=== PATIENT | female | born 1930 | race Caucasian/White ===

== ENCOUNTER → 2016-12-17 | Outpatient (CLI) | payer MEDICARE ==
[2016-12-17 09:22] VITALS: BMI 28.0
== END | disposition home or self-care (01) ==
LOC: MNTWWP 08:39
PROVIDERS: ATTEND Family Medicine
DX: I50.42 Chronic combined systolic (congestive) and diastolic (congestive) heart failure (principal)
CPT/HCPCS: 97802

== ENCOUNTER → 2016-12-18 | Outpatient (CLI) | payer MEDICARE ==
--- NOTE | 2016-12-18 10:25 | CT ---
EXAMINATION TYPE: CT abdomen wo con DATE OF EXAM: 12/18/2016 9:21 AM COMPARISON: None. HISTORY: bloating and upper abd discomfort CT DLP: 243.2 mGycm Automated exposure control for dose reduction was used. TECHNIQUE: Helical acquisition of images was performed from the lung bases through the top of iliac crest to include entire abdomen. CONTRAST: Performed without Oral Contrast and without IV contrast. FINDINGS: Visualized portions of the lungs are clear. There is no pleural or pericardial fluid. There is a pacemaker within the heart. The heart is enlarged. There is elevation of the right hemidiaphragm. Within the abdomen, the gallbladder is nondistended. There is pericholecystic fluid. The liver is enl arged measuring 20 cm. The spleen is unremarkable. Both adrenal glands appear normal. There is a 1.7 cm exophytic mass arising the upper pole of the left kidney. There is a second 2 cm ex ophytic mass arising from posterior aspect of the mid polar region of the left kidney. The right kidn ey appears unremarkable. Limited views of the pancreas are unremarkable. There is moderate atheromatous calcification of the visualized arterial tree. There is no significant retroperitoneal adenopathy. Large and small bowel loops appear normal. There is degenerative disc disease, facet arthropathy and hypertrophic spondylosis involving the spin e. IMPRESSION: 1. ABNORMAL APPEARING GALLBLADDER WITH PERICHOLECYSTIC FLUID IS SUGGESTIVE OF CHOLECYSTITIS. 2. CARDIOMEGALY. 3. ELEVATION OF THE RIGHT HEMIDIAPHRAGM MAY REFLECT PARALYSIS. 4. HEPATOMEGALY. 5. MULTIPLE LEFT RENAL MASSES. RENAL ULTRASOUND WOULD BE SUGGESTED. 6. DEGENERATIVE CHANGES WITHIN THE SPINE. A Document Only message has been documented for César Reich DO in the [employer] [facility] Result system on 12/18/2016 10:22 AM, Message ID [id number].
== END | disposition home or self-care (01) ==
LOC: RADCTMAIN 08:36
PROVIDERS: ATTEND Family Medicine
DX: N28.89 Other specified disorders of kidney and ureter (principal); J98.6 Disorders of diaphragm; R16.0 Hepatomegaly, not elsewhere classified; R93.2 Abnormal findings on diagnostic imaging of liver and biliary tract
CPT/HCPCS: 74150

== ENCOUNTER 2016-12-19 11:50 | Inpatient (IN) | payer MEDICARE ==
--- NOTE | 2016-12-19 13:53 | ED ---
General Adult HPI - General Chief complaint: Abdominal Pain Stated complaint: abd pain Time Seen by Provider: 12/19/16 13:00 Source: patient, family, RN notes reviewed Mode of arrival: wheelchair Limitations: no limitations - History of Present Illness Initial comments: This is a 86-year-old female who presents emergency department stating that every time she eats her abdomen gets distended and it is painful. Patient states she is a little more tender in the right upper quadrant when this occurs. Patient states his been ongoing since the middle of winter. Patient states today it was much worse than normal. Patient states currently she has no abdominal pain whatsoever. Patient states she went to see her primary medical care doctor today after having had a CAT scan yesterday. Patient states that the CAT scan showed that there was something wrong with her gallbladder. Patient's primary symptoms emergency room to be evaluated. Again patient states currently she has no abdominal pain. She has no nausea currently but she did have nausea earlier. Patient denies any vomiting or diarrhea. Patient states it is directly related to eating typically. Patient denies any chest pain difficulty breathing or shortness of breath. - Related Data Home Medications Medication Instructions Recorded Confirmed Aspirin EC [Ecotrin Low Dose] 81 mg PO DAILY 12/19/16 12/19/16 Atenolol 25 mg PO TID 12/19/16 12/19/16 Digoxin [Lanoxin] 250 mcg PO DAILY 12/19/16 12/19/16 Furosemide [Lasix] 20 mg PO DAILY 12/19/16 12/19/16 Losartan [Cozaar] 25 mg PO BID 12/19/16 12/19/16 Omeprazole 20 mg PO DAILY 12/19/16 12/19/16 Pravastatin Sodium [Pravachol] 10 mg PO DAILY 12/19/16 12/19/16 Spironolactone 25 mg PO DAILY 12/19/16 12/19/16 Warfarin [Coumadin] 4 mg PO DAILY 12/19/16 12/19/16 Allergies Allergy/AdvReac Type Severity Reaction Status Date / Time cefaclor [From Ceclor] Allergy Unknown Verified 12/19/16 14:06 celecoxib [From Celebrex] Allergy Unknown Verified 12/19/16 14:06 cephalexin [From Keflex] Allergy Unknown Verified 12/19/16 14:06 clindamycin [From Cleocin] Allergy Unknown Verified 12/19/16 14:06 cortisone Allergy Unknown Verified 12/19/16 14:06 diphenhydramine Allergy Unknown Verified 12/19/16 14:06 [From Benadryl] dolasetron [From Anzemet] Allergy Unknown Verified 12/19/16 14:06 enalaprilat [From Vasotec] Allergy Unknown Verified 12/19/16 14:06 hydrocortisone [From Cortef] Allergy Unknown Verified 12/19/16 14:06 hydromorphone [From Dilaudid] Allergy Unknown Verified 12/19/16 14:06 hydroxyzine [From Vistaril] Allergy Unknown Verified 12/19/16 14:06 ibuprofen [From Motrin] Allergy Unknown Verified 12/19/16 14:06 Iodinated Contrast Media - Allergy Unknown Verified 12/19/16 14:06 Oral and levofloxacin [From Levaquin] Allergy Unknown Verified 12/19/16 14:06 methylprednisolone Allergy Unknown Verified 12/19/16 14:06 [From Medrol] morphine Allergy Unknown Verified 12/19/16 14:06 oxycodone Allergy Unknown Verified 12/19/16 14:06 Penicillins Allergy Unknown Verified 12/19/16 14:06 prednisone Allergy Unknown Verified 12/19/16 14:06 promethazine [From Phenergan] Allergy Unknown Verified 12/19/16 14:06 shellfish derived [Shellfish] Allergy Unknown Verified 12/19/16 14:06 STEROIDS Allergy Unknown Uncoded 12/19/16 14:06 Review of Systems ROS Statement: Those systems with pertinent positive or pertinent negative responses have been documented in the HPI. ROS Other: All systems not noted in ROS Statement are negative. Past Medical History Past Medical History: Atrial Fibrillation, Coronary Artery Disease (CAD), Chest Pain / Angina, Heart Failure, Hypertension, Myocardial Infarction (ND), Osteoarthritis (OA) Additional Past Medical History / Comment(s): eye infections History of Any Multi-Drug Resistant Organisms: None Reported Past Surgical History: AICD, Hysterectomy, Joint Replacement, Orthopedic Surgery Past Psychological History: No Psychological Hx Reported Smoking Status: Former smoker Past Alcohol Use History: None Reported Past Drug Use History: None Reported General Exam - General Exam Comments Initial Comments: GENERAL: Patient is well-developed and well-nourished. Patient is nontoxic and well- hydrated and is in no acute distress. ENT: Neck is soft and supple. No significant lymphadenopathy is noted. Oropharynx is clear. Moist mucous membranes. Neck has full range of motion without eliciting any pain. EYES: The sclera were anicteric and conjunctiva were pink and moist. Extraocular movements were intact and pupils were equal round and reactive to light. Eyelids were unremarkable. PULMONARY: Unlabored respirations. Good breath sounds bilaterally. No audible rales rhonchi or wheezing was noted. CARDIOVASCULAR: There is a regular rate and rhythm without any murmurs gallops or rubs. ABDOMEN: Minimal right upper quadrant tenderness. No palpable organomegaly was noted. There is no palpable pulsatile mass. SKIN: Skin is clear with no lesions or rashes and otherwise unremarkable. NEUROLOGIC: Patient is alert and oriented x3. Cranial nerves II through XII are grossly intact. Motor and sensory are also intact. Normal speech, volume and content. Symmetrical smile. MUSCULOSKELETAL: Normal extremities with adequate strength and full range of motion. No lower extremity swelling or edema. No calf tenderness. LYMPHATICS: No significant lymphadenopathy is noted PSYCHIATRIC: Normal psychiatric evaluation. Normal interpersonal interactions appears functionally intact in deals appropriately with others. No signs of depression. No signs of anxiety. Limitations: no limitations Course Vital Signs 12/19/16 12/19/16 11:52 15:00 Temperature 97.8 F Pulse Rate 77 70 Respiratory 20 16 Rate Blood Pressure 120/77 139/73 O2 Sat by Pulse 97 99 Oximetry Medical Decision Making - Medical Decision Making EKG shows an electronically paced rhythm at 70 bpm QRS is 186 QT interval 472 QTC is 509. Ultrasound and CAT scan both saw evidence of possible acute cholecystitis. - Lab Data Result diagrams: 12/19/16 13:47 12/19/16 13:47 Lab Results 12/19/16 12/19/16 12/19/16 Range/Units 13:47 13:47 13:47 WBC 9.4 (3.8-10.6) k/uL RBC 5.09 (3.80-5.40) m/uL Hgb 15.8 (11.4-16.0) gm/dL Hct 46.4 H (34.0-46.0) % MCV 91.2 (80.0-100.0) fL MCH 31.1 (25.0-35.0) pg MCHC 34.1 (31.0-37.0) g/dL RDW 14.0 (11.5-15.5) % Plt Count 162 (150-450) k/uL Neutrophils % 75 % Lymphocytes % 16 % Monocytes % 7 % Eosinophils % 1 % Basophils % 0 % Neutrophils # 7.0 (1.3-7.7) k/uL Lymphocytes # 1.5 (1.0-4.8) k/uL Monocytes # 0.7 (0-1.0) k/uL Eosinophils # 0.1 (0-0.7) k/uL Basophils # 0.0 (0-0.2) k/uL Sodium 134 L (137-145) mmol/L Potassium 4.3 (3.5-5.1) mmol/L Chloride 92 L (98-107) mmol/L Carbon Dioxide 29 (22-30) mmol/L Anion Gap 13 mmol/L BUN 29 H (7-17) mg/dL Creatinine 1.01 (0.52-1.04) mg/dL Est GFR (MDRD) Af Amer >60 (>60 ml/min/1.73 sqM) Est GFR (MDRD) Non-Af 52 (>60 ml/min/1.73 sqM) Glucose 92 (74-99) mg/dL Plasma Lactic Acid Stuart (0.7-2.0) mmol/L Calcium 9.9 (8.4-10.2) mg/dL Total Bilirubin 1.5 H (0.2-1.3) mg/dL AST 41 H (14-36) U/L ALT 27 (9-52) U/L Alkaline Phosphatase 61 (38-126) U/L Total Creatine Kinase 153 H (30-135) U/L CK-MB (CK-2) 3.3 H* (0.0-2.4) ng/mL CK-MB (CK-2) Rel Index 2.2 Troponin I 0.078 H* (0.000-0.034) ng/mL Total Protein 7.8 (6.3-8.2) g/dL Albumin 4.8 (3.5-5.0) g/dL Amylase 83 (30-110) U/L Lipase 150 (23-300) U/L Urine Color Urine Appearance (Clear) Urine pH (5.0-8.0) Ur Specific [place] (1.001-1.035) Urine Protein (Negative) Urine Glucose (UA) (Negative) Urine Ketones (Negative) Urine Blood (Negative) Urine Nitrite (Negative) Urine Bilirubin (Negative) Urine Urobilinogen (<2.0) mg/dL Ur Leukocyte Esterase (Negative) Urine WBC (0-5) /hpf Ur Squamous Epith Cells (0-4) /hpf Urine Bacteria (None) /hpf 12/19/16 12/19/16 Range/Units 13:47 14:03 WBC (3.8-10.6) k/uL RBC (3.80-5.40) m/uL Hgb (11.4-16.0) gm/dL Hct (34.0-46.0) % MCV (80.0-100.0) fL MCH (25.0-35.0) pg MCHC (31.0-37.0) g/dL RDW (11.5-15.5) % Plt Count (150-450) k/uL Neutrophils % % Lymphocytes % % Monocytes % % Eosinophils % % Basophils % % Neutrophils # (1.3-7.7) k/uL Lymphocytes # (1.0-4.8) k/uL Monocytes # (0-1.0) k/uL Eosinophils # (0-0.7) k/uL Basophils # (0-0.2) k/uL Sodium (137-145) mmol/L Potassium (3.5-5.1) mmol/L Chloride (98-107) mmol/L Carbon Dioxide (22-30) mmol/L Anion Gap mmol/L BUN (7-17) mg/dL Creatinine (0.52-1.04) mg/dL Est GFR (MDRD) Af Amer (>60 ml/min/1.73 sqM) Est GFR (MDRD) Non-Af (>60 ml/min/1.73 sqM) Glucose (74-99) mg/dL Plasma Lactic Acid Stuart 1.1 (0.7-2.0) mmol/L Calcium (8.4-10.2) mg/dL Total Bilirubin (0.2-1.3) mg/dL AST (14-36) U/L ALT (9-52) U/L Alkaline Phosphatase (38-126) U/L Total Creatine Kinase (30-135) U/L CK-MB (CK-2) (0.0-2.4) ng/mL CK-MB (CK-2) Rel Index Troponin I (0.000-0.034) ng/mL Total Protein (6.3-8.2) g/dL Albumin (3.5-5.0) g/dL Amylase (30-110) U/L Lipase (23-300) U/L Urine Color Light Yellow Urine Appearance Clear (Clear) Urine pH 6.5 (5.0-8.0) Ur Specific [place] 1.004 (1.001-1.035) Urine Protein Trace H (Negative) Urine Glucose (UA) Negative (Negative) Urine Ketones Negative (Negative) Urine Blood Negative (Negative) Urine Nitrite Negative (Negative) Urine Bilirubin Negative (Negative) Urine Urobilinogen <2.0 (<2.0) mg/dL Ur Leukocyte Esterase Moderate H (Negative) Urine WBC 2 (0-5) /hpf Ur Squamous Epith Cells 4 (0-4) /hpf Urine Bacteria Rare H (None) /hpf Disposition Clinical Impression: Elevated troponin, Cholecystitis Disposition: ADMITTED IP TO THIS HOSP Referrals: César Reich DO [Primary Care Provider] - 1-2 days Time of Disposition: 15:45
[2016-12-19 14:03] LABS: Basophils % (A) 0 %; CH 30.6; CHCM 33.7; Eosinophils # (A) 0.1 k/uL (0-0.7); Eosinophils % (A) 1 %; HCT 46.4 % (34.0-46.0); HDW 2.37; HGB 15.8 gm/dL (11.4-16.0); Luc # (Auto) 0.12; Luc % (Auto) 1; Lymphocytes # (A) 1.5 k/uL (1.0-4.8); Lymphocytes % (A) 16 %; MCH 31.1 pg (25.0-35.0); MCHC 34.1 g/dL (31.0-37.0); MCV 91.2 fL (80.0-100.0); Mean Platelet Volume 7.6; Monocytes # (A) 0.7 k/uL (0-1.0); Monocytes % (A) 7 %; Neutrophils % (A) 75 %; RBC 5.09 m/uL (3.80-5.40); WBC 9.4 k/uL (3.8-10.6); WBC (Perox) 9.25
[2016-12-19 14:15] LABS: ALT 27 U/L (9-52); AST 41 U/L (14-36); Alkaline Phosphatase 61 U/L (38-126); Amylase 83 U/L (30-110); Anion Gap 13 mmol/L; Blood Urea Nitrogen 29 mg/dL (7-17); Calcium 9.9 mg/dL (8.4-10.2); Carbon Dioxide 29 mmol/L (22-30); Chloride 92 mmol/L (98-107); Glucose 92 mg/dL (74-99); Non-African American GFR(MDRD) 52 (>60 ml/min/1.73 sqM); Potassium 4.3 mmol/L (3.5-5.1); Sodium 134 mmol/L (137-145); Total Bilirubin 1.5 mg/dL (0.2-1.3); Total Protein 7.8 g/dL (6.3-8.2)
[2016-12-19 14:19] LABS: Appearance,Urine Clear (Clear); Bacteria,Urine Rare /hpf; Bilirubin,Urine Negative (Negative); Glucose,Urine (UA) Negative (Negative); Ketones,Urine Negative (Negative); Leukocyte Esterase,Urine Moderate (Negative); Nitrite,Urine Negative (Negative); PH, Urine 6.5 (5.0-8.0); Particle Count 5472; Protein,Urine Trace (Negative); Specific Gravity,Urine 1.004 (1.001-1.035); Squamous Epithelial Cell,Urine 4 /hpf (0-4); UA Billing (MACRO vs. MICRO) MICRO; Urobilinogen,Urine <2.0 mg/dL (<2.0); WBC,Urine 2 /hpf (0-5)
[2016-12-19 14:45] LABS: Creatine Kinase MB 3.3 ng/mL (0.0-2.4); Troponin I 0.078 ng/mL (0.000-0.034)
--- NOTE | 2016-12-19 15:21 | US ---
EXAMINATION TYPE: US gallbladder DATE OF EXAM: 12/19/2016 2:39 PM COMPARISON: CT CLINICAL HISTORY: Pain. ABD pain, abnormal CT EXAM MEASUREMENTS: Liver Length: 13.5 cm Gallbladder Wall: 1.0 cm CBD: 0.4 cm Right Kidney: 11.1 x 4.1 x 5.4 cm Pancreas: Pancreatic duct visible= 3mm, otherwise appeared wnl Liver: wnl Gallbladder: Lumen clear, Somewhat contracted, wall thickened with pericholecystic fluid Evidence for sonographic Canseco's sign: No CBD: wnl Right Kidney: wnl IMPRESSION: 1. Clinical correlation recommended for acute cholecystitis.
[2016-12-19] MEDS ORDERED: NITROGLYCERIN OINT 1 INCH/GM PACKET TOPICAL STA (15:35)
[2016-12-19] MEDS ORDERED: ASPIRIN 81 MG CHEW PO STA (15:35)
[2016-12-19] MEDS ORDERED: NITROGLYCERIN SL TABS 0.4 MG TAB SUBLINGUAL PRN (15:49)
[2016-12-19] MEDS ORDERED: ALPRAZolam 0.25 MG TAB PO PRN (17:22)
--- NOTE | 2016-12-19 18:21 | XR ---
EXAMINATION TYPE: XR chest 1V portable DATE OF EXAM: 12/19/2016 6:03 PM COMPARISON: 12/01/2013 HISTORY: Heart failure TECHNIQUE: Single frontal view of the chest is obtained. FINDINGS: Heart is enlarged. There is no heart failure. Lungs are clear of consolidation. There is a left axillary pacemaker with the lead tips in the right ventricle. There is no pleural effusion. IMPRESSION: Cardiomegaly. No active cardiopulmonary disease. No change.
[2016-12-19] MEDS: ATENOLOL 25 MG TAB PO SCH ×2 (18:34→22:24)
[2016-12-19] MEDS: PANTOPRAZOLE 40 MG/10 ML VIAL IVP SCH ×2 (18:34→22:20)
[2016-12-19] MEDS: NITROGLYCERIN OINT 1 INCH/GM PACKET TOPICAL SCH (18:35)
[2016-12-19] MEDS: TOBRAMYCIN 0.3% OPHTH DROPS 5 ML BTL BOTH EYES SCH ×2 (18:35→22:24)
[2016-12-19] MEDS: SODIUM CHLORIDE 0.9% 1,000 ML IV SCH (18:35)
[2016-12-19 20:08] LABS: INR 3.4 (<1.1); Prothrombin Time 32.9 sec (9.0-12.0)
[2016-12-19 20:56] LABS: Creatine Kinase MB 2.5 ng/mL (0.0-2.4); Troponin I 0.075 ng/mL (0.000-0.034)
[2016-12-19] MEDS: LOSARTAN 25 MG TAB PO SCH (22:24)
[2016-12-19] MEDS: LORazepam 0.5 MG TAB PO PRN (22:24)
--- NOTE | 2016-12-19 22:52 | HP ---
DATE OF SERVICE: 12/19/2016 CHIEF COMPLAINT: Abdominal pain. HISTORY OF PRESENT ILLNESS: This 86-year-old woman with a past history of atrial fibrillation, history of CAD, history of CHF, hypertension, history of myocardial infarction, history of DJD, history of AICD being followed by Dr. Reich as an outpatient recently came back from [place], [place], where the patient had multiple evaluations. Patient for the last 1 year almost, the patient has had recurrent abdominal pain, especially after eating, band-like sensation in the upper part of the abdomen. The patient was apparently seen by Cardiology. Diuretic dose has been adjusted at this time. After coming back to [place], Dr. Riech recommended a CT scan of the abdomen which showed abdominal pain and gallbladder with pericholecystic fluid suggestive of cholecystitis, cardiomegaly, elevated right hemidiaphragm, hepatomegaly, multiple left renal masses known to the patient. the patient came to [facility] today and admitted for further evaluation and treatment. The patient had features of acute cholecystitis on the ultrasound; however, the troponin was found to be indeterminate at to 0.07, yet the patient admitted for further evaluation and treatment. There is no history of any fever, rigors, chills. No history of headache, loss of consciousness, seizures. No history of chest pain per se at this time. PAST MEDICAL HISTORY: History of atrial fibrillation, history of CAD, history of CHF, history of hypertension, history of myocardial infarction, DJD, history of AICD, hysterectomy. Medications prior to admission include home medications are: 1. Tobramycin 3% eye drops both eyes q.4h. 2. Patanol 1 drop b.i.d. 4. Ecotrin 81 mg daily. 5. Coumadin 4 mg daily. 6. Aldactone 25 mg p.o. daily. 7. Pravachol 40 mg daily. 8. Cozaar 25 mg b.i.d. 9. Metoprolol 25 mg t.i.d. 10. Lasix 20 mg p.o. daily. 11. Lanoxin 250 mcg p.o. daily. ALLERGIES: MULTIPLE ALLERGIES. CEFACLOR, CEPHALEXIN, CLINDAMYCIN, CORTISONE, DIPHENHYDRAMINE, DOLASETRON, ENALAPRIL, HYDROCORTISONE, , IBUPROFEN, LEVAQUIN, METHYLPREDNISOLONE, MORPHINE, OXYCODONE, PENICILLIN AND PREDNISONE, , SHELLFISH, STEROIDS. FAMILY HISTORY: No history of heart disease, strokes in the family. SOCIAL HISTORY: Previous history of smoking. No history of current smoking or alcohol. REVIEW OF SYSTEMS: ENT: Diminished hearing. Diminished vision. CARDIOVASCULAR: As mentioned earlier. RESPIRATORY: As mentioned earlier. GI: As mentioned earlier. : No dysuria. NERVOUS: No numbness or weakness. ALLERGY/IMMUNOLOGY: No asthma. MUSCULOSKELETAL: As mentioned earlier. HEMATOLOGY/ONCOLOGY: As mentioned earlier. ENDOCRINE: No history of diabetes, hypothyroidism. CONSTITUTIONAL: As mentioned earlier. DERMATOLOGY: Negative. RHEUMATOLOGY: Negative. PSYCHIATRY: As mentioned earlier. PHYSICAL EXAM: Patient alert and oriented x3. Pulse is 70, 134/75, respirations 18, temperature 98.6, pulse ox of 90% on 3L. HEENT: Conjunctivae normal. Oral mucosa moist. NECK: No jugular venous distention. No carotid bruits. No lymph node enlargement. No thyroid enlargement. CARDIOVASCULAR SYSTEM: Irregular. RESPIRATORY: Breath sounds diminished in the bases. A few scattered rhonchi. No crackles. ABDOMEN: Soft. Mild diffuse discomfort and minimal tenderness in the right upper quadrant present and also the epigastrium. No guarding. No rigidity. No mass palpable. Bowel sounds present. No ascites. LEGS: No edema. No swelling. NERVOUS SYSTEM: Higher functions as mentioned earlier. Moves all 4 limbs. No focal motor or sensory deficits. LYMPHATIC: No lymphadenopathy in neck, axillae or groin. SKIN: No ulcer, rash or bleeding. LABS: CBC within normal limits. Sodium 134. Total bilirubin is 1.5, AST is 41. Troponin 0.78. UA noted. ASSESSMENT: 1. Abdominal pain, possible acute cholecystitis. 2. Troponin 0.078, indeterminate. 3. Possible urinary tract infection, mild. 4. Increased bilirubin. 5. Increased AST. 6. Hyponatremia. 7. History of atrial fibrillation. 8. History of coronary artery disease. 9. History of congestive heart failure, ejection fraction unknown. 10. History of hypertension, essential. 11. History of myocardial infarction. 12. History of degenerative joint disease. 13. History of automatic implantable cardioverter defibrillator. 14. Remote history of nicotine dependence. RECOMMENDATIONS AND DISCUSSION: In this 86-year-old woman who presented with multiple complex medical issues, we will monitor the patient closely. Continue the current medications. Continue with symptomatic treatment. Will obtain cardiology consultation. Will monitor. PT, INR closely. Hold the Coumadin for now. Surgical consultation for surgical evaluation of the possible cholecystitis. Prognosis extremely guarded because of multiple complex medical issues. The patient also has multiple allergies. Also will continue to monitor. Further recommendations to follow. Will obtain cultures and continue to monitor. As mentioned earlier, the white count is normal at this time. A copy of this dictation will be forwarded to Dr. Reich, who is the primary physician. AWILDA
[2016-12-20] MEDS: NITROGLYCERIN OINT 1 INCH/GM PACKET TOPICAL SCH ×5 (00:15→23:47)
[2016-12-20 02:12] LABS: Creatine Kinase MB 2.6 ng/mL (0.0-2.4); Troponin I 0.072 ng/mL (0.000-0.034)
[2016-12-20] MEDS: TOBRAMYCIN 0.3% OPHTH DROPS 5 ML BTL BOTH EYES SCH ×6 (04:19→20:59)
[2016-12-20 06:31] LABS: Basophils % (A) 0 %; CH 30.6; CHCM 34.3; Eosinophils # (A) 0.1 k/uL (0-0.7); Eosinophils % (A) 1 %; HCT 40.7 % (34.0-46.0); HDW 2.48; HGB 13.9 gm/dL (11.4-16.0); Luc # (Auto) 0.13; Luc % (Auto) 2; Lymphocytes # (A) 1.3 k/uL (1.0-4.8); Lymphocytes % (A) 16 %; MCH 30.6 pg (25.0-35.0); MCHC 34.1 g/dL (31.0-37.0); MCV 89.7 fL (80.0-100.0); Mean Platelet Volume 7.7; Monocytes # (A) 0.6 k/uL (0-1.0); Monocytes % (A) 7 %; Neutrophils # (A) 5.9 k/uL (1.3-7.7); Neutrophils % (A) 74 %; RBC 4.54 m/uL (3.80-5.40); RDW 13.9 % (11.5-15.5); WBC 7.9 k/uL (3.8-10.6); WBC (Perox) 7.72
[2016-12-20 06:37] LABS: INR 2.6 (<1.1); Prothrombin Time 25.3 sec (9.0-12.0)
[2016-12-20 06:41] LABS: Calcium 9.4 mg/dL (8.4-10.2); Potassium 4.4 mmol/L (3.5-5.1); Total Bilirubin 2.1 mg/dL (0.2-1.3); Total Protein 6.5 g/dL (6.3-8.2)
[2016-12-20 10:21] VITALS: BMI 28.8
--- NOTE | 2016-12-20 10:47 | US ---
EXAMINATION TYPE: US renals and bladder DATE OF EXAM: 12/20/2016 8:29 AM COMPARISON: CT dated 18 Dec 2016 CLINICAL HISTORY: renal mass. Left renal mass seen on recent CT EXAM MEASUREMENTS: Right Kidney: 10.3 x 4.7 x 6.1 cm Left Kidney: 10.1 x 4.9 x 4.2 cm Right Kidney: no hydronephrosis or masses seen at this time, inferior pole partially obscured by over lying bowel gas Left Kidney: multiple cystic areas throughout with largest 2 measured: 1.9 x 1.9 x 1.7cm superior patrizia e and 2.0 x 1.6 x 1.8cm mid pole Bladder: not fully distended, appears wnl as seen Bilateral Jets seen: yes There is no evidence for hydronephrosis at this point in time. No nephrolithiasis is seen. No adarsh s are identified. The urinary bladder is anechoic. Bilateral ureteral jets are seen. Cystic foci correspond to lesions seen on CT show increased through transmission and imperceptible wa ll compatible with simple cysts. IMPRESSION: Multiple cortical cysts appears simple within the left kidney.
--- NOTE | 2016-12-20 11:36 | P.CRDCN ---
<Deanna Goldsmith E - Last Filed: 12/20/16 11:10> History of Present Illness Consult date: 12/20/16 Requesting physician: Parvez Spencer Consult reason: chest pain Chief complaint: Abdominal pain, bloating, chest pains History of present illness: This is an 86-year-old female with history of paroxysmal atrial fibrillation, prior myocardial infarctions, prior AICD implantation, hypertension, who presents to the hospital primarily with symptoms of abdominal bloating. Patient states that when she ever she eats she gets significantly bloated in her abdomen. This ulcer, then belches several times, and seems to get relief of symptoms. She has also been experiencing midsternal chest pressure and heaviness with associated shortness of breath as well. In spite of the chest pressure, patient also states that she has been noticing more shortness of breath than usual. Bladder ultrasound performed on admission here suggested acute cholecystitis. EKG shows ventricular paced rhythm. Subsequent EKGs performed here show ventricular paced rhythm with significant ST depression in the anterior lateral leads. On review of patient's prior EKGs it is noted that she has had this ST depression in the anterior leads noted in the past. The EKGs performed here show the ST depression at times of chest pain. Renal ultrasound shows multiple cortical cyst at the left kidney. CBC normal, INR 2.6, potassium 4.4, BUN 27, creatinine 1.1. Troponin 0.078, 0.075, 0.072. Blood pressure on arrival 120/70 with a heart rate in the 70s, 97% on room air. Of note, the patient has been following with a coupling machine operator at [facility], she has an upcoming appointment to see Dr. Thomas in the office as a new patient. Past Medical History Past Medical History: Atrial Fibrillation, Coronary Artery Disease (CAD), Chest Pain / Angina, Heart Failure, GERD/Reflux, Hypertension, Myocardial Infarction ( [place]), Osteoarthritis (OA), Pneumonia Additional Past Medical History / Comment(s): recently treated for ruben eye bacterial infection, home o2 3 liters n/c, cardiomyopathy,"arrythmia", mi x4, v- tach 2008, osteoporosis, diverticultiis,hiatal hernia, anxiety , bone spurs lt shoulder Last Myocardial Infarction Date:: unk History of Any Multi-Drug Resistant Organisms: None Reported Past Surgical History: AICD, Heart Catheterization, Hysterectomy, Joint Replacement, Orthopedic Surgery, Pacemaker Additional Past Surgical History / Comment(s): sx to repair broken nose, d&c, ruben foot sx ruben bunionectomy, lt knee replacment, rt knee arthrosocpy. Past Anesthesia/Blood Transfusion Reactions: Motion Sickness, Postoperative Nausea & Vomiting (PONV) Type of Cardiac Device: Permanent Pacemaker, AICD Device Placement Date:: unk Past Psychological History: No Psychological Hx Reported Additional Psychological History / Comment(s): pt lives with spouse in a 2 story home that has 4 steps to get into home,10 steps up and 10 steps to basement where laundry facilities are. no pets.pt has home 02, shower chair, walker cane. Smoking Status: Former smoker Past Alcohol Use History: None Reported Additional Past Alcohol Use History / Comment(s): started smoking at age 19(1949 ) smoked 1ppd, quit 1964 Past Drug Use History: None Reported - Past Family History Mother Family Medical History: Cancer, Diabetes Mellitus Additional Family Medical History / Comment(s): uterine cancer Daughter(s) Family Medical History: Cancer Additional Family Medical History / Comment(s): ovarian cancer Father Additional Family Medical History / Comment(s): cardiac problems Medications and Allergies Home Medications Medication Instructions Recorded Confirmed Type Aspirin EC [Ecotrin Low Dose] 81 mg PO DAILY 12/19/16 12/19/16 History Atenolol 25 mg PO TID 12/19/16 12/19/16 History Digoxin [Lanoxin] 250 mcg PO DAILY 12/19/16 12/19/16 History Furosemide [Lasix] 20 mg PO DAILY 12/19/16 12/19/16 History LORazepam [Ativan] 1 mg PO HS 12/19/16 12/19/16 History Losartan [Cozaar] 25 mg PO BID 12/19/16 12/19/16 History Olopatadine HCl [Patanol] 1 drop OPHTHALMIC BID 12/19/16 12/19/16 History Omeprazole 20 mg PO DAILY 12/19/16 12/19/16 History Pravastatin Sodium [Pravachol] 10 mg PO DAILY 12/19/16 12/19/16 History Spironolactone 25 mg PO DAILY 12/19/16 12/19/16 History Tobramycin 0.3% Ophth Soln [Tobrex 1 drop BOTH EYES Q4H 12/19/16 12/19/16 History 0.3% Ophth Soln] Warfarin [Coumadin] 4 mg PO DAILY 12/19/16 12/19/16 History Allergies Allergy/AdvReac Type Severity Reaction Status Date / Time cefaclor [From Ceclor] Allergy Unknown Verified 12/19/16 14:06 celecoxib [From Celebrex] Allergy Unknown Verified 12/19/16 14:06 cephalexin [From Keflex] Allergy Unknown Verified 12/19/16 14:06 clindamycin [From Cleocin] Allergy Unknown Verified 12/19/16 14:06 cortisone Allergy Unknown Verified 12/19/16 14:06 diphenhydramine Allergy Unknown Verified 12/19/16 14:06 [From Benadryl] dolasetron [From Anzemet] Allergy Unknown Verified 12/19/16 14:06 enalaprilat [From Vasotec] Allergy Unknown Verified 12/19/16 14:06 hydrocortisone [From Cortef] Allergy Unknown Verified 12/19/16 14:06 hydromorphone [From Dilaudid] Allergy Unknown Verified 12/19/16 14:06 hydroxyzine [From Vistaril] Allergy Unknown Verified 12/19/16 14:06 ibuprofen [From Motrin] Allergy Unknown Verified 12/19/16 14:06 Iodinated Contrast Media - Allergy Unknown Verified 12/19/16 14:06 Oral and levofloxacin [From Levaquin] Allergy Unknown Verified 12/19/16 14:06 methylprednisolone Allergy Unknown Verified 12/19/16 14:06 [From Medrol] morphine Allergy Unknown Verified 12/19/16 14:06 oxycodone Allergy Unknown Verified 12/19/16 14:06 Penicillins Allergy Unknown Verified 12/19/16 14:06 prednisone Allergy Unknown Verified 12/19/16 14:06 promethazine [From Phenergan] Allergy Unknown Verified 12/19/16 14:06 shellfish derived [Shellfish] Allergy Unknown Verified 12/19/16 14:06 STEROIDS Allergy Unknown Uncoded 12/19/16 14:06 Physical Exam Vitals: Vital Signs Temp Pulse Pulse Resp BP BP BP 12/20/16 09:00 97.0 F L 74 18 124/92 12/20/16 04:00 97.8 F 71 18 120/76 12/20/16 00:00 97.6 F 80 18 118/73 12/19/16 20:00 97.4 F L 71 18 124/83 12/19/16 17:00 71 16 137/81 12/19/16 15:58 98.6 F 70 18 134/75 12/19/16 15:00 70 16 139/73 12/19/16 11:52 97.8 F 77 20 120/77 Pulse Ox 12/20/16 09:00 99 12/20/16 04:00 97 12/20/16 00:00 96 12/19/16 20:00 98 12/19/16 17:00 100 12/19/16 15:58 100 12/19/16 15:00 99 12/19/16 11:52 97 Intake and Output 12/19/16 12/20/16 12/20/16 22:59 06:59 14:59 Intake Total 100 440 0 Output Total 500 200 Balance 100 -60 -200 Intake: IV 40 Sodium Chloride 0.9% 1, 40 000 ml @ 40 mls/hr IV . Q24H [facility] Rx#:[id number] Intake, IV Titration 440 Amount Sodium Chloride 0.9% 1, 440 000 ml @ 40 mls/hr IV . Q24H [facility] Rx#:[id number] Oral 60 0 Output: Urine 500 200 Other: Voiding Method Toilet Toilet Toilet Weight 73.8 kg 73.8 kg Patient Weight 12/21/16 06:59 Weight 73.8 kg PHYSICAL EXAMINATION: HEENT: Head is atraumatic, normocephalic. Pupils equal, round. Neck is supple. There is no elevated jugular venous pressure. HEART EXAMINATION: Heart S1 and S2 irregularly irregular Systolic murmur is heard. CHEST EXAMINATION: Lungs are clear to auscultation and precussion. No chest wall tenderness is noted on palpation or with deep breathing. ABDOMEN: Soft, positive right upper quadrant tenderness on palpation . Bowel sounds are heard. No organomegaly noted. EXTREMITIES: 2+ peripheral pulses with no evidence of peripheral edema and no calf tenderness noted. NEUROLOGIC patient is awake, alert and oriented -3. . Results 12/20/16 05:34 12/20/16 05:34 Cardiac Enzymes 12/19/16 12/19/16 12/19/16 Range/Units 13:47 13:47 19:28 AST 41 H (14-36) U/L CK-MB (CK-2) 3.3 H* 2.5 H* (0.0-2.4) ng/mL Troponin I 0.078 H* 0.075 H* (0.000-0.034) ng/mL 12/20/16 12/20/16 Range/Units 01:26 05:34 AST 32 (14-36) U/L CK-MB (CK-2) 2.6 H* (0.0-2.4) ng/mL Troponin I 0.072 H* (0.000-0.034) ng/mL Coagulation 12/19/16 12/20/16 Range/Units 19:28 05:34 PT 32.9 H 25.3 H (9.0-12.0) sec Lipids 12/20/16 Range/Units 05:34 Triglycerides 73 (<150) mg/dL Cholesterol 108 (<200) mg/dL HDL Cholesterol 30 L (40-60) mg/dL CBC 12/19/16 12/20/16 Range/Units 13:47 05:34 WBC 9.4 7.9 (3.8-10.6) k/uL RBC 5.09 4.54 (3.80-5.40) m/uL Hgb 15.8 13.9 (11.4-16.0) gm/dL Hct 46.4 H 40.7 (34.0-46.0) % Plt Count 162 131 L (150-450) k/uL Comprehensive Metabolic Panel 12/19/16 12/20/16 Range/Units 13:47 05:34 Sodium 134 L 135 L (137-145) mmol/L Potassium 4.3 4.4 (3.5-5.1) mmol/L Chloride 92 L 91 L (98-107) mmol/L Carbon Dioxide 29 31 H (22-30) mmol/L BUN 29 H 27 H (7-17) mg/dL Creatinine 1.01 1.13 H (0.52-1.04) mg/dL Glucose 92 92 (74-99) mg/dL Calcium 9.9 9.4 (8.4-10.2) mg/dL AST 41 H 32 (14-36) U/L ALT 27 29 (9-52) U/L Alkaline Phosphatase 61 58 (38-126) U/L Total Protein 7.8 6.5 (6.3-8.2) g/dL Albumin 4.8 3.9 (3.5-5.0) g/dL Current Medications Generic Name Dose Route Start Last Admin Trade Name Freq PRN Reason Stop Dose Admin Alprazolam 0.25 mg 12/19/16 17:22 Xanax PO TID PRN Anxiety Aspirin 325 mg 12/20/16 09:00 Aspirin PO DAILY [facility] Atenolol 25 mg 12/19/16 17:30 12/19/16 22:24 Tenormin PO 25 mg TID [facility] Administration Digoxin 250 mcg 12/20/16 09:00 Lanoxin PO DAILY [facility] Furosemide 20 mg 12/20/16 09:00 Lasix PO DAILY [facility] Sodium Chloride 1,000 mls @ 40 mls/hr 12/19/16 17:30 12/19/16 18:35 Saline 0.9% IV 40 mls/hr .Q24H [facility] Administration Lorazepam 0.5 mg 12/19/16 17:45 12/19/16 22:24 Ativan PO 0.5 mg HS PRN Administration SLEEP Losartan Potassium 25 mg 12/19/16 21:00 12/19/16 22:24 Cozaar PO 25 mg BID [facility] Administration Nitroglycerin 1 inch 12/19/16 18:00 12/20/16 06:27 Nitro-Bid Oint TOPICAL Not Given Q6HR [facility] Nitroglycerin 0.4 mg 12/19/16 15:49 Nitrostat SUBLINGUAL Q5M PRN Chest Pain Pantoprazole Sodium 40 mg 12/19/16 17:23 12/19/16 22:20 Protonix IVP Not Given BID [facility] Spironolactone 25 mg 12/20/16 09:00 Aldactone PO DAILY [facility] Tobramycin 1 drops 12/19/16 18:00 12/20/16 06:51 Tobrex BOTH EYES 1 drops Q4H [facility] Administration Intake and Output 12/19/16 12/20/16 12/20/16 22:59 06:59 14:59 Intake Total 100 440 0 Output Total 500 200 Balance 100 -60 -200 Intake: IV 40 Sodium Chloride 0.9% 1, 40 000 ml @ 40 mls/hr IV . Q24H [facility] Rx#:[id number] Intake, IV Titration 440 Amount Sodium Chloride 0.9% 1, 440 000 ml @ 40 mls/hr IV . Q24H [facility] Rx#:[id number] Oral 60 0 Output: Urine 500 200 Other: Voiding Method Toilet Toilet Toilet Weight 73.8 kg 73.8 kg Patient Weight 12/21/16 06:59 Weight 73.8 kg 12/20/16 05:34 12/20/16 05:34 EKG Interpretations (text) EKG shows a ventricular paced rhythm with underlying atrial fibrillation. Repeat EKG at time of chest pain shows ventricular paced rhythm with significant anterior lateral ST depression Assessment and Plan Plan: Assessment and plan #1 Symptoms of midsternal chest pressure with associated shortness of breath. Abnormal troponins. EKG shows ventricular paced rhythm with anterior lateral ST depression. Patient does state that she has had for myocardial infarction's in the past, this reminds her of her MIs in the past. She also states that she has not required intervention in the form of angioplasty. Most recent cardiac catheterization was performed last fall at [facility]. #2 AICD #3 hypertension #4 hyperlipidemia #5 abdominal pain with bloating, computed tomography scan suggests possible acute cholecystitis total bilirubin 2.1, AST 32, ALT 29. #6 paroxysmal atrial fibrillation, on Coumadin for anticoagulation, INR 2.6. Plan We will obtain reports of patients prior procedures from Dr. Reich in the office. Obtain echocardiogram with Doppler study. Decrease aspirin 81 mg daily , continue Nitropaste. Further recommendations to follow. DNP note has been reviewed, I agree with a documented findings and plan of care. Patient was seen and examined. <Simone Borden - Last Filed: 12/20/16 12:14> Physical Exam Vitals: Vital Signs Temp Pulse Pulse Resp BP BP BP 12/20/16 09:00 97.0 F L 74 18 124/92 12/20/16 04:00 97.8 F 71 18 120/76 12/20/16 00:00 97.6 F 80 18 118/73 12/19/16 20:00 97.4 F L 71 18 124/83 12/19/16 17:00 71 16 137/81 12/19/16 15:58 98.6 F 70 18 134/75 12/19/16 15:00 70 16 139/73 Pulse Ox 12/20/16 09:00 99 12/20/16 04:00 97 12/20/16 00:00 96 12/19/16 20:00 98 12/19/16 17:00 100 12/19/16 15:58 100 12/19/16 15:00 99 Intake and Output 12/19/16 12/20/16 12/20/16 22:59 06:59 14:59 Intake Total 100 440 0 Output Total 500 200 Balance 100 -60 -200 Intake: IV 40 Sodium Chloride 0.9% 1, 40 000 ml @ 40 mls/hr IV . Q24H [facility] Rx#:[id number] Intake, IV Titration 440 Amount Sodium Chloride 0.9% 1, 440 000 ml @ 40 mls/hr IV . Q24H [facility] Rx#:[id number] Oral 60 0 Output: Urine 500 200 Other: Voiding Method Toilet Toilet Toilet Weight 73.8 kg 73.8 kg Patient Weight 12/21/16 06:59 Weight 73.8 kg Results 12/20/16 05:34 12/20/16 05:34 Cardiac Enzymes 12/19/16 12/19/16 12/19/16 Range/Units 13:47 13:47 19:28 AST 41 H (14-36) U/L CK-MB (CK-2) 3.3 H* 2.5 H* (0.0-2.4) ng/mL Troponin I 0.078 H* 0.075 H* (0.000-0.034) ng/mL 12/20/16 12/20/16 Range/Units 01:26 05:34 AST 32 (14-36) U/L CK-MB (CK-2) 2.6 H* (0.0-2.4) ng/mL Troponin I 0.072 H* (0.000-0.034) ng/mL Coagulation 12/19/16 12/20/16 Range/Units 19:28 05:34 PT 32.9 H 25.3 H (9.0-12.0) sec Lipids 12/20/16 Range/Units 05:34 Triglycerides 73 (<150) mg/dL Cholesterol 108 (<200) mg/dL HDL Cholesterol 30 L (40-60) mg/dL CBC 12/19/16 12/20/16 Range/Units 13:47 05:34 WBC 9.4 7.9 (3.8-10.6) k/uL RBC 5.09 4.54 (3.80-5.40) m/uL Hgb 15.8 13.9 (11.4-16.0) gm/dL Hct 46.4 H 40.7 (34.0-46.0) % Plt Count 162 131 L (150-450) k/uL Comprehensive Metabolic Panel 12/19/16 12/20/16 Range/Units 13:47 05:34 Sodium 134 L 135 L (137-145) mmol/L Potassium 4.3 4.4 (3.5-5.1) mmol/L Chloride 92 L 91 L (98-107) mmol/L Carbon Dioxide 29 31 H (22-30) mmol/L BUN 29 H 27 H (7-17) mg/dL Creatinine 1.01 1.13 H (0.52-1.04) mg/dL Glucose 92 92 (74-99) mg/dL Calcium 9.9 9.4 (8.4-10.2) mg/dL AST 41 H 32 (14-36) U/L ALT 27 29 (9-52) U/L Alkaline Phosphatase 61 58 (38-126) U/L Total Protein 7.8 6.5 (6.3-8.2) g/dL Albumin 4.8 3.9 (3.5-5.0) g/dL Current Medications Generic Name Dose Route Start Last Admin Trade Name Freq PRN Reason Stop Dose Admin Alprazolam 0.25 mg 12/19/16 17:22 Xanax PO TID PRN Anxiety Aspirin 325 mg 12/20/16 09:00 Aspirin PO DAILY [facility] Atenolol 25 mg 12/19/16 17:30 12/19/16 22:24 Tenormin PO 25 mg TID [facility] Administration Digoxin 250 mcg 12/20/16 09:00 Lanoxin PO DAILY [facility] Furosemide 20 mg 12/20/16 09:00 Lasix PO DAILY [facility] Sodium Chloride 1,000 mls @ 40 mls/hr 12/19/16 17:30 12/19/16 18:35 Saline 0.9% IV 40 mls/hr .Q24H [facility] Administration Lorazepam 0.5 mg 12/19/16 17:45 12/19/16 22:24 Ativan PO 0.5 mg HS PRN Administration SLEEP Losartan Potassium 25 mg 12/19/16 21:00 12/19/16 22:24 Cozaar PO 25 mg BID [facility] Administration Nitroglycerin 1 inch 12/19/16 18:00 12/20/16 06:27 Nitro-Bid Oint TOPICAL Not Given Q6HR [facility] Nitroglycerin 0.4 mg 12/19/16 15:49 Nitrostat SUBLINGUAL Q5M PRN Chest Pain Pantoprazole Sodium 40 mg 12/19/16 17:23 12/19/16 22:20 Protonix IVP Not Given BID [facility] Spironolactone 25 mg 12/20/16 09:00 Aldactone PO DAILY [facility] Tobramycin 1 drops 12/19/16 18:00 12/20/16 06:51 Tobrex BOTH EYES 1 drops Q4H [facility] Administration Intake and Output 12/19/16 12/20/16 12/20/16 22:59 06:59 14:59 Intake Total 100 440 0 Output Total 500 200 Balance 100 -60 -200 Intake: IV 40 Sodium Chloride 0.9% 1, 40 000 ml @ 40 mls/hr IV . Q24H [facility] Rx#:[id number] Intake, IV Titration 440 Amount Sodium Chloride 0.9% 1, 440 000 ml @ 40 mls/hr IV . Q24H [facility] Rx#:[id number] Oral 60 0 Output: Urine 500 200 Other: Voiding Method Toilet Toilet Toilet Weight 73.8 kg 73.8 kg Patient Weight 12/21/16 06:59 Weight 73.8 kg 12/20/16 05:34 12/20/16 05:34
--- NOTE | 2016-12-20 12:14 | P.PN ---
Progress Note - Text Patient interviewed and examined. Please see Dr. adan consultation Elderly female presenting with abdominal symptoms and I'll 16 some chest discomfort troponins are borderline abnormal known rising trend. ECG shows significant ST depression in the inferolateral leads which is quite impressive. However when comparing these ECGs to those from 2009 the EKG changes are exactly the same . Summary I had seen this lady in 2007. I had documented wide complex tachycardia at 184 beats a minute on telemetry and admit some recommendations. Subsequently a LifeVest was placed. She had an angiogram performed by Dr. CARLTON [place], normal coronary arteries. Subsequently an EP study was performed by me which showed easily inducible ventricular tachycardia either from the right ventricle or exiting into the right ventricle from the septum and I had recommended a cardiac MRI She now has an ICD. She follows with a [facility] group History of noncompliance Currently EF severely reduced She had a coronary angiogram at [facility] several months back and was told that was normal. I'm waiting for the final report She may have gallstone disease Clinically she does not have heart failure If her coronary arteries are within normal limits and she needs surgery she may proceed with surgery, a magnetic placed over the defibrillator cardiac medications will be continued rate maximize heart failure medications. She plans to follow-up with Dr. Thomas. She already has an appointment
--- NOTE | 2016-12-20 15:11 | PN ---
DATE OF SERVICE: 12/20/2016 This 86-year-old woman admitted with abdominal pain and possible acute cholecystitis also has a complicated cardiac history; however, the patient had a cardiac catheterization last year at [facility], apparently not showing any occlusive disease, according to the patient. Official reports are not available at this time. Patient is followed by Cardiology and Surgery, also. The patient still complains of abdominal pain and some nausea, also. Creatinine is 1.13. Troponin 0.072. Past medical history reviewed. REVIEW OF SYSTEMS: CARDIOVASCULAR SYSTEM: As mentioned earlier. RESPIRATORY SYSTEM: As mentioned earlier. GI: As mentioned earlier. : No dysuria, retention. NERVOUS SYSTEM: No numbness or weakness. Current medications are reviewed and include: 1. Xanax 0.25 t.i.d. 2. Aspirin 325 mg daily. 3. Tenormin 25 mg p.o. t.i.d. 4. Lanoxin 0.25 mg p.o. daily. 5. Lasix 20 mg. 6. Ativan 0.5 mg at bedtime p.r.n. 7. Cozaar 25 mg p.o. b.i.d. 8. Nitrostat 0.4 sublingually p.r.n. 9. Nitro-Bid ointment 1 inch q.6. 10. Protonix 40 mg b.i.d. 11. Aldactone 25 mg daily. 12. Tobrex 1 drop both eyes q.4 p.r.n. PHYSICAL EXAMINATION: Patient is alert and oriented x3. Pulse 74, blood pressure 124/92, respiration 18, temperature 97 degrees, pulse ox 99% on 3 L. HEENT: Conjunctivae normal. NECK: No jugular venous distention. CARDIOVASCULAR SYSTEM: S1, S2 muffled. RESPIRATORY SYSTEM: Breath sounds diminished at the bases. A few scattered rhonchi and crackles. ABDOMEN: Soft, non-tender. No mass palpable. LEGS: No edema. No swelling. NERVOUS SYSTEM: Higher functions as mentioned earlier. Moves all 4 limbs. No focal motor or sensory deficit. LYMPHATICS: No lymph node palpable in neck, axillae or groin. SKIN: No ulcer, rash, bleeding. LABS: WBC 7.9, hemoglobin 13.9, platelets 131. INR is 2.6. Sodium 135, potassium 4.4. Creatinine is 1.13. HDL is 30. ASSESSMENT: 1. Abdominal pain, possibly acute cholecystitis. 2. Troponin 0.07, indeterminate. 3. Possible mild urinary tract infection. 4. Increased bilirubin. 5. Increased AST. 6. Hyponatremia. 7. History of atrial fibrillation, chronic, intermittent. 8. History of coronary artery disease. 9. History of congestive heart failure; ejection fraction unknown. 10. History of hypertension, essential. 11. History of myocardial infarction. 12. History of degenerative joint disease. 13. History of automatic implantable cardioverter defibrillator. 14. Remote history of nicotine dependence. 15. FULL CODE. RECOMMENDATIONS AND DISCUSSION: In this 86-year-old woman who presented with multiple complex medical issues, we will monitor the patient closely, continue the current medications, continue with symptomatic treatment. Otherwise, at this time I would recommend close followup. Will await surgical evaluation. Prognosis guarded, but the patient is currently medically stable for any surgical procedure. The patient may carry some extra risk because of the complex medical issues associated.
--- NOTE | 2016-12-20 15:26 | P.GSCN ---
History of Present Illness Consult date: 12/20/16 Reason for Consult: Abdominal pain Requesting physician: Sherman Villagran History of present illness: Patient is an 86-year-old female sent into the emergency department by her primary care physician with chief complaint of abdominal pain. Patient states that over the last couple months she's had increased abdominal pain and distention after she eats associated with belching. Patient describes pain is mostly epigastric. No history of fevers, chills, nausea, or vomiting. CT of abdomen and pelvis obtained on 12/18/2016 with evidence of abnormal appearing gallbladder with pericholecystic fluid. Ultrasound of gallbladder on admission with evidence of a somewhat contracted gallbladder with wall thickening with pericholecystic fluid. Lumen clear. Upon exam, patient has no abdominal pain. Denies chills, fevers, nausea, vomiting, shortness of breath, diarrhea constipation. Patient reports that her last colonoscopy many years ago was normal that she can recall. Patient has a history of GERD in the past but states she no longer has any problems with that. Past Medical History Past Medical History: Atrial Fibrillation, Coronary Artery Disease (CAD), Chest Pain / Angina, Heart Failure, GERD/Reflux, Hypertension, Myocardial Infarction ( [place]), Osteoarthritis (OA), Pneumonia Additional Past Medical History / Comment(s): recently treated for ruben eye bacterial infection, home o2 3 liters n/c, cardiomyopathy,"arrythmia", mi x4, v- tach 2007, osteoporosis, diverticultiis,hiatal hernia, anxiety , bone spurs lt shoulder Last Myocardial Infarction Date:: unk History of Any Multi-Drug Resistant Organisms: None Reported Past Surgical History: AICD, Heart Catheterization, Hysterectomy, Joint Replacement, Orthopedic Surgery, Pacemaker Additional Past Surgical History / Comment(s): sx to repair broken nose, d&c, ruben foot sx ruben bunionectomy, lt knee replacment, rt knee arthrosocpy. Past Anesthesia/Blood Transfusion Reactions: Motion Sickness, Postoperative Nausea & Vomiting (PONV) Type of Cardiac Device: Permanent Pacemaker, AICD Device Placement Date:: unk Past Psychological History: No Psychological Hx Reported Additional Psychological History / Comment(s): pt lives with spouse in a 2 story home that has 4 steps to get into home,10 steps up and 10 steps to basement where laundry facilities are. no pets.pt has home 02, shower chair, walker cane. Smoking Status: Former smoker Past Alcohol Use History: None Reported Additional Past Alcohol Use History / Comment(s): started smoking at age 19(1949 ) smoked 1ppd, quit 1964 Past Drug Use History: None Reported - Past Family History Mother Family Medical History: Cancer, Diabetes Mellitus Additional Family Medical History / Comment(s): uterine cancer Daughter(s) Family Medical History: Cancer Additional Family Medical History / Comment(s): ovarian cancer Father Additional Family Medical History / Comment(s): cardiac problems Medications and Allergies Home Medications Medication Instructions Recorded Confirmed Type Aspirin EC [Ecotrin Low Dose] 81 mg PO DAILY 12/19/16 12/19/16 History Atenolol 25 mg PO TID 12/19/16 12/19/16 History Digoxin [Lanoxin] 250 mcg PO DAILY 12/19/16 12/19/16 History Furosemide [Lasix] 20 mg PO DAILY 12/19/16 12/19/16 History LORazepam [Ativan] 1 mg PO HS 12/19/16 12/19/16 History Losartan [Cozaar] 25 mg PO BID 12/19/16 12/19/16 History Olopatadine HCl [Patanol] 1 drop OPHTHALMIC BID 12/19/16 12/19/16 History Omeprazole 20 mg PO DAILY 12/19/16 12/19/16 History Pravastatin Sodium [Pravachol] 10 mg PO DAILY 12/19/16 12/19/16 History Spironolactone 25 mg PO DAILY 12/19/16 12/19/16 History Tobramycin 0.3% Ophth Soln [Tobrex 1 drop BOTH EYES Q4H 12/19/16 12/19/16 History 0.3% Ophth Soln] Warfarin [Coumadin] 4 mg PO DAILY 12/19/16 12/19/16 History Allergies Allergy/AdvReac Type Severity Reaction Status Date / Time cefaclor [From Ceclor] Allergy Unknown Verified 12/19/16 14:06 celecoxib [From Celebrex] Allergy Unknown Verified 12/19/16 14:06 cephalexin [From Keflex] Allergy Unknown Verified 12/19/16 14:06 clindamycin [From Cleocin] Allergy Unknown Verified 12/19/16 14:06 cortisone Allergy Unknown Verified 12/19/16 14:06 diphenhydramine Allergy Unknown Verified 12/19/16 14:06 [From Benadryl] dolasetron [From Anzemet] Allergy Unknown Verified 12/19/16 14:06 enalaprilat [From Vasotec] Allergy Unknown Verified 12/19/16 14:06 hydrocortisone [From Cortef] Allergy Unknown Verified 12/19/16 14:06 hydromorphone [From Dilaudid] Allergy Unknown Verified 12/19/16 14:06 hydroxyzine [From Vistaril] Allergy Unknown Verified 12/19/16 14:06 ibuprofen [From Motrin] Allergy Unknown Verified 12/19/16 14:06 Iodinated Contrast Media - Allergy Unknown Verified 12/19/16 14:06 Oral and levofloxacin [From Levaquin] Allergy Unknown Verified 12/19/16 14:06 methylprednisolone Allergy Unknown Verified 12/19/16 14:06 [From Medrol] morphine Allergy Unknown Verified 12/19/16 14:06 oxycodone Allergy Unknown Verified 12/19/16 14:06 Penicillins Allergy Unknown Verified 12/19/16 14:06 prednisone Allergy Unknown Verified 12/19/16 14:06 promethazine [From Phenergan] Allergy Unknown Verified 12/19/16 14:06 shellfish derived [Shellfish] Allergy Unknown Verified 12/19/16 14:06 STEROIDS Allergy Unknown Uncoded 12/19/16 14:06 Surgical - Exam Vital Signs Temp Pulse Resp BP Pulse Ox 97.8 F 77 20 120/77 97 12/19/16 11:52 12/19/16 11:52 12/19/16 11:52 12/19/16 11:52 12/19/16 11:52 GENERAL: Pt awake and alert, well-appearing, well-nourished, and in no acute distress. LUNGS: Breath sounds clear to auscultation bilaterally. No wheezes, rales, or rhonchi. HEART: Heart S1, S2, no S3 or S4. Regular rate and rhythm. No murmurs, rubs or gallops. ABDOMEN: Soft, nontender, nondistended, normoactive bowel sounds. No guarding, no rebound. No masses or organomegaly appreciated. NEUROLOGICAL: Pt oriented x 3. Results - Labs 12/20/16 05:34 12/20/16 05:34 Abnormal Lab Results - Last 24 Hours (Table) 12/19/16 12/19/16 12/20/16 Range/Units 19:28 19:28 01:26 Plt Count (150-450) k/uL PT 32.9 H (9.0-12.0) sec Sodium (137-145) mmol/L Chloride (98-107) mmol/L Carbon Dioxide (22-30) mmol/L BUN (7-17) mg/dL Creatinine (0.52-1.04) mg/dL Total Bilirubin (0.2-1.3) mg/dL Total Creatine Kinase 140 H (30-135) U/L CK-MB (CK-2) 2.5 H* 2.6 H* (0.0-2.4) ng/mL Troponin I 0.075 H* 0.072 H* (0.000-0.034) ng/mL HDL Cholesterol (40-60) mg/dL 12/20/16 12/20/16 12/20/16 Range/Units 05:34 05:34 05:34 Plt Count 131 L (150-450) k/uL PT 25.3 H (9.0-12.0) sec Sodium 135 L (137-145) mmol/L Chloride 91 L (98-107) mmol/L Carbon Dioxide 31 H (22-30) mmol/L BUN 27 H (7-17) mg/dL Creatinine 1.13 H (0.52-1.04) mg/dL Total Bilirubin 2.1 H (0.2-1.3) mg/dL Total Creatine Kinase (30-135) U/L CK-MB (CK-2) (0.0-2.4) ng/mL Troponin I (0.000-0.034) ng/mL HDL Cholesterol 30 L (40-60) mg/dL Microbiology - Last 24 Hours (Table) 12/19/16 22:15 Urine Culture - Preliminary Urine,Clean Catch Diabetes panel 12/20/16 Range/Units 05:34 Sodium 135 L (137-145) mmol/L Potassium 4.4 (3.5-5.1) mmol/L Chloride 91 L (98-107) mmol/L Carbon Dioxide 31 H (22-30) mmol/L BUN 27 H (7-17) mg/dL Creatinine 1.13 H (0.52-1.04) mg/dL Glucose 92 (74-99) mg/dL Calcium 9.4 (8.4-10.2) mg/dL AST 32 (14-36) U/L ALT 29 (9-52) U/L Alkaline Phosphatase 58 (38-126) U/L Total Protein 6.5 (6.3-8.2) g/dL Albumin 3.9 (3.5-5.0) g/dL Triglycerides 73 (<150) mg/dL HDL Cholesterol 30 L (40-60) mg/dL Calcium panel 12/20/16 Range/Units 05:34 Calcium 9.4 (8.4-10.2) mg/dL Albumin 3.9 (3.5-5.0) g/dL Pituitary panel 12/20/16 Range/Units 05:34 Sodium 135 L (137-145) mmol/L Potassium 4.4 (3.5-5.1) mmol/L Chloride 91 L (98-107) mmol/L Carbon Dioxide 31 H (22-30) mmol/L BUN 27 H (7-17) mg/dL Creatinine 1.13 H (0.52-1.04) mg/dL Glucose 92 (74-99) mg/dL Calcium 9.4 (8.4-10.2) mg/dL Adrenal panel 12/20/16 Range/Units 05:34 Sodium 135 L (137-145) mmol/L Potassium 4.4 (3.5-5.1) mmol/L Chloride 91 L (98-107) mmol/L Carbon Dioxide 31 H (22-30) mmol/L BUN 27 H (7-17) mg/dL Creatinine 1.13 H (0.52-1.04) mg/dL Glucose 92 (74-99) mg/dL Calcium 9.4 (8.4-10.2) mg/dL Total Bilirubin 2.1 H (0.2-1.3) mg/dL AST 32 (14-36) U/L ALT 29 (9-52) U/L Alkaline Phosphatase 58 (38-126) U/L Total Protein 6.5 (6.3-8.2) g/dL Albumin 3.9 (3.5-5.0) g/dL - Imaging CT scan - abdomen: report reviewed CT scan - pelvis: report reviewed US - abdomen: report reviewed Assessment and Plan Plan: Impression: 1. Chronic cholecystitis. Plan: Patient will follow-up with Dr. Mars in the outpatient and will be evaluated for possible laparoscopic cholecystectomy. The above impression and plan have been discussed and directed by Dr. Mars. Rah GORMAN acting as scribe for Dr. Mars.
--- NOTE | 2016-12-20 15:43 | ECHOF ---
Referral Reason:chest pain MEASUREMENTS -------- HEIGHT: 160.0 cm WEIGHT: 73.5 kg BP: 124/92 RVIDd: 3.5 cm (< 3.3) IVSd: 0.7 cm (0.6 - 1.1) LVIDd: 6.1 cm (3.9 - 5.3) LVPWd: 0.9 cm (0.6 - 1.1) IVSs: 0.7 cm LVIDs: 6.1 cm LVPWs: 1.1 cm LAESV Index (A-L): 73.79 ml/m IVSd: 0.7 cm (0.6 - 1.1) LVIDd: 5.9 cm (3.9 - 5.3) LVPWd: 1.1 cm (0.6 - 1.1) IVSs: 0.7 cm LVIDs: 5.6 cm LVPWs: 1.8 cm EDV(Teich): 176 ml ESV(Teich): 153 ml EF(Teich): 13 % %FS: 6 % SV(Teich): 23 ml Ao Diam: 3.2 cm (2.0 - 3.7) AV Cusp: 1.7 cm (1.5 - 2.6) LA Diam: 5.5 cm (2.7 - 3.8) MV EXCURSION: 13.189 mm (> 18.000) MV EF SLOPE: 80 mm/s (70 - 150) EPSS: 1.9 cm MV E Lenard: 0.81 m/s MV DecT: 236 ms MV A Lenard: 0.36 m/s MV E/A Ratio: 2.25 RAP: 5.00 mmHg RVSP: 35.68 mmHg FINDINGS -------- Sinus rhythm with extra systolic beats. This was a technically adequate study. The left ventricle is severely dilated. Left ventricular wall thickness is decreased. Overall left ventricular systolic function is severely impaired with, an EF < 20%. Mitral Doppler inflow pattern suggests diastolic filling abnormality 18.51. The right ventricular systolic function is mildly impaired. Moderator band is visualized in the right ventricular apex. LA is severely dilated >40 ml/m2 Severe bi-atrial enlargement. Aortic valve is trileaflet and is mildly thickened. There is no evidence of aortic regurgitation. There is no evidence of aortic stenosis. The mitral valve leaflets are mildly thickened. Severe mitral annular calcification present. There is trace mitral regurgitation. Trace tricuspid regurgitation present. There is mild pulmonary hypertension. The right ventricular systolic pressure, as measured by Doppler, is 35.68mmHg. The pulmonic valve was not well visualized. The aortic root size is normal. The inferior vena cava is dilated with poor inspiratory collapse which is consistent with estimated right atrial pressure of 20 mmHg. The pericardium is normal. There is no pericardial effusion. CONCLUSIONS -------- 1. Sinus rhythm with extra systolic beats. 2. The mitral valve leaflets are mildly thickened. 3. Severe mitral annular calcification present. 4. There is trace mitral regurgitation. 5. Trace tricuspid regurgitation present. 6. There is mild pulmonary hypertension. 7. The right ventricular systolic pressure, as measured by Doppler, is 35.68mmHg. 8. The pulmonic valve was not well visualized. 9. The aortic root size is normal. 10. The inferior vena cava is dilated with poor inspiratory collapse which is consistent with estimated right atrial pressure of 20 mmHg. 11. There is no pericardial effusion. 12. The left ventricle is severely dilated. 13. Left ventricular wall thickness is decreased. 14. Overall left ventricular systolic function is severely impaired with, an EF < 20%. 15. The right ventricular systolic function is mildly impaired. 16. Moderator band is visualized in the right ventricular apex. 17. LA is severely dilated >40 ml/m2 18. Severe bi-atrial enlargement. 19. Aortic valve is trileaflet and is mildly thickened. [employer] MANAGER: Jhonny Valerio RDCS
[2016-12-20] MEDS: ATENOLOL 25 MG TAB PO SCH ×3 (17:29→20:10)
[2016-12-20] MEDS: LOSARTAN 25 MG TAB PO SCH ×2 (17:31→20:10)
[2016-12-20] MEDS: FUROSEMIDE 20 MG TAB PO SCH (17:32)
[2016-12-20] MEDS: PANTOPRAZOLE 40 MG/10 ML VIAL IVP SCH ×2 (17:32→20:09)
[2016-12-20] MEDS: SPIRONOLACTONE 25 MG TAB PO SCH (17:32)
[2016-12-20] MEDS: DIGOXIN 250 MCG TAB PO SCH (17:32)
[2016-12-20] MEDS: SODIUM CHLORIDE 0.9% 1,000 ML IV SCH (17:41)
[2016-12-20] MEDS: ASPIRIN 325 MG TAB PO SCH (18:54)
[2016-12-20] MEDS ORDERED: ACETAMINOPHEN TAB 325 MG TAB PO PRN (20:08)
[2016-12-21] MEDS: LORazepam 0.5 MG TAB PO PRN ×2 (00:15→23:27)
[2016-12-21] MEDS: TOBRAMYCIN 0.3% OPHTH DROPS 5 ML BTL BOTH EYES SCH ×6 (03:03→23:27)
[2016-12-21 05:57] LABS: Basophils % (A) 1 %; CH 30.2; CHCM 33.1; Eosinophils # (A) 0.1 k/uL (0-0.7); Eosinophils % (A) 1 %; HCT 44.1 % (34.0-46.0); HDW 2.35; HGB 14.8 gm/dL (11.4-16.0); Luc # (Auto) 0.13; Luc % (Auto) 2; Lymphocytes # (A) 1.3 k/uL (1.0-4.8); Lymphocytes % (A) 19 %; MCH 30.7 pg (25.0-35.0); MCHC 33.5 g/dL (31.0-37.0); MCV 91.6 fL (80.0-100.0); Mean Platelet Volume 7.5; Monocytes # (A) 0.5 k/uL (0-1.0); Monocytes % (A) 7 %; Neutrophils # (A) 4.9 k/uL (1.3-7.7); Neutrophils % (A) 70 %; RBC 4.81 m/uL (3.80-5.40); RDW 14.1 % (11.5-15.5); WBC (Perox) 7.13
[2016-12-21 06:01] LABS: INR 2.6 (<1.1); Prothrombin Time 24.8 sec (9.0-12.0)
[2016-12-21 06:07] LABS: Calcium 9.5 mg/dL (8.4-10.2); Total Bilirubin 1.6 mg/dL (0.2-1.3); Total Protein 6.4 g/dL (6.3-8.2)
[2016-12-21 06:10] LABS: Potassium 4.5 mmol/L (3.5-5.1)
[2016-12-21] MEDS: NITROGLYCERIN OINT 1 INCH/GM PACKET TOPICAL SCH ×4 (06:21→23:28)
[2016-12-21] MEDS: DIGOXIN 250 MCG TAB PO SCH (09:01)
[2016-12-21] MEDS: ASPIRIN 325 MG TAB PO SCH (09:01)
[2016-12-21] MEDS: LOSARTAN 25 MG TAB PO SCH ×2 (09:01→19:45)
[2016-12-21] MEDS: ATENOLOL 25 MG TAB PO SCH ×3 (09:01→19:46)
[2016-12-21] MEDS: PANTOPRAZOLE 40 MG/10 ML VIAL IVP SCH ×2 (09:01→19:45)
[2016-12-21] MEDS: SPIRONOLACTONE 25 MG TAB PO SCH (09:01)
[2016-12-21] MEDS: FUROSEMIDE 20 MG TAB PO SCH (09:01)
--- NOTE | 2016-12-21 10:17 | P.PN ---
Progress Note - Text The patient states she feels slightly better than yesterday. She mainly complains of some abdominal bloating and some gas cramps. On exam her vital signs are stable. Her abdomen soft. There is no significant tenderness. There is no rebound or guarding. There is very minimal right upper quadrant pain. Chronic cholestasis. Patient will be seen as an outpatient. We will plan on performing outpatient laparoscopic cholecystectomy when she is medically cleared.
[2016-12-21] MEDS: SODIUM CHLORIDE 0.9% 1,000 ML IV SCH (17:51)
[2016-12-22] MEDS: TOBRAMYCIN 0.3% OPHTH DROPS 5 ML BTL BOTH EYES SCH ×4 (03:06→14:06)
[2016-12-22 06:11] LABS: Basophils % (A) 0 %; CH 30.1; CHCM 32.7; Eosinophils # (A) 0.1 k/uL (0-0.7); Eosinophils % (A) 1 %; HDW 2.34; HGB 16.2 gm/dL (11.4-16.0); Luc # (Auto) 0.17; Luc % (Auto) 2; Lymphocytes # (A) 1.9 k/uL (1.0-4.8); Lymphocytes % (A) 22 %; MCH 30.6 pg (25.0-35.0); MCHC 33.1 g/dL (31.0-37.0); MCV 92.5 fL (80.0-100.0); Monocytes # (A) 0.5 k/uL (0-1.0); Monocytes % (A) 7 %; Neutrophils # (A) 5.8 k/uL (1.3-7.7); Neutrophils % (A) 68 %; RDW 14.3 % (11.5-15.5); WBC 8.4 k/uL (3.8-10.6)
[2016-12-22 06:25] LABS: Calcium 9.9 mg/dL (8.4-10.2); Potassium 4.6 mmol/L (3.5-5.1); Total Bilirubin 1.5 mg/dL (0.2-1.3); Total Protein 7.1 g/dL (6.3-8.2)
[2016-12-22] MEDS: NITROGLYCERIN OINT 1 INCH/GM PACKET TOPICAL SCH ×2 (06:33→11:33)
[2016-12-22] MEDS: PANTOPRAZOLE 40 MG/10 ML VIAL IVP SCH (09:31)
[2016-12-22] MEDS: ASPIRIN 325 MG TAB PO SCH (09:34)
[2016-12-22] MEDS: ATENOLOL 25 MG TAB PO SCH (09:35)
[2016-12-22] MEDS: LOSARTAN 25 MG TAB PO SCH (09:35)
[2016-12-22] MEDS: DIGOXIN 250 MCG TAB PO SCH (09:35)
[2016-12-22] MEDS: SPIRONOLACTONE 25 MG TAB PO SCH (09:36)
--- NOTE | 2016-12-22 10:02 | PN ---
DATE OF SERVICE: 12/21/2016 This 86-year-old woman who was admitted to the hospital with abdominal pain, possible acute cholecystitis is being closely monitored. The patient also on broad spectrum IV antibiotics. Surgery is following the patient closely and recommending possible cholecystectomy as outpatient. Otherwise, closely monitor. Past medical history reviewed. PHYSICAL EXAMINATION: The patient is alert and oriented times three. Pulse is 70, blood pressure 141/82. Respiratory rate 18. Temperature 97.9, pulse ox 97% on 3 L. HEENT: Conjunctivae normal. Oral mucosa moist. NECK: No jugular venous distention. No carotid bruit. No thyroid enlargement. CARDIOVASCULAR: S1, S2 muffled. RESPIRATORY: Breath sounds dimisnished at the bases. No rhonchi. No crackles. ABDOMEN: Soft, mild diffuse discomfort. No guarding. No rigidity. No mass palpable. LEGS: No edema. No swelling. CENTRAL NERVOUS SYSTEM: No focal deficits. LABS: Platelets 127, INR 2.6, sodium 130, potassium 4.5. Creatinine 1.20. ASSESSMENT: 1. Abdominal pain, possible acute on chronic cholecystitis. 2. Troponin 0.069 indeterminate. 3. Mild urinary tract infection. 4. Increased bilirubin. 5. Increased AST. 6. Hyponatremia. 7. History of atrial fibrillation, chronic recurrent. 8. History of coronary artery disease. 9. History of congestive heart failure with ejection fraction less than 20% with possible chronic systolic dysfunction with severe cardiomyopathy. 10. LA severely dilated. 11. History of hypertension, essential. 12. History of myocardial infarction. 13. History of degenerative joint disease. 14. History of automatic implantable cardioverter defibrillator. 15. Remote history of nicotine dependence. 16. FULL CODE. RECOMMENDATIONS AND DISCUSSION: Continue with current medications. Continue symptomatic treatment. Continue with symptomatic ( ) line of treatment. Otherwise, closely follow with surgery. Prognosis guarded. Further recommendations to follow. Discussed with family who understands and agrees.
--- NOTE | 2016-12-22 11:49 | P.PN ---
Progress Note - Text May go for surgery from cardiac standpoint
[2016-12-22] MEDS: FUROSEMIDE 20 MG TAB PO SCH (12:04)
[2016-12-22 12:23] VITALS: BP 141/97; PULSE 85; RESP 20; TEMP 97
--- NOTE | 2016-12-22 12:51 | P.PN ---
Progress Note - Text Proving. Her abdominal pain and nausea and distention improved. She is currently tolerating a diet. On exam her lesser stable. Her abdomen soft. Patiently discharged home per medicine. We'll plan for outpatient cholecystectomy.
--- NOTE | 2016-12-23 14:29 | DS ---
DATE OF ADMISSION: 12/19/2016 DATE OF DISCHARGE: 12/22/2016 FINAL DIAGNOSES: 1. Abdominal pain, possible acute on chronic cholecystitis. 2. Troponin 0.06 indeterminate. 3. Mild urinary tract infection. 4. Increased bilirubin. 5. Increased AST. 6. Hyponatremia. 7. History of atrial fibrillation, chronic, recurrent. 8. History of coronary artery disease. 9. History of congestive heart failure with ejection fraction less than 20% with possible chronic systolic dysfunction with severe cardiomyopathy. 10. la severely dilated. 11. History of hypertension, essential. 12. History of myocardial infarction. 13. History of degenerative joint disease . 14. History of AICD 15. Remote history of nicotine. 16. FULL CODE. DISCHARGE DISPOSITION: The patient will be discharged in stable condition with guarded prognosis. Total time taken 35 minutes. HISTORY OF PRESENT ILLNESS: This 86-year-old woman with a past medical history of multiple medical problems admitted to the hospital with abdominal pain, acute on chronic cholecystitis was suspected. Cardiology saw the patient. Medications were continued and surgery Dr. Mars saw the patient and recommended outpatient evaluation. Possible surgery. Prognosis guarded. On exam, vitals are stable. Cardiovascular: S1, S2. ABDOMEN: Soft. Central nervous system: No focal deficits. The patient will be discharged in stable condition with the following advice and medications: 1. Diet is cardiac. 2. Activity limited until follow-up. 3. Follow-up with Dr. Reich in 1 to 2 days. 4. Follow-up with Dr. Mars as advised. 5. Medications are Ecotrin 81 mg p.o. daily. 6. Atenolol 25 mg t.i.d.. 7. Lanoxin 250 mcg p.o. daily. 8. Lasix 20 mg daily. 9. [place] 5 mg q.6 p.r.n. 10. Ativan 1 mg at bedtime. 11. Cozaar 25 mg p.o. b.i.d. 12.one drop daily p.r.n. 13. Omeprazole 20 mg b.i.d. 14. Pravachol 40 mg p.o. daily. 15. Aldactone 25 mg daily. 16. ophthalmological eye ointments. 17. Coumadin 4 mg p.o. daily. Once again, the patient will be discharged in stable condition with guarded prognosis. MTDD
== END 2016-12-22 15:31 | disposition home or self-care (01) | DRG 445 ==
LOC: EC 11:50 → 6SEL 15:49
PROVIDERS: ADMIT Hospitalist; ATTEND Hospitalist
DX: K81.2 Acute cholecystitis with chronic cholecystitis (principal); E87.1 Hypo-osmolality and hyponatremia; I42.9 Cardiomyopathy, unspecified; I11.0 Hypertensive heart disease with heart failure; I50.22 Chronic systolic (congestive) heart failure; N39.0 Urinary tract infection, site not specified; I48.2 Chronic atrial fibrillation; I48.0 Paroxysmal atrial fibrillation; I25.10 Atherosclerotic heart disease of native coronary artery without angina pectoris; I25.2 Old myocardial infarction; E78.5 Hyperlipidemia, unspecified; K21.9 Gastro-esophageal reflux disease without esophagitis; M81.0 Age-related osteoporosis without current pathological fracture; K44.9 Diaphragmatic hernia without obstruction or gangrene; R74.8 Abnormal levels of other serum enzymes; R11.0 Nausea; R94.31 Abnormal electrocardiogram [ECG] [EKG]; N28.89 Other specified disorders of kidney and ureter; M19.90 Unspecified osteoarthritis, unspecified site; F41.9 Anxiety disorder, unspecified; H54.7 Unspecified visual loss; R06.02 Shortness of breath; J98.6 Disorders of diaphragm; R74.0 Nonspecific elevation of levels of transaminase and lactic acid dehydrogenase [LDH]; H91.90 Unspecified hearing loss, unspecified ear; R14.0 Abdominal distension (gaseous); Z79.82 Long term (current) use of aspirin; Z86.79 Personal history of other diseases of the circulatory system; Z87.891 Personal history of nicotine dependence; Z95.810 Presence of automatic (implantable) cardiac defibrillator; Z79.899 Other long term (current) drug therapy; Z79.01 Long term (current) use of anticoagulants; Z80.41 Family history of malignant neoplasm of ovary; Z80.49 Family history of malignant neoplasm of other genital organs; Z83.3 Family history of diabetes mellitus; Z88.8 Allergy status to other drugs, medicaments and biological substances; Z91.19 Patient's noncompliance with other medical treatment and regimen; Z87.81 Personal history of (healed) traumatic fracture; Z87.01 Personal history of pneumonia (recurrent); Z86.19 Personal history of other infectious and parasitic diseases; Z87.19 Personal history of other diseases of the digestive system; Z87.39 Personal history of other diseases of the musculoskeletal system and connective tissue; Z88.6 Allergy status to analgesic agent; Z88.1 Allergy status to other antibiotic agents; Z91.041 Radiographic dye allergy status; Z88.5 Allergy status to narcotic agent; Z88.0 Allergy status to penicillin; Z91.013 Allergy to seafood; Z96.652 Presence of left artificial knee joint; Z99.81 Dependence on supplemental oxygen; Z82.49 Family history of ischemic heart disease and other diseases of the circulatory system; Z90.710 Acquired absence of both cervix and uterus; Z71.3 Dietary counseling and surveillance
CPT/HCPCS: 36415; 71010; 74150; 76705; 76770; 80053; 80061; 81001; 82150; 82550; 82553; 83605; 83690; 84484; 85025; 85610; 87040; 87086; 93005; 93306; 97802; 99285

== ENCOUNTER → 2016-12-25 | Outpatient (CLI) | payer MEDICARE ==
[2016-12-25 12:58] LABS: Basophils % (A) 0 %; CH 30.5; CHCM 33.6; Eosinophils # (A) 0.1 k/uL (0-0.7); Eosinophils % (A) 1 %; HCT 44.2 % (34.0-46.0); HDW 2.52; HGB 14.9 gm/dL (11.4-16.0); Luc # (Auto) 0.13; Luc % (Auto) 2; Lymphocytes # (A) 1.1 k/uL (1.0-4.8); Lymphocytes % (A) 15 %; MCH 30.7 pg (25.0-35.0); MCHC 33.6 g/dL (31.0-37.0); MCV 91.3 fL (80.0-100.0); Mean Platelet Volume 7.7; Monocytes # (A) 0.4 k/uL (0-1.0); Monocytes % (A) 5 %; Neutrophils # (A) 5.8 k/uL (1.3-7.7); Neutrophils % (A) 77 %; RBC 4.84 m/uL (3.80-5.40); RDW 14.3 % (11.5-15.5); WBC 7.5 k/uL (3.8-10.6); WBC (Perox) 7.44
[2016-12-25 13:06] LABS: Calcium 9.8 mg/dL (8.4-10.2); Potassium 4.3 mmol/L (3.5-5.1); Total Bilirubin 1.5 mg/dL (0.2-1.3)
== END | disposition home or self-care (01) ==
LOC: LABWHC1 11:27
PROVIDERS: ATTEND Hospitalist
DX: R10.9 Unspecified abdominal pain (principal)
CPT/HCPCS: 36415; 80053; 85025

== ENCOUNTER 2017-01-06 09:10 | Day surgery (SDC) | payer MEDICARE ==
[2017-01-02 09:04] VITALS: BMI 28.0
[~2017-01-06 09:10] MED LIST: LACTATED RINGERS 1,000 ML IV SCH; MIDAZOLAM 2 MG/2 ML VIAL IV PRN; fentaNYL (PF) 50 MCG/ML 2 ML AMP IV PRN
[2017-01-06 09:56] VITALS: TEMP 97
[2017-01-06] MEDS ORDERED: LIDOCAINE 1% 20 ML VIAL (10MG/ML) FOR IV START INTRADERMA ONE (10:08)
[2017-01-06] MEDS ORDERED: HEPARIN SODIUM,PORCINE 5,000 UNIT/ML 1 ML VIAL SQ ONE (10:16)
[2017-01-06] MEDS ORDERED: ONDANSETRON 4 MG/2 ML VIAL IVP ONE ×2 (10:16→15:10)
--- NOTE | 2017-01-06 11:15 | P.GSHP ---
History of Present Illness H&P Date: 01/06/17 Chief Complaint: Chronic cholecystitis This a 86-year-old female who's had issues with abdominal pain nausea. Patient' s workup found have evidence of chronically sinus on ultrasound. She presents today for laparoscopic cholecystectomy. She has significant cardiac history. She's been cleared by cardiology. Past Medical History Past Medical History: Atrial Fibrillation, Coronary Artery Disease (CAD), Chest Pain / Angina, Heart Failure, GERD/Reflux, Hyperlipidemia, Hypertension, Myocardial Infarction ([place]), Osteoarthritis (OA), Pneumonia Additional Past Medical History / Comment(s): occas abdominal pain with eating and bloating with eating,recently treated for ruben eye bacterial infection, home o2 3 liters n/c, cardiomyopathy,"arrythmia", mi x4, v-tach 2007, osteoporosis, diverticultiis,hiatal hernia, bone spurs lt shoulder,anemia Last Myocardial Infarction Date:: unk History of Any Multi-Drug Resistant Organisms: None Reported Past Surgical History: AICD, Heart Catheterization, Hysterectomy, Joint Replacement, Orthopedic Surgery, Pacemaker Additional Past Surgical History / Comment(s): sx to repair broken nose, d&c, ruben foot sx ruben bunionectomy, lt knee replacment, rt knee arthrosocpy.pacemaker/ defibrillator medtronic left chest serial #[id number],mult heart cath Past Anesthesia/Blood Transfusion Reactions: Motion Sickness, Postoperative Nausea & Vomiting (PONV) Additional Past Anesthesia/Blood Transfusion Reaction / Comment(s): no problems with prior blood transfusion Type of Cardiac Device: Permanent Pacemaker, AICD Device Placement Date:: Mar Past Psychological History: Anxiety Additional Psychological History / Comment(s): pt lives with spouse in a 2 story home that has 4 steps to get into home,10 steps up and 10 steps to basement where laundry facilities are. no pets.pt has home 02, shower chair, walker cane. Smoking Status: Former smoker Past Alcohol Use History: None Reported Additional Past Alcohol Use History / Comment(s): started smoking at age 19(1948 ) smoked 1ppd, quit 1964 Past Drug Use History: None Reported - Past Family History Mother Family Medical History: Cancer, Diabetes Mellitus Additional Family Medical History / Comment(s): uterine cancer Daughter(s) Family Medical History: Cancer Additional Family Medical History / Comment(s): ovarian cancer Father Additional Family Medical History / Comment(s): cardiac problems Medications and Allergies Home Medications Medication Instructions Recorded Confirmed Type Aspirin EC [Ecotrin Low Dose] 81 mg PO DAILY 12/19/16 01/02/17 History Atenolol 25 mg PO TID 12/19/16 01/06/17 History Digoxin [Lanoxin] 250 mcg PO DAILY 12/19/16 01/06/17 History Furosemide [Lasix] 20 mg PO DAILY 12/19/16 01/06/17 History LORazepam [Ativan] 1 mg PO HS 12/19/16 01/06/17 History Losartan [Cozaar] 25 mg PO BID 12/19/16 01/06/17 History Pravastatin Sodium [Pravachol] 10 mg PO DAILY 12/19/16 01/06/17 History Spironolactone 25 mg PO DAILY 12/19/16 01/06/17 History Warfarin [Coumadin] 4 mg PO DAILY 12/19/16 01/02/17 History Acetaminophen Tab [Tylenol Tab] 325 mg PO Q4H PRN 01/02/17 01/06/17 History Allergies Allergy/AdvReac Type Severity Reaction Status Date / Time cefaclor [From Ceclor] Allergy Unknown Verified 01/02/17 08:50 celecoxib [From Celebrex] Allergy Unknown Verified 01/02/17 08:50 cephalexin [From Keflex] Allergy Unknown Verified 01/02/17 08:50 clindamycin [From Cleocin] Allergy Unknown Verified 01/02/17 08:50 diphenhydramine Allergy Nausea & Verified 01/02/17 08:50 [From Benadryl] Vomiting & Diarrhea dolasetron [From Anzemet] Allergy Unknown Verified 01/02/17 08:50 enalaprilat [From Vasotec] Allergy Unknown Verified 01/02/17 08:50 hydrocortisone [From Cortef] Allergy anxiety Verified 01/02/17 08:50 attack hydromorphone [From Dilaudid] Allergy Unknown Verified 01/02/17 08:50 hydroxyzine [From Vistaril] Allergy Unknown Verified 01/02/17 08:50 ibuprofen [From Motrin] Allergy Unknown Verified 01/02/17 08:50 Iodinated Contrast Media - Allergy Unknown Verified 01/02/17 08:50 Oral and levofloxacin [From Levaquin] Allergy Unknown Verified 01/02/17 08:50 morphine Allergy Unknown Verified 01/02/17 08:50 oxycodone Allergy Unknown Verified 01/02/17 08:50 Penicillins Allergy Swelling Verified 01/02/17 08:50 prednisone Allergy anxiety Verified 01/02/17 08:50 attack promethazine [From Phenergan] Allergy Unknown Verified 01/02/17 08:50 shellfish derived [Shellfish] Allergy Rash/Hives Verified 01/02/17 08:50 cortisone AdvReac anxiety Verified 01/02/17 08:50 attack methylprednisolone AdvReac anxiety Verified 01/02/17 08:50 [From Medrol] attack STEROIDS AdvReac anxiety Uncoded 01/02/17 08:50 attack Surgical - Exam Vital Signs Temp Pulse Resp BP Pulse Ox 97.0 F L 73 18 128/82 99 01/06/17 09:49 01/06/17 09:49 01/06/17 09:49 01/06/17 09:49 01/06/17 09:49 - General well developed, no distress - Eyes PERRL - ENT normal pinna, normal nares - Neck no masses - Respiratory normal expansion - Cardiovascular Rhythm: regular - Abdomen Mild right upper quadrant tenderness Abdomen: soft Assessment and Plan Plan: Chronic cholecystitis. We'll perform laparoscopic cholecystectomy.
[2017-01-06] MEDS ORDERED: ROCURONIUM BROMIDE 10 MG/ML 10 ML VIAL IV ONE (11:46)
[2017-01-06] MEDS ORDERED: SUCCINYLCHOLINE CHLORIDE 100 MG/5 ML SYR IV ONE (11:46)
[2017-01-06] MEDS ORDERED: PROPOFOL 10 MG/ML 20 ML VIAL IV ONE (11:46)
[2017-01-06] MEDS ORDERED: GLYCOPYRROLATE 0.2 MG/ML 2 ML VIAL ONE (11:46)
[2017-01-06] MEDS ORDERED: fentaNYL (PF) 50 MCG/ML 2 ML AMP ONE (11:46)
[2017-01-06] MEDS ORDERED: PHENYLEPHRINE-0.9% NACL SYG 1 MG/10 ML SYRINGE ONE (11:46)
[2017-01-06] MEDS ORDERED: NEOSTIGMINE 1 MG/ML 10 ML VIAL ONE (11:46)
[2017-01-06] MEDS ORDERED: MIDAZOLAM 2 MG/2 ML VIAL ONE (11:46)
[2017-01-06] MEDS ORDERED: LIDOCAINE 1% INJ 10MG/ML (20 ML MDV) ONE (11:46)
[2017-01-06] MEDS ORDERED: BUPIVACAIN-EPI 0.25%-1:200,000 30 ML VIAL IJ ONE (11:49)
--- NOTE | 2017-01-06 12:36 | P.OP ---
Date of Procedure: 01/06/17 Preoperative Diagnosis: Cholecystitis Postoperative Diagnosis: Cholecystitis Procedure(s) Performed: Laparoscopic cholecystectomy Implants: Anesthesia: BYRON Surgeon: Fabián Mars Pathology: other (Gallbladder) Condition: stable Disposition: PACU Indications for Procedure: Operative Findings: Description of Procedure: The patient was placed on the operating table. The patient received a general endotracheal tube anesthesia. The patients abdomen was prepped and draped in the usual sterile fashion. Through an infraumbilical stab incision, the fascia of the anterior abdominal wall was grasped with a pair of Kochers and then the Veress needle was placed in the peritoneal cavity. Position of the Veress needle was confirmed with positive drop test. The abdomen was then insufflated. After adequate insufflation, the 10 mm trocar was placed in the peritoneal cavity. Following this the laparoscope was placed in the peritoneal cavity. The patient was placed in the head-up, right side up position and then a 5 mm trocar was placed in the right lateral and right subcostal position under direct visualization. A 8 mm trocar was placed in the epigastric position. The gallbladder was grasped in the fundus and infundibulum. Traction on the gallbladder was placed in the lateral and the cephalad positions. The triangle of Calot was visualized.. The cystic duct was bluntly dissected until the union of the cystic duct and common bile duct was seen. The cystic duct was then divided and sealed with the Harmonic scissors. A PDS Endoloop was then placed throughout the cystic duct stump. The cystic artery divided and sealed with the Harmonic scissors. The gallbladder was then removed from the liver bed using Harmonic scissors. The gallbladder was then extracted through the epigastric port site. Operative field was checked for any bleeding spots and Harmonic scissors was used to coagulate the liver bed. The abdomen was irrigated. The trocars were removed. The skin was closed using interrupted 3-0 Vicryl suture. Dermabond dressing were applied. The patient tolerated the procedure well.
[2017-01-06 14:18] VITALS: PULSE 70; RESP 18
[2017-01-06 15:12] VITALS: BP 129/78
[2017-01-06] MEDS ORDERED: ACETAMINOPHEN TAB 500 MG TAB PO ONE (15:58)
== END 2017-01-06 16:38 | disposition home or self-care (01) ==
LOC: OR 09:10
PROVIDERS: ATTEND Surgery
DX: K81.1 Chronic cholecystitis (principal); Z87.891 Personal history of nicotine dependence; K21.9 Gastro-esophageal reflux disease without esophagitis; I10 Essential (primary) hypertension; I48.91 Unspecified atrial fibrillation; E78.5 Hyperlipidemia, unspecified; I50.9 Heart failure, unspecified; J44.9 Chronic obstructive pulmonary disease, unspecified; J45.909 Unspecified asthma, uncomplicated; I42.8 Other cardiomyopathies; Z99.81 Dependence on supplemental oxygen; Z79.01 Long term (current) use of anticoagulants; Z79.82 Long term (current) use of aspirin; Z79.899 Other long term (current) drug therapy; Z88.6 Allergy status to analgesic agent; Z88.1 Allergy status to other antibiotic agents; Z88.3 Allergy status to other anti-infective agents; Z88.5 Allergy status to narcotic agent; Z88.0 Allergy status to penicillin; Z88.8 Allergy status to other drugs, medicaments and biological substances; Z91.041 Radiographic dye allergy status; Z95.810 Presence of automatic (implantable) cardiac defibrillator; I25.2 Old myocardial infarction
CPT/HCPCS: 88304; 47562; J2250; J1644; J2710; J2405; J2001; J3010; J2370; J0330; J2704

== ENCOUNTER 2017-01-13 19:06 | Inpatient (IN) | payer MEDICARE ==
[2017-01-13] MEDS ORDERED: ONDANSETRON 4 MG/2 ML VIAL IVP STA (19:45)
[2017-01-13] MEDS ORDERED: SODIUM CHLORIDE 0.9% 1,000 ML IV STA ×2 (19:45)
[2017-01-13] MEDS ORDERED: METOCLOPRAMIDE 5 MG/ML 2 ML VIAL IVP STA (19:48)
[2017-01-13 20:10] LABS: Basophils % (A) 0 %; CHCM 33.9; Eosinophils # (A) 0.1 k/uL (0-0.7); Eosinophils % (A) 1 %; HCT 49.1 % (34.0-46.0); Luc # (Auto) 0.13; Luc % (Auto) 1; Lymphocytes # (A) 1.2 k/uL (1.0-4.8); Lymphocytes % (A) 12 %; MCH 30.1 pg (25.0-35.0); MCHC 32.7 g/dL (31.0-37.0); MCV 91.9 fL (80.0-100.0); Mean Platelet Volume 7.6; Monocytes # (A) 0.5 k/uL (0-1.0); Monocytes % (A) 5 %; Neutrophils # (A) 8.6 k/uL (1.3-7.7); Neutrophils % (A) 81 %; RBC 5.34 m/uL (3.80-5.40); RDW 14.7 % (11.5-15.5); WBC 10.7 k/uL (3.8-10.6); WBC (Perox) 10.41
[2017-01-13 20:18] LABS: INR 2.7 (<1.1); Partial Thromboplastin Time 29.5 sec (22.0-30.0)
[2017-01-13 20:26] LABS: ALT 25 U/L (9-52); AST 39 U/L (14-36); Alkaline Phosphatase 83 U/L (38-126); Amylase 69 U/L (30-110); Anion Gap 13 mmol/L; Blood Urea Nitrogen 21 mg/dL (7-17); Calcium 9.2 mg/dL (8.4-10.2); Carbon Dioxide 23 mmol/L (22-30); Chloride 87 mmol/L (98-107); Glucose 134 mg/dL (74-99); Non-African American GFR(MDRD) >60 (>60 ml/min/1.73 sqM); Potassium 4.9 mmol/L (3.5-5.1); Sodium 123 mmol/L (137-145); Total Bilirubin 1.5 mg/dL (0.2-1.3)
[2017-01-13 20:41] LABS: Creatine Kinase MB 3.1 ng/mL (0.0-2.4); Troponin I 0.059 ng/mL (0.000-0.034)
--- NOTE | 2017-01-13 21:21 | XR ---
EXAMINATION TYPE: XR KUB DATE OF EXAM: 01/13/2017 COMPARISON: 12/02/2010 HISTORY: Right-sided pain TECHNIQUE: 2 views FINDINGS: There is some blunting of costophrenic angles. There is no sign of intestinal obstruction o r pneumoperitoneum. Fecal pattern is normal. There are no pathologic calcifications over the kidneys. IMPRESSION: Nonacute abdomen. There are probably bilateral pleural effusions that are new compared to old exam.
--- NOTE | 2017-01-13 21:36 | ED ---
Nausea/Vomiting/Diarrhea HPI - General Chief complaint: Nausea/Vomiting/Diarrhea Stated complaint: abd pain,nausea Time Seen by Provider: 01/13/17 19:30 Source: patient, family, EMS, RN notes reviewed, old records reviewed Mode of arrival: EMS Limitations: no limitations - History of Present Illness Initial comments: This is an 86-year-old female with a laparoscopic cholecystectomy done 1 week ago who presents with complaints of nausea and vomiting and dry heaves some diarrhea generally not feeling well. She also complains of some pedal edema. She denies any fevers chills or sweats. She also later complained of some intermittent episodes of midsternal chest pain she states was nonspecific and could not be quantified any more than this pain. She does have no pain no shortness of breath now. She states that she was constipated after the surgery 5 days ago she did have an enema which did help somewhat but now she's been having diarrheal episodes. MD complaint: nausea, vomiting, other - Related Data Home Medications Medication Instructions Recorded Confirmed Aspirin EC [Ecotrin Low Dose] 81 mg PO DAILY 12/19/16 01/13/17 Atenolol 25 mg PO TID 12/19/16 01/13/17 Digoxin [Lanoxin] 250 mcg PO DAILY 12/19/16 01/13/17 Furosemide [Lasix] 20 mg PO DAILY 12/19/16 01/13/17 LORazepam [Ativan] 1 mg PO HS 12/19/16 01/13/17 Losartan [Cozaar] 25 mg PO BID 12/19/16 01/13/17 Pravastatin Sodium [Pravachol] 10 mg PO DAILY 12/19/16 01/13/17 Spironolactone 25 mg PO DAILY 12/19/16 01/13/17 Warfarin [Coumadin] 4 mg PO DAILY 12/19/16 01/13/17 Omeprazole 20 mg PO DAILY 01/13/17 01/13/17 Allergies Allergy/AdvReac Type Severity Reaction Status Date / Time cefaclor [From Ceclor] Allergy Unknown Verified 01/13/17 19:50 celecoxib [From Celebrex] Allergy Unknown Verified 01/13/17 19:50 cephalexin [From Keflex] Allergy Unknown Verified 01/13/17 19:50 clindamycin [From Cleocin] Allergy Unknown Verified 01/13/17 19:50 diphenhydramine Allergy Nausea & Verified 01/13/17 19:50 [From Benadryl] Vomiting & Diarrhea dolasetron [From Anzemet] Allergy Unknown Verified 01/13/17 19:50 enalaprilat [From Vasotec] Allergy Unknown Verified 01/13/17 19:50 hydrocortisone [From Cortef] Allergy anxiety Verified 01/13/17 19:50 attack hydromorphone [From Dilaudid] Allergy Unknown Verified 01/13/17 19:50 hydroxyzine [From Vistaril] Allergy Unknown Verified 01/13/17 19:50 ibuprofen [From Motrin] Allergy Unknown Verified 01/13/17 19:50 Iodinated Contrast Media - Allergy Unknown Verified 01/13/17 19:50 Oral and levofloxacin [From Levaquin] Allergy Unknown Verified 01/13/17 19:50 morphine Allergy Unknown Verified 01/13/17 19:50 oxycodone Allergy Unknown Verified 01/13/17 19:50 Penicillins Allergy Swelling Verified 01/13/17 19:50 prednisone Allergy anxiety Verified 01/13/17 19:50 attack promethazine [From Phenergan] Allergy Unknown Verified 01/13/17 19:50 shellfish derived [Shellfish] Allergy Rash/Hives Verified 01/13/17 19:50 cortisone AdvReac anxiety Verified 01/13/17 19:50 attack methylprednisolone AdvReac anxiety Verified 01/13/17 19:50 [From Medrol] attack STEROIDS AdvReac anxiety Uncoded 01/13/17 19:22 attack Review of Systems ROS Statement: Those systems with pertinent positive or pertinent negative responses have been documented in the HPI. ROS Other: All systems not noted in ROS Statement are negative. Past Medical History Past Medical History: Atrial Fibrillation, Coronary Artery Disease (CAD), Chest Pain / Angina, Heart Failure, GERD/Reflux, Hyperlipidemia, Hypertension, Myocardial Infarction (ND), Osteoarthritis (OA), Pneumonia Additional Past Medical History / Comment(s): occas abdominal pain with eating and bloating with eating,recently treated for ruben eye bacterial infection, home o2 3 liters n/c, cardiomyopathy,"arrythmia", mi x4, v-tach 2008, osteoporosis, diverticultiis,hiatal hernia, bone spurs lt shoulder,anemia Last Myocardial Infarction Date:: unk History of Any Multi-Drug Resistant Organisms: None Reported Past Surgical History: AICD, Cholecystectomy, Heart Catheterization, Hysterectomy, Joint Replacement, Orthopedic Surgery, Pacemaker Additional Past Surgical History / Comment(s): sx to repair broken nose, d&c, ruben foot sx ruben bunionectomy, lt knee replacment, rt knee arthrosocpy.pacemaker/ defibrillator medtronic left chest serial #[id number],mult heart cath Past Anesthesia/Blood Transfusion Reactions: Motion Sickness, Postoperative Nausea & Vomiting (PONV) Additional Past Anesthesia/Blood Transfusion Reaction / Comment(s): no problems with prior blood transfusion Type of Cardiac Device: Permanent Pacemaker, AICD Device Placement Date:: Mar Past Psychological History: Anxiety Smoking Status: Former smoker Past Alcohol Use History: None Reported Past Drug Use History: None Reported - Past Family History Mother Family Medical History: Cancer, Diabetes Mellitus Additional Family Medical History / Comment(s): uterine cancer Daughter(s) Family Medical History: Cancer Additional Family Medical History / Comment(s): ovarian cancer Father Additional Family Medical History / Comment(s): cardiac problems General Exam - General Exam Comments Initial Comments: This is a well up well-nourished awake alert oriented 3 female she does feel nauseated during the exam. Limitations: no limitations General appearance: alert, anxious Head exam: Present: atraumatic, normocephalic, normal inspection Eye exam: Present: normal appearance, PERRL, EOMI. Absent: scleral icterus, conjunctival injection, periorbital swelling ENT exam: Present: normal exam, mucous membranes moist Respiratory exam: Present: rales, decreased breath sounds GI/Abdominal exam: Present: distended, other (Well-healing surgical port sites. No evidence of any wound dehiscence or infection some ecchymosis noted around the edges. There is some fall was in the suprapubic region.) Rectal exam: Present: deferred Extremities exam: Present: full ROM, normal capillary refill, pedal edema. Absent: tenderness, calf tenderness Back exam: Present: normal inspection Neurological exam: Present: alert, oriented X3, CN II-XII intact Psychiatric exam: Present: normal affect, normal mood Skin exam: Present: warm, dry, intact. Absent: normal color Course Vital Signs 01/13/17 19:19 Temperature 97.2 F L Pulse Rate 70 Respiratory 18 Rate Blood Pressure 180/93 O2 Sat by Pulse 99 Oximetry - Reevaluation(s) Reevaluation #1: 01/13/17 21:42 The patient did relate that she has been taking extra Lasix due to Pila edema postoperatively. Medical Decision Making - Medical Decision Making I did discuss the findings with the patient. Patient will be admitted for evaluation by cardiology. I did discuss the case with Dr. Bryant who is covering Dr. Mars. Heparin is okay to use at this point postoperatively. - Lab Data Result diagrams: 01/13/17 19:56 01/13/17 19:56 Lab Results 01/13/17 01/13/17 01/13/17 Range/Units 19:56 19:56 19:56 WBC 10.7 H (3.8-10.6) k/uL RBC 5.34 (3.80-5.40) m/uL Hgb 16.0 (11.4-16.0) gm/dL Hct 49.1 H (34.0-46.0) % MCV 91.9 (80.0-100.0) fL MCH 30.1 (25.0-35.0) pg MCHC 32.7 (31.0-37.0) g/dL RDW 14.7 (11.5-15.5) % Plt Count 174 (150-450) k/uL Neutrophils % 81 % Lymphocytes % 12 % Monocytes % 5 % Eosinophils % 1 % Basophils % 0 % Neutrophils # 8.6 H (1.3-7.7) k/uL Lymphocytes # 1.2 (1.0-4.8) k/uL Monocytes # 0.5 (0-1.0) k/uL Eosinophils # 0.1 (0-0.7) k/uL Basophils # 0.0 (0-0.2) k/uL PT (9.0-12.0) sec INR (<1.1) APTT (22.0-30.0) sec Sodium 123 L (137-145) mmol/L Potassium 4.9 (3.5-5.1) mmol/L Chloride 87 L (98-107) mmol/L Carbon Dioxide 23 (22-30) mmol/L Anion Gap 13 mmol/L BUN 21 H (7-17) mg/dL Creatinine 0.86 (0.52-1.04) mg/dL Est GFR (MDRD) Af Amer >60 (>60 ml/min/1.73 sqM) Est GFR (MDRD) Non-Af >60 (>60 ml/min/1.73 sqM) Glucose 134 H (74-99) mg/dL Plasma Lactic Acid Stuart (0.7-2.0) mmol/L Calcium 9.2 (8.4-10.2) mg/dL Total Bilirubin 1.5 H (0.2-1.3) mg/dL AST 39 H (14-36) U/L ALT 25 (9-52) U/L Alkaline Phosphatase 83 (38-126) U/L Total Creatine Kinase 116 (30-135) U/L CK-MB (CK-2) 3.1 H* (0.0-2.4) ng/mL CK-MB (CK-2) Rel Index 2.7 Troponin I 0.059 H* (0.000-0.034) ng/mL Total Protein 7.0 (6.3-8.2) g/dL Albumin 4.3 (3.5-5.0) g/dL Amylase 69 (30-110) U/L Lipase 148 (23-300) U/L 01/13/17 01/13/17 Range/Units 19:56 19:56 WBC (3.8-10.6) k/uL RBC (3.80-5.40) m/uL Hgb (11.4-16.0) gm/dL Hct (34.0-46.0) % MCV (80.0-100.0) fL MCH (25.0-35.0) pg MCHC (31.0-37.0) g/dL RDW (11.5-15.5) % Plt Count (150-450) k/uL Neutrophils % % Lymphocytes % % Monocytes % % Eosinophils % % Basophils % % Neutrophils # (1.3-7.7) k/uL Lymphocytes # (1.0-4.8) k/uL Monocytes # (0-1.0) k/uL Eosinophils # (0-0.7) k/uL Basophils # (0-0.2) k/uL PT 26.0 H (9.0-12.0) sec INR 2.7 (<1.1) APTT 29.5 (22.0-30.0) sec Sodium (137-145) mmol/L Potassium (3.5-5.1) mmol/L Chloride (98-107) mmol/L Carbon Dioxide (22-30) mmol/L Anion Gap mmol/L BUN (7-17) mg/dL Creatinine (0.52-1.04) mg/dL Est GFR (MDRD) Af Amer (>60 ml/min/1.73 sqM) Est GFR (MDRD) Non-Af (>60 ml/min/1.73 sqM) Glucose (74-99) mg/dL Plasma Lactic Acid Stuart 1.6 (0.7-2.0) mmol/L Calcium (8.4-10.2) mg/dL Total Bilirubin (0.2-1.3) mg/dL AST (14-36) U/L ALT (9-52) U/L Alkaline Phosphatase (38-126) U/L Total Creatine Kinase (30-135) U/L CK-MB (CK-2) (0.0-2.4) ng/mL CK-MB (CK-2) Rel Index Troponin I (0.000-0.034) ng/mL Total Protein (6.3-8.2) g/dL Albumin (3.5-5.0) g/dL Amylase (30-110) U/L Lipase (23-300) U/L - EKG Data -: EKG Interpreted by Me (Pacemaker rhythm the rate was 71. 134 QRS of 100 daily since QTC of 376/4 ) - Radiology Data Radiology results: report reviewed (I did review the imaging there is evidence of pleural effusions.), image reviewed Critical Care Time Critical Care Time: Yes Critical Care Time: 31 minutes of critical care time which includes initial presentation with history physical labs x-rays reevaluation the patient response to therapy. Review of old charting. Discussion with the admitting service as well as the surgical service. Admission orders documentation of the above. Disposition Clinical Impression: Non-ST elevation myocardial infarction (NSTEMI), Congestive heart failure, Hyponatremia, Pleural effusion, Elevated troponin, History of cholecystectomy Disposition: ADMITTED IP TO THIS [facility] Condition: Stable Referrals: César Reich DO [Primary Care Provider] - 1-2 days
[2017-01-13] MEDS ORDERED: NITROGLYCERIN SL TABS 0.4 MG TAB SUBLINGUAL PRN (21:43)
[2017-01-13] MEDS ORDERED: HEPARIN SODIUM,PORCINE 5,000 UNIT/ML 1 ML VIAL IV ONE (21:43)
[2017-01-13] MEDS ORDERED: HEPARIN SODIUM,PORCINE/D5W PMX 25,000 UNIT in DEXTROSE/WATER 1 500ML.BAG IV SCH (21:45)
[2017-01-13] MEDS ORDERED: FUROSEMIDE 10 MG/ML 4 ML VIAL IV STA (21:47)
[2017-01-13 22:05] LABS: Appearance,Urine Cloudy (Clear); Bacteria,Urine Rare /hpf; Bilirubin,Urine Negative (Negative); Glucose,Urine (UA) Negative (Negative); Ketones,Urine Negative (Negative); Leukocyte Esterase,Urine Moderate (Negative); Mucus,Urine Rare /hpf; Nitrite,Urine Negative (Negative); Particle Count 8243; Protein,Urine 2+ (Negative); RBC,Urine 7 /hpf (0-5); Specific Gravity,Urine 1.017 (1.001-1.035); Squamous Epithelial Cell,Urine 19 /hpf (0-4); UA Billing (MACRO vs. MICRO) MICRO; Urobilinogen,Urine <2.0 mg/dL (<2.0); WBC,Urine 5 /hpf (0-5)
--- NOTE | 2017-01-13 22:10 | XR ---
EXAMINATION TYPE: XR chest 1V portable DATE OF EXAM: 01/13/2017 COMPARISON: 12/19/2016 HISTORY: Chest pain TECHNIQUE: Single frontal view of the chest is obtained. FINDINGS: Heart is enlarged. There is a left axillary pacemaker with the lead tips in the right vent ricle. There is no gross heart failure. There is probably mild infiltrate in the left lower lobe. IMPRESSION: Cardiomegaly. There is probably some infiltrate in the left lower lobe similar to old ex am. There is probably a new small left pleural effusion.
[2017-01-13] MEDS: SODIUM CHLORIDE 0.9% 1,000 ML IV SCH (22:15)
[2017-01-13] MEDS: ATENOLOL 25 MG TAB PO SCH (23:26)
[2017-01-14] MEDS: NITROGLYCERIN OINT 1 INCH/GM PACKET TOPICAL SCH ×2 (02:30→06:29)
[2017-01-14 03:27] LABS: Creatine Kinase MB 3.3 ng/mL (0.0-2.4); Troponin I 0.069 ng/mL (0.000-0.034)
[2017-01-14] MEDS: PANTOPRAZOLE 40 MG TABLET PO SCH (06:38)
[2017-01-14 08:13] LABS: Cholesterol 116 mg/dL (<200); HDL Cholesterol 42 mg/dL (40-60); Triglycerides 100 mg/dL (<150)
[2017-01-14 08:28] LABS: Creatine Kinase MB 3.2 ng/mL (0.0-2.4)
[2017-01-14 08:29] LABS: Troponin I 0.08 ng/mL (0.000-0.034)
[2017-01-14] MEDS: SPIRONOLACTONE 25 MG TAB PO SCH (08:51)
[2017-01-14] MEDS: LOSARTAN 25 MG TAB PO SCH ×2 (08:51→20:59)
[2017-01-14] MEDS: ATENOLOL 25 MG TAB PO SCH ×3 (08:51→20:59)
[2017-01-14] MEDS ORDERED: DIGOXIN 250 MCG TAB PO SCH (09:00)
[2017-01-14] MEDS ORDERED: ASPIRIN 325 MG TAB PO SCH (09:00)
--- NOTE | 2017-01-14 09:15 | P.CRDCN ---
History of Present Illness Consult date: 01/14/17 Requesting physician: Myron Shaw Reason for Consult (text): Abnormal troponin Chief complaint: Nausea and vomiting History of present illness: This is an 86-year-old female who follows with Dr. Thomas in the office. She has a known history of paroxysmal atrial fibrillation, hyperlipidemia, prior myocardial infarctions, prior AICD implantation, hypertension, who recently had a lap dayna performed last week. She presents to the hospital with symptoms of nausea and vomiting, diarrhea, and dizziness. She states that since her surgery she has been feeling this way at. She also states that when she gets up to walk around 3, she's been extremely short of breath, she states that she has been noticing this since approximately September of this year. Patient was having some issues with constipation, she did a fleets enema at home and has moved her bowels since then. She does state that she feels less bloated, still having episodes of nausea. A cardiology consultation was requested because of abnormal troponins. Patient states she did have an episode of chest pain which she describes as sharp pains. KUB x-ray performed on admission revealed a nonacute abdomen. Bilateral pleural effusions as compared with prior. Chest x-ray reveals cardiomegaly with a possible infiltrate in the left lower lobe and a new small left pleural effusion. EKG shows ventricular paced rhythm with nonspecific ST-T wave changes, similar to prior EKGs. White blood cell count 10.7, hemoglobin 16, platelet count 174. Sodium 123, potassium 4.9, BUN 21, creatinine 0.8. Total bilirubin 1.5, AST 39 , ALT 25. Troponins 0.059, 0.069, 0.080. BNP 5430. INR 2.7. Digoxin 1.8. Blood pressure on arrival 180/90 with a heart rate in the 70s, 99% on room air. Blood pressure this morning 140/90, temperature 97.6, heart rate in the 70s. Past Medical History Past Medical History: Atrial Fibrillation, Coronary Artery Disease (CAD), Chest Pain / Angina, Heart Failure, GERD/Reflux, Hyperlipidemia, Hypertension, Myocardial Infarction (CA), Osteoarthritis (OA), Pneumonia Additional Past Medical History / Comment(s): occas abdominal pain with eating and bloating with eating,recently treated for ruben eye bacterial infection, home o2 3 liters n/c, cardiomyopathy,"arrythmia", mi x4, v-tach 2007, osteoporosis, diverticultiis,hiatal hernia, bone spurs lt shoulder,anemia Last Myocardial Infarction Date:: unk History of Any Multi-Drug Resistant Organisms: None Reported Past Surgical History: AICD, Cholecystectomy, Heart Catheterization, Hysterectomy, Joint Replacement, Orthopedic Surgery, Pacemaker Additional Past Surgical History / Comment(s): sx to repair broken nose, d&c, ruben foot sx ruben bunionectomy, lt knee replacment, rt knee arthrosocpy.pacemaker/ defibrillator medtronic left chest serial #[id number],mult heart cath Past Anesthesia/Blood Transfusion Reactions: Motion Sickness, Postoperative Nausea & Vomiting (PONV) Additional Past Anesthesia/Blood Transfusion Reaction / Comment(s): no problems with prior blood transfusion Type of Cardiac Device: Permanent Pacemaker, AICD Device Placement Date:: Mar Past Psychological History: Anxiety Additional Psychological History / Comment(s): pt lives with spouse in a 2 story home that has 4 steps to get into home,10 steps up and 10 steps to basement where laundry facilities are. no pets.pt has home 02, shower chair, walker cane. Smoking Status: Former smoker Past Alcohol Use History: None Reported Past Drug Use History: None Reported - Past Family History Mother Family Medical History: Cancer, Diabetes Mellitus Additional Family Medical History / Comment(s): uterine cancer Daughter(s) Family Medical History: Cancer Additional Family Medical History / Comment(s): ovarian cancer Father Additional Family Medical History / Comment(s): cardiac problems Medications and Allergies Home Medications Medication Instructions Recorded Confirmed Type Aspirin EC [Ecotrin Low Dose] 81 mg PO DAILY 12/19/16 01/13/17 History Atenolol 25 mg PO TID 12/19/16 01/13/17 History Digoxin [Lanoxin] 250 mcg PO DAILY 12/19/16 01/13/17 History Furosemide [Lasix] 20 mg PO DAILY 12/19/16 01/13/17 History LORazepam [Ativan] 1 mg PO HS 12/19/16 01/13/17 History Losartan [Cozaar] 25 mg PO BID 12/19/16 01/13/17 History Pravastatin Sodium [Pravachol] 10 mg PO DAILY 12/19/16 01/13/17 History Spironolactone 25 mg PO DAILY 12/19/16 01/13/17 History Warfarin [Coumadin] 4 mg PO DAILY 12/19/16 01/13/17 History Omeprazole 20 mg PO DAILY 01/13/17 01/13/17 History Allergies Allergy/AdvReac Type Severity Reaction Status Date / Time cefaclor [From Ceclor] Allergy Unknown Verified 01/13/17 19:50 celecoxib [From Celebrex] Allergy Unknown Verified 01/13/17 19:50 cephalexin [From Keflex] Allergy Unknown Verified 01/13/17 19:50 clindamycin [From Cleocin] Allergy Unknown Verified 01/13/17 19:50 diphenhydramine Allergy Nausea & Verified 01/13/17 19:50 [From Benadryl] Vomiting & Diarrhea dolasetron [From Anzemet] Allergy Unknown Verified 01/13/17 19:50 enalaprilat [From Vasotec] Allergy Unknown Verified 01/13/17 19:50 hydrocortisone [From Cortef] Allergy anxiety Verified 01/13/17 19:50 attack hydromorphone [From Dilaudid] Allergy Unknown Verified 01/13/17 19:50 hydroxyzine [From Vistaril] Allergy Unknown Verified 01/13/17 19:50 ibuprofen [From Motrin] Allergy Unknown Verified 01/13/17 19:50 Iodinated Contrast Media - Allergy Unknown Verified 01/13/17 19:50 Oral and levofloxacin [From Levaquin] Allergy Unknown Verified 01/13/17 19:50 morphine Allergy Unknown Verified 01/13/17 19:50 oxycodone Allergy Unknown Verified 01/13/17 19:50 Penicillins Allergy Swelling Verified 01/13/17 19:50 prednisone Allergy anxiety Verified 01/13/17 19:50 attack promethazine [From Phenergan] Allergy Unknown Verified 01/13/17 19:50 shellfish derived [Shellfish] Allergy Rash/Hives Verified 01/13/17 19:50 cortisone AdvReac anxiety Verified 01/13/17 19:50 attack methylprednisolone AdvReac anxiety Verified 01/13/17 19:50 [From Medrol] attack STEROIDS AdvReac anxiety Uncoded 01/13/17 19:22 attack Physical Exam Vitals: Vital Signs Temp Pulse Pulse Resp BP BP Pulse Ox 01/14/17 04:00 96.9 F L 70 16 157/91 99 01/14/17 00:00 96.6 F L 74 16 157/91 99 01/13/17 22:17 97.8 F 82 18 153/93 100 01/13/17 22:06 96.6 F L 73 18 169/100 99 01/13/17 19:19 97.2 F L 70 18 180/93 99 Intake and Output 01/13/17 01/14/17 01/14/17 22:59 06:59 14:59 Intake Total 100 0 Output Total 200 Balance 100 -200 Intake: IV 100 Sodium Chloride 0.9% 1, 100 000 ml @ 100 mls/hr IV . Q10H STA Rx#:[id number] Oral 0 Output: Urine 200 Other: # Voids 1 1 Weight 72.757 kg 78.2 kg PHYSICAL EXAMINATION: HEENT: Head is atraumatic, normocephalic. Pupils equal, round. Neck is supple. There is elevated jugular venous pressure. HEART EXAMINATION: Heart S1 and S2 irregularly irregular a systolic murmur is heard. CHEST EXAMINATION: Lungs are clear with diminished air entry to bilateral bases ABDOMEN: Soft, nontender. Bowel sounds are heard. No organomegaly noted. Mild abdominal bloating EXTREMITIES: 2+ peripheral pulses with trace to 1+ evidence of peripheral edema and no calf tenderness noted]. NEUROLOGIC [patient is awake, alert and oriented -3.] . Results 01/13/17 19:56 01/13/17 19:56 Cardiac Enzymes 01/13/17 01/13/17 01/14/17 Range/Units 19:56 19:56 02:06 AST 39 H (14-36) U/L CK-MB (CK-2) 3.1 H* 3.3 H* (0.0-2.4) ng/mL Troponin I 0.059 H* 0.069 H* (0.000-0.034) ng/mL 01/14/17 Range/Units 07:26 AST (14-36) U/L CK-MB (CK-2) 3.2 H* (0.0-2.4) ng/mL Troponin I 0.080 H* (0.000-0.034) ng/mL Coagulation 01/13/17 Range/Units 19:56 PT 26.0 H (9.0-12.0) sec APTT 29.5 (22.0-30.0) sec Lipids 01/14/17 Range/Units 07:26 Triglycerides 100 (<150) mg/dL Cholesterol 116 (<200) mg/dL HDL Cholesterol 42 (40-60) mg/dL CBC 01/13/17 Range/Units 19:56 WBC 10.7 H (3.8-10.6) k/uL RBC 5.34 (3.80-5.40) m/uL Hgb 16.0 (11.4-16.0) gm/dL Hct 49.1 H (34.0-46.0) % Plt Count 174 (150-450) k/uL Comprehensive Metabolic Panel 01/13/17 Range/Units 19:56 Sodium 123 L (137-145) mmol/L Potassium 4.9 (3.5-5.1) mmol/L Chloride 87 L (98-107) mmol/L Carbon Dioxide 23 (22-30) mmol/L BUN 21 H (7-17) mg/dL Creatinine 0.86 (0.52-1.04) mg/dL Glucose 134 H (74-99) mg/dL Calcium 9.2 (8.4-10.2) mg/dL AST 39 H (14-36) U/L ALT 25 (9-52) U/L Alkaline Phosphatase 83 (38-126) U/L Total Protein 7.0 (6.3-8.2) g/dL Albumin 4.3 (3.5-5.0) g/dL Current Medications Generic Name Dose Route Start Last Admin Trade Name Enricoq PRN Reason Stop Dose Admin Aspirin 325 mg 01/14/17 09:00 Aspirin PO DAILY [facility] Atenolol 25 mg 01/13/17 22:00 01/13/17 23:26 Tenormin PO 25 mg TID ENMANUEL Administration Digoxin 250 mcg 01/14/17 09:00 Lanoxin PO DAILY ENMANUEL Sodium Chloride 1,000 mls @ 20 mls/hr 01/13/17 21:45 01/13/17 22:15 Saline 0.9% IV 20 mls/hr .Q24H ENMANUEL Administration Lorazepam 1 mg 01/14/17 21:00 Ativan PO HS ENMANUEL Losartan Potassium 25 mg 01/14/17 09:00 Cozaar PO BID ENMANUEL Nitroglycerin 1 inch 01/14/17 00:00 01/14/17 06:29 Nitro-Bid Oint TOPICAL Not Given Q6HR [facility] Nitroglycerin 0.4 mg 01/13/17 21:43 Nitrostat SUBLINGUAL Q5M PRN Chest Pain Pantoprazole Sodium 40 mg 01/14/17 07:30 01/14/17 06:38 Protonix PO 40 mg [id number] ENMANUEL Administration Pravastatin Sodium 10 mg 01/14/17 09:00 Pravachol PO DAILY ENMANUEL Spironolactone 25 mg 01/14/17 09:00 Aldactone PO DAILY ENMANUEL Intake and Output 01/13/17 01/14/17 01/14/17 22:59 06:59 14:59 Intake Total 100 0 Output Total 200 Balance 100 -200 Intake: IV 100 Sodium Chloride 0.9% 1, 100 000 ml @ 100 mls/hr IV . Q10H STA Rx#:[id number] Oral 0 Output: Urine 200 Other: # Voids 1 1 Weight 72.757 kg 78.2 kg 01/13/17 19:56 01/13/17 19:56 EKG Interpretations (text) EKG shows a ventricular paced rhythm with underlying atrial fibrillation and nonspecific ST-T wave changes Assessment and Plan Plan: Assessment and plan #1 symptoms of nausea, vomiting, and diarrhea. Status post recent laparoscopic cholecystectomy one week ago. #2 symptoms of exertional shortness of breath with associated PND and orthopnea. Evidence of congestive cardiac failure, systolic, acute on chronic. One dose of IV Lasix given. #3 abnormal troponins, rule out acute coronary syndrome. Abnormal troponin could be secondary to oxygen supply and demand mismatch . #4 paroxysmal atrial fibrillation, on Coumadin for anticoagulation. #5 hypertension #6 hyperlipidemia #7 prior myocardial infarction, patient has had several cardiac catheterizations in the past never requiring intervention. #8 nonischemic cardiomyopathy with prior AICD implantation #9 hyponatremia Plan We will obtain an echocardiogram with Doppler study. Initiate IV Lasix monitor intake and output along with daily weights closely.decrease aspirin to 81 mg daily. Further recommendations to follow. DNP note has been reviewed, I agree with a documented findings and plan of care. Patient was seen and examined.
[2017-01-14] MEDS: FUROSEMIDE 10 MG/ML 4 ML VIAL IV SCH ×2 (09:35→22:42)
[2017-01-14] MEDS ORDERED: ASPIRIN 81 MG CHEW PO SCH (09:40)
--- NOTE | 2017-01-14 10:59 | ECHOF ---
Referral Reason:abn trop MEASUREMENTS -------- HEIGHT: 160.0 cm WEIGHT: 78.0 kg BP: 141/91 RVIDd: 3.3 cm (< 3.3) IVSd: 0.8 cm (0.6 - 1.1) LVIDd: 5.9 cm (3.9 - 5.3) LVPWd: 1.2 cm (0.6 - 1.1) IVSs: 1.2 cm LVIDs: 5.6 cm LVPWs: 1.4 cm LA Diam: 4.8 cm (2.7 - 3.8) LAESV Index (A-L): 61.01 ml/m Ao Diam: 2.8 cm (2.0 - 3.7) AV Cusp: 1.6 cm (1.5 - 2.6) MV EXCURSION: 14.577 mm (> 18.000) MV EF SLOPE: 55 mm/s (70 - 150) EPSS: 1.6 cm MV E Lenard: 0.77 m/s MV DecT: 164 ms MV A Lenard: 0.39 m/s MV E/A Ratio: 1.96 RAP: 5.00 mmHg RVSP: 21.01 mmHg FINDINGS -------- A-V paced rhythm. This was a technically good study. The left ventricle is moderately dilated. There is borderline concentric left ventricular hypertrophy. Overall left ventricular systolic function is severely impaired with, an EF between 20 - 25 %. The right ventricle is mildly enlarged. LA is severely dilated >40 ml/m2 The right atrium is normal in size. Aortic valve is trileaflet and is mildly thickened. The mitral valve leaflets are mildly thickened. Moderate mitral annular calcification present. [id number] mitral regurgitation is present. Mild tricuspid regurgitation present. Right ventricular systolic pressure is normal at < 35 mmHg. Trace/mild (physiologic) pulmonic regurgitation. The aortic root size is normal. The inferior vena cava is mildly dilated. The inferior vena cava is dilated with poor inspiratory collapse which is consistent with estimated right atrial pressure of 20 mmHg. The pericardium is normal. CONCLUSIONS -------- 1. A-V paced rhythm. 2. The mitral valve leaflets are mildly thickened. 3. Moderate mitral annular calcification present. 4. [id number] mitral regurgitation is present. 5. Mild tricuspid regurgitation present. 6. Right ventricular systolic pressure is normal at < 35 mmHg. 7. Trace/mild (physiologic) pulmonic regurgitation. 8. The aortic root size is normal. 9. The inferior vena cava is mildly dilated. 10. The inferior vena cava is dilated with poor inspiratory collapse which is consistent with estimated right atrial pressure of 20 mmHg. 11. The pericardium is normal. 12. This was a technically good study. 13. The left ventricle is moderately dilated. 14. There is borderline concentric left ventricular hypertrophy. 15. Overall left ventricular systolic function is severely impaired with, an EF between 20 - 25 %. 16. The right ventricle is mildly enlarged. 17. LA is severely dilated >40 ml/m2 18. The right atrium is normal in size. 19. Aortic valve is trileaflet and is mildly thickened. TREASURY REPRESENTATIVE: Flora Mustafa RDCS
[2017-01-14] MEDS: ONDANSETRON 4 MG/2 ML VIAL IVP PRN ×2 (11:24→22:43)
[2017-01-14] MEDS: PRAVASTATIN SODIUM 20 MG TAB PO SCH (11:25)
--- NOTE | 2017-01-14 11:43 | P.PN ---
Progress Note - Text This is an addendum to the dictated cardiology consultation. The patient has a known history of nonischemic cardiomyopathy, status post ICD, had cardiac catheterization done in March of last year that showed no evidence of obstructive disease who presents with nausea and vomiting that started a few days ago following cholecystectomy. She has chronic dyspnea on exertion and recent peripheral edema. She has no clear PND or orthopnea. Her lab data show minimal troponin elevation which has been chronic and documented on her previous admission. There is no acute changes on her EKG. I do not see any evidence to suggest acute coronary syndrome. She may have some fluid overload related to her severe systolic dysfunction and she will be given intravenous diuretics. I will continue her home medication, follow her INR and her blood pressure as well as her renal function and depending on her progress further recommendations will be made. Thank you for this consult we will follow with you.
--- NOTE | 2017-01-14 16:55 | P.GSCN ---
History of Present Illness Consult date: 01/14/17 Reason for Consult: abdominal pain History of present illness: Thank you very much for asking us to see this patient. She did had a laparoscopic cholecystectomy by Dr. Tan about a week ago. She states the has minimal feeling well even prior to the surgery with the nausea some abdominal pain with or vomiting. She continued to have symptoms after the surgery at home. He came to the emergency room. The feels quite weak. Had some midsternal chest pain as well. Dominant distention and bloating. She was constipated the for a few days after the surgery. Token enema then developed some loose bowel movements. Still feels somewhat distended and sterile somewhat constipated. No fever or chills. Has a history of cardiomyopathy. Several heart catheterization showing no blockage. Has a pacemaker in place. Past history the [facility] social history well-documented on recent the admission. On multiple medication. Has multiple ALLERGIES. On examination the patient is well-built well-nourished for 86-year-old white female in no acute distress but somewhat uncomfortable. She doesn't feel like eating. The anicteric. Hydration is satisfactory. Head and neck otherwise normal. Abdomen is soft with mild distention but no guarding or rebound or rigidity. Mild diffuse tenderness. Trocar sites look fine. No mass or organomegaly noted. No hernias. Labs were noted. The LFTs are unremarkable. WBCs 10,100. Hemoglobin is unremarkable. Abdominal x-ray showed nonspecific nonobstructive bowel gas pattern. Chest x- ray shows possible bilateral pleural effusions. Does have some mild lower extremity edema. Did take some extra Lasix at home and as well as some IV Lasix here. Impression no definite evidence of any surgical complications from a laparoscopic cholecystectomy. She is somewhat prior slow to recover. Cardiac- wheat she was seen by-colored cardiology and it was felt there was no evidence of acute VA and continued supportive care was recommended with Lasix for edema. Recommendation. Consider computed tomography scan of the abdomen and pelvis with oral contrast. Further management will depend on the clinical course will be glad to follow her along with you. Past Medical History Past Medical History: Atrial Fibrillation, Coronary Artery Disease (CAD), Chest Pain / Angina, Heart Failure, GERD/Reflux, Hyperlipidemia, Hypertension, Myocardial Infarction (VA), Osteoarthritis (OA), Pneumonia Additional Past Medical History / Comment(s): occas abdominal pain with eating and bloating with eating,recently treated for ruben eye bacterial infection, home o2 3 liters n/c, cardiomyopathy,"arrythmia", mi x4, v-tach 2007, osteoporosis, diverticultiis,hiatal hernia, bone spurs lt shoulder,anemia Last Myocardial Infarction Date:: unk History of Any Multi-Drug Resistant Organisms: None Reported Past Surgical History: AICD, Cholecystectomy, Heart Catheterization, Hysterectomy, Joint Replacement, Orthopedic Surgery, Pacemaker Additional Past Surgical History / Comment(s): sx to repair broken nose, d&c, ruben foot sx ruben bunionectomy, lt knee replacment, rt knee arthrosocpy.pacemaker/ defibrillator medtronic left chest serial #[id number],mult heart cath Past Anesthesia/Blood Transfusion Reactions: Motion Sickness, Postoperative Nausea & Vomiting (PONV) Additional Past Anesthesia/Blood Transfusion Reaction / Comm: no problems with prior blood transfusion Type of Cardiac Device: Permanent Pacemaker, AICD Device Placement Date:: Mar Past Psychological History: Anxiety Additional Psychological History / Comment(s): pt lives with spouse in a 2 story home that has 4 steps to get into home,10 steps up and 10 steps to basement where laundry facilities are. no pets.pt has home 02, shower chair, walker cane. Smoking Status: Former smoker Past Alcohol Use History: None Reported Past Drug Use History: None Reported - Past Family History Mother Family Medical History: Cancer, Diabetes Mellitus Additional Family Medical History / Comment(s): uterine cancer Daughter(s) Family Medical History: Cancer Additional Family Medical History / Comment(s): ovarian cancer Father Additional Family Medical History / Comment(s): cardiac problems Medications and Allergies Home Medications Medication Instructions Recorded Confirmed Type Aspirin EC [Ecotrin Low Dose] 81 mg PO DAILY 12/19/16 01/13/17 History Atenolol 25 mg PO TID 12/19/16 01/13/17 History Digoxin [Lanoxin] 250 mcg PO DAILY 12/19/16 01/13/17 History Furosemide [Lasix] 20 mg PO DAILY 12/19/16 01/13/17 History LORazepam [Ativan] 1 mg PO HS 12/19/16 01/13/17 History Losartan [Cozaar] 25 mg PO BID 12/19/16 01/13/17 History Pravastatin Sodium [Pravachol] 10 mg PO DAILY 12/19/16 01/13/17 History Spironolactone 25 mg PO DAILY 12/19/16 01/13/17 History Warfarin [Coumadin] 4 mg PO DAILY 12/19/16 01/13/17 History Omeprazole 20 mg PO DAILY 01/13/17 01/13/17 History Allergies Allergy/AdvReac Type Severity Reaction Status Date / Time cefaclor [From Ceclor] Allergy Unknown Verified 01/13/17 19:50 celecoxib [From Celebrex] Allergy Unknown Verified 01/13/17 19:50 cephalexin [From Keflex] Allergy Unknown Verified 01/13/17 19:50 clindamycin [From Cleocin] Allergy Unknown Verified 01/13/17 19:50 diphenhydramine Allergy Nausea & Verified 01/13/17 19:50 [From Benadryl] Vomiting & Diarrhea dolasetron [From Anzemet] Allergy Unknown Verified 01/13/17 19:50 enalaprilat [From Vasotec] Allergy Unknown Verified 01/13/17 19:50 hydrocortisone [From Cortef] Allergy anxiety Verified 01/13/17 19:50 attack hydromorphone [From Dilaudid] Allergy Unknown Verified 01/13/17 19:50 hydroxyzine [From Vistaril] Allergy Unknown Verified 01/13/17 19:50 ibuprofen [From Motrin] Allergy Unknown Verified 01/13/17 19:50 Iodinated Contrast Media - Allergy Unknown Verified 01/13/17 19:50 Oral and levofloxacin [From Levaquin] Allergy Unknown Verified 01/13/17 19:50 morphine Allergy Unknown Verified 01/13/17 19:50 oxycodone Allergy Unknown Verified 01/13/17 19:50 Penicillins Allergy Swelling Verified 01/13/17 19:50 prednisone Allergy anxiety Verified 01/13/17 19:50 attack promethazine [From Phenergan] Allergy Unknown Verified 01/13/17 19:50 shellfish derived [Shellfish] Allergy Rash/Hives Verified 01/13/17 19:50 cortisone AdvReac anxiety Verified 01/13/17 19:50 attack methylprednisolone AdvReac anxiety Verified 01/13/17 19:50 [From Medrol] attack STEROIDS AdvReac anxiety Uncoded 01/13/17 19:22 attack Surgical - Exam Vital Signs Temp Pulse Resp BP Pulse Ox 97.2 F L 70 18 180/93 99 01/13/17 19:19 01/13/17 19:19 01/13/17 19:19 01/13/17 19:19 01/13/17 19:19 Results - Labs 01/13/17 19:56 01/13/17 19:56 Abnormal Lab Results - Last 24 Hours (Table) 01/13/17 01/13/17 01/13/17 Range/Units 19:56 19:56 19:56 WBC 10.7 H (3.8-10.6) k/uL Hct 49.1 H (34.0-46.0) % Neutrophils # 8.6 H (1.3-7.7) k/uL PT (9.0-12.0) sec Sodium 123 L (137-145) mmol/L Chloride 87 L (98-107) mmol/L BUN 21 H (7-17) mg/dL Glucose 134 H (74-99) mg/dL Total Bilirubin 1.5 H (0.2-1.3) mg/dL AST 39 H (14-36) U/L CK-MB (CK-2) 3.1 H* (0.0-2.4) ng/mL Troponin I 0.059 H* (0.000-0.034) ng/mL Urine Appearance (Clear) Urine Protein (Negative) Ur Leukocyte Esterase (Negative) Urine RBC (0-5) /hpf Ur Squamous Epith Cells (0-4) /hpf Urine Bacteria (None) /hpf Hyaline Casts (0-2) /lpf Urine Mucus (None) /hpf 01/13/17 01/13/17 01/14/17 Range/Units 19:56 21:33 02:06 WBC (3.8-10.6) k/uL Hct (34.0-46.0) % Neutrophils # (1.3-7.7) k/uL PT 26.0 H (9.0-12.0) sec Sodium (137-145) mmol/L Chloride (98-107) mmol/L BUN (7-17) mg/dL Glucose (74-99) mg/dL Total Bilirubin (0.2-1.3) mg/dL AST (14-36) U/L CK-MB (CK-2) 3.3 H* (0.0-2.4) ng/mL Troponin I 0.069 H* (0.000-0.034) ng/mL Urine Appearance Cloudy H (Clear) Urine Protein 2+ H (Negative) Ur Leukocyte Esterase Moderate H (Negative) Urine RBC 7 H (0-5) /hpf Ur Squamous Epith Cells 19 H (0-4) /hpf Urine Bacteria Rare H (None) /hpf Hyaline Casts 10 H (0-2) /lpf Urine Mucus Rare H (None) /hpf 01/14/17 Range/Units 07:26 WBC (3.8-10.6) k/uL Hct (34.0-46.0) % Neutrophils # (1.3-7.7) k/uL PT (9.0-12.0) sec Sodium (137-145) mmol/L Chloride (98-107) mmol/L BUN (7-17) mg/dL Glucose (74-99) mg/dL Total Bilirubin (0.2-1.3) mg/dL AST (14-36) U/L CK-MB (CK-2) 3.2 H* (0.0-2.4) ng/mL Troponin I 0.080 H* (0.000-0.034) ng/mL Urine Appearance (Clear) Urine Protein (Negative) Ur Leukocyte Esterase (Negative) Urine RBC (0-5) /hpf Ur Squamous Epith Cells (0-4) /hpf Urine Bacteria (None) /hpf Hyaline Casts (0-2) /lpf Urine Mucus (None) /hpf Diabetes panel 01/13/17 01/14/17 Range/Units 19:56 07:26 Sodium 123 L (137-145) mmol/L Potassium 4.9 (3.5-5.1) mmol/L Chloride 87 L (98-107) mmol/L Carbon Dioxide 23 (22-30) mmol/L BUN 21 H (7-17) mg/dL Creatinine 0.86 (0.52-1.04) mg/dL Glucose 134 H (74-99) mg/dL Calcium 9.2 (8.4-10.2) mg/dL AST 39 H (14-36) U/L ALT 25 (9-52) U/L Alkaline Phosphatase 83 (38-126) U/L Total Protein 7.0 (6.3-8.2) g/dL Albumin 4.3 (3.5-5.0) g/dL Triglycerides 100 (<150) mg/dL HDL Cholesterol 42 (40-60) mg/dL Calcium panel 01/13/17 Range/Units 19:56 Calcium 9.2 (8.4-10.2) mg/dL Albumin 4.3 (3.5-5.0) g/dL Pituitary panel 01/13/17 Range/Units 19:56 Sodium 123 L (137-145) mmol/L Potassium 4.9 (3.5-5.1) mmol/L Chloride 87 L (98-107) mmol/L Carbon Dioxide 23 (22-30) mmol/L BUN 21 H (7-17) mg/dL Creatinine 0.86 (0.52-1.04) mg/dL Glucose 134 H (74-99) mg/dL Calcium 9.2 (8.4-10.2) mg/dL Adrenal panel 01/13/17 Range/Units 19:56 Sodium 123 L (137-145) mmol/L Potassium 4.9 (3.5-5.1) mmol/L Chloride 87 L (98-107) mmol/L Carbon Dioxide 23 (22-30) mmol/L BUN 21 H (7-17) mg/dL Creatinine 0.86 (0.52-1.04) mg/dL Glucose 134 H (74-99) mg/dL Calcium 9.2 (8.4-10.2) mg/dL Total Bilirubin 1.5 H (0.2-1.3) mg/dL AST 39 H (14-36) U/L ALT 25 (9-52) U/L Alkaline Phosphatase 83 (38-126) U/L Total Protein 7.0 (6.3-8.2) g/dL Albumin 4.3 (3.5-5.0) g/dL
[2017-01-14] MEDS: BARIUM SULFATE 450 ML ORAL.SUSP BOTTLE PO PRN ×2 (17:30→17:54)
--- NOTE | 2017-01-14 19:29 | HP ---
DATE OF ADMISSION: Patient is an 86-year-old female with multiple medical problems, including congestive heart failure, ejection fraction of 20%. She had recent cholecystectomy surgery. Patient was subsequently discharged, and since her discharge patient was constipated. Because of the constipation, patient did use enema, after which patient started having multiple bowel movements and patient was also nauseated and was complaining about halos in her visual talbot. Patient denied any double vision. Patient denied any fever or chills. Patient is complaining of progressive shortness of breath along with orthopnea as well as PND episodes every single night. Patient in the ER was found to have highly elevated BNP along with chest x-ray revealing cardiomegaly and bilateral infiltrates and bilateral small pleural effusions. Patient does have elevated JVD. She was started on IV Lasix, which is appropriate. Patient has an elevated digoxin level of 1.8, which is being held at this point of time; maybe contributed to nausea, vomiting as well. Patient is being treated for gastritis with Protonix, which may be contributing to her nausea and vomiting. REVIEW OF SYSTEMS: CONSTITUTIONAL: No fever, no malaise, no fatigue. HEENT: No recent visual problems or hearing problems. Denied any sore throat. CARDIOVASCULAR: As described in HPI. PULMONARY: No shortness of breath, no cough, no hemoptysis. GASTROINTESTINAL: As described in HPI. NEUROLOGICAL: No headaches, no weakness, no numbness. HEMATOLOGICAL: Denies any bleeding or petechiae. GENITOURINARY: Denies any burning micturition, frequency, or urgency. MUSCULOSKELETAL/RHEUMATOLOGICAL: Denies any joint pain, swelling, or any muscle pain. ENDOCRINE: Denies any polyuria or polydipsia. The rest of the 14 point review of systems is negative. PAST MEDICAL HISTORY: 1. Atrial fibrillation. 2. Congestive heart failure. 3. Chronic dyspnea dysfunction; ejection fraction of 20% ( ) 4. Gastroesophageal reflux disease. 5. Hyperlipidemia. 6. Hypertension. 7. Myocardial infarction. 8. Osteoarthritis. 9. Patient's recent echocardiogram that was done today shows ejection fraction of 20% with non-collapsible IVC. 10. Diverticulitis. 11. Hiatal hernia. 12. Severe cardiomyopathy. 13. Hysterectomy. 14. Joint replacement surgery. 15. Pacemaker placement. 16. AICD placement. SOCIAL HISTORY: Former smoker. Denied any alcohol abuse or any drug abuse. FAMILY HISTORY: Mother had uterine cancer, diabetes mellitus. Daughter had ovarian cancer. Father had cardiac problems. Home medications include: 1. Aspirin. 2. Atenolol. 3. Digoxin 250 mcg p.o. daily. 4. Lasix 20 mg p.o. daily. 5. Lorazepam. 6. Losartan. 7. Pravastatin. 8. Spironolactone. 9. Coumadin. 10. Omeprazole. ALLERGIES: MULTIPLE ALLERGIES. Please refer to the chart. PHYSICAL EXAMINATION: VITAL SIGNS: Temperature 96.9, pulse of 70, respiratory rate of 16. Blood pressure is 157/91. Saturating at 99% on 2 L of oxygen by nasal cannula. GENERAL: The patient is alert and oriented x3, not in any acute distress. Well developed, well nourished. HEENT: Pupils are round and equally reacting to light. EOMI. No scleral icterus. No conjunctival pallor. Normocephalic, atraumatic. No pharyngeal erythema. No thyromegaly. CARDIOVASCULAR: S1, S2 present. Patient has a systolic murmur in the aortic area. Patient has irregularly irregular rhythm, although rate-controlled. Does have elevated JVD. PULMONARY: Diffuse bilateral crackles were appreciated. No wheezing was appreciated. Fairly good air entry into bilateral lung talbot. ABDOMEN: Soft, nontender, nondistended, normoactive bowel sounds. No palpable organomegaly. MUSCULOSKELETAL: No joint swelling or deformity. EXTREMITIES: One plus pitting pedal edema. NEUROLOGICAL: Gross neurological examination did not reveal any focal deficits. SKIN: No rashes. LABORATORY DATA, SIGNIFICANT ONES: Sodium is 123, chloride of 87. ASSESSMENT AND PLAN: 1. Congestive heart failure, chronic systolic dysfunction with acute exacerbation. Patient was started on IV Lasix, which is appropriate. Patient was also started on spironolactone. 2. Nausea, vomiting, diarrhea. Clostridium difficile testing will be obtained. Patient's nausea, vomiting can be related to either gastritis or secondary to digoxin toxicity. 3. Elevated digoxin levels, because of which digoxin will be held. Will not use any Digibind yet unless her symptoms of nausea do not resolve. Then we will use Digibind. 4. Mildly elevated troponin, possibly supply/demand mismatch. 5. Paroxysmal atrial fibrillation, on Coumadin. INR is therapeutic at this point of time. Coumadin will be continued at the same dose. Repeat INR tomorrow. 6. Hypertension. 7. Hyperlipidemia. 8. Prior cardiac catheterization without any stent placement. 9. Non-ischemic cardiomyopathy; ejection fraction of 25%, status post automatic implantable cardioverter defibrillator. 10. Hypervolemic hyponatremia, expected to improve with IV Lasix.
[2017-01-14] MEDS ORDERED: LORazepam 1 MG TAB PO SCH (21:00)
[2017-01-14] MEDS: SODIUM CHLORIDE 0.9% 1,000 ML IV SCH (22:05)
--- NOTE | 2017-01-14 22:51 | CT ---
EXAM: CT Abdomen and Pelvis Without Intravenous Contrast CLINICAL HISTORY: Reason: abdominal pain, nausea TECHNIQUE: Axial computed tomography images of the abdomen and pelvis without intravenous contrast. CTDI is 12.3 mGy and DLP is 623.5 mGy-cm. This CT exam was performed using one or more of the following dose reduction techniques: automated exposure control, adjustment of the mA and/or kV according to patient size, and/or use of iterative reconstruction technique. COMPARISON: CT abdomen-pelvis 12/18/2016 FINDINGS: Lower thorax: Partially imaged 6 mm right upper lobe pulmonary nodule. 4 mm right middle lobe pulmonary nodule. These are not identified and probably were not imaged on prior study of 12/18/2016. 4 mm right lower lobe probably nodule, unchanged since 12/18/16. Development of small bilateral pleural effusions with mild bibasilar lower lobe atelectasis/infiltrates. Moderate cardiomegaly. Development of diffuse soft tissue edematous changes/anasarca which may reflect congestive changes. Persistent elevation of right hemidiaphragm. Small hiatal hernia. ABDOMEN: Liver: Mild hepatomegaly. Gallbladder and bile ducts: Interval post surgical changes of cholecystectomy. Pancreas: Pancreas is unremarkable. Spleen: No significant abnormalities Adrenals: No adrenal masses Kidneys and ureters: No evidence of renal calculi or hydronephrosis. Multiple left renal low density masses suggesting probable cysts. Stomach and bowel: No evidence of bowel obstruction or pneumoperitoneum. Colonic diverticulosis. Appendix: Appendix not clearly visualized. PELVIS: Bladder: Unremarkable. No stones. Reproductive: Unremarkable as visualized. ABDOMEN and PELVIS: Intraperitoneal space: Development of moderate free intraperitoneal fluid/ascites in the abdomen and pelvis. Perihepatic fluid extends into region of gallbladder fossa. No discrete mass or loculation to suggest abscess. Bones/joints: Diffuse lower thoracic and lumbar degenerative changes and spondylosis. Minimal T12 anterior compression deformity. Soft tissues: Small fat-containing umbilical hernia with development of surrounding soft tissue edematous changes inferior to hernia. Vasculature: Aortic atherosclerotic disease. No evidence of abdominal aortic aneurysm. Lymph nodes: No definite abnormal masses or lymphadenopathy. IMPRESSION: Multiple right lung pulmonary nodules which are nonspecific. CT chest follow-up recommended. Cardiomegaly. Development of small bilateral pleural effusions and moderate abdominal-pelvic ascites as well as diffuse soft tissue edematous changes raising possibility of congestive failure or fluid overload. Clinical correlation recommended. Status post cholecystectomy. Perihepatic ascites extends into the gallbladder fossa. No definite evidence of abscess collection. Multiple left renal masses suggesting probable cysts. Ultrasound correlation recommended. Colonic diverticulosis. Small hiatal hernia and small umbilical hernia.
[2017-01-15] MEDS: PANTOPRAZOLE 40 MG TABLET PO SCH (06:32)
[2017-01-15 07:08] LABS: CHCM 33.5; HCT 48.1 % (34.0-46.0); HDW 2.37; HGB 15.3 gm/dL (11.4-16.0); MCH 29.6 pg (25.0-35.0); MCHC 31.9 g/dL (31.0-37.0); MCV 92.8 fL (80.0-100.0); Mean Platelet Volume 7.5; RBC 5.18 m/uL (3.80-5.40); RDW 14.9 % (11.5-15.5); WBC 9.5 k/uL (3.8-10.6)
[2017-01-15 07:28] LABS: Anion Gap 14 mmol/L; Blood Urea Nitrogen 22 mg/dL (7-17); Calcium 9.3 mg/dL (8.4-10.2); Carbon Dioxide 24 mmol/L (22-30); Chloride 87 mmol/L (98-107); Glucose 101 mg/dL (74-99); Non-African American GFR(MDRD) 50 (>60 ml/min/1.73 sqM); Potassium 4.4 mmol/L (3.5-5.1); Sodium 125 mmol/L (137-145)
[2017-01-15 07:31] LABS: INR 2.5 (<1.1); Prothrombin Time 23.7 sec (9.0-12.0)
--- NOTE | 2017-01-15 08:42 | P.PN ---
Progress Note - Text The patient still feels fairly uncomfortable. No appetite. SHe is nauseous. On examination the patient is awake alert. He looks uncomfortable. Temperature is normal. Vitals are stable. Anicteric. Abdomen shows some mild distention. Diffuse mild tenderness but otherwise soft. No guarding or rebound. Trocar sites look fine. Computed tomography scan shows a fair amount of ascites. WBC is normal. LFTs are pending. Bilirubin on admission was 1.5. Impression. Abdominal pain nausea status post lap dayna. Ascites. Concerned about the cystic duct stump leak. Recommendation. We will consult the GI for evaluation for ERCP or MRCP.
[2017-01-15 09:21] LABS: Total Bilirubin 2.3 mg/dL (0.2-1.3); Total Protein 6.7 g/dL (6.3-8.2)
--- NOTE | 2017-01-15 10:26 | P.CONS ---
History of Present Illness - Reason for Consult Consult date: 01/15/17 Possible cystic duct leak Requesting physician: Alex Bryant - History of Present Illness 86-year-old female status post laparoscopic cholecystectomy with Dr. Mars for cholecystitis without stones. PMH CHF EF 20%, atrial fibrillation Coumadin monitoring, hypertension, hyperlipidemia, severe cardiomyopathy, pacemaker AICD. Consultation requested for possible cystic duct leak. Reports nausea with decreased appetite with bloatedness and midsternal chest discomfort prior to and after surgery but exacerbated over last few days. CT abdomen and pelvis multiple nonspecific right lung pulmonary nodules. Small bilateral pleural effusions with moderate abdominal pelvic ascites diffuse soft tissue edematous changes possibility of CHF or fluid overload. Perihepatic ascites extending into the gallbladder fossa no evidence of definite abscess collection. Small hiatal hernia and umbilical hernia. Colonic diverticulosis. White count 9.5-10.7. Hemoglobin 15.3. INR 2.5. Total bilirubin prior to surgery 1.5. Presently total bilirubin is 2.3. Unconjugated bilirubin 1.3. Conjugated bilirubin 0.0. AST 38-39. ALT 25-31. Alkaline phosphatase 63-83. Lipase 148. Review of Systems Constitutional: Denies fever, chills, sweats, weight gain, or loss. HEENT: Negative for migraines, blurred vision or loss, earaches, drainage, tinnitus, oral mucosal lesions, dysphagia, or odynophagia. CARDIAC: AICD pacemaker. CHF. Cardiomyopathy. Atrial fibrillation. CAD. Hyperlipidemia. Hypertension. [place]. Negative for chest pain, arrhythmias, or palpitation. RESPIRATORY: Negative for shortness of breath, hemoptysis, cough, or sputum production. GI: See HPI for pertinent findings. : Negative for hematuria, urgency, frequency, polyuria, or dysuria. GYNc: Denies possibility of . Negative vaginal discharge. MUSCULOSKELETAL: Negative for muscle aches, swelling, arthritis, and arthralgias. NEUROLOGIC: Negative for stroke or TIA. ENDOCRINE: Negative for thyroid problems. SKIN: Negative for rash or itching. PSYCHIATRIC: Negative history for depression and anxiety All systems: negative (See HPI) Past Medical History Past Medical History: Atrial Fibrillation, Coronary Artery Disease (CAD), Chest Pain / Angina, Heart Failure, GERD/Reflux, Hyperlipidemia, Hypertension, Myocardial Infarction (WA), Osteoarthritis (OA), Pneumonia Additional Past Medical History / Comment(s): occas abdominal pain with eating and bloating with eating,recently treated for ruben eye bacterial infection, home o2 3 liters n/c, cardiomyopathy,"arrythmia", mi x4, v-tach 2007, osteoporosis, diverticultiis,hiatal hernia, bone spurs lt shoulder,anemia Last Myocardial Infarction Date:: unk History of Any Multi-Drug Resistant Organisms: None Reported Past Surgical History: AICD, Cholecystectomy, Heart Catheterization, Hysterectomy, Joint Replacement, Orthopedic Surgery, Pacemaker Additional Past Surgical History / Comment(s): sx to repair broken nose, d&c, ruben foot sx ruben bunionectomy, lt knee replacment, rt knee arthrosocpy.pacemaker/ defibrillator medtronic left chest serial #[id number],mult heart cath Past Anesthesia/Blood Transfusion Reactions: Motion Sickness, Postoperative Nausea & Vomiting (PONV) Additional Past Anesthesia/Blood Transfusion Reaction / Comm: no problems with prior blood transfusion Type of Cardiac Device: Permanent Pacemaker, AICD Device Placement Date:: Mar Past Psychological History: Anxiety Additional Psychological History / Comment(s): pt lives with spouse in a 2 story home that has 4 steps to get into home,10 steps up and 10 steps to basement where laundry facilities are. no pets.pt has home 02, shower chair, walker cane. Smoking Status: Former smoker Past Alcohol Use History: None Reported Past Drug Use History: None Reported - Past Family History Mother Family Medical History: Cancer, Diabetes Mellitus Additional Family Medical History / Comment(s): uterine cancer Daughter(s) Family Medical History: Cancer Additional Family Medical History / Comment(s): ovarian cancer Father Additional Family Medical History / Comment(s): cardiac problems Medications and Allergies Home Medications Medication Instructions Recorded Confirmed Type Aspirin EC [Ecotrin Low Dose] 81 mg PO DAILY 12/19/16 01/13/17 History Atenolol 25 mg PO TID 12/19/16 01/13/17 History Digoxin [Lanoxin] 250 mcg PO DAILY 12/19/16 01/13/17 History Furosemide [Lasix] 20 mg PO DAILY 12/19/16 01/13/17 History LORazepam [Ativan] 1 mg PO HS 12/19/16 01/13/17 History Losartan [Cozaar] 25 mg PO BID 12/19/16 01/13/17 History Pravastatin Sodium [Pravachol] 10 mg PO DAILY 12/19/16 01/13/17 History Spironolactone 25 mg PO DAILY 12/19/16 01/13/17 History Warfarin [Coumadin] 4 mg PO DAILY 12/19/16 01/13/17 History Omeprazole 20 mg PO DAILY 01/13/17 01/13/17 History Allergies Allergy/AdvReac Type Severity Reaction Status Date / Time cefaclor [From Ceclor] Allergy Unknown Verified 01/13/17 19:50 celecoxib [From Celebrex] Allergy Unknown Verified 01/13/17 19:50 cephalexin [From Keflex] Allergy Unknown Verified 01/13/17 19:50 clindamycin [From Cleocin] Allergy Unknown Verified 01/13/17 19:50 diphenhydramine Allergy Nausea & Verified 01/13/17 19:50 [From Benadryl] Vomiting & Diarrhea dolasetron [From Anzemet] Allergy Unknown Verified 01/13/17 19:50 enalaprilat [From Vasotec] Allergy Unknown Verified 01/13/17 19:50 hydrocortisone [From Cortef] Allergy anxiety Verified 01/13/17 19:50 attack hydromorphone [From Dilaudid] Allergy Unknown Verified 01/13/17 19:50 hydroxyzine [From Vistaril] Allergy Unknown Verified 01/13/17 19:50 ibuprofen [From Motrin] Allergy Unknown Verified 01/13/17 19:50 Iodinated Contrast Media - Allergy Unknown Verified 01/13/17 19:50 Oral and levofloxacin [From Levaquin] Allergy Unknown Verified 01/13/17 19:50 morphine Allergy Unknown Verified 01/13/17 19:50 oxycodone Allergy Unknown Verified 01/13/17 19:50 Penicillins Allergy Swelling Verified 01/13/17 19:50 prednisone Allergy anxiety Verified 01/13/17 19:50 attack promethazine [From Phenergan] Allergy Unknown Verified 01/13/17 19:50 shellfish derived [Shellfish] Allergy Rash/Hives Verified 01/13/17 19:50 cortisone AdvReac anxiety Verified 01/13/17 19:50 attack methylprednisolone AdvReac anxiety Verified 01/13/17 19:50 [From Medrol] attack STEROIDS AdvReac anxiety Uncoded 01/13/17 19:22 attack Physical Exam Vitals: Vital Signs Temp Pulse Resp BP Pulse Ox 01/15/17 07:51 97 01/15/17 04:00 96.7 F L 70 16 141/87 97 01/14/17 23:59 96.7 F L 70 16 148/90 99 01/14/17 20:44 98 01/14/17 20:00 97.2 F L 70 18 151/98 97 01/14/17 15:25 97.0 F L 70 16 136/92 99 01/14/17 14:56 70 18 01/14/17 11:54 97.5 F L 70 18 142/90 97 01/14/17 11:41 98 Intake and Output 01/14/17 01/15/17 01/15/17 22:59 06:59 14:59 Intake Total 720 120 Output Total 420 500 Balance 300 -380 Intake: Oral 720 120 Output: Urine 420 500 Other: Voiding Method Toilet Toilet # Voids 1 Weight 78.2 kg 78.4 kg General appearance: The patient is alert, oriented, in no acute distress. HET: Head is normocephalic and atraumatic. Pupils are equal and reactive. Oropharynx is clear without lesions. Neck: Supple without lymphadenopathy. Trachea midline. Heart: S1 S2. Lungs: No crackles or wheezes are heard. Abdomen: Soft, lap incisions clean mild incisional tenderness, mildly distended with bowel sounds. No peritoneal signs. No palpable organomegaly or masses. Extremities: Normal skin color and turgor. No cyanosis, rash, ulceration, clubbing, or edema. Radial and pedal pulses are 2/4 bilaterally. Neurological: No focal deficits. Strength and sensation are grossly intact. Results CBC & Chem 7: 01/15/17 06:16 01/15/17 06:16 Labs: Abnormal Lab Results - Last 24 Hours (Table) 01/15/17 01/15/17 01/15/17 Range/Units 06:16 06:16 06:16 Hct 48.1 H (34.0-46.0) % PT 23.7 H (9.0-12.0) sec Sodium 125 L (137-145) mmol/L Chloride 87 L (98-107) mmol/L BUN 22 H (7-17) mg/dL Creatinine 1.05 H (0.52-1.04) mg/dL Glucose 101 H (74-99) mg/dL Assessment and Plan (1) S/P cholecystectomy Narrative/Plan: Persistent nausea vomiting abdominal bloatedness status post laparoscopic cholecystectomy 01/06/2017 with hyperbilirubinemia suspected secondary to CHF fluid overload passive congestion. If there is concern for possible cystic duct leak recommend HIDA scan for further examination. Based on HIDA scan results will proceed with ERCP as indicated and once INR is therapeutic at 1.5 or less. Status: Acute (2) Congestive heart failure Status: Acute Plan: 1. HIDA. 2. Supportive measures. 3. ERCP contingent on HIDA results. Thank you for this kind referral and the opportunity to participate in the care of your patient. This consultation was discussed with Dr. Brownlee. The impression and plan of care have been directed as dictated.
--- NOTE | 2017-01-15 12:22 | NM ---
EXAMINATION TYPE: NM hepatobiliary wo EF DATE OF EXAM: 01/15/2017 COMPARISON: CT abdomen 01/14/2017 HISTORY: Status post cholecystectomy, ascites TECHNIQUE: After the intravenous administration of 5 mCi Tc 99m Mebrofenin hepatobiliary scintigraphy is performed. Immediate images post injection. FINDINGS: Homogenous liver uptake is noted. Biliary uptake identified by 14 minutes. Small bowel uptake is iden tified at 22 minutes. Gallbladder is not seen. IMPRESSION: Status post cholecystectomy. Biliary leak is not evident.
[2017-01-15] MEDS: ATENOLOL 25 MG TAB PO SCH ×3 (12:41→20:17)
[2017-01-15] MEDS: LOSARTAN 25 MG TAB PO SCH ×2 (12:41→20:17)
[2017-01-15] MEDS: FUROSEMIDE 10 MG/ML 4 ML VIAL IV SCH ×2 (12:41→20:15)
[2017-01-15] MEDS: PRAVASTATIN SODIUM 20 MG TAB PO SCH (12:45)
[2017-01-15] MEDS: SPIRONOLACTONE 25 MG TAB PO SCH (12:45)
--- NOTE | 2017-01-15 15:02 | P.PN ---
Subjective Principal diagnosis: Nausea and vomiting This is a pleasant 86-year-old female with known history of paroxysmal atrial fibrillation, hyperlipidemia, prior myocardial infarction, prior AICD implantation, hypertension, who underwent a lap dayna one week ago. She presented to the hospital with symptoms of persistent nausea vomiting diarrhea and dizziness. Possible infiltrate as well as new small left pleural effusion. Patient was initiated on IV Lasix, diuresed well through the night last night. Edema much improved today. Patient denies any shortness of breath today. She does complain of persistent nausea, abdominal discomfort. Objective - Vital Signs Vital signs: Vital Signs Temp 96.7 F L 01/15/17 12:00 Pulse 69 01/15/17 12:00 Resp 16 01/15/17 12:00 BP 153/100 01/15/17 12:00 Pulse Ox 96 01/15/17 12:00 Intake & Output 01/14/17 01/15/17 01/15/17 18:59 06:59 18:59 Intake Total 840 120 Output Total 800 620 Balance 40 -500 Weight 78.2 kg 78.4 kg Intake: Oral 840 120 Output: Urine 800 620 Other: Voiding Method Toilet Toilet # Voids 1 1 - Exam PHYSICAL EXAMINATION: HEENT: Head is atraumatic, normocephalic. Pupils equal, round. Neck is supple. There is no elevated jugular venous pressure. HEART EXAMINATION: S1 and S2 irregularly irregular CHEST EXAMINATION: Lungs are clear to auscultation and precussion. No chest wall tenderness is noted on palpation or with deep breathing. ABDOMEN: Soft, diffuse mild tenderness throughout . Bowel sounds are heard. No organomegaly noted. Mild distention noted. EXTREMITIES: 2+ peripheral pulses with trace evidence of peripheral edema and no calf tenderness noted. NEUROLOGIC patient is awake, alert and oriented -3. . - Labs CBC & Chem 7: 01/15/17 06:16 01/15/17 06:16 Labs: Abnormal Lab Results - Last 24 Hours (Table) 01/15/17 01/15/17 01/15/17 Range/Units 06:16 06:16 06:16 Hct 48.1 H (34.0-46.0) % PT 23.7 H (9.0-12.0) sec Sodium 125 L (137-145) mmol/L Chloride 87 L (98-107) mmol/L BUN 22 H (7-17) mg/dL Creatinine 1.05 H (0.52-1.04) mg/dL Glucose 101 H (74-99) mg/dL Total Bilirubin (0.2-1.3) mg/dL Unconjugated Bilirubin (0.0-1.1) mg/dL Delta Bilirubin (0.0-0.2) mg/dL AST (14-36) U/L 01/15/17 Range/Units 06:16 Hct (34.0-46.0) % PT (9.0-12.0) sec Sodium (137-145) mmol/L Chloride (98-107) mmol/L BUN (7-17) mg/dL Creatinine (0.52-1.04) mg/dL Glucose (74-99) mg/dL Total Bilirubin 2.3 H (0.2-1.3) mg/dL Unconjugated Bilirubin 1.3 H (0.0-1.1) mg/dL Delta Bilirubin 1.0 H (0.0-0.2) mg/dL AST 38 H (14-36) U/L Assessment and Plan Plan: Assessment and plan #1 symptoms of nausea, vomiting, and diarrhea. Status post recent laparoscopic cholecystectomy one week ago. #2 symptoms of exertional shortness of breath with associated PND and orthopnea. Evidence of congestive cardiac failure, systolic, acute on chronic. #3 abnormal troponins, rule out acute coronary syndrome. Abnormal troponin could be secondary to oxygen supply and demand mismatch . #4 paroxysmal atrial fibrillation, on Coumadin for anticoagulation. #5 hypertension #6 hyperlipidemia #7 prior myocardial infarction, patient has had several cardiac catheterizations in the past never requiring intervention. 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 DNP note has been reviewed, I agree with a documented findings and plan of care. Patient was seen and examined.
[2017-01-15] MEDS: SODIUM CHLORIDE 0.9% 1,000 ML IV SCH (22:33)
[2017-01-16] MEDS: PANTOPRAZOLE 40 MG TABLET PO SCH (06:07)
[2017-01-16 07:03] LABS: Calcium 9.6 mg/dL (8.4-10.2); Potassium 4.4 mmol/L (3.5-5.1); Total Bilirubin 3.1 mg/dL (0.2-1.3); Total Protein 6.5 g/dL (6.3-8.2)
--- NOTE | 2017-01-16 07:25 | PN ---
86-year-old admitted for shortness of breath. Patient remains nauseous. ( ) the patient and patient ( ) did not show any leak. Patient is on Protonix as well. Unsure of the etiology of nausea at this point of time. Patient remains in quite a bit of distress although heart failure did improve. Continue with IV Lasix. REVIEW OF SYSTEMS: CARDIOVASCULAR: No chest pain, no orthopnea, no PND, no palpitations. PULMONARY: Denied any shortness of breath. No cough or hemoptysis. GASTROINTESTINAL: As described in HPI. NEUROLOGIC: No headaches, no weakness, no numbness. Medications were reviewed. PHYSICAL EXAMINATION: VITAL SIGNS: Temperature 96.7, pulse of 69, respiratory rate of 16. Blood pressure 146/98, saturating at 96% on 3 liters O2 nasal cannula. GENERAL: The patient is alert and oriented x3, not in any acute distress. Well developed, well nourished. HEENT: Pupils are round and equally reacting to light. EOMI. No scleral icterus. No conjunctival pallor. Normocephalic, atraumatic. No pharyngeal erythema. No thyromegaly. CARDIOVASCULAR: S1 and S2 present. JVD did improve. No murmurs, rubs or gallops are appreciated. PULMONARY: Chest is clear to auscultation, no wheezing or crackles. ABDOMEN: Soft, nontender, nondistended, normoactive bowel sounds. No palpable organomegaly. MUSCULOSKELETAL: No joint swelling or deformity. EXTREMITIES: No cyanosis, clubbing, or pedal edema. NEUROLOGICAL: Gross neurological examination did not reveal any focal deficits. SKIN: No rashes. Laboratory data showed improvement in sodium of 125. Creatinine has worsened a little bit. Total bilirubin has gone up. Troponin remains stable. ASSESSMENT AND PLAN: 1. Congestive heart failure, chronic systolic dysfunction, ejection fraction of 20% with acute exacerbation. Continue with IV Lasix as mentioned above. Kidney function monitoring. 2. Hypovolemic hyponatremia, which improved. 3. Nausea may be related to gastritis, which did not improve. 4. Elevated digoxin levels for which digoxin is being held. Not high enough to cause digitoxicity, probably not contributing to her nausea or vomiting. 5. Paroxysmal atrial fibrillation. Therapeutic on Coumadin, although Coumadin is being held for endoscopic retrograde cholangiopancreatography procedure. 6. Hypertension. 7. Hyperlipidemia. 8. Prior cardiac catheterization with stent placement. 9. Nonischemic cardiomyopathy without any stent placement in the past. PLAN: Continue with Lasix.
[2017-01-16] MEDS: LOSARTAN 25 MG TAB PO SCH ×2 (09:16→21:42)
[2017-01-16] MEDS: SPIRONOLACTONE 25 MG TAB PO SCH (09:16)
[2017-01-16] MEDS: FUROSEMIDE 40 MG TAB PO SCH (09:16)
[2017-01-16] MEDS: ATENOLOL 25 MG TAB PO SCH ×3 (09:16→21:42)
[2017-01-16] MEDS: PRAVASTATIN SODIUM 20 MG TAB PO SCH (09:17)
[2017-01-16 09:43] LABS: INR 2.7 (<1.1); Prothrombin Time 25.8 sec (9.0-12.0)
--- NOTE | 2017-01-16 09:59 | P.PN ---
Subjective Principal diagnosis: nausea abdominal discomfort s/p recent lap dayna. CHF exacerbation. Evaluated yesterday for possible cystic duct leak. HIDA reported no evidence of biliary leak. Feel much better today minimal nausea tolerating clear liquids. Requesting diet advancement. Minimal abdominal discomfort. LFTs stable except Tbili 3.1 mostly unconjugated. Objective - Vital Signs Vital signs: Vital Signs Temp 96.7 F L 01/16/17 08:00 Pulse 70 01/16/17 08:00 Resp 18 01/16/17 08:00 BP 139/87 01/16/17 08:00 Pulse Ox 100 01/16/17 08:00 Intake & Output 01/15/17 01/16/17 01/16/17 18:59 06:59 18:59 Intake Total 118 40 Output Total 300 Balance 118 40 -300 Weight 77.8 kg Intake: Intake, IV Titration 40 Amount Sodium Chloride 0.9% 1, 40 000 ml @ 20 mls/hr IV . Q24H ENMAN[facility] Rx#:[id number] Oral 118 Output: Urine 300 Other: Voiding Method Toilet Toilet Toilet # Voids 1 1 - Constitutional General appearance: Present: average body habitus - EENT Eyes: Present: normal appearance - Neck Neck: Present: normal ROM - Respiratory Respiratory: bilateral: CTA - Cardiovascular Heart sounds: normal: S1, S2 - Gastrointestinal Gastrointestinal Comment(s): lap sites clean without drainage minimal abdominal soreness around surgical sites General gastrointestinal: Present: normal bowel sounds, soft - Neurologic Neurologic: Present: CNII-XII intact - Psychiatric Psychiatric: Present: A&O x's 3 - Labs CBC & Chem 7: 01/15/17 06:16 01/16/17 06:14 Labs: Abnormal Lab Results - Last 24 Hours (Table) 01/16/17 Range/Units 06:14 Sodium 126 L (137-145) mmol/L Chloride 86 L (98-107) mmol/L BUN 25 H (7-17) mg/dL Creatinine 1.10 H (0.52-1.04) mg/dL Total Bilirubin 3.1 H (0.2-1.3) mg/dL Assessment and Plan (1) S/P cholecystectomy Narrative/Plan: Persistent nausea vomiting abdominal bloatedness status post laparoscopic cholecystectomy 01/06/2017 with hyperbilirubinemia suspected secondary to CHF fluid overload passive congestion. HIDA scan results no evidence of biliary leak. GI symptoms improved. Status: Acute (2) Congestive heart failure Status: Acute Plan: 1. Advance diet. 2. ERCP not indicated. Will follow as needed. Assessment and plan of care discussed with Dr. Brownlee.
--- NOTE | 2017-01-16 10:12 | P.PN ---
Subjective The patient's feeling much better today. The abdominal distention has improved. She is hungry. She also has had good results with the erratic and her swelling in her ankles is improved. Objective - Vital Signs Vital signs: Vital Signs Temp 96.7 F L 01/16/17 08:00 Pulse 70 01/16/17 08:00 Resp 18 01/16/17 08:00 BP 139/87 01/16/17 08:00 Pulse Ox 100 01/16/17 08:00 Intake & Output 01/15/17 01/16/17 01/16/17 18:59 06:59 18:59 Intake Total 118 40 Output Total 300 Balance 118 40 -300 Weight 77.8 kg Intake: Intake, IV Titration 40 Amount Sodium Chloride 0.9% 1, 40 000 ml @ 20 mls/hr IV . Q24H [facility]MAN[facility] Rx#:[id number] Oral 118 Output: Urine 300 Other: Voiding Method Toilet Toilet Toilet # Voids 1 1 - Constitutional General appearance: Present: cooperative, no acute distress - Gastrointestinal General gastrointestinal: Present: normal bowel sounds, soft. Absent: tenderness - Labs CBC & Chem 7: 01/15/17 06:16 01/16/17 06:14 Labs: Abnormal Lab Results - Last 24 Hours (Table) 01/16/17 01/16/17 Range/Units 06:14 06:14 PT 25.8 H (9.0-12.0) sec Sodium 126 L (137-145) mmol/L Chloride 86 L (98-107) mmol/L BUN 25 H (7-17) mg/dL Creatinine 1.10 H (0.52-1.04) mg/dL Total Bilirubin 3.1 H (0.2-1.3) mg/dL Assessment and Plan (1) Ascites Status: Acute (2) Congestive heart failure Status: Acute (3) S/P cholecystectomy Status: Acute Plan: The abdominal pain, distention, fluid in the abdomen is likely related to the congestive heart failure. The HIDA scan showed no evidence of a bile leak. She is feeling better. Continue medical therapy.
--- NOTE | 2017-01-16 22:08 | PN ---
The patient is an 86 -year-old female, the patient is being treated for nausea, nausea improved at this point in time. The patient is status post cholecystectomy, the patient nausea can be related to digoxin toxicity. The patient nausea improved. Patient is eating well. Patient's gait has improved. At baseline, 3 L oxygen, the patient is presently on 3 L. The patient is being switched to oral Lasix. The patient most probably can be discharged tomorrow. Kidney function has worsened a little bit because of excessive diuretic therapy. REVIEW OF SYSTEMS: CARDIOVASCULAR: No chest pain, no orthopnea, no PND, no palpitations. PULMONARY: Denied any shortness of breath. No cough or hemoptysis. GASTROINTESTINAL: No diarrhea, nausea or vomiting. No abdominal pain. Normoactive bowel sounds. NEUROLOGIC: No headaches, no weakness, no numbness. Medications are reviewed. PHYSICAL EXAMINATION: VITAL SIGNS: Temperature 96.8, pulse of 69, respiratory rate 16, blood pressure 134/86. Saturating at ( ) on 3 L. We can cut down the oxygen to a lower level. GENERAL: The patient is alert and oriented x3, not in any acute distress. Well developed, well nourished. HEENT: Pupils are round and equally reacting to light. EOMI. No scleral icterus. No conjunctival pallor. Normocephalic, atraumatic. No pharyngeal erythema. No thyromegaly. CARDIOVASCULAR: S1 and S2 present. No murmurs, rubs, or gallops. PULMONARY: Chest is clear to auscultation, no wheezing or crackles. ABDOMEN: Soft, nontender, nondistended, normoactive bowel sounds. No palpable organomegaly. MUSCULOSKELETAL: No joint swelling or deformity. EXTREMITIES: No cyanosis, clubbing, or pedal edema. NEUROLOGICAL: Gross neurological examination did not reveal any focal deficits. SKIN: No rashes. LABORATORY DATA: Mildly worsening creatinine to 1.10 as mentioned above, BUN of 25, sodium of 126, which improved with IV Lasix therapy, but not normalize. ASSESSMENT AND PLAN: 1. Congestive heart failure, chronic systolic dysfunction, ejection fraction of around 20%. Improved now. ( ). 2. Hypervolemic hyponatremia, improved with IV Lasix. 3. Nausea related to gastritis. Also improved. May be related to dig toxicity. Aspirin was discontinued. ( ) 4. Atrial fibrillation, rate controlled. Patient is therapeutic on Coumadin. The patient can be restarted back on Coumadin. 5. Hypertension. 6. Hyperlipidemia. 7. Prior cardiac catheterization with stent placement. 8. Nonischemic cardiomyopathy. Patient will be resumed on Coumadin today and 3 mg and repeat INR tomorrow.
[2017-01-17 00:21] VITALS: RESP 16
[2017-01-17] MEDS: SODIUM CHLORIDE 0.9% 1,000 ML IV SCH ×2 (05:25→21:05)
--- NOTE | 2017-01-17 08:34 | P.PN ---
Progress Note - Text The patient states she feels nauseated today. She has no real complaints of abdominal pain. On exam her vital signs are stable. Her abdomen soft. She has some minimal incisional tenderness. There is no rebound or guarding. Status post laparoscopic cholecystectomy. HIDA scan shows no evidence of leak or obstruction. The patient will be managed medically.
[2017-01-17] MEDS: FUROSEMIDE 40 MG TAB PO SCH (08:52)
[2017-01-17] MEDS: PRAVASTATIN SODIUM 20 MG TAB PO SCH (08:52)
[2017-01-17] MEDS: ATENOLOL 25 MG TAB PO SCH ×3 (08:52→21:05)
[2017-01-17] MEDS: PANTOPRAZOLE 40 MG TABLET PO SCH (08:52)
[2017-01-17] MEDS: LOSARTAN 25 MG TAB PO SCH ×2 (08:55→21:05)
[2017-01-17] MEDS: SPIRONOLACTONE 25 MG TAB PO SCH (08:56)
[2017-01-17 09:41] LABS: CH 30.3; CHCM 33.1; HCT 48.4 % (34.0-46.0); HDW 2.39; HGB 15.6 gm/dL (11.4-16.0); MCH 29.7 pg (25.0-35.0); MCHC 32.3 g/dL (31.0-37.0); MCV 92.1 fL (80.0-100.0); Mean Platelet Volume 7.6; RBC 5.26 m/uL (3.80-5.40); RDW 14.9 % (11.5-15.5); WBC 8.1 k/uL (3.8-10.6)
[2017-01-17 10:09] LABS: Calcium 9.5 mg/dL (8.4-10.2); Potassium 3.6 mmol/L (3.5-5.1)
[2017-01-17 11:21] VITALS: BMI 30.4
[2017-01-17] MEDS ORDERED: ACETAMINOPHEN TAB 325 MG TAB PO PRN (12:28)
[2017-01-17] MEDS ORDERED: NA PHOS,M-B/NA PHOS,DI-BA 133 ML ENEMA RECTAL ONE (12:30)
[2017-01-17] MEDS: DOCUSATE 100 MG CAP PO SCH ×2 (14:02→21:05)
--- NOTE | 2017-01-17 15:25 | P.PN ---
Subjective Principal diagnosis: Nausea and vomiting This is a pleasant 86-year-old female with known history of paroxysmal atrial fibrillation, hyperlipidemia, prior myocardial infarction, prior AICD implantation, hypertension, who underwent a lap dayna one week ago. She presented to the hospital with symptoms of persistent nausea vomiting diarrhea and dizziness. Possible infiltrate as well as new small left pleural effusion. Patient was initiated on IV Lasix, diuresed well. Currently on by mouth Lasix. Still having mild nausea today. She did have 2 bowel movements today. Objective - Vital Signs Vital signs: Vital Signs Temp 96.1 F L 01/17/17 07:00 Pulse 70 01/17/17 07:00 Resp 16 01/17/17 07:00 BP 139/89 01/17/17 07:00 Pulse Ox 100 01/17/17 07:00 Intake & Output 01/16/17 01/17/17 01/17/17 18:59 06:59 18:59 Intake Total 540 850 Output Total 600 Balance -60 850 Weight 77.8 kg Intake: Intake, IV Titration 240 Amount Sodium Chloride 0.9% 1, 240 000 ml @ 20 mls/hr IV . Q24H [facility] Rx#:[id number] Oral 300 850 Output: Urine 600 Other: Voiding Method Toilet Toilet # Voids 1 2 2 # Bowel Movements 1 - Exam PHYSICAL EXAMINATION: HEENT: Head is atraumatic, normocephalic. Pupils equal, round. Neck is supple. There is no elevated jugular venous pressure. HEART EXAMINATION: S1 and S2 irregularly irregular CHEST EXAMINATION: Lungs are clear to auscultation and precussion. No chest wall tenderness is noted on palpation or with deep breathing. ABDOMEN: Soft, diffuse mild tenderness throughout . Bowel sounds are heard. No organomegaly noted. Mild distention noted. EXTREMITIES: 2+ peripheral pulses with trace evidence of peripheral edema and no calf tenderness noted. NEUROLOGIC patient is awake, alert and oriented -3. . - Labs CBC & Chem 7: 01/17/17 09:16 01/17/17 09:16 Labs: Abnormal Lab Results - Last 24 Hours (Table) 01/17/17 01/17/17 Range/Units 09:16 09:16 Hct 48.4 H (34.0-46.0) % Sodium 129 L (137-145) mmol/L Chloride 89 L (98-107) mmol/L BUN 26 H (7-17) mg/dL Creatinine 1.10 H (0.52-1.04) mg/dL Glucose 107 H (74-99) mg/dL Assessment and Plan Plan: Assessment and plan #1 symptoms of nausea, vomiting, and diarrhea. Status post recent laparoscopic cholecystectomy one week ago. #2 symptoms of exertional shortness of breath with associated PND and orthopnea. Evidence of congestive cardiac failure, systolic, acute on chronic. #3 abnormal troponins, rule out acute coronary syndrome. Abnormal troponin could be secondary to oxygen supply and demand mismatch . #4 paroxysmal atrial fibrillation, on Coumadin for anticoagulation. #5 hypertension #6 hyperlipidemia #7 prior myocardial infarction, patient has had several cardiac catheterizations in the past never requiring intervention. #8 nonischemic cardiomyopathy with prior AICD implantation #9 hyponatremia Plan Cardiology's perspective, we will recommend to continue the patient on her current medications. We will make a follow-up appointment with Dr. Isbell in the office post discharge. DNP note has been reviewed, I agree with a documented findings and plan of care. Patient was seen and examined.
[2017-01-17 17:44] LABS: INR 1.9 (<1.1); Prothrombin Time 17.9 sec (9.0-12.0)
[2017-01-17] MEDS ORDERED: WARFARIN 3 MG TAB PO SCH (18:00)
--- NOTE | 2017-01-18 06:33 | PN ---
DATE OF SERVICE: 01/17/2017 INTERVAL HISTORY: Ms. Sandoval is an 86-year-old female with known history of CHF with systolic dysfunction and cardiomyopathy, nonischemic with ejection fraction of 20% and AICD implantation who underwent recent laparoscopic cholecystectomy admitted to the hospital with symptoms of nausea, vomiting and diarrhea as well as exertional shortness of breath. Patient was treated with IV Lasix and breathing status improved and started on p.o. Lasix now. Currently denied any complaints of chest pain or short of breath. The patient does have nausea. No vomiting. Patient did have 2 bowel movements today, otherwise. No fever. No chills. No acute overnight issues. REVIEW OF SYSTEMS: CONSTITUTIONAL: No fever. No chills. RESPIRATORY: No cough or sputum production. CARDIOVASCULAR: No chest pain or shortness of breath. ABDOMEN: No nausea, vomiting or abdominal pain. GENITOURINARY: Negative. ENDOCRINE: Negative. PSYCHIATRY: Negative. SKIN: Negative. All other fourteen point review of systems negative except as above. Patient does use 3-L of oxygen via nasal cannula at home. Renal function is fairly stable today. Sodium level improved to 129. Current medications are reviewed. PHYSICAL EXAMINATION: An 86-year-old female lying in the bed comfortably, awake, alert, oriented x3. Appears to be in no apparent distress. VITALS: Blood pressure is 138/86, pulse is 70, respirations 16, temperature afebrile, pulse ox 97% on 3-L nasal cannula. HEENT: Atraumatic, normocephalic. NECK: Suppl. No JVD. CVS: S1, S2 heard. No murmurs, no gallop. Pulse is irregular. LUNGS: Clear to auscultation bilaterally. No wheezing. No crackles. Nonlabored breathing. ABDOMEN: Soft, nontender. Bowel sounds are present. SWEATBAND DRUMMER: Awake, alert, oriented x3. No focal deficit. EXTREMITIES: Bilateral 2+ pedal edema. Pulses palpable and no clubbing or cyanosis. PSYCHIATRIC: Cooperative. LABORATORY DATA: WBC 8.5, hemoglobin 15.6, platelets 164, sodium 129, potassium 3.6, chloride 89, bicarb is 24. BUN 26, creatinine 1.1, blood sugar is 107. IMPRESSION: 1. Nausea, vomiting, and diarrhea possible gastritis/gastroenteritis, currently on symptomatic management, improving now. 2. Acute on chronic congestive heart failure with systolic dysfunction, ejection fraction 20%. 3. Nonischemic cardiomyopathy, status post AICD placement. 4. Hypervolemic hyponatremia, improved with the Lasix. 5. Paroxysmal atrial fibrillation, on anticoagulation with Coumadin. 6. Hypertension. 7. Hyperlipidemia. 8. No history of stent placement, had several cardiac catheterizations in the past. 9. Elevated troponin level could be secondary to demand mismatch. DISCUSSION AND PLAN: Patient will be continued on p.o. Lasix. Continue to follow renal function and follow up closely. Anticipate discharge in the next 24-hours with more clinical improvement.
[2017-01-18 08:03] VITALS: BP 135/78; PULSE 73; TEMP 96.6
[2017-01-18] MEDS: PANTOPRAZOLE 40 MG TABLET PO SCH (08:12)
[2017-01-18] MEDS: DOCUSATE 100 MG CAP PO SCH (08:12)
[2017-01-18] MEDS: ATENOLOL 25 MG TAB PO SCH (08:12)
[2017-01-18] MEDS: FUROSEMIDE 40 MG TAB PO SCH (08:13)
[2017-01-18] MEDS: LOSARTAN 25 MG TAB PO SCH (08:13)
[2017-01-18] MEDS: PRAVASTATIN SODIUM 20 MG TAB PO SCH (08:14)
[2017-01-18] MEDS: SPIRONOLACTONE 25 MG TAB PO SCH (08:16)
--- NOTE | 2017-01-18 09:21 | P.PN ---
Progress Note - Text The patient still has some complaints of nausea. She has no significant abdominal pain. On exam her vital signs are stable. Her abdomen soft. Chronic nausea. Patient will continue receive supportive care.
[2017-01-18 10:13] LABS: Basophils % (A) 1 %; CH 30.8; CHCM 33.4; Eosinophils # (A) 0.1 k/uL (0-0.7); Eosinophils % (A) 1 %; HCT 45.9 % (34.0-46.0); HDW 2.36; HGB 14.8 gm/dL (11.4-16.0); Luc # (Auto) 0.12; Luc % (Auto) 2; Lymphocytes # (A) 1.4 k/uL (1.0-4.8); Lymphocytes % (A) 19 %; MCH 29.9 pg (25.0-35.0); MCHC 32.3 g/dL (31.0-37.0); MCV 92.4 fL (80.0-100.0); Mean Platelet Volume 7.7; Monocytes # (A) 0.5 k/uL (0-1.0); Monocytes % (A) 6 %; Neutrophils # (A) 5.5 k/uL (1.3-7.7); Neutrophils % (A) 73 %; RBC 4.97 m/uL (3.80-5.40); RDW 15.2 % (11.5-15.5); WBC 7.5 k/uL (3.8-10.6); WBC (Perox) 7.82
[2017-01-18 10:17] LABS: Anion Gap 13 mmol/L; Blood Urea Nitrogen 23 mg/dL (7-17); Calcium 9.3 mg/dL (8.4-10.2); Carbon Dioxide 25 mmol/L (22-30); Chloride 91 mmol/L (98-107); Glucose 199 mg/dL (74-99); Non-African American GFR(MDRD) 55 (>60 ml/min/1.73 sqM); Potassium 3.7 mmol/L (3.5-5.1); Sodium 129 mmol/L (137-145)
== END 2017-01-18 15:18 | disposition home or self-care (01) | DRG 292 ==
LOC: EC 19:06 → 6SEL 21:43 → 4MS4W 01-16 14:38
PROVIDERS: ADMIT Internal Medicine; ATTEND Internal Medicine
DX: I11.0 Hypertensive heart disease with heart failure (principal); E87.1 Hypo-osmolality and hyponatremia; R18.8 Other ascites; I42.9 Cardiomyopathy, unspecified; I48.0 Paroxysmal atrial fibrillation; E78.5 Hyperlipidemia, unspecified; I25.10 Atherosclerotic heart disease of native coronary artery without angina pectoris; I25.2 Old myocardial infarction; I50.23 Acute on chronic systolic (congestive) heart failure; K21.9 Gastro-esophageal reflux disease without esophagitis; K29.70 Gastritis, unspecified, without bleeding; K42.9 Umbilical hernia without obstruction or gangrene; K44.9 Diaphragmatic hernia without obstruction or gangrene; K57.30 Diverticulosis of large intestine without perforation or abscess without bleeding; K59.00 Constipation, unspecified; M81.0 Age-related osteoporosis without current pathological fracture; T46.0X5A Adverse effect of cardiac-stimulant glycosides and drugs of similar action, initial encounter; Z79.01 Long term (current) use of anticoagulants; Z79.899 Other long term (current) drug therapy; Z87.891 Personal history of nicotine dependence; Z95.5 Presence of coronary angioplasty implant and graft; Z95.810 Presence of automatic (implantable) cardiac defibrillator; Z88.1 Allergy status to other antibiotic agents; Z88.5 Allergy status to narcotic agent
CPT/HCPCS: 36415; 71010; 74000; 74176; 78226; 80048; 80053; 80061; 80076; 80162; 81001; 82150; 82550; 82553; 83605; 83690; 83880; 84484; 85025; 85027; 85610; 85730; 93005; 93306; 94760; 96361; 96374; 96375; 99291

== ENCOUNTER 2017-01-21 10:39 | Inpatient (IN) | payer MEDICARE ==
[2017-01-21] MEDS ORDERED: SODIUM CHLORIDE 0.9% 500 ML IV STA (10:45)
[2017-01-21] MEDS ORDERED: NITROGLYCERIN OINT 1 INCH/GM PACKET TOPICAL STA ×2 (10:45→12:28)
[2017-01-21] MEDS ORDERED: SODIUM CHLORIDE 0.9% 1,000 ML IV STA (10:45)
[2017-01-21 10:59] LABS: Basophils % (A) 1 %; CH 30.4; CHCM 34.3; Eosinophils # (A) 0.1 k/uL (0-0.7); Eosinophils % (A) 1 %; HCT 42.1 % (34.0-46.0); HDW 2.49; Luc # (Auto) 0.23; Luc % (Auto) 3; Lymphocytes # (A) 1.6 k/uL (1.0-4.8); Lymphocytes % (A) 19 %; MCH 31.7 pg (25.0-35.0); MCHC 35.6 g/dL (31.0-37.0); MCV 89.1 fL (80.0-100.0); Mean Platelet Volume 7.4; Monocytes # (A) 0.5 k/uL (0-1.0); Monocytes % (A) 5 %; Neutrophils # (A) 6.1 k/uL (1.3-7.7); Neutrophils % (A) 71 %; RBC 4.73 m/uL (3.80-5.40); RDW 15.3 % (11.5-15.5); WBC 8.5 k/uL (3.8-10.6); WBC (Perox) 9.05
[2017-01-21 11:12] LABS: Amylase 83 U/L (30-110); Anion Gap 11 mmol/L; Calcium 9.1 mg/dL (8.4-10.2); Carbon Dioxide 26 mmol/L (22-30); Chloride 92 mmol/L (98-107); Glucose 122 mg/dL (74-99); Non-African American GFR(MDRD) 60 (>60 ml/min/1.73 sqM); Sodium 129 mmol/L (137-145)
[2017-01-21 11:17] LABS: Total Protein 6.7 g/dL (6.3-8.2)
[2017-01-21 11:18] LABS: Alkaline Phosphatase 64 U/L (38-126); Blood Urea Nitrogen 25 mg/dL (7-17); Potassium 4.6 mmol/L (3.5-5.1)
[2017-01-21 11:19] LABS: ALT 30 U/L (9-52); AST 41 U/L (14-36); Magnesium 1.6 mg/dL (1.6-2.3)
[2017-01-21] MEDS ORDERED: ONDANSETRON 4 MG/2 ML VIAL IVP STA (11:20)
[2017-01-21 11:21] LABS: Total Bilirubin 2.4 mg/dL (0.2-1.3)
[2017-01-21 11:36] LABS: INR 1.9 (<1.1); Prothrombin Time 18.6 sec (9.0-12.0)
--- NOTE | 2017-01-21 11:42 | XR ---
EXAMINATION TYPE: XR chest 2V DATE OF EXAM: 01/21/2017 COMPARISON: Prior chest x-ray 01/13/[address] abdomen pelvis 01/14/2015 HISTORY: Chest pain TECHNIQUE: Frontal and lateral views of the chest are obtained. FINDINGS: The right hemidiaphragm is elevated as on prior exam. Heart remains enlarged. Intracardiac defibrillator is again noted. Patient is rotated. No evident pneumothorax. There may be small pleura l effusion although I question the acuity. Mitral annular calcification is suspected. Central vascula rity shows a similar appearance. Interstitium is mildly prominent. IMPRESSION: Cardiomegaly. Correlate to exclude pulmonary venous hypertension and interstitial edema. Possible small pleural effusions and associated atelectasis. Lung nodule seen on CT scan not well se en possibly due to rotation size.
[2017-01-21 11:45] LABS: Creatine Kinase MB 4.3 ng/mL (0.0-2.4); Troponin I 0.062 ng/mL (0.000-0.034)
--- NOTE | 2017-01-21 11:59 | ED ---
Chest Pain HPI - General Chief Complaint: Chest Pain Stated Complaint: Chest Pain Time Seen by Provider: 01/21/17 10:39 Source: patient, EMS, RN notes reviewed Mode of arrival: EMS Limitations: no limitations - History of Present Illness Initial Comments: This is a 86-year-old female who just had her gallbladder removed the sixth of this month who presents by EMS with complaints of left-sided chest pain it radiates to her back. It was sharp in pressure-like in nature she had exertional dyspnea along with this. She was given aspirin and 2 nitroglycerin by paramedics she states is get rid of the pressure-like discomfort over she saw some sharp left-sided chest pain. She denies any fevers chills nausea vomiting sweats she does have a permanent pacemaker. She states she was just discharged from the hospital several days ago. MD Complaint: chest pain - Related Data Home Medications Medication Instructions Recorded Confirmed Aspirin EC [Ecotrin Low Dose] 81 mg PO DAILY 12/19/16 01/21/17 Atenolol 25 mg PO TID 12/19/16 01/21/17 LORazepam [Ativan] 1 mg PO HS 12/19/16 01/21/17 Losartan [Cozaar] 25 mg PO BID 12/19/16 01/21/17 Pravastatin Sodium [Pravachol] 10 mg PO DAILY 12/19/16 01/21/17 Spironolactone 25 mg PO DAILY 12/19/16 01/21/17 Warfarin [Coumadin] 4 mg PO DAILY 12/19/16 01/21/17 Omeprazole 20 mg PO DAILY 01/13/17 01/21/17 Previous Rx's Medication Instructions Recorded Furosemide [Lasix] 40 mg PO DAILY #30 tab 01/18/17 Allergies Allergy/AdvReac Type Severity Reaction Status Date / Time cefaclor [From Ceclor] Allergy Unknown Verified 01/21/17 11:08 celecoxib [From Celebrex] Allergy Unknown Verified 01/21/17 11:08 cephalexin [From Keflex] Allergy Unknown Verified 01/21/17 11:08 clindamycin [From Cleocin] Allergy Unknown Verified 01/21/17 11:08 diphenhydramine Allergy Nausea & Verified 01/21/17 11:08 [From Benadryl] Vomiting & Diarrhea dolasetron [From Anzemet] Allergy Unknown Verified 01/21/17 11:08 enalaprilat [From Vasotec] Allergy Unknown Verified 01/21/17 11:08 hydrocortisone [From Cortef] Allergy anxiety Verified 01/21/17 11:08 attack hydromorphone [From Dilaudid] Allergy Unknown Verified 01/21/17 11:08 hydroxyzine [From Vistaril] Allergy Unknown Verified 01/21/17 11:08 ibuprofen [From Motrin] Allergy Unknown Verified 01/21/17 11:08 Iodinated Contrast Media - Allergy Unknown Verified 01/21/17 11:08 Oral and levofloxacin [From Levaquin] Allergy Unknown Verified 01/21/17 11:08 morphine Allergy Unknown Verified 01/21/17 11:08 oxycodone Allergy Unknown Verified 01/21/17 11:08 Penicillins Allergy Swelling Verified 01/21/17 11:08 prednisone Allergy anxiety Verified 01/21/17 11:08 attack promethazine [From Phenergan] Allergy Unknown Verified 01/21/17 11:08 shellfish derived [Shellfish] Allergy Rash/Hives Verified 01/21/17 11:08 cortisone AdvReac anxiety Verified 01/21/17 11:08 attack methylprednisolone AdvReac anxiety Verified 01/21/17 11:08 [From Medrol] attack sea salt Allergy Unknown Uncoded 01/21/17 11:08 STEROIDS AdvReac anxiety Uncoded 01/21/17 10:41 attack Review of Systems ROS Statement: Those systems with pertinent positive or pertinent negative responses have been documented in the HPI. ROS Other: All systems not noted in ROS Statement are negative. EKG Findings - EKG Results: EKG: interpreted by ERMD (Pacemaker rhythm rate was 77 QRS 188 QT since QTC of 470/531 this is compared to an EKG dated 01/14/17 showing no acute changes also compared with the one submitted by EMS which shows no changes.) Past Medical History Past Medical History: Atrial Fibrillation, Coronary Artery Disease (CAD), Chest Pain / Angina, Heart Failure, GERD/Reflux, Hyperlipidemia, Hypertension, Myocardial Infarction (RI), Osteoarthritis (OA), Pneumonia Additional Past Medical History / Comment(s): occas abdominal pain with eating and bloating with eating,recently treated for ruben eye bacterial infection, home o2 3 liters n/c, cardiomyopathy,"arrythmia", mi x4, v-tach 2008, osteoporosis, diverticultiis,hiatal hernia, bone spurs lt shoulder,anemia Last Myocardial Infarction Date:: unk History of Any Multi-Drug Resistant Organisms: None Reported Past Surgical History: AICD, Cholecystectomy, Heart Catheterization, Hysterectomy, Joint Replacement, Orthopedic Surgery, Pacemaker Additional Past Surgical History / Comment(s): sx to repair broken nose, d&c, ruben foot sx ruben bunionectomy, lt knee replacment, rt knee arthrosocpy.pacemaker/ defibrillator medtronic left chest serial #[id number],mult heart cath Past Anesthesia/Blood Transfusion Reactions: Motion Sickness, Postoperative Nausea & Vomiting (PONV) Additional Past Anesthesia/Blood Transfusion Reaction / Comment(s): no problems with prior blood transfusion Type of Cardiac Device: Permanent Pacemaker, AICD Device Placement Date:: Mar Past Psychological History: Anxiety Smoking Status: Former smoker Past Alcohol Use History: None Reported Past Drug Use History: None Reported - Past Family History Mother Family Medical History: Cancer, Diabetes Mellitus Additional Family Medical History / Comment(s): uterine cancer Daughter(s) Family Medical History: Cancer Additional Family Medical History / Comment(s): ovarian cancer Father Additional Family Medical History / Comment(s): cardiac problems General Exam - General Exam Comments Initial Comments: This is a well-developed well-nourished awake alert oriented 3 female Limitations: no limitations General appearance: alert, anxious Head exam: Present: atraumatic, normocephalic, normal inspection Eye exam: Present: normal appearance, PERRL, EOMI. Absent: scleral icterus, conjunctival injection, periorbital swelling ENT exam: Present: normal exam, mucous membranes moist Neck exam: Present: normal inspection. Absent: tenderness, meningismus, lymphadenopathy Respiratory exam: Present: normal lung sounds bilaterally. Absent: respiratory distress, wheezes, rales, rhonchi, stridor, chest wall tenderness Cardiovascular Exam: Present: regular rate, normal rhythm, normal heart sounds. Absent: systolic murmur, diastolic murmur, rubs, gallop, clicks GI/Abdominal exam: Present: soft, normal bowel sounds, other (Well-healing surgical scars). Absent: distended, tenderness, guarding, rebound, rigid Extremities exam: Present: normal inspection, full ROM, normal capillary refill. Absent: tenderness, pedal edema, joint swelling, calf tenderness Back exam: Present: normal inspection Neurological exam: Present: alert, oriented X3, CN II-XII intact Psychiatric exam: Present: normal affect, normal mood Skin exam: Present: warm, dry, intact, normal color. Absent: rash Course Vital Signs 01/21/17 01/21/17 10:41 11:43 Temperature 98.2 F Pulse Rate 82 68 Respiratory 16 18 Rate Blood Pressure 127/91 123/85 O2 Sat by Pulse 98 99 Oximetry - Reevaluation(s) Reevaluation #1: 01/21/17 11:59 Patient did have some recurrent pain. Repeat EKG was done and was nonspecific ventricular rate of 73 paced rhythm QRS 108 daily since QTC of 304/434. Chest Pain MDM - MDM I did review the imaging and reports are is evidence of interstitial edema. Patient is so having intermittent chest discomfort and the nitroglycerin will be increased to 1 inch. I did discuss the findings with the patient family members patient will be admitted to the hospital for cardiac evaluation. Critical Care Time Critical Care Time: Yes Critical Care Time: 31 minutes of critical care time which includes monitoring EMS run as well as discussed with paramedics. History physical lab and x-rays. Evaluation of the same. Reevaluation the patient response to therapy. Review of old charting. Discussion with the admitting physician and initial orders and documentation of the above. Disposition Clinical Impression: Unstable angina pectoris, Elevated troponin, Atypical chest pain Disposition: ADMITTED IP TO THIS [facility] Condition: Stable Referrals: César Reich DO [Primary Care Provider] - 1-2 days
[2017-01-21] MEDS ORDERED: ACETAMINOPHEN TAB 325 MG TAB PO STA (12:27)
[2017-01-21] MEDS ORDERED: HEPARIN SODIUM,PORCINE 5,000 UNIT/ML 1 ML VIAL IV ONE (12:30)
[2017-01-21] MEDS ORDERED: SODIUM CHLORIDE 0.9% 1,000 ML IV SCH (12:30)
[2017-01-21] MEDS ORDERED: FUROSEMIDE 10 MG/ML 4 ML VIAL IV STA (12:33)
--- NOTE | 2017-01-21 12:35 | ED ---
Medical Decision Making - Lab Data Result diagrams: 01/21/17 10:47 01/21/17 10:47 Lab Results 01/21/17 01/21/17 01/21/17 Range/Units 10:47 10:47 10:47 WBC 8.5 (3.8-10.6) k/uL RBC 4.73 (3.80-5.40) m/uL Hgb 15.0 (11.4-16.0) gm/dL Hct 42.1 (34.0-46.0) % MCV 89.1 (80.0-100.0) fL MCH 31.7 (25.0-35.0) pg MCHC 35.6 (31.0-37.0) g/dL RDW 15.3 (11.5-15.5) % Plt Count 150 (150-450) k/uL Neutrophils % 71 % Lymphocytes % 19 % Monocytes % 5 % Eosinophils % 1 % Basophils % 1 % Neutrophils # 6.1 (1.3-7.7) k/uL Lymphocytes # 1.6 (1.0-4.8) k/uL Monocytes # 0.5 (0-1.0) k/uL Eosinophils # 0.1 (0-0.7) k/uL Basophils # 0.0 (0-0.2) k/uL PT (9.0-12.0) sec INR (<1.1) APTT (22.0-30.0) sec D-Dimer (<0.60) mg/L FEU Sodium 129 L (137-145) mmol/L Potassium 4.6 (3.5-5.1) mmol/L Chloride 92 L (98-107) mmol/L Carbon Dioxide 26 (22-30) mmol/L Anion Gap 11 mmol/L BUN 25 H (7-17) mg/dL Creatinine 0.90 (0.52-1.04) mg/dL Est GFR (MDRD) Af Amer >60 (>60 ml/min/1.73 sqM) Est GFR (MDRD) Non-Af 60 (>60 ml/min/1.73 sqM) Glucose 122 H (74-99) mg/dL Calcium 9.1 (8.4-10.2) mg/dL Magnesium 1.6 (1.6-2.3) mg/dL Total Bilirubin 2.4 H (0.2-1.3) mg/dL AST 41 H (14-36) U/L ALT 30 (9-52) U/L Alkaline Phosphatase 64 (38-126) U/L Total Creatine Kinase 144 H (30-135) U/L CK-MB (CK-2) 4.3 H* (0.0-2.4) ng/mL CK-MB (CK-2) Rel Index 3.0 Troponin I 0.062 H* (0.000-0.034) ng/mL NT-Pro-B Natriuret Pep pg/mL Total Protein 6.7 (6.3-8.2) g/dL Albumin 4.1 (3.5-5.0) g/dL Amylase 83 (30-110) U/L Lipase 234 (23-300) U/L 01/21/17 01/21/17 Range/Units 10:47 10:47 WBC (3.8-10.6) k/uL RBC (3.80-5.40) m/uL Hgb (11.4-16.0) gm/dL Hct (34.0-46.0) % MCV (80.0-100.0) fL MCH (25.0-35.0) pg MCHC (31.0-37.0) g/dL RDW (11.5-15.5) % Plt Count (150-450) k/uL Neutrophils % % Lymphocytes % % Monocytes % % Eosinophils % % Basophils % % Neutrophils # (1.3-7.7) k/uL Lymphocytes # (1.0-4.8) k/uL Monocytes # (0-1.0) k/uL Eosinophils # (0-0.7) k/uL Basophils # (0-0.2) k/uL PT 18.6 H (9.0-12.0) sec INR 1.9 (<1.1) APTT 28.0 (22.0-30.0) sec D-Dimer 0.91 H (<0.60) mg/L FEU Sodium (137-145) mmol/L Potassium (3.5-5.1) mmol/L Chloride (98-107) mmol/L Carbon Dioxide (22-30) mmol/L Anion Gap mmol/L BUN (7-17) mg/dL Creatinine (0.52-1.04) mg/dL Est GFR (MDRD) Af Amer (>60 ml/min/1.73 sqM) Est GFR (MDRD) Non-Af (>60 ml/min/1.73 sqM) Glucose (74-99) mg/dL Calcium (8.4-10.2) mg/dL Magnesium (1.6-2.3) mg/dL Total Bilirubin (0.2-1.3) mg/dL AST (14-36) U/L ALT (9-52) U/L Alkaline Phosphatase (38-126) U/L Total Creatine Kinase (30-135) U/L CK-MB (CK-2) (0.0-2.4) ng/mL CK-MB (CK-2) Rel Index Troponin I (0.000-0.034) ng/mL NT-Pro-B Natriuret Pep 4400 pg/mL Total Protein (6.3-8.2) g/dL Albumin (3.5-5.0) g/dL Amylase (30-110) U/L Lipase (23-300) U/L Disposition Clinical Impression: Unstable angina pectoris, Elevated troponin, Atypical chest pain, Congestive heart failure, Subtherapeutic anticoagulation Disposition: ADMITTED IP TO THIS [facility] Condition: Stable Referrals: César Reich DO [Primary Care Provider] - 1-2 days
[2017-01-21] MEDS: HEPARIN SODIUM,PORCINE/D5W PMX 25,000 UNIT in DEXTROSE/WATER 1 500ML.BAG IV SCH (12:49)
[2017-01-21] MEDS ORDERED: LORazepam 1 MG TAB PO PRN (14:09)
[2017-01-21] MEDS ORDERED: NON-FORMULARY DRUG (Aspirin Ec 81 MG) PO SCH (14:15)
[2017-01-21] MEDS ORDERED: FUROSEMIDE 40 MG TAB PO ONE (14:30)
[2017-01-21] MEDS: PANTOPRAZOLE 40 MG TABLET PO SCH (16:04)
--- NOTE | 2017-01-21 16:35 | XR ---
EXAMINATION TYPE: XR chest 1V portable DATE OF EXAM: 01/21/2017 HISTORY: CHF. REFERENCE: Previous study dated 01/21/2017. FINDINGS: There is a multilead pacing device in place on the left. The heart is enlarged. The left CP angle is obscured. The lungs are clear. IMPRESSION: 1. CARDIOMEGALY. 2. I COULD NOT EXCLUDE A LEFT PLEURAL EFFUSION.
[2017-01-21] MEDS ORDERED: TEMAZEPAM 15 MG CAP PO PRN (16:51)
[2017-01-21] MEDS: BARIUM SULFATE 450 ML ORAL.SUSP BOTTLE PO PRN ×2 (16:56→19:17)
[2017-01-21 17:20] LABS: Creatine Kinase MB 3.8 ng/mL (0.0-2.4); Troponin I 0.075 ng/mL (0.000-0.034)
[2017-01-21] MEDS: MEROPENEM 2 GM in SODIUM CHLORIDE 0.9% 100 ML IVPB SCH ×2 (19:16→22:59)
[2017-01-21] MEDS: NITROGLYCERIN OINT 1 INCH/GM PACKET TOPICAL SCH ×2 (20:04→23:00)
[2017-01-21] MEDS: WARFARIN 2 MG TAB PO SCH (20:05)
[2017-01-21] MEDS ORDERED: LORazepam 1 MG TAB PO SCH (21:00)
--- NOTE | 2017-01-21 21:09 | CT ---
EXAMINATION TYPE: CT abdomen pelvis wo con DATE OF EXAM: 01/21/2017 COMPARISON: 01/14/2017 HISTORY: RIGHT SIDE ABDOMINAL PAIN AFTER RECENT LAP KAREN CT DLP: 758.8 mGycm Examination of the solid and hollow viscera is limited given the lack of contrast. FINDINGS: LUNG BASES: Mild bilateral pleural effusions and compressive atelectasis. Pulmonary nodules are again seen at the lung bases. There is cardiomegaly with dense calcification of the mitral annulus. Small hiatal hernia. LIVER/GB: Status post cholecystectomy. No space-occupying hepatic lesion. PANCREAS: No pancreatic mass identified. No inflammatory process seen. SPLEEN: No evidence for splenomegaly. No intrasplenic lesions seen. ADRENALS: No adrenal nodules identified. No evidence for thickening. KIDNEYS: Stable hypoattenuating renal lesions may reflect cysts. No nephrolithiasis. No hydronephrosi s. BOWEL: Appendix has a normal appearance. No evidence of bowel obstruction. No inflammatory process. Lymph nodes: No evidence for adenopathy greater than 1 cm. Abdominal aorta: Atheromatous changes seen. No evidence for aneurysm. Genital organs: No significant abnormality. Other: Essentially stable abdominal pelvic ascites and changes of anasarca. Containing umbilical antonio ia. IMPRESSION: 1. ESSENTIALLY STABLE EVALUATION OF THE ABDOMEN AND PELVIS WITHOUT ACUTE PROCESS IDENTIFIED. 2. MODERATE ABDOMINOPELVIC ASCITES AND MILD ANASARCA. 3. SMALL BILATERAL PLEURAL EFFUSIONS WITH COMPRESSIVE ATELECTASIS AND PULMONARY NODULES. 4. SMALL HIATAL HERNIA.
[2017-01-21] MEDS: LOSARTAN 25 MG TAB PO SCH (21:53)
[2017-01-21] MEDS: FUROSEMIDE 10 MG/ML 4 ML VIAL IV SCH (21:53)
[2017-01-21] MEDS: ATENOLOL 25 MG TAB PO SCH (21:54)
[2017-01-21] MEDS: PRAVASTATIN SODIUM 20 MG TAB PO SCH (21:54)
[2017-01-21 23:28] LABS: Creatine Kinase MB 4.2 ng/mL (0.0-2.4); Troponin I 0.081 ng/mL (0.000-0.034)
[2017-01-22 06:04] LABS: Basophils % (A) 1 %; CH 30.5; Eosinophils # (A) 0.1 k/uL (0-0.7); Eosinophils % (A) 1 %; HCT 40.6 % (34.0-46.0); HDW 2.41; HGB 13.5 gm/dL (11.4-16.0); Luc # (Auto) 0.16; Luc % (Auto) 2; Lymphocytes # (A) 1.4 k/uL (1.0-4.8); Lymphocytes % (A) 21 %; MCHC 33.3 g/dL (31.0-37.0); MCV 90.3 fL (80.0-100.0); Mean Platelet Volume 7.4; Monocytes # (A) 0.5 k/uL (0-1.0); Monocytes % (A) 7 %; Neutrophils # (A) 4.5 k/uL (1.3-7.7); Neutrophils % (A) 68 %; RDW 15.3 % (11.5-15.5); WBC 6.6 k/uL (3.8-10.6); WBC (Perox) 6.66
[2017-01-22 06:16] LABS: INR 2.6 (<1.1); Partial Thromboplastin Time 58.6 sec (22.0-30.0)
[2017-01-22] MEDS: NITROGLYCERIN OINT 1 INCH/GM PACKET TOPICAL SCH ×2 (06:19→14:54)
[2017-01-22 06:21] LABS: Calcium 9.1 mg/dL (8.4-10.2); Total Bilirubin 2.1 mg/dL (0.2-1.3); Total Protein 6.3 g/dL (6.3-8.2)
[2017-01-22 06:23] LABS: Potassium 4.1 mmol/L (3.5-5.1)
[2017-01-22] MEDS: PANTOPRAZOLE 40 MG TABLET PO SCH (07:03)
[2017-01-22] MEDS: NITROGLYCERIN SL TABS 0.4 MG TAB SUBLINGUAL PRN ×3 (08:41→08:58)
[2017-01-22] MEDS: FUROSEMIDE 10 MG/ML 4 ML VIAL IV SCH ×2 (08:42→20:44)
[2017-01-22] MEDS: MEROPENEM 2 GM in SODIUM CHLORIDE 0.9% 100 ML IVPB SCH ×2 (08:42→21:01)
--- NOTE | 2017-01-22 08:57 | P.CRDCN ---
History of Present Illness Consult date: 01/22/17 Requesting physician: Myron Shaw Consult reason: chest pain Chief complaint: Chest pain History of present illness: This is an 86-year-old female who follows with Dr. Thomas in the office. She has a known history of paroxysmal atrial fibrillation, hyperlipidemia, prior myocardial infarction, prior AICD implant, hypertension, who had a lap dayna performed recently, she was also in the hospital last week subsequent to that treated for some mild congestive heart failure. Her main complaint was abdominal bloating with associated nausea and abdominal discomfort. She presents to the hospital on this occasion with symptoms of chest pressure and heaviness with persistent pain in the right upper quadrant area. EKG on admission showed a ventricular paced rhythm, EKG performed during chest pain reveals a paced rhythm with anterior lateral ST depression. Chest x- ray shows cardiomegaly, cannot exclude pulmonary venous hypertension and interstitial edema. Possible small pleural effusions. CAT scan of the abdomen and pelvis reveals stable evaluation of the abdomen and pelvis with no acute process. Moderate abdominal ascites and mild anasarca. Small bilateral pleural effusions. WBC 6.6, INR 2.6, sodium 131, potassium 4.1, BUN 22, creatinine 1.1. Troponins 0.062, 0.075, 0.081. BNP level 4400. On patient's prior admissions, it is noted that her troponins are always within this range. At pressure 124/80 with a heart rate in the 70s 97% on room air. At the time of my examination this morning patient again was complaining of chest pressure, she was also complaining of a headache. EKG was performed which showed V paced rhythm with anterior lateral ST depression Past Medical History Past Medical History: Atrial Fibrillation, Coronary Artery Disease (CAD), Chest Pain / Angina, Heart Failure, GERD/Reflux, Hyperlipidemia, Hypertension, Myocardial Infarction (TN), Osteoarthritis (OA), Pneumonia Additional Past Medical History / Comment(s): Bloating with eating in R upper abdominal quadrant and has nausea, home o2 3 liters n/c, nonischemic cardiomyopathy with EF of 20%, mi x4, v-tach 2007, osteoporosis, diverticultiis, hiatal hernia, bone spurs lt shoulder,anemia, duodenal ulcer. Last Myocardial Infarction Date:: 2007 History of Any Multi-Drug Resistant Organisms: None Reported Past Surgical History: AICD, Cholecystectomy, Heart Catheterization, Hysterectomy, Joint Replacement, Orthopedic Surgery, Pacemaker Additional Past Surgical History / Comment(s): sx to repair fractured nose, d&c , ruben foot sx ruben bunionectomy, lt knee replacment, rt knee arthroscopy, pacemaker/defibrillator medtronic left chest serial #[id number], mult heart caths, colonoscopies/EGD. Past Anesthesia/Blood Transfusion Reactions: Motion Sickness, Postoperative Nausea & Vomiting (PONV) Additional Past Anesthesia/Blood Transfusion Reaction / Comment(s): no problems with prior blood transfusion Type of Cardiac Device: Permanent Pacemaker, AICD Device Placement Date:: Mar Smoking Status: Former smoker - Past Family History Mother Family Medical History: Cancer, Diabetes Mellitus Additional Family Medical History / Comment(s): uterine cancer Daughter(s) Family Medical History: Cancer Additional Family Medical History / Comment(s): ovarian cancer Father Additional Family Medical History / Comment(s): cardiac problems Medications and Allergies Home Medications Medication Instructions Recorded Confirmed Type Aspirin EC [Ecotrin Low Dose] 81 mg PO DAILY 12/19/16 01/21/17 History Atenolol 25 mg PO TID 12/19/16 01/21/17 History LORazepam [Ativan] 1 mg PO HS 12/19/16 01/21/17 History Losartan [Cozaar] 25 mg PO BID 12/19/16 01/21/17 History Pravastatin Sodium [Pravachol] 10 mg PO DAILY 12/19/16 01/21/17 History Spironolactone 25 mg PO DAILY 12/19/16 01/21/17 History Warfarin [Coumadin] 4 mg PO DAILY 12/19/16 01/21/17 History Omeprazole 20 mg PO DAILY 01/13/17 01/21/17 History Allergies Allergy/AdvReac Type Severity Reaction Status Date / Time cefaclor [From Ceclor] Allergy Unknown Verified 01/21/17 11:08 celecoxib [From Celebrex] Allergy Unknown Verified 01/21/17 11:08 cephalexin [From Keflex] Allergy Unknown Verified 01/21/17 11:08 clindamycin [From Cleocin] Allergy Unknown Verified 01/21/17 11:08 diphenhydramine Allergy Nausea & Verified 01/21/17 11:08 [From Benadryl] Vomiting & Diarrhea dolasetron [From Anzemet] Allergy Unknown Verified 01/21/17 11:08 enalaprilat [From Vasotec] Allergy Unknown Verified 01/21/17 11:08 hydrocortisone [From Cortef] Allergy anxiety Verified 01/21/17 11:08 attack hydromorphone [From Dilaudid] Allergy Unknown Verified 01/21/17 11:08 hydroxyzine [From Vistaril] Allergy Unknown Verified 01/21/17 11:08 ibuprofen [From Motrin] Allergy Unknown Verified 01/21/17 11:08 Iodinated Contrast Media - Allergy Unknown Verified 01/21/17 11:08 Oral and levofloxacin [From Levaquin] Allergy Unknown Verified 01/21/17 11:08 morphine Allergy Unknown Verified 01/21/17 11:08 oxycodone Allergy Unknown Verified 01/21/17 11:08 Penicillins Allergy Swelling Verified 01/21/17 11:08 prednisone Allergy anxiety Verified 01/21/17 11:08 attack promethazine [From Phenergan] Allergy Unknown Verified 01/21/17 11:08 shellfish derived [Shellfish] Allergy Rash/Hives Verified 01/21/17 11:08 cortisone AdvReac anxiety Verified 01/21/17 11:08 attack methylprednisolone AdvReac anxiety Verified 01/21/17 11:08 [From Medrol] attack sea salt Allergy Unknown Uncoded 01/21/17 11:08 STEROIDS AdvReac anxiety Uncoded 01/21/17 10:41 attack Physical Exam Vitals: Vital Signs Temp Pulse Pulse Resp BP BP Pulse Ox 01/22/17 04:00 97.0 F L 70 18 124/86 97 01/22/17 00:00 96.6 F L 72 18 113/70 97 01/21/17 20:00 96.9 F L 69 18 136/92 99 01/21/17 16:00 96.7 F L 80 18 130/81 100 01/21/17 15:57 96 01/21/17 12:39 97.0 F L 64 18 136/78 100 01/21/17 11:43 68 18 123/85 99 01/21/17 10:41 98.2 F 82 16 127/91 98 Intake and Output 01/21/17 01/22/17 01/22/17 22:59 06:59 14:59 Intake Total 296.242 Output Total 101 550 Balance -101 -253.758 Intake: Intake, IV Titration 296.242 Amount Heparin Sodium,Porcine/ 296.242 D5w Pmx 25,000 unit In Dextrose/Water 1 500ml. bag @ 12 UNITS/KG/HR 18. 07 mls/hr IV .Q24H [facility] Rx #:[id number] Output: Urine 100 550 Stool 1 Other: Voiding Method Toilet Toilet # Voids 1 1 Weight 79.2 kg PHYSICAL EXAMINATION: HEENT: Head is atraumatic, normocephalic. Pupils equal, round. Neck is supple. There is no elevated jugular venous pressure. HEART EXAMINATION: S1 and S2 irregular irregular systolic murmur is heard. CHEST EXAMINATION: Circumflex clear with mild diminished air entry to bilateral bases. ABDOMEN: Soft, nontender. Bowel sounds are heard. No organomegaly noted. EXTREMITIES: 2+ peripheral pulses with trace evidence of peripheral edema and no calf tenderness noted. NEUROLOGIC patient is awake, alert and oriented -3. . Results 01/22/17 05:45 01/22/17 05:45 Cardiac Enzymes 01/21/17 01/21/17 01/21/17 Range/Units 10:47 10:47 16:26 AST 41 H (14-36) U/L CK-MB (CK-2) 4.3 H* 3.8 H* (0.0-2.4) ng/mL Troponin I 0.062 H* 0.075 H* (0.000-0.034) ng/mL 01/21/17 01/22/17 Range/Units 22:38 05:45 AST 35 (14-36) U/L CK-MB (CK-2) 4.2 H* (0.0-2.4) ng/mL Troponin I 0.081 H* (0.000-0.034) ng/mL Coagulation 01/21/17 01/21/17 01/22/17 Range/Units 10:47 19:10 05:45 PT 18.6 H 25.0 H (9.0-12.0) sec APTT 28.0 84.2 H 58.6 H (22.0-30.0) sec Lipids 01/22/17 Range/Units 05:45 Triglycerides 57 (<150) mg/dL Cholesterol 88 (<200) mg/dL HDL Cholesterol 35 L (40-60) mg/dL CBC 01/21/17 01/22/17 Range/Units 10:47 05:45 WBC 8.5 6.6 (3.8-10.6) k/uL RBC 4.73 4.50 (3.80-5.40) m/uL Hgb 15.0 13.5 (11.4-16.0) gm/dL Hct 42.1 40.6 (34.0-46.0) % Plt Count 150 132 L (150-450) k/uL Comprehensive Metabolic Panel 01/21/17 01/22/17 Range/Units 10:47 05:45 Sodium 129 L 131 L (137-145) mmol/L Potassium 4.6 4.1 (3.5-5.1) mmol/L Chloride 92 L 93 L (98-107) mmol/L Carbon Dioxide 26 27 (22-30) mmol/L BUN 25 H 22 H (7-17) mg/dL Creatinine 0.90 1.11 H (0.52-1.04) mg/dL Glucose 122 H 93 (74-99) mg/dL Calcium 9.1 9.1 (8.4-10.2) mg/dL AST 41 H 35 (14-36) U/L ALT 30 28 (9-52) U/L Alkaline Phosphatase 64 57 (38-126) U/L Total Protein 6.7 6.3 (6.3-8.2) g/dL Albumin 4.1 3.8 (3.5-5.0) g/dL Current Medications Generic Name Dose Route Start Last Admin Trade Name Enricoq PRN Reason Stop Dose Admin Atenolol 25 mg 01/21/17 22:00 01/21/17 21:54 Tenormin PO 25 mg TID [facility] Administration Barium Sulfate 450 ml 01/21/17 16:11 01/21/17 19:17 Readi-Cat 2 PO 01/22/17 16:13 300 ml Q3HR PRN Administration CT Scan Furosemide 40 mg 01/21/17 21:00 01/21/17 21:53 Lasix IV 40 mg Q12HR [facility] Administration Heparin Sodium/Dextrose 25,000 500 mls @ 18.07 mls/hr 01/21/17 12:30 06:20 unit/ IV Solution IV 10 units/kg/hr .Q24H [facility] 15.05 mls/hr Protocol Titration 12 UNITS/KG/HR Meropenem 2 gm/ Sodium 100 mls @ 200 mls/hr 01/21/17 17:00 01/21/17 22:59 Chloride IVPB 200 mls/hr Q8HR [facility] Administration Lorazepam 1 mg 01/21/17 14:09 Ativan PO HS PRN Anxiety Losartan Potassium 25 mg 01/21/17 21:00 01/21/17 21:53 Cozaar PO 25 mg BID ENMAN[facility]EL Administration Nitroglycerin 1 inch 01/21/17 18:00 01/22/17 06:19 Nitro-Bid Oint TOPICAL Not Given Q6HR [facility] Nitroglycerin 0.4 mg 01/21/17 12:30 Nitrostat SUBLINGUAL Q5M PRN Chest Pain Ondansetron HCl 4 mg 01/21/17 14:07 Zofran IVP Q6HR PRN Nausea And Vomiting Pantoprazole Sodium 40 mg 01/21/17 14:15 01/22/17 07:03 Protonix PO Not Given AC-BRKFST [facility] Pravastatin Sodium 10 mg 01/21/17 21:00 01/21/17 21:54 Pravachol PO 10 mg HS [facility] Administration Spironolactone 25 mg 01/22/17 09:00 Aldactone PO DAILY [facility] Temazepam 15 mg 01/21/17 16:51 Restoril PO HS PRN Insomnia Warfarin Sodium 4 mg 01/21/17 18:00 01/21/17 20:05 Coumadin PO 4 mg DAILY@1800 [facility] Administration Intake and Output 01/21/17 01/22/17 01/22/17 22:59 06:59 14:59 Intake Total 296.242 Output Total 101 550 Balance -101 -253.758 Intake: Intake, IV Titration 296.242 Amount Heparin Sodium,Porcine/ 296.242 D5w Pmx 25,000 unit In Dextrose/Water 1 500ml. bag @ 12 UNITS/KG/HR 18. 07 mls/hr IV .Q24H [facility] Rx #:[id number] Output: Urine 100 550 Stool 1 Other: Voiding Method Toilet Toilet # Voids 1 1 Weight 79.2 kg 01/22/17 05:45 01/22/17 05:45 EKG Interpretations (text) EKG shows a ventricular paced rhythm with nonspecific ST-T wave changes Assessment and Plan Plan: Assessment and plan #1 chest pressure and heaviness with radiation to the back. Mildly abnormal troponins. Patient is noted on prior admissions to always have troponins in the abnormal range. EKG shows ventricular paced rhythm with nonspecific ST-T wave changes. According to the patient, she has had several heart catheterizations in the past all of which have been reported to be normal. #2 recent lap dayna with some residual mild abdominal discomfort #3 paroxysmal atrial fibrillation, on Coumadin for anticoagulation #4 hypertension Number 5 hyperlipidemia #6 questionable prior myocardial infarction, patient has had several cardiac catheterizations, never requiring intervention. #7 nonischemic cardio myopathy with prior AICD Plan Recent echocardiogram with Doppler study was just performed last month which revealed an ejection fraction of 20-25%. We will not repeat an echo on this admission. Patient is currently on IV Lasix. Along with a heparin drip and Nitropaste. We will discontinue the heparin drip, her INR is 2.6 and she is on Coumadin. Discontinue Nitropaste and start the patient on some Imdur. We will also try to obtain copy of most recent cardiac catheterization. Further recommendations to follow. DNP note has been reviewed, I agree with a documented findings and plan of care. Patient was seen and examined.
[2017-01-22] MEDS ORDERED: FUROSEMIDE 40 MG TAB PO SCH (09:00)
[2017-01-22] MEDS ORDERED: ASPIRIN 325 MG TAB PO SCH (09:00)
[2017-01-22] MEDS: LOSARTAN 25 MG TAB PO SCH (11:02)
[2017-01-22] MEDS: ATENOLOL 25 MG TAB PO SCH (11:02)
[2017-01-22] MEDS: SPIRONOLACTONE 25 MG TAB PO SCH (11:02)
[2017-01-22] MEDS: HEPARIN SODIUM,PORCINE/D5W PMX 25,000 UNIT in DEXTROSE/WATER 1 500ML.BAG IV SCH (14:54)
[2017-01-22] MEDS: ISOSORBIDE MONONITRATE ER 30 MG TAB.ER.24H PO SCH (15:12)
--- NOTE | 2017-01-22 15:47 | US ---
EXAMINATION TYPE: US venous doppler duplex LE DATE OF EXAM: 01/22/2017 3:37 PM COMPARISON: NONE CLINICAL HISTORY: r/o dvt. Edema and pain bilateral legs. Patient on Coumadin, cardiac issues SIDE PERFORMED: Bilateral TECHNIQUE: The lower extremity deep venous system is examined utilizing real time linear array sonog nyasia with graded compression, doppler sonography and color-flow sonography. VESSELS IMAGED: External Iliac Vein (EIV) Common Femoral Vein Deep Femoral Vein Greater Saphenous Vein * Femoral Vein Popliteal Vein Small Saphenous Vein * Proximal Calf Veins (* superficial vessels) Right Leg: No evidence of DVT Left Leg: No evidence of DVT No popliteal fossa lesion is seen. IMPRESSION: THIS EXAMINATION IS NEGATIVE FOR DVT IN BOTH LEGS.
--- NOTE | 2017-01-22 17:16 | P.PN ---
Subjective Date of service 01/22/2017. Progress note being dictated for Dr. Spencer. Interval history: This is a 86-year-old female admitted with multiple medical issues including chest pain, abdominal discomfort, persistent nausea vomiting diarrhea in a patient with recent lap dayna, CHF and multiple other medical issues. Diuresing well on Lasix IV push with 24-hour I&O reflecting a negative fluid balance. Mild worsening in renal function. Maintained on Merrem, afebrile. Complains of bloating after eating, nausea and diarrhea, no emesis. CT of abdomen and pelvis non-acute, moderate abdominal pelvic ascites and mild anasarca, small bilateral pleural effusions with compressive atelectasis and pulmonary nodules, small hiatal hernia. Recent chest x-ray reporting cardiomegaly possible left pleural effusion. Earlier today patient had midsternal chest pain radiating up to head, described as a stabbing knife going through to the back. Subsided after 3 nitroglycerin sublinguals. Telemetry V- paced in the 70s with occasional PVC. Objective - Vital Signs Vital signs: Vital Signs Temp 97.3 F L 01/22/17 12:00 Pulse 73 01/22/17 12:00 Resp 18 01/22/17 12:00 BP 113/71 01/22/17 12:00 Pulse Ox 98 01/22/17 12:00 Intake & Output 01/21/17 01/22/17 01/22/17 18:59 06:59 18:59 Intake Total 296.242 Output Total 300 651 300 Balance -300 -354.758 -300 Weight 75.296 kg 79.2 kg 79.2 kg Intake: Intake, IV Titration 296.242 Amount Heparin Sodium,Porcine/ 296.242 D5w Pmx 25,000 unit In Dextrose/Water 1 500ml. bag @ 12 UNITS/KG/HR 18. 07 mls/hr IV .Q24H [facility] Rx #:[id number] Output: Urine 300 650 300 Stool 1 Other: Voiding Method Toilet Toilet Toilet # Voids 1 - Exam PHYSICAL EXAM: VITAL SIGNS: As above GENERAL: [Sitting up in bed, tired appearing, nauseated] HEENT: [Pupils equal conjunctiva normal. Oral mucosa moist] NECK: [Supple, no JVD] RESPIRATORY EFFORT:[ Normal] LUNGS: [Diminished bases, fine scattered basilar crackles] CARDIOVASCULAR[ irregular, positive systolic murmur, positive edema] GI: [Abdomen soft, distended, nontender, positive bowel sounds.] PSYCH: [Alert and oriented -3, mood and affect normal. No guarding, no rigidity] NEURO: [No focal deficits, moves all 4 extremities, strength and sensation grossly intact] - Labs CBC & Chem 7: 01/22/17 05:45 01/22/17 05:45 Labs: Abnormal Lab Results - Last 24 Hours (Table) 01/21/17 01/21/17 01/21/17 Range/Units 16:26 19:10 22:38 Plt Count (150-450) k/uL PT (9.0-12.0) sec APTT 84.2 H (22.0-30.0) sec Sodium (137-145) mmol/L Chloride (98-107) mmol/L BUN (7-17) mg/dL Creatinine (0.52-1.04) mg/dL Total Bilirubin (0.2-1.3) mg/dL Total Creatine Kinase 144 H (30-135) U/L CK-MB (CK-2) 3.8 H* 4.2 H* (0.0-2.4) ng/mL Troponin I 0.075 H* 0.081 H* (0.000-0.034) ng/mL HDL Cholesterol (40-60) mg/dL 01/22/17 01/22/17 01/22/17 Range/Units 05:45 05:45 05:45 Plt Count 132 L (150-450) k/uL PT 25.0 H (9.0-12.0) sec APTT 58.6 H (22.0-30.0) sec Sodium 131 L (137-145) mmol/L Chloride 93 L (98-107) mmol/L BUN 22 H (7-17) mg/dL Creatinine 1.11 H (0.52-1.04) mg/dL Total Bilirubin 2.1 H (0.2-1.3) mg/dL Total Creatine Kinase (30-135) U/L CK-MB (CK-2) (0.0-2.4) ng/mL Troponin I (0.000-0.034) ng/mL HDL Cholesterol 35 L (40-60) mg/dL Microbiology - Last 24 Hours (Table) 01/21/17 17:23 Urine Culture - Preliminary Urine,Voided Assessment and Plan Plan: 1. [ Acute chest pain, elevated troponins, rule out acute coronary syndrome]. 2. Acute CHF exacerbation, diastolic dysfunction, 3. Persistent nausea, vomiting, diarrhea, in a patient with recent lap dayna]. 4. Hyponatremia 5. Moderate abdominal ascites,mild anasarca in a patient with elevated T bili, AST,CK 3. [ CAD with history of multiple cardiac catheterizations, history of MA]. 4. [ Nonischemic cardiomyopathy with AICD]. 5. [ Proximal atrial fibrillation]. 6. [ Coumadin monitoring]. 7. [ Hyperlipidemia]. 8. Hypertension 9. Small bilateral pleural effusions, pulmonary nodules 10. Atelectasis 11. Remote history of nicotine abuse Plan: Continue on current medication regime ,monitoring and symptomatic treatment. Echo with fluid and diet restrictions placed. Continue diuresing with IV push Lasix. CHF pathway, strict I&O's. Close monitoring of renal function, electrolytes with repeat labs ordered for a.m. C. difficile testing. Bilateral leg Doppler ultrasounds ordered. Xopenex added to med regime. Aggressive pulmonary toileting with incentive spirometer ordered. Extensive discussion with family and patient at bedside regarding current updates, plan of care,voiced understanding and agreement with current focus/plan. Family expressed concerns regarding patient continues to have significant GI symptoms as mentioned above ,that initially presented prior to lap dayna and has persisted, states patient never had colonoscopy;GI consulted for endoscopy once cardiac workup is complete and cleared by cardiology. Prognosis guarded given multiple complex medical issues. Further recommendations to follow. The impression and plan of care has been dictated as directed. : I performed a H&P examination of this patient and discussed the same with the dictator. I agree with the dictator's note. Any additional findings/opinions/ etc. will be noted.
--- NOTE | 2017-01-22 18:40 | P.GSCN ---
History of Present Illness Consult date: 01/22/17 Reason for Consult: Chronic nausea History of present illness: The 86-year-old female who's had multiple hospitalizations related to chronic nausea. The patient underwent laparoscopic cholecystectomy proximal in 2 weeks ago. She's had a readmission for nausea postoperatively. She's been readmitted for heart failure and nausea. Patient's had a several month history of nausea. She is found have chronic cholecystitis. After a laparoscopically cholecystectomy she felt better for a few days. However her nausea has returned. She is currently being worked up possible [place]. Past Medical History Past Medical History: Atrial Fibrillation, Coronary Artery Disease (CAD), Chest Pain / Angina, Heart Failure, GERD/Reflux, Hyperlipidemia, Hypertension, Myocardial Infarction ([place]), Osteoarthritis (OA), Pneumonia Additional Past Medical History / Comment(s): Bloating with eating in R upper abdominal quadrant and has nausea, home o2 3 liters n/c, nonischemic cardiomyopathy with EF of 20%, mi x4, v-tach 2007, osteoporosis, diverticultiis, hiatal hernia, bone spurs lt shoulder,anemia, duodenal ulcer. Last Myocardial Infarction Date:: 2007 History of Any Multi-Drug Resistant Organisms: None Reported Past Surgical History: AICD, Cholecystectomy, Heart Catheterization, Hysterectomy, Joint Replacement, Orthopedic Surgery, Pacemaker Additional Past Surgical History / Comment(s): sx to repair fractured nose, d&c , ruben foot sx ruben bunionectomy, lt knee replacment, rt knee arthroscopy, pacemaker/defibrillator [employer]onic left chest serial #[id number], mult heart caths, colonoscopies/EGD. Past Anesthesia/Blood Transfusion Reactions: Motion Sickness, Postoperative Nausea & Vomiting (PONV) Additional Past Anesthesia/Blood Transfusion Reaction / Comm: no problems with prior blood transfusion Type of Cardiac Device: Permanent Pacemaker, AICD Device Placement Date:: Mar Smoking Status: Former smoker - Past Family History Mother Family Medical History: Cancer, Diabetes Mellitus Additional Family Medical History / Comment(s): uterine cancer Daughter(s) Family Medical History: Cancer Additional Family Medical History / Comment(s): ovarian cancer Father Additional Family Medical History / Comment(s): cardiac problems Medications and Allergies Home Medications Medication Instructions Recorded Confirmed Type Aspirin EC [Ecotrin Low Dose] 81 mg PO DAILY 12/19/16 01/21/17 History Atenolol 25 mg PO TID 12/19/16 01/21/17 History LORazepam [Ativan] 1 mg PO HS 12/19/16 01/21/17 History Losartan [Cozaar] 25 mg PO BID 12/19/16 01/21/17 History Pravastatin Sodium [Pravachol] 10 mg PO DAILY 12/19/16 01/21/17 History Spironolactone 25 mg PO DAILY 12/19/16 01/21/17 History Warfarin [Coumadin] 4 mg PO DAILY 12/19/16 01/21/17 History Omeprazole 20 mg PO DAILY 01/13/17 01/21/17 History Allergies Allergy/AdvReac Type Severity Reaction Status Date / Time cefaclor [From Ceclor] Allergy Unknown Verified 01/21/17 11:08 celecoxib [From Celebrex] Allergy Unknown Verified 01/21/17 11:08 cephalexin [From Keflex] Allergy Unknown Verified 01/21/17 11:08 clindamycin [From Cleocin] Allergy Unknown Verified 01/21/17 11:08 diphenhydramine Allergy Nausea & Verified 01/21/17 11:08 [From Benadryl] Vomiting & Diarrhea dolasetron [From Anzemet] Allergy Unknown Verified 01/21/17 11:08 enalaprilat [From Vasotec] Allergy Unknown Verified 01/21/17 11:08 hydrocortisone [From Cortef] Allergy anxiety Verified 01/21/17 11:08 attack hydromorphone [From Dilaudid] Allergy Unknown Verified 01/21/17 11:08 hydroxyzine [From Vistaril] Allergy Unknown Verified 01/21/17 11:08 ibuprofen [From Motrin] Allergy Unknown Verified 01/21/17 11:08 Iodinated Contrast Media - Allergy Unknown Verified 01/21/17 11:08 Oral and levofloxacin [From Levaquin] Allergy Unknown Verified 01/21/17 11:08 morphine Allergy Unknown Verified 01/21/17 11:08 oxycodone Allergy Unknown Verified 01/21/17 11:08 Penicillins Allergy Swelling Verified 01/21/17 11:08 prednisone Allergy anxiety Verified 01/21/17 11:08 attack promethazine [From Phenergan] Allergy Unknown Verified 01/21/17 11:08 shellfish derived [Shellfish] Allergy Rash/Hives Verified 01/21/17 11:08 cortisone AdvReac anxiety Verified 01/21/17 11:08 attack methylprednisolone AdvReac anxiety Verified 01/21/17 11:08 [From Medrol] attack sea salt Allergy Unknown Uncoded 01/21/17 11:08 STEROIDS AdvReac anxiety Uncoded 01/21/17 10:41 attack Surgical - Exam Vital Signs Temp Pulse Resp BP Pulse Ox 98.2 F 82 16 127/91 98 01/21/17 10:41 01/21/17 10:41 01/21/17 10:41 01/21/17 10:41 01/21/17 10:41 - General well developed, no distress - Eyes PERRL - ENT normal pinna - Neck no masses - Respiratory normal expansion - Cardiovascular Rhythm: regular - Abdomen Well healed laparoscopic incisions. There is minimal tenderness. There is no rebound or guarding. Abdomen: soft, non tender Results - Labs 01/22/17 05:45 01/22/17 05:45 Abnormal Lab Results - Last 24 Hours (Table) 01/21/17 01/21/17 01/22/17 Range/Units 19:10 22:38 05:45 Plt Count (150-450) k/uL PT (9.0-12.0) sec APTT 84.2 H (22.0-30.0) sec Sodium 131 L (137-145) mmol/L Chloride 93 L (98-107) mmol/L BUN 22 H (7-17) mg/dL Creatinine 1.11 H (0.52-1.04) mg/dL Total Bilirubin 2.1 H (0.2-1.3) mg/dL Total Creatine Kinase 144 H (30-135) U/L CK-MB (CK-2) 4.2 H* (0.0-2.4) ng/mL Troponin I 0.081 H* (0.000-0.034) ng/mL HDL Cholesterol 35 L (40-60) mg/dL 01/22/17 01/22/17 Range/Units 05:45 05:45 Plt Count 132 L (150-450) k/uL PT 25.0 H (9.0-12.0) sec APTT 58.6 H (22.0-30.0) sec Sodium (137-145) mmol/L Chloride (98-107) mmol/L BUN (7-17) mg/dL Creatinine (0.52-1.04) mg/dL Total Bilirubin (0.2-1.3) mg/dL Total Creatine Kinase (30-135) U/L CK-MB (CK-2) (0.0-2.4) ng/mL Troponin I (0.000-0.034) ng/mL HDL Cholesterol (40-60) mg/dL Microbiology - Last 24 Hours (Table) 01/21/17 17:23 Urine Culture - Preliminary Urine,Voided Diabetes panel 01/22/17 Range/Units 05:45 Sodium 131 L (137-145) mmol/L Potassium 4.1 (3.5-5.1) mmol/L Chloride 93 L (98-107) mmol/L Carbon Dioxide 27 (22-30) mmol/L BUN 22 H (7-17) mg/dL Creatinine 1.11 H (0.52-1.04) mg/dL Glucose 93 (74-99) mg/dL Calcium 9.1 (8.4-10.2) mg/dL AST 35 (14-36) U/L ALT 28 (9-52) U/L Alkaline Phosphatase 57 (38-126) U/L Total Protein 6.3 (6.3-8.2) g/dL Albumin 3.8 (3.5-5.0) g/dL Triglycerides 57 (<150) mg/dL HDL Cholesterol 35 L (40-60) mg/dL Calcium panel 01/22/17 Range/Units 05:45 Calcium 9.1 (8.4-10.2) mg/dL Albumin 3.8 (3.5-5.0) g/dL Pituitary panel 01/22/17 Range/Units 05:45 Sodium 131 L (137-145) mmol/L Potassium 4.1 (3.5-5.1) mmol/L Chloride 93 L (98-107) mmol/L Carbon Dioxide 27 (22-30) mmol/L BUN 22 H (7-17) mg/dL Creatinine 1.11 H (0.52-1.04) mg/dL Glucose 93 (74-99) mg/dL Calcium 9.1 (8.4-10.2) mg/dL Adrenal panel 01/22/17 Range/Units 05:45 Sodium 131 L (137-145) mmol/L Potassium 4.1 (3.5-5.1) mmol/L Chloride 93 L (98-107) mmol/L Carbon Dioxide 27 (22-30) mmol/L BUN 22 H (7-17) mg/dL Creatinine 1.11 H (0.52-1.04) mg/dL Glucose 93 (74-99) mg/dL Calcium 9.1 (8.4-10.2) mg/dL Total Bilirubin 2.1 H (0.2-1.3) mg/dL AST 35 (14-36) U/L ALT 28 (9-52) U/L Alkaline Phosphatase 57 (38-126) U/L Total Protein 6.3 (6.3-8.2) g/dL Albumin 3.8 (3.5-5.0) g/dL Assessment and Plan Plan: Chronic nausea. The patient is doing well from a surgical standpoint. Postoperatively her LapSac cholecystectomy is healing well. She's had a previous HIDA scan which shows known to bile leak. It is unclear what caused the patient's nausea at this point. I recommend a EGD and possible gastric emptying study when stable.
[2017-01-22] MEDS: WARFARIN 2 MG TAB PO SCH (18:41)
[2017-01-22] MEDS: CARVEDILOL 6.25 MG TAB PO SCH (18:41)
[2017-01-22] MEDS: guaiFENesin 600 MG TABLET.ER PO PRN (18:41)
[2017-01-22] MEDS: PRAVASTATIN SODIUM 20 MG TAB PO SCH (20:44)
[2017-01-22] MEDS: LEVALBUTEROL NEB 1.25 MG/3 ML AMP INHALATION SCH (21:24)
[2017-01-22 21:42] LABS: Appearance,Urine Clear (Clear); Bilirubin,Urine Negative (Negative); Glucose,Urine (UA) Negative (Negative); Ketones,Urine Negative (Negative); Leukocyte Esterase,Urine Negative (Negative); Nitrite,Urine Negative (Negative); PH, Urine 6.5 (5.0-8.0); Protein,Urine Negative (Negative); Specific Gravity,Urine 1.006 (1.001-1.035); UA Billing (MACRO vs. MICRO) CHEM
[2017-01-23] MEDS: PANTOPRAZOLE 40 MG TABLET PO SCH (06:09)
[2017-01-23] MEDS: CARVEDILOL 6.25 MG TAB PO SCH ×2 (06:10→16:49)
[2017-01-23 06:22] LABS: Basophils % (A) 1 %; CHCM 33.2; Eosinophils # (A) 0.1 k/uL (0-0.7); Eosinophils % (A) 2 %; HCT 40.7 % (34.0-46.0); HDW 2.41; HGB 13.6 gm/dL (11.4-16.0); Luc # (Auto) 0.14; Luc % (Auto) 2; Lymphocytes % (A) 15 %; MCH 30.6 pg (25.0-35.0); MCHC 33.6 g/dL (31.0-37.0); MCV 91.1 fL (80.0-100.0); Mean Platelet Volume 7.2; Monocytes # (A) 0.4 k/uL (0-1.0); Monocytes % (A) 6 %; Neutrophils # (A) 4.9 k/uL (1.3-7.7); Neutrophils % (A) 74 %; RBC 4.47 m/uL (3.80-5.40); RDW 15.4 % (11.5-15.5); WBC 6.6 k/uL (3.8-10.6); WBC (Perox) 6.67
[2017-01-23 06:31] LABS: INR 2.5 (<1.1); Prothrombin Time 23.7 sec (9.0-12.0)
[2017-01-23 06:44] LABS: ALT 29 U/L (9-52); AST 29 U/L (14-36); Alkaline Phosphatase 61 U/L (38-126); Anion Gap 13 mmol/L; Blood Urea Nitrogen 18 mg/dL (7-17); Calcium 9.5 mg/dL (8.4-10.2); Carbon Dioxide 28 mmol/L (22-30); Chloride 93 mmol/L (98-107); Glucose 132 mg/dL (74-99); Non-African American GFR(MDRD) 52 (>60 ml/min/1.73 sqM); Potassium 3.5 mmol/L (3.5-5.1); Sodium 134 mmol/L (137-145); Total Bilirubin 2.3 mg/dL (0.2-1.3); Total Protein 6.3 g/dL (6.3-8.2)
[2017-01-23] MEDS: SPIRONOLACTONE 25 MG TAB PO SCH (07:41)
[2017-01-23] MEDS: FUROSEMIDE 10 MG/ML 4 ML VIAL IV SCH ×2 (07:42→20:37)
[2017-01-23] MEDS: ISOSORBIDE MONONITRATE ER 30 MG TAB.ER.24H PO SCH (07:42)
[2017-01-23] MEDS: MEROPENEM 2 GM in SODIUM CHLORIDE 0.9% 100 ML IVPB SCH ×2 (07:42→20:37)
[2017-01-23] MEDS: NITROGLYCERIN SL TABS 0.4 MG TAB SUBLINGUAL PRN ×3 (07:42→07:59)
[2017-01-23] MEDS: LEVALBUTEROL NEB 1.25 MG/3 ML AMP INHALATION SCH ×3 (08:04→20:05)
[2017-01-23] MEDS ORDERED: PHYTONADIONE ORAL 5 MG/5 ML ORAL.SYRG PO STA (10:30)
--- NOTE | 2017-01-23 10:37 | ECHOF ---
Referral Reason:Heart failure Pericardial effusion MEASUREMENTS -------- HEIGHT: 160.0 cm WEIGHT: 78.9 kg BP: 113/71 FINDINGS -------- Sinus rhythm. This was a technically adequate study. Limited study for the evaluation of pericardial effusion. Overall left ventricular systolic function is severely impaired with, an EF between 20 - 25 %. There is a small pericardial effusion located near the left ventricle and left atrium. CONCLUSIONS -------- 1. Sinus rhythm. 2. This was a technically adequate study. 3. Limited study for the evaluation of pericardial effusion. 4. Overall left ventricular systolic function is severely impaired with, an EF between 20 - 25 %. 5. There is a small pericardial effusion located near the left ventricle and left atrium. TRANSITIONAL CARE LIAISON: Jhonny Schroeder RDCS
--- NOTE | 2017-01-23 10:43 | P.CONS ---
History of Present Illness - Reason for Consult Consult date: 01/23/17 Nause vomiting diarrhea Requesting physician: Parvez Spencer - History of Present Illness 86-year-old female status post laparoscopic cholecystectomy 01/06/2017 for cholecystitis without stones. Past medical history nonischemic cardiomyopathy EF 20%, atrial fibrillation Coumadin monitoring, hypertension, hyperlipidemia, pacemaker AICD. Admitted with persistent nausea vomiting abdominal bloatedness not feeling well with elevated troponins. She has a history of elevated troponins. Recent hospitalization for exacerbation of CHF. Consultation requested for nausea vomiting diarrhea. Patient has been experiencing increased nausea minimal emesis and abdominal bloating since September. Symptoms seem to be exacerbated after meals. She thought her symptoms would improve after cholecystectomy however they worsened. Intermittent nonbloody diarrhea fluctuating with constipation. Colonoscopy many years ago. No EGD. Currently INR 2.5. Bilirubin 2.3. AST ALT alkaline phosphatase normal. Troponin 0.08. White count 6.6. Hemoglobin on 13.6. BUN 25. Creatinine 1.1. Review of Systems Constitutional: Denies fever, chills, sweats, weight gain, or loss. HEENT: Negative for migraines, blurred vision or loss, earaches, drainage, tinnitus, oral mucosal lesions, dysphagia, or odynophagia. CARDIAC: AICD pacemaker. CHF. Cardiomyopathy. Atrial fibrillation. CAD. Hyperlipidemia. Hypertension. [place]. Negative for chest pain, arrhythmias, or palpitation. RESPIRATORY: Negative for shortness of breath, hemoptysis, cough, or sputum production. GI: See HPI for pertinent findings. : Negative for hematuria, urgency, frequency, polyuria, or dysuria. GYNc: Denies possibility of . Negative vaginal discharge. MUSCULOSKELETAL: Negative for muscle aches, swelling, arthritis, and arthralgias. NEUROLOGIC: Negative for stroke or TIA. ENDOCRINE: Negative for thyroid problems. SKIN: Negative for rash or itching. PSYCHIATRIC: Negative history for depression and anxiety All systems: negative (See HPI) Past Medical History Past Medical History: Atrial Fibrillation, Coronary Artery Disease (CAD), Chest Pain / Angina, Heart Failure, GERD/Reflux, Hyperlipidemia, Hypertension, Myocardial Infarction ([place]), Osteoarthritis (OA), Pneumonia Additional Past Medical History / Comment(s): Bloating with eating in R upper abdominal quadrant and has nausea, home o2 3 liters n/c, nonischemic cardiomyopathy with EF of 20%, mi x4, v-tach 2007, osteoporosis, diverticultiis, hiatal hernia, bone spurs lt shoulder,anemia, duodenal ulcer. Last Myocardial Infarction Date:: 2007 History of Any Multi-Drug Resistant Organisms: None Reported Past Surgical History: AICD, Cholecystectomy, Heart Catheterization, Hysterectomy, Joint Replacement, Orthopedic Surgery, Pacemaker Additional Past Surgical History / Comment(s): sx to repair fractured nose, d&c , ruben foot sx ruben bunionectomy, lt knee replacment, rt knee arthroscopy, pacemaker/defibrillator [employer] left chest serial #[id number], mult heart caths, colonoscopies/EGD. Past Anesthesia/Blood Transfusion Reactions: Motion Sickness, Postoperative Nausea & Vomiting (PONV) Additional Past Anesthesia/Blood Transfusion Reaction / Comm: no problems with prior blood transfusion Type of Cardiac Device: Permanent Pacemaker, AICD Device Placement Date:: Mar Smoking Status: Former smoker - Past Family History Mother Family Medical History: Cancer, Diabetes Mellitus Additional Family Medical History / Comment(s): uterine cancer Daughter(s) Family Medical History: Cancer Additional Family Medical History / Comment(s): ovarian cancer Father Additional Family Medical History / Comment(s): cardiac problems Medications and Allergies Home Medications Medication Instructions Recorded Confirmed Type Aspirin EC [Ecotrin Low Dose] 81 mg PO DAILY 12/19/16 01/21/17 History Atenolol 25 mg PO TID 12/19/16 01/21/17 History LORazepam [Ativan] 1 mg PO HS 12/19/16 01/21/17 History Losartan [Cozaar] 25 mg PO BID 12/19/16 01/21/17 History Pravastatin Sodium [Pravachol] 10 mg PO DAILY 12/19/16 01/21/17 History Spironolactone 25 mg PO DAILY 12/19/16 01/21/17 History Warfarin [Coumadin] 4 mg PO DAILY 12/19/16 01/21/17 History Omeprazole 20 mg PO DAILY 01/13/17 01/21/17 History Allergies Allergy/AdvReac Type Severity Reaction Status Date / Time cefaclor [From Ceclor] Allergy Unknown Verified 01/21/17 11:08 celecoxib [From Celebrex] Allergy Unknown Verified 01/21/17 11:08 cephalexin [From Keflex] Allergy Unknown Verified 01/21/17 11:08 clindamycin [From Cleocin] Allergy Unknown Verified 01/21/17 11:08 diphenhydramine Allergy Nausea & Verified 01/21/17 11:08 [From Benadryl] Vomiting & Diarrhea dolasetron [From Anzemet] Allergy Unknown Verified 01/21/17 11:08 enalaprilat [From Vasotec] Allergy Unknown Verified 01/21/17 11:08 hydrocortisone [From Cortef] Allergy anxiety Verified 01/21/17 11:08 attack hydromorphone [From Dilaudid] Allergy Unknown Verified 01/21/17 11:08 hydroxyzine [From Vistaril] Allergy Unknown Verified 01/21/17 11:08 ibuprofen [From Motrin] Allergy Unknown Verified 01/21/17 11:08 Iodinated Contrast Media - Allergy Unknown Verified 01/21/17 11:08 Oral and levofloxacin [From Levaquin] Allergy Unknown Verified 01/21/17 11:08 morphine Allergy Unknown Verified 01/21/17 11:08 oxycodone Allergy Unknown Verified 01/21/17 11:08 Penicillins Allergy Swelling Verified 01/21/17 11:08 prednisone Allergy anxiety Verified 01/21/17 11:08 attack promethazine [From Phenergan] Allergy Unknown Verified 01/21/17 11:08 shellfish derived [Shellfish] Allergy Rash/Hives Verified 01/21/17 11:08 cortisone AdvReac anxiety Verified 01/21/17 11:08 attack methylprednisolone AdvReac anxiety Verified 01/21/17 11:08 [From Medrol] attack sea salt Allergy Unknown Uncoded 01/21/17 11:08 STEROIDS AdvReac anxiety Uncoded 01/21/17 10:41 attack Physical Exam Vitals: Vital Signs Temp Pulse Pulse Resp BP Pulse Ox 01/23/17 03:14 97.4 F L 74 17 122/75 100 01/22/17 23:58 96.7 F L 74 18 122/85 98 01/22/17 21:29 80 01/22/17 21:17 80 01/22/17 20:00 97.0 F L 72 18 105/76 100 01/22/17 16:00 97.5 F L 75 18 116/72 99 01/22/17 12:00 97.3 F L 73 18 113/71 98 01/22/17 08:00 97.0 F L 73 18 130/78 100 Intake and Output 01/22/17 01/23/17 01/23/17 22:59 06:59 14:59 Intake Total 460 Output Total 800 1150 Balance -340 -1150 Intake: Intake, IV Titration 200 Amount Meropenem 2 gm In Sodium 200 Chloride 0.9% 100 ml @ 200 mls/hr IVPB Q12H [facility] Rx#:[id number] Oral 260 Output: Urine 800 1150 Other: Voiding Method Toilet Toilet # Voids 3 1 Weight 77.2 kg General appearance: The patient is alert, oriented, in no acute distress. HET: Head is normocephalic and atraumatic. Pupils are equal and reactive. Oropharynx is clear without lesions. Neck: Supple without lymphadenopathy. Trachea midline. Heart: S1 S2. Lungs: No crackles or wheezes are heard. Abdomen: Soft, diffuse tenderness across the midabdomen, nondistended with bowel sounds. Laparoscopic incisions without drainage healing. No peritoneal signs. No palpable organomegaly or masses. Extremities: Normal skin color and turgor. No cyanosis, rash, ulceration, clubbing, or edema. Radial and pedal pulses are 2/4 bilaterally. Neurological: No focal deficits. Strength and sensation are grossly intact. Results CBC & Chem 7: 01/23/17 05:48 01/23/17 05:48 Labs: Abnormal Lab Results - Last 24 Hours (Table) 01/23/17 01/23/17 01/23/17 Range/Units 05:48 05:48 05:48 Plt Count 117 L (150-450) k/uL PT 23.7 H (9.0-12.0) sec Sodium 134 L (137-145) mmol/L Chloride 93 L (98-107) mmol/L BUN 18 H (7-17) mg/dL Glucose 132 H (74-99) mg/dL Total Bilirubin 2.3 H (0.2-1.3) mg/dL Microbiology - Last 24 Hours (Table) 01/21/17 17:23 Urine Culture - Final Urine,Voided 01/21/17 19:10 Blood Culture - Preliminary Blood No Growth after 24 hours Assessment and Plan Plan: Impression : 1. 86-year-old female with persistent nausea and abdominal bloatedness discomfort after meals for the last 3 months status post recent laparoscopic cholecystectomy without improvement in symptoms with underlying history of nonischemic cardiomyopathy, atrial fibrillation with Coumadin monitoring. Plan: 1. Dr. Issa discussed plan of care with warehouse shipper Dr. Lopez. Dr. Lopez provided cardiac clearance to proceed with EGD evaluation tomorrow. He is in agreement with holding Coumadin and providing vitamin K 5 mg oral 1 today. We' ll proceed with EGD tomorrow as long as INR is 1.5 or less. Stool studies if diarrhea recurs. Continue GI prophylaxis and symptomatic treatment. Possible colonoscopy pending EGD findings. Thank you for this kind referral and the opportunity to participate in the care of your patient. This consultation was discussed with Dr. Issa. The impression and plan of care have been directed as dictated.
[2017-01-23] MEDS: ACETAMINOPHEN TAB 325 MG TAB PO PRN ×2 (11:58→17:34)
--- NOTE | 2017-01-23 12:45 | P.PN ---
Progress Note - Text Patient's nausea is slightly improved today. She is required nitroglycerin 3 times this morning. On exam her vital signs are stable. Her abdomen soft. Chronic nausea. Patient scheduled for EGD with Dr. Renee tomorrow. No surgical intervention is planned.
[2017-01-23] MEDS ORDERED: METOLAZONE 5 MG TAB PO STA (14:43)
[2017-01-23] MEDS ORDERED: Potassium Replacement Protocol 1 EACH MISC MISCELLANE PRN (14:47)
[2017-01-23] MEDS ORDERED: POTASSIUM CHLORIDE ER 20 MEQ TAB.ER PO ONE (15:00)
--- NOTE | 2017-01-23 15:19 | P.PN ---
Subjective History of present illness: This is an 86-year-old female who follows with Dr. Thomas in the office. She has a known history of paroxysmal atrial fibrillation, hyperlipidemia, prior myocardial infarction, prior AICD implant, hypertension, who had a lap dayna performed recently, she was also in the hospital last week subsequent to that treated for some mild congestive heart failure. Her main complaint was abdominal bloating with associated nausea and abdominal discomfort. She presents to the hospital on this occasion with symptoms of chest pressure and heaviness with persistent pain in the right upper quadrant area. EKG on admission showed a ventricular paced rhythm, EKG performed during chest pain reveals a paced rhythm with anterior lateral ST depression. Chest x- ray shows cardiomegaly, cannot exclude pulmonary venous hypertension and interstitial edema. Possible small pleural effusions. CAT scan of the abdomen and pelvis reveals stable evaluation of the abdomen and pelvis with no acute process. Moderate abdominal ascites and mild anasarca. Small bilateral pleural effusions. WBC 6.6, INR 2.6, sodium 131, potassium 4.1, BUN 22, creatinine 1.1. Troponins 0.062, 0.075, 0.081. BNP level 4400. On patient's prior admissions, it is noted that her troponins are always within this range. At pressure 124/80 with a heart rate in the 70s 97% on room air. At the time of my examination this morning patient again was complaining of chest pressure, she was also complaining of a headache. EKG was performed which showed V paced rhythm with anterior lateral ST depression. 01/23/2017 Patient seen and examined this morning, breathing is somewhat improved. Denies orthopnea. Diuresing well on IV Lasix. Still has about 1+ peripheral edema. She is scheduled tomorrow to undergo EGD and colonoscopy. Patient has been on interest ON the past and had severe hypotension and for this reason we will just continue her on the Cozaar at this time. We will also give her a one- time dose of Zaroxolyn today and check her labs in the morning Objective - Vital Signs Vital signs: Vital Signs Temp 97.3 F L 01/23/17 12:00 Pulse 80 01/23/17 13:14 Resp 18 01/23/17 12:00 BP 118/71 01/23/17 12:00 Pulse Ox 100 01/23/17 12:00 Intake & Output 01/22/17 01/23/17 01/23/17 18:59 06:59 18:59 Intake Total 460 Output Total 1100 1150 150 Balance -640 -1150 -150 Weight 79.2 kg 77.2 kg Intake: Intake, IV Titration 200 Amount Meropenem 2 gm In Sodium 200 Chloride 0.9% 100 ml @ 200 mls/hr IVPB Q12H [facility] Rx#:[id number] Oral 260 Output: Urine 1100 1150 150 Other: Voiding Method Toilet Toilet Toilet # Voids 3 1 1 - Exam PHYSICAL EXAMINATION: HEENT: Head is atraumatic, normocephalic. Pupils equal, round. Neck is supple. There is no elevated jugular venous pressure. HEART EXAMINATION: S1 and S2 irregular irregular systolic murmur is heard. CHEST EXAMINATION: Circumflex clear with mild diminished air entry to bilateral bases. ABDOMEN: Soft, nontender. Bowel sounds are heard. No organomegaly noted. EXTREMITIES: 2+ peripheral pulses with 1+ evidence of peripheral edema and no calf tenderness noted. NEUROLOGIC patient is awake, alert and oriented -3. . - Labs CBC & Chem 7: 01/23/17 05:48 01/23/17 05:48 Labs: Abnormal Lab Results - Last 24 Hours (Table) 01/23/17 01/23/17 01/23/17 Range/Units 05:48 05:48 05:48 Plt Count 117 L (150-450) k/uL PT 23.7 H (9.0-12.0) sec Sodium 134 L (137-145) mmol/L Chloride 93 L (98-107) mmol/L BUN 18 H (7-17) mg/dL Glucose 132 H (74-99) mg/dL Total Bilirubin 2.3 H (0.2-1.3) mg/dL Microbiology - Last 24 Hours (Table) 01/21/17 17:23 Urine Culture - Final Urine,Voided 01/21/17 19:10 Blood Culture - Preliminary Blood No Growth after 24 hours Assessment and Plan Plan: Assessment and plan #1 chest pressure and heaviness with radiation to the back. Mildly abnormal troponins. Patient is noted on prior admissions to always have troponins in the abnormal range. EKG shows ventricular paced rhythm with nonspecific ST-T wave changes. According to the patient, she has had several heart catheterizations in the past all of which have been reported to be normal. #2 recent lap dayna with some residual mild abdominal discomfort #3 paroxysmal atrial fibrillation, on Coumadin for anticoagulation #4 hypertension Number 5 hyperlipidemia #6 questionable prior myocardial infarction, patient has had several cardiac catheterizations, never requiring intervention. #7 nonischemic cardio myopathy with prior AICD Plan We will give the patient one time dose of 5 mg of Zaroxolyn today. Continue IV Lasix. She will be scheduled tomorrow to undergo EGD and colonoscopy. DNP note has been reviewed, I agree with a documented findings and plan of care. Patient was seen and examined.
[2017-01-23] MEDS: ONDANSETRON 4 MG/2 ML VIAL IVP PRN (17:34)
[2017-01-23] MEDS: LACTATED RINGERS 1,000 ML IV SCH (18:59)
[2017-01-23] MEDS: PRAVASTATIN SODIUM 20 MG TAB PO SCH (20:37)
[2017-01-23] MEDS: LOSARTAN 25 MG TAB PO SCH (21:43)
--- NOTE | 2017-01-23 23:07 | HP ---
CHIEF COMPLAINT: Chest pain. HISTORY OF PRESENT ILLNESS: This 86-year-old woman with a past medical history of multiple medical problems, including atrial fibrillation, CAD, history of CHF , history of GERD, hypertension, hyperlipidemia, history of myocardial infarction, history of AICD, cholecystectomy, history of cardiac catheterization , being followed by Dr. Reich in the outpatient setting, was recently admitted to [facility]. The patient underwent recent laparoscopic cholecystectomy. The patient also has CHF and multiple other medical issues. The patient went home. After going home, the patient was complaining of abdominal discomfort as well as abdominal bloating and some chest pain. The patient came to [facility] and was admitted for further evaluation and treatment. The patient gained some weight, also. There is no history of any fever, rigor or chills. No history of headache, loss of consciousness, seizures. PAST MEDICAL HISTORY: 1. History of atrial fibrillation. 2. History of CAD. 3. History of CHF; ejection fraction 20%; chronic systolic dysfunction. 4. History of chronic hypoxic respiratory failure. 6. History of AICD. 7. Cholecystectomy. HOME MEDICATIONS: 1. Coumadin 4 mg p.o. daily. 2. Aldactone 25 mg p.o. daily. 3. Pravachol 10 mg p.o. daily. 4. Omeprazole 20 mg daily. 5. Cozaar 25 mg p.o. b.i.d. 6. Ativan 1 mg at bedtime. 7. Lasix 40 mg p.o. daily. 8. Atenolol 25 mg daily. 9. Ecotrin 81 mg p.o. daily. ALLERGIES ARE MULTIPLE, includin. CEFACLOR. 2. CELECOXIB. 3. CEPHALEXIN. 4. CLINDAMYCIN. 5. DIPHENHYDRAMINE. 6. DOLASETRON. 7. ENALAPRILAT. 8. HYDROCORTISONE. 9. HYDROXYZINE. 10. IBUPROFEN. 11. IODINATED CONTRAST. 12. LEVAQUIN. 13. MORPHINE. 14. OXYCODONE. 15. PENICILLIN. 16. PREDNISONE. 17. PROMETHAZINE. 18. SHELLFISH. 19. CORTISONE. 20. METHYLPREDNISOLONE. 21. SEA SALT. 22. STEROIDS. FAMILY HISTORY: History of cancer, diabetes mellitus, uterine cancer in the family. SOCIAL HISTORY: Previous history of smoking. No current smoking or alcohol intake. REVIEW OF SYSTEMS: ENT: No diminished vision. No diminished hearing. CARDIOVASCULAR SYSTEM: As mentioned earlier. RESPIRATORY SYSTEM: As mentioned earlier. GI: As mentioned earlier. : No dysuria, retention. NERVOUS SYSTEM: No numbness, weakness. ALLERGY/IMMUNOLOGY: No asthma, hayfever. MUSCULOSKELETAL: As mentioned earlier. HEMATOLOGY/ONCOLOGY: No history of anemia. ENDOCRINE: No history of diabetes, hypothyroidism. CONSTITUTIONAL: As mentioned earlier. DERMATOLOGY: Negative. RHEUMATOLOGY: Negative. PSYCHIATRY: As mentioned earlier. PHYSICAL EXAMINATION: Patient is alert and oriented x3. Pulse 64, blood pressure 136/78, respiratory rate 18, temperature 97 degrees, pulse ox 100% on 2 L. HEENT: Conjunctivae normal. Oral mucosa moist. NECK: No jugular venous distention. No carotid bruit. No lymph node enlargement. CARDIOVASCULAR: S1, S2 muffled. No S3. No S4. RESPIRATORY: Breath sounds diminished at the bases. A few scattered rhonchi. No crackles. ABDOMEN: Soft. Mild diffuse distention. Mild diffuse tenderness also present. Some minimal cellulitis also present. NERVOUS SYSTEM: Higher functions as mentioned earlier. Moves all 4 limbs. No focal motor or sensory deficit. LYMPHATICS: No lymph node palpable in neck, axillae or groin. SKIN: No ulcer, rash, bleeding. Labs at this time show CBC within normal limits. D-dimer is 0.91. Sodium is 129. Total bilirubin is 2.4. CKMB is 4.3. Troponin 0.062. ASSESSMENT: 1. Chest pain, possibly unstable angina. 2. Abdominal distention, possibly acute gastritis. 3. Hyponatremia. 4. Possible minimal acute cellulitis. 5. Increased bilirubin with increased AST. 6. Increased random blood sugar. 7. Troponin indeterminate at 0.062. 8. History of atrial fibrillation. 9. History of coronary artery disease. 10. Congestive heart failure with chronic systolic dysfunction; ejection fraction 20% with possible cardiomyopathy. 11. Chronic hypoxic respiratory failure, on home oxygen 2 liters nasal cannula. 12. History of gastroesophageal reflux disease. 13. Hypertension, essential. 14. Hyperlipidemia. 15. History of myocardial infarction. 16. History of degenerative joint disease. 17. History of pneumonia. 18. History of ventricular tachycardia. 19. History of osteoporosis. 20. History of diverticulosis. 21. History of hernia. 22. History of duodenal ulcer. 23. History of AICD. 24. Cholecystectomy. 25. History of fractured nose. 26. History of anxiety not otherwise specified. RECOMMENDATIONS AND DISCUSSION: In this 86-year-old woman who presented with multiple complex medical issues, we will monitor the patient closely, continue the current medications, continue symptomatic treatment. Will initiate IV diuretics. Otherwise, I would also recommend monitoring fluid/electrolyte balance closely. Resume the home medications. Symptomatic treatment. Empiric antibiotics for the cellulitis. Will obtain cardiology as well as surgical evaluation. Prognosis guarded. See orders for further details. Further recommendations to follow. A copy of this dictation should be forwarded to Dr. Reich, who is the primary physician. AWILDA
[2017-01-24] MEDS: PANTOPRAZOLE 40 MG TABLET PO SCH (05:42)
[2017-01-24 07:00] LABS: Basophils % (A) 1 %; CH 30.2; CHCM 33.7; Eosinophils # (A) 0.2 k/uL (0-0.7); Eosinophils % (A) 4 %; HCT 41.4 % (34.0-46.0); HDW 2.41; HGB 14.3 gm/dL (11.4-16.0); Luc # (Auto) 0.22; Luc % (Auto) 4; Lymphocytes # (A) 1.2 k/uL (1.0-4.8); Lymphocytes % (A) 21 %; MCH 31.2 pg (25.0-35.0); MCHC 34.6 g/dL (31.0-37.0); MCV 90.2 fL (80.0-100.0); Mean Platelet Volume 7.3; Monocytes # (A) 0.5 k/uL (0-1.0); Monocytes % (A) 9 %; Neutrophils # (A) 3.5 k/uL (1.3-7.7); Neutrophils % (A) 61 %; RBC 4.59 m/uL (3.80-5.40); RDW 15.4 % (11.5-15.5); WBC 5.8 k/uL (3.8-10.6); WBC (Perox) 5.94
[2017-01-24 07:05] LABS: INR 1.8 (<1.1); Prothrombin Time 17.2 sec (9.0-12.0)
[2017-01-24] MEDS: ALBUTEROL NEBULIZED 2.5 MG/3 ML INHALATION SCH ×4 (07:05→20:23)
[2017-01-24 07:10] LABS: ALT 32 U/L (9-52); AST 34 U/L (14-36); Alkaline Phosphatase 71 U/L (38-126); Anion Gap 14 mmol/L; Blood Urea Nitrogen 16 mg/dL (7-17); Calcium 10.3 mg/dL (8.4-10.2); Carbon Dioxide 31 mmol/L (22-30); Chloride 89 mmol/L (98-107); Glucose 103 mg/dL (74-99); Non-African American GFR(MDRD) 54 (>60 ml/min/1.73 sqM); Potassium 3.8 mmol/L (3.5-5.1); Sodium 134 mmol/L (137-145); Total Bilirubin 1.9 mg/dL (0.2-1.3); Total Protein 6.8 g/dL (6.3-8.2)
[2017-01-24] MEDS: ISOSORBIDE MONONITRATE ER 30 MG TAB.ER.24H PO SCH (09:34)
[2017-01-24] MEDS: LOSARTAN 25 MG TAB PO SCH ×2 (09:34→21:03)
[2017-01-24] MEDS: CARVEDILOL 6.25 MG TAB PO SCH ×2 (09:34→16:34)
[2017-01-24] MEDS: SPIRONOLACTONE 25 MG TAB PO SCH (09:35)
[2017-01-24] MEDS: FUROSEMIDE 10 MG/ML 4 ML VIAL IV SCH (09:36)
[2017-01-24] MEDS: MEROPENEM 2 GM in SODIUM CHLORIDE 0.9% 100 ML IVPB SCH ×2 (09:49→21:02)
--- NOTE | 2017-01-24 10:17 | P.PN ---
Subjective Date of service 01/23/2017. Progress note being dictated for Dr. Spencer. Interval history: This is a 86-year-old female admitted with multiple medical issues including chest pain, abdominal discomfort, persistent nausea vomiting diarrhea in a patient with recent lap dayna, CHF and multiple other medical issues. Continues to diurese well on Lasix IV push ,24-hour I&O reflecting a negative fluid balance. Echo reporting limited study, reporting severely impaired LV function, EF between 20 and 25%, small paracardial effusion.Renal function improving. Afebrile on Merrem. Persistent bloating after eating, nausea and diarrhea, no emesis. Evaluated by GI with recommendations of EGD tomorrow and potential colonoscopy to follow. Patient has been cleared by cardiology for endoscopy procedure. Doppler bilateral legs negative for DVT. Currently denies chest pain, palpitations or increasing shortness of breath. Objective - Vital Signs Vital signs: Vital Signs Temp 97.3 F L 01/23/17 12:00 Pulse 72 01/23/17 13:04 Resp 18 01/23/17 12:00 BP 118/71 01/23/17 12:00 Pulse Ox 100 01/23/17 12:00 Intake & Output 01/22/17 01/23/17 01/23/17 18:59 06:59 18:59 Intake Total 460 Output Total 1100 1150 150 Balance -640 -1150 -150 Weight 79.2 kg 77.2 kg Intake: Intake, IV Titration 200 Amount Meropenem 2 gm In Sodium 200 Chloride 0.9% 100 ml @ 200 mls/hr IVPB Q12H [facility] Rx#:[id number] Oral 260 Output: Urine 1100 1150 150 Other: Voiding Method Toilet Toilet Toilet # Voids 3 1 1 - Exam PHYSICAL EXAM: VITAL SIGNS: As above GENERAL: [Sitting up in bed, she distress] HEENT: [Pupils equal conjunctiva normal. Oral mucosa moist] NECK: [Supple, no JVD] RESPIRATORY EFFORT:[ Normal] LUNGS: [Diminished bases, no wheezes rhonchi or crackles CARDIOVASCULAR[ irregular, positive systolic murmur, positive edema] GI: [Abdomen soft, distended,minimal diffuse tenderness throughout, positive bowel sounds.] PSYCH: [Alert and oriented -3, mood and affect normal. No guarding, no rigidity] NEURO: [No focal deficits, moves all 4 extremities, strength and sensation grossly intact] - Labs CBC & Chem 7: 01/24/17 06:22 01/24/17 06:22 Labs: Abnormal Lab Results - Last 24 Hours (Table) 01/23/17 01/23/17 01/23/17 Range/Units 05:48 05:48 05:48 Plt Count 117 L (150-450) k/uL PT 23.7 H (9.0-12.0) sec Sodium 134 L (137-145) mmol/L Chloride 93 L (98-107) mmol/L BUN 18 H (7-17) mg/dL Glucose 132 H (74-99) mg/dL Total Bilirubin 2.3 H (0.2-1.3) mg/dL Microbiology - Last 24 Hours (Table) 01/21/17 17:23 Urine Culture - Final Urine,Voided 01/21/17 19:10 Blood Culture - Preliminary Blood No Growth after 24 hours Assessment and Plan Plan: 1. [ Acute chest pain, elevated troponins, rule out acute coronary syndrome]. 2. Acute CHF exacerbation, diastolic dysfunction, 3. Persistent nausea, vomiting, diarrhea, in a patient with recent lap dayna]. 4. Hyponatremia, improving 5. Moderate abdominal ascites,mild anasarca in a patient with elevated T bili, AST,CK 3. [ CAD with history of multiple cardiac catheterizations, history of HI]. 4. [ Nonischemic cardiomyopathy with AICD, EF 20-25%]. 5. [ Proximal atrial fibrillation]. 6. [ Coumadin monitoring]. 7. [ Hyperlipidemia]. 8. Hypertension 9. Small bilateral pleural effusions, pulmonary nodules 10. Atelectasis 11. Remote history of nicotine abuse Plan: Continue on current medication regime , Lasix, monitoring and symptomatic treatment. Close monitoring of renal function, electrolytes with repeat labs ordered for a.m. Aggressive pulmonary toileting. As mentioned above cardiology has cleared patient for EGD tomorrow, Coumadin to be on hold and a dose of Vitamin K.Prognosis guarded given multiple complex medical issues. Further recommendations to follow. The impression and plan of care has been dictated as directed. : I performed a H&P examination of this patient and discussed the same with the dictator. I agree with the dictator's note. Any additional findings/opinions/ etc. will be noted.
--- NOTE | 2017-01-24 10:30 | CDI ---
In responding to this query, please exercise your independent professional judgment. The [facility] Coding Staff and Clinical Documentation Specialists appreciate your assistance in clarifying documentation, maintaining compliance with coding guidelines, accurately documenting patients condition and capturing severity of illness. The fact that a question is asked does not imply that any particular answer is desired or expected. Communication forms are a method of clarifying documentation and are not made part of the Legal Health Record. Thank you in advance for your clarification. Last Revision, September 2016 Madeleine Champion [address] [place] [address] Documentation Clarification Form Date: 01/24/2017 9:45:00 AM From: Sunni Cuello RN, CDS Admit Date: 01/21/2017 12:34:00 PM Patient Name: Gabriela Sandoval Visit Number: [id number] Dr. Parvez Spencer, 86 year old patient presented for complaints of left sided chest pain and exertional dyspnea. Admitted for Possible unstable angina, acute gastritis, CHF with chronic systolic dysfunction CHF with chronic systolic dysfunction EF 20% is documented in the H&P and Medical progress note on 01/22 History/Risk Factors: CHF, CAD, HTN, has Pacemaker Clinical Indicators: BNP 4400, ECHO 20-25%, small pericardial effusion, overall left ventricular function severely impaired, CXR: cardiomegaly, pulmonary hypertension verses interstitial edema, CT ABDOMEN: small bilat pleural effusion with compressive atelectasis and pulm nodules, VS: 98.2 82 16 127/91 98 Treatment: IV Lasix 40mg q 12 hours, Cardiology consult, Echo, In your professional opinion, can you please clarify the acuity and type of CHF if known? Systolic Heart Failure: Acute Chronic Acute on Chronic Unable to determine Other, please specify Please document in your progress notes and discharge summary in order to capture severity of illness and risk of mortality. Include clinical findings that support your diagnosis. FYI: Press F11 to launch patient chart. Place X here if this finding has no clinical significance, is not applicable or if you are not able to provide any additional documentation. AWILDA
--- NOTE | 2017-01-24 14:49 | P.PN ---
Progress Note - Text The patient is scheduled to undergo upper and lower endoscopy that her tumor today. Her nausea has remained stable. On exam her vital signs are stable. Her abdomen soft. Chronic nausea. If EGD does not show any significant findings would recommend gastric emptying study.
[2017-01-24] MEDS: FUROSEMIDE 40 MG TAB PO SCH (16:33)
[2017-01-24] MEDS: LACTATED RINGERS 1,000 ML IV SCH (16:35)
--- NOTE | 2017-01-24 16:44 | P.PN ---
Subjective This is a pleasant 86-year-old female who follows with Dr. Thomas in the office. She has a known history of paroxysmal atrial fibrillation, hyperlipidemia, prior [place], prior AICD implantation, hypertension. She had a recent lap dayna performed and was also in the hospital a week ago and treated for some mild congestive heart failure. Presented this admission with complaints of abdominal bloating with associated nausea and abdominal discomfort as well as chest pressure and heaviness with persistent pain in the right upper quadrant. EKG on admission showed a ventricular paced rhythm. This x-ray showed cardiomegaly and cannot exclude pulmonary venous hypertension and interstitial edema with possible small pleural effusions. Computed tomography scan of the abdomen and pelvis showed moderate abdominal ascites and mild anasarca. BNP was 4400.. Started on IV Lasix and has diuresed well. On examination, patient is sitting up in a chair. She denies further complaints of chest heaviness or pressure, denies shortness of breath and her abdominal pain has improved. She is scheduled to undergo an EGD tomorrow. Objective - Vital Signs Vital signs: Vital Signs Temp 97.0 F L 01/24/17 13:10 Pulse 80 01/24/17 13:10 Resp 18 01/24/17 13:10 BP 107/59 01/24/17 13:10 Pulse Ox 99 01/24/17 13:10 Intake & Output 01/23/17 01/24/17 01/24/17 18:59 06:59 18:59 Intake Total 600 140 Output Total 1150 2752 1600 Balance -1150 -2152 -1460 Weight 74.3 kg Intake: Intake, IV Titration 140 Amount Lactated Ringers 1,000 ml 140 @ 20 mls/hr IV .Q24H [facility] Rx#:[id number] Oral 600 Output: Urine 1150 2750 1600 Stool 2 Other: Voiding Method Toilet Toilet Toilet # Voids 3 1 - Exam PHYSICAL EXAMINATION: HEENT: Head is atraumatic, normocephalic. Pupils equal, round. Neck is supple. There is no elevated jugular venous pressure. HEART EXAMINATION: Heart sounds irregularly irregular, S1 and S2 normal with a systolic murmur. CHEST EXAMINATION: Lungs are clear to auscultation and precussion. No chest wall tenderness is noted on palpation or with deep breathing. ABDOMEN: Soft, nontender. Bowel sounds are heard. No organomegaly noted. EXTREMITIES: 2+ peripheral pulses with evidence of trace peripheral edema and no calf tenderness noted. NEUROLOGIC patient is awake, alert and oriented x3. . - Labs CBC & Chem 7: 01/24/17 06:22 01/24/17 06:22 Labs: Abnormal Lab Results - Last 24 Hours (Table) 01/24/17 01/24/17 01/24/17 Range/Units 06:22 06:22 06:22 Plt Count 131 L (150-450) k/uL PT 17.2 H (9.0-12.0) sec Sodium 134 L (137-145) mmol/L Chloride 89 L (98-107) mmol/L Carbon Dioxide 31 H (22-30) mmol/L Glucose 103 H (74-99) mg/dL Calcium 10.3 H (8.4-10.2) mg/dL Total Bilirubin 1.9 H (0.2-1.3) mg/dL Microbiology - Last 24 Hours (Table) 01/23/17 18:30 Stool for WBCs - Final Stool 01/23/17 18:30 Stool Culture - Preliminary Stool 01/21/17 19:10 Blood Culture - Preliminary Blood No Growth after 48 hours Assessment and Plan Plan: Assessment and plan #1 chest pressure and heaviness with radiation to the back. Mildly abnormal troponins with abnormalities noticed on prior admissions. #2 recent lap dayna with some residual mild abdominal discomfort 3 paroxysmal atrial fibrillation, on Coumadin, on hold for EGD #4 hypertension #5 hyperlipidemia #6 nonischemic cardiomyopathy with prior AICD placement From cardiology perspective, switch the patient to by mouth Lasix. She is scheduled to undergo EGD tomorrow. We'll continue to follow patient prior to further recommendations accordingly. JUNIOR ESTIMATOR note has been reviewed, I agree with a documented findings and plan of care. Patient was seen and examined.
[2017-01-24] MEDS: PRAVASTATIN SODIUM 20 MG TAB PO SCH (21:03)
[2017-01-25] MEDS: ONDANSETRON 4 MG/2 ML VIAL IVP PRN (03:55)
[2017-01-25 06:53] LABS: INR 1.4 (<1.1); Prothrombin Time 14.1 sec (9.0-12.0)
--- NOTE | 2017-01-25 07:32 | PN ---
DATE OF SERVICE: 01/22/2017 This 86-year-old woman was admitted with abdominal pain and distention, also recent laparoscopic cholecystectomy. The patient also had ascites and bilateral leg edema. The patient also had CHF acute exacerbation, placed on IV diuretics. Seen and evaluated the patient along with the nurse practitioner. Please refer to the nurse practitioner notes and impressions documented as scribe for further information. Otherwise, we will continue to monitor. Troponins are slightly elevated. Cardiology has been consulted. Prognosis guarded because of multiple complex medical issues. I had a detailed discussion with the family, the son and , at the bedside, who understands and agrees. Further recommendations to follow. See orders for details. MTDD
[2017-01-25 07:36] LABS: ALT 28 U/L (9-52); AST 40 U/L (14-36); Alkaline Phosphatase 82 U/L (38-126); Blood Urea Nitrogen 17 mg/dL (7-17); Calcium 10.6 mg/dL (8.4-10.2); Carbon Dioxide 35 mmol/L (22-30); Glucose 114 mg/dL (74-99); Non-African American GFR(MDRD) 55 (>60 ml/min/1.73 sqM); Potassium 3.7 mmol/L (3.5-5.1); Sodium 132 mmol/L (137-145); Total Bilirubin 2.1 mg/dL (0.2-1.3); Total Protein 7.1 g/dL (6.3-8.2)
[2017-01-25 07:58] LABS: Anion Gap 13 mmol/L; Chloride 84 mmol/L (98-107)
[2017-01-25] MEDS: ALBUTEROL NEBULIZED 2.5 MG/3 ML INHALATION SCH ×4 (08:14→20:44)
[2017-01-25] MEDS ORDERED: PROPOFOL 10 MG/ML 20 ML VIAL IV ONE (08:32)
[2017-01-25] MEDS ORDERED: LACTATED RINGERS 1,000 ML IV ONE (08:37)
--- NOTE | 2017-01-25 09:30 | P.PCN ---
Date of Procedure: 01/25/17 Preoperative Diagnosis: Postoperative Diagnosis: Procedure(s) Performed: Procedure: Esophagogastroduodenoscopy and biopsy. Preoperative diagnosis: Abdominal pain, nausea and vomiting. Postoperative diagnosis: 1. Sliding hiatal hernia and LA grade B distal esophagitis. 2. Gastritis and duodenitis. 3. Multiple biopsies obtained from the duodenum, antrum and esophagus. Preparation and sedation: Was provided by anesthesia. Brief clinical history: The patient is an 86-year-old female status post laparoscopic cholecystectomy 01/06/2017 for cholecystitis without stones. Past medical history nonischemic cardiomyopathy EF 20%, atrial fibrillation on coumadin, hypertension, hyperlipidemia, pacemaker AICD was admitted to the hospital with persistent nausea, vomiting, abdominal bloating, intermittent diarrhea and not feeling well. Had recent hospitalization for CHF. Patient has been experiencing increased nausea, minimal emesis and abdominal bloating since September. Symptoms seem to be exacerbated after meals. She thought her symptoms would improve after cholecystectomy but that was not the case. She had colonoscopy many years ago. No prior EGD. The details as summarized in the history and physical and dictated consultation and progress notes. This evaluation is to assess for peptic ulcer disease or other pathology. Procedure: With the patient on her left lateral decubitus position and after informed consent and adequate sedation, I passed the Olympus-GIF 160 video upper endoscope through the cricopharyngeus down the esophagus. GE junction was around 39-40 cm from the incisors and there was a 1-2 cm sliding hiatal hernia. The distal esophagus showed multiple linear erosions and superficial ulceration consistent with LA grade B distal esophagitis. There were no strictures or any definite Blankenship's esophagus. The endoscope was then passed into the stomach which was insufflated with air and inspected in detail including the retroflex view in the cardia. There was diffuse mottling and erythema and scattered submucosal hemorrhages consistent with gastritis but no ulcers or obvious erosions or bleeding. Pyloric channel did not show any ulcers. Duodenal bulb post bulbar area and descending duodenum showed multiple erosions and superficial ulcerations with no active bleeding or any evidence of mechanical obstruction. I obtained biopsies from the duodenum, antrum and esophagus before the endoscope was withdrawn. The patient tolerated the procedure well. Plan: The patient was reassured and I discussed with her family. Will continue current medical management and symptomatic treatment while we await the biopsy results. Further plans based on her course and biopsy results. Will continue to follow with you with interest. Implants: Indications for Procedure: Operative Findings: Description of Procedure:
[2017-01-25] MEDS: MEROPENEM 2 GM in SODIUM CHLORIDE 0.9% 100 ML IVPB SCH ×2 (10:00→20:36)
[2017-01-25] MEDS: PANTOPRAZOLE 40 MG TABLET PO SCH (11:55)
[2017-01-25] MEDS: CARVEDILOL 6.25 MG TAB PO SCH ×2 (11:55→17:02)
[2017-01-25] MEDS: LOSARTAN 25 MG TAB PO SCH ×2 (11:56→20:37)
[2017-01-25] MEDS: FUROSEMIDE 40 MG TAB PO SCH ×2 (11:56→17:02)
[2017-01-25] MEDS: SPIRONOLACTONE 25 MG TAB PO SCH (11:56)
[2017-01-25] MEDS: ISOSORBIDE MONONITRATE ER 30 MG TAB.ER.24H PO SCH (11:56)
[2017-01-25] MEDS: SUCRALFATE 1 GM TAB PO SCH ×2 (11:57→17:02)
--- NOTE | 2017-01-25 14:17 | P.PN ---
Subjective This is a pleasant 86-year-old female who follows with Dr. Thomas in the office. She has a known history of paroxysmal atrial fibrillation, hyperlipidemia, prior [place], prior AICD implantation, hypertension. She had a recent lap dayna performed and was also in the hospital a week ago and treated for some mild congestive heart failure. Presented this admission with complaints of abdominal bloating with associated nausea and abdominal discomfort as well as chest pressure and heaviness with persistent pain in the right upper quadrant. EKG on admission showed a ventricular paced rhythm. This x-ray showed cardiomegaly and cannot exclude pulmonary venous hypertension and interstitial edema with possible small pleural effusions. Computed tomography scan of the abdomen and pelvis showed moderate abdominal ascites and mild anasarca. BNP was 4400.. Started on IV Lasix and has diuresed well. On examination, patient is sitting up in a chair. She denies further complaints of chest heaviness or pressure, denies shortness of breath and her abdominal pain has improved. She underwent EGD today that showed sliding hiatal hernia with esophagitis, gastritis and duodenitis patient is been started on Carafate. Objective - Vital Signs Vital signs: Vital Signs Temp 97.4 F L 01/25/17 07:40 Pulse 107 H 01/25/17 07:40 Resp 18 01/25/17 07:40 BP 115/74 01/25/17 07:40 Pulse Ox 92 L 01/25/17 07:40 Intake & Output 01/24/17 01/25/17 01/25/17 18:59 06:59 18:59 Intake Total 140 100 120 Output Total 1602 2600 600 Balance -1462 -2500 -480 Weight 70.4 kg Intake: Intake, IV Titration 140 100 Amount Lactated Ringers 1,000 ml 140 @ 20 mls/hr IV .Q24H [facility] Rx#:[id number] Meropenem 2 gm In Sodium 100 Chloride 0.9% 100 ml @ 200 mls/hr IVPB Q12H [facility] Rx#:[id number] Oral 120 Output: Urine 1600 2600 600 Stool 2 Other: Voiding Method Toilet Toilet Toilet # Voids 5 - Exam PHYSICAL EXAMINATION: HEENT: Head is atraumatic, normocephalic. Pupils equal, round. Neck is supple. There is no elevated jugular venous pressure. HEART EXAMINATION: Heart sounds irregularly irregular, S1 and S2 normal with a systolic murmur. CHEST EXAMINATION: Lungs are clear to auscultation and precussion. No chest wall tenderness is noted on palpation or with deep breathing. ABDOMEN: Soft, nontender. Bowel sounds are heard. No organomegaly noted. EXTREMITIES: 2+ peripheral pulses with evidence of trace peripheral edema and no calf tenderness noted. NEUROLOGIC patient is awake, alert and oriented x3. . - Labs CBC & Chem 7: 01/24/17 06:22 01/25/17 06:20 Labs: Abnormal Lab Results - Last 24 Hours (Table) 01/25/17 01/25/17 Range/Units 06:20 06:20 PT 14.1 H (9.0-12.0) sec Sodium 132 L (137-145) mmol/L Chloride 84 L (98-107) mmol/L Carbon Dioxide 35 H (22-30) mmol/L Glucose 114 H (74-99) mg/dL Calcium 10.6 H (8.4-10.2) mg/dL Total Bilirubin 2.1 H (0.2-1.3) mg/dL AST 40 H (14-36) U/L Microbiology - Last 24 Hours (Table) 01/21/17 19:10 Blood Culture - Preliminary Blood No Growth after 72 hours 01/23/17 18:30 Stool for WBCs - Final Stool 01/23/17 18:30 Stool Culture - Preliminary Stool Assessment and Plan Plan: Assessment and plan #1 chest pressure and heaviness with radiation to the back. Mildly abnormal troponins with abnormalities noticed on prior admissions. #2 recent lap dayna with some residual mild abdominal discomfort 3 paroxysmal atrial fibrillation, on Coumadin, on hold for EGD #4 hypertension #5 hyperlipidemia #6 nonischemic cardiomyopathy with prior AICD placement From cardiology perspective, medications were reviewed and we'll continue the same. Resume Coumadin. Anticipate the patient will be discharged soon. LEAF TIER note has been reviewed, I agree with a documented findings and plan of care. Patient was seen and examined.
--- NOTE | 2017-01-25 15:29 | P.PN ---
Subjective Date of service 01/24/2017. Progress note being dictated for Dr. Spencer. Interval history: This is a 86-year-old female admitted with multiple medical issues including chest pain, abdominal discomfort, persistent nausea vomiting diarrhea in a patient with recent lap dayna, CHF and multiple other medical issues. Continues to diurese well on Lasix IV push ,24-hour I&O reflecting a negative fluid balance. Renal function improving, T bili down to 1.9. EGD rescheduled for tomorrow as INR 1.8. Afebrile on Merrem. Currently denies chest pain, palpitations or increasing shortness of breath. Objective - Vital Signs Vital signs: Vital Signs Temp 97.4 F L 01/24/17 04:00 Pulse 95 01/24/17 04:00 Resp 17 01/24/17 04:00 BP 120/85 01/24/17 04:00 Pulse Ox 99 01/24/17 04:00 Intake & Output 01/23/17 01/24/17 01/24/17 18:59 06:59 18:59 Intake Total 600 Output Total 1150 2752 Balance -1150 -2152 Weight 74.3 kg Intake: Oral 600 Output: Urine 1150 2750 Stool 2 Other: Voiding Method Toilet Toilet # Voids 3 1 - Exam PHYSICAL EXAM: VITAL SIGNS: As above GENERAL: [Sitting up in chair,no distress] HEENT: [Pupils equal conjunctiva normal. Oral mucosa moist] NECK: [Supple, no JVD] RESPIRATORY EFFORT:[ Normal] LUNGS: [Diminished bases, no wheezes rhonchi or crackles CARDIOVASCULAR[ irregular, positive systolic murmur, positive edema] GI: [Abdomen soft, distended, nontender, positive bowel sounds. No guarding, no rigidity] PSYCH: [Alert and oriented -3, mood and affect normal. No guarding, no rigidity] NEURO: [No focal deficits, moves all 4 extremities, strength and sensation grossly intact] - Labs CBC & Chem 7: 01/24/17 06:22 01/25/17 06:20 Labs: Abnormal Lab Results - Last 24 Hours (Table) 01/24/17 01/24/17 01/24/17 Range/Units 06:22 06:22 06:22 Plt Count 131 L (150-450) k/uL PT 17.2 H (9.0-12.0) sec Sodium 134 L (137-145) mmol/L Chloride 89 L (98-107) mmol/L Carbon Dioxide 31 H (22-30) mmol/L Glucose 103 H (74-99) mg/dL Calcium 10.3 H (8.4-10.2) mg/dL Total Bilirubin 1.9 H (0.2-1.3) mg/dL Microbiology - Last 24 Hours (Table) 01/21/17 19:10 Blood Culture - Preliminary Blood No Growth after 48 hours Assessment and Plan Plan: 1. [ Acute chest pain, elevated troponins, rule out acute coronary syndrome]. 2. Acute CHF exacerbation, diastolic dysfunction, 3. Persistent nausea, vomiting, diarrhea, in a patient with recent lap dayna]. 4. Hyponatremia, improving 5. Moderate abdominal ascites,mild anasarca in a patient with elevated T bili, AST,CK 3. [ CAD with history of multiple cardiac catheterizations, history of [place]]. 4. [ Nonischemic cardiomyopathy with AICD, EF 20-25%]. 5. [ Proximal atrial fibrillation]. 6. [ Coumadin monitoring]. 7. [ Hyperlipidemia]. 8. Hypertension 9. Small bilateral pleural effusions, pulmonary nodules 10. Atelectasis 11. Remote history of nicotine abuse Plan: Continue on current medication regime , Lasix, monitoring and symptomatic treatment. Coumadin remains on hold, EGD rescheduled for tomorrow. Close monitoring of renal function, electrolytes. Repeat labs ordered for a.m. Maintain aggressive pulmonary toileting. Prognosis guarded given multiple complex medical issues. Further recommendations to follow. The impression and plan of care has been dictated as directed. : I performed a H&P examination of this patient and discussed the same with the dictator. I agree with the dictator's note. Any additional findings/opinions/ etc. will be noted.
--- NOTE | 2017-01-25 15:32 | XR ---
EXAMINATION TYPE: XR chest 1V portable DATE OF EXAM: 01/25/2017 COMPARISON: 01/21/2017 INDICATION: CHF TECHNIQUE: Single frontal view of the chest is obtained. FINDINGS: The heart size is enlarged. The pulmonary vasculature is normal. The lungs are clear. Electronic device overlies left chest. There is silhouetting left diaphragm. Atelectasis or effusion could be considered. IMPRESSION: 1. Poor visualization left diaphragm which could be related atelectasis or an effusion. 2. Cardiomegaly.
[2017-01-25] MEDS: ACETAMINOPHEN TAB 325 MG TAB PO PRN (17:02)
[2017-01-25] MEDS: LACTATED RINGERS 1,000 ML IV SCH (17:02)
[2017-01-25] MEDS: WARFARIN 2 MG TAB PO SCH (17:46)
[2017-01-25] MEDS: PRAVASTATIN SODIUM 20 MG TAB PO SCH (20:37)
[2017-01-26] MEDS: ACETAMINOPHEN TAB 325 MG TAB PO PRN ×3 (04:22→21:35)
[2017-01-26] MEDS: SUCRALFATE 1 GM TAB PO SCH ×3 (06:30→17:37)
[2017-01-26] MEDS: CARVEDILOL 6.25 MG TAB PO SCH ×2 (06:30→17:37)
[2017-01-26] MEDS: PANTOPRAZOLE 40 MG TABLET PO SCH (06:30)
[2017-01-26 07:40] LABS: Calcium 10.7 mg/dL (8.4-10.2); Potassium 3.5 mmol/L (3.5-5.1); Total Bilirubin 2.1 mg/dL (0.2-1.3); Total Protein 6.3 g/dL (6.3-8.2)
[2017-01-26] MEDS: FUROSEMIDE 40 MG TAB PO SCH ×2 (08:11→15:59)
[2017-01-26] MEDS: ISOSORBIDE MONONITRATE ER 30 MG TAB.ER.24H PO SCH (08:11)
[2017-01-26] MEDS: SPIRONOLACTONE 25 MG TAB PO SCH (08:11)
[2017-01-26] MEDS: LOSARTAN 25 MG TAB PO SCH ×2 (08:11→21:35)
[2017-01-26] MEDS: MEROPENEM 2 GM in SODIUM CHLORIDE 0.9% 100 ML IVPB SCH ×2 (08:13→21:35)
[2017-01-26] MEDS: ALBUTEROL NEBULIZED 2.5 MG/3 ML INHALATION SCH ×4 (09:16→20:11)
--- NOTE | 2017-01-26 09:44 | PN ---
DATE OF SERVICE: 01/23/2017 This 85-year-old woman who was admitted with CHF, acute exacerbation, also had chest pain and multiple other medical issues. Was seen and evaluated along with the nurse practitioner, please refer to nurse practitioner's notes and impression documented. PAST MEDICAL HISTORY: Reviewed. REVIEW OF SYSTEM; CARDIOVASCULAR: S1 and S2, muffled. RESPIRATORY: As mentioned earlier. : As mentioned earlier. GI: No nausea. NERVOUS SYSTEM: No numbness or weakness. Current medications are: 1. Tylenol 650 q.6 p.r.n. 2. Ventolin 2.5 q.i.d. 3. Coreg 6.25 mg b.i.d. 4. Lasix 40 mg. 5. Mucinex. 6. Imdur 30 mg daily. 7. Lactated Ringers. 8. Ativan. 9. Cozaar. 10. Meropenem. 11. Nitrostat. 12. Zofran. 13. Protonix. 14. Aldactone. 15. Restoril. 16. Coumadin. RECOMMENDATIONS AND DISCUSSION: Recommend to continue current medications, continue symptomatic treatment. Otherwise, possible EGD. Otherwise, surgical evaluation. Guarded prognosis because of multiple complex medical issues. See orders for further details. Further recommendation to follow. MTDD
--- NOTE | 2017-01-26 10:54 | P.PN ---
Progress Note - Text EGD showed erosive esophagitis. We'll follow-up on a when necessary basis.
[2017-01-26] MEDS: LACTATED RINGERS 1,000 ML IV SCH (16:02)
--- NOTE | 2017-01-26 17:30 | P.PN ---
Subjective Principal diagnosis: Paxil atrial fibrillation, CHF This patient is feeling better. Denies any chest pain or shortness of breath. Patient is able to walk in the hallways. Patient is does complain of some palpitations. It appears that patient has atrial fibrillation with a rapid ventricle response intermittently. She denies any chest pain. We'll continue current medical therapy and increase her activity. May increase the dose of the beta rochelle, if Necessary ,to control heart rate. Objective - Vital Signs Vital signs: Vital Signs Temp 96.7 F L 01/26/17 16:00 Pulse 78 01/26/17 16:00 Resp 18 01/26/17 16:00 BP 107/67 01/26/17 16:00 Pulse Ox 97 01/26/17 16:00 Intake & Output 01/25/17 01/26/17 01/26/17 18:59 06:59 18:59 Intake Total 240 100 90 Output Total 1802 3650 600 Balance -1562 -3550 -510 Weight 68.9 kg Intake: Intake, IV Titration 100 Amount Meropenem 2 gm In Sodium 100 Chloride 0.9% 100 ml @ 200 mls/hr IVPB Q12H [facility] Rx#:[id number] Oral 240 90 Output: Urine 1800 3650 600 Stool 2 Other: Voiding Method Toilet Toilet Toilet # Voids 2 1 # Bowel Movements 0 - Labs CBC & Chem 7: 01/24/17 06:22 01/26/17 06:27 Labs: Abnormal Lab Results - Last 24 Hours (Table) 01/26/17 Range/Units 06:27 Sodium 131 L (137-145) mmol/L Chloride 83 L (98-107) mmol/L Carbon Dioxide 38 H (22-30) mmol/L Creatinine 1.10 H (0.52-1.04) mg/dL Calcium 10.7 H (8.4-10.2) mg/dL Total Bilirubin 2.1 H (0.2-1.3) mg/dL Microbiology - Last 24 Hours (Table) 01/23/17 18:30 Stool Culture - Preliminary Stool 01/21/17 19:10 Blood Culture - Preliminary Blood No Growth after 96 hours Assessment and Plan (1) Congestive heart failure Status: Acute (2) Ascites Status: Acute (3) Cholecystitis Status: Acute (4) Congestive heart failure Status: Acute (5) Pleural effusion Status: Acute Plan: Patient seemed to be doing better. We will continue current medical therapy. May increase the dose of the beta rochelle if heart rate is high
[2017-01-26] MEDS: WARFARIN 2 MG TAB PO SCH (17:37)
[2017-01-26] MEDS: DOCUSATE 100 MG CAP PO SCH (17:57)
[2017-01-26] MEDS: ONDANSETRON 4 MG/2 ML VIAL IVP PRN (21:35)
[2017-01-26] MEDS: PRAVASTATIN SODIUM 20 MG TAB PO SCH (21:35)
[2017-01-27] MEDS: ACETAMINOPHEN TAB 325 MG TAB PO PRN ×2 (02:51→08:58)
[2017-01-27] MEDS: SUCRALFATE 1 GM TAB PO SCH ×3 (06:36→17:04)
[2017-01-27] MEDS: PANTOPRAZOLE 40 MG TABLET PO SCH (06:37)
[2017-01-27] MEDS: CARVEDILOL 6.25 MG TAB PO SCH ×2 (06:37→17:04)
[2017-01-27 06:39] LABS: Basophils # (A) 0.1 k/uL (0-0.2); Basophils % (A) 1 %; Eosinophils # (A) 0.3 k/uL (0-0.7); Eosinophils % (A) 4 %; HCT 46.3 % (34.0-46.0); HDW 2.31; HGB 15.8 gm/dL (11.4-16.0); Luc # (Auto) 0.21; Luc % (Auto) 3; Lymphocytes # (A) 1.7 k/uL (1.0-4.8); Lymphocytes % (A) 25 %; MCH 31.2 pg (25.0-35.0); MCHC 34.1 g/dL (31.0-37.0); MCV 91.4 fL (80.0-100.0); Mean Platelet Volume 7.4; Monocytes # (A) 0.6 k/uL (0-1.0); Monocytes % (A) 8 %; Neutrophils # (A) 4.1 k/uL (1.3-7.7); Neutrophils % (A) 59 %; RBC 5.07 m/uL (3.80-5.40); RDW 14.8 % (11.5-15.5); WBC (Perox) 6.91
[2017-01-27 07:04] LABS: Anion Gap 15 mmol/L; Calcium 11.2 mg/dL (8.4-10.2); Carbon Dioxide 35 mmol/L (22-30); Chloride 81 mmol/L (98-107); Glucose 106 mg/dL (74-99); Non-African American GFR(MDRD) 51 (>60 ml/min/1.73 sqM); Sodium 131 mmol/L (137-145); Total Protein 7.2 g/dL (6.3-8.2)
[2017-01-27 07:12] LABS: ALT 28 U/L (9-52); AST 41 U/L (14-36); Alkaline Phosphatase 73 U/L (38-126); Blood Urea Nitrogen 20 mg/dL (7-17)
[2017-01-27] MEDS: ALBUTEROL NEBULIZED 2.5 MG/3 ML INHALATION SCH ×4 (07:17→19:12)
[2017-01-27] MEDS: FUROSEMIDE 40 MG TAB PO SCH ×2 (08:58→16:23)
[2017-01-27] MEDS: DOCUSATE 100 MG CAP PO SCH ×2 (08:58→19:43)
[2017-01-27] MEDS: SPIRONOLACTONE 25 MG TAB PO SCH (08:59)
[2017-01-27] MEDS: ISOSORBIDE MONONITRATE ER 30 MG TAB.ER.24H PO SCH (08:59)
[2017-01-27] MEDS: LOSARTAN 25 MG TAB PO SCH ×2 (08:59→19:44)
[2017-01-27] MEDS: MEROPENEM 2 GM in SODIUM CHLORIDE 0.9% 100 ML IVPB SCH ×2 (09:23→19:42)
--- NOTE | 2017-01-27 13:24 | P.PN ---
Subjective this patient remains a stable cardiac-wheat. And continues to have mid and right lower quadrant pain. And has been evaluated by CAT scan upper GI endoscopy as well as surgical consultation is no evidence of any overt congestive cardiac failure at present the continue the current medications. Objective - Vital Signs Vital signs: Vital Signs Temp 97.6 F 01/27/17 08:00 Pulse 78 01/27/17 12:00 Resp 18 01/27/17 03:30 BP 97/63 01/27/17 12:00 Pulse Ox 99 01/27/17 12:00 Intake & Output 01/26/17 01/27/17 01/27/17 18:59 06:59 18:59 Intake Total 90 500 237 Output Total 1300 1400 400 Balance -1210 -900 -163 Weight 68.6 kg Intake: Intake, IV Titration 200 Amount Meropenem 2 gm In Sodium 200 Chloride 0.9% 100 ml @ 200 mls/hr IVPB Q12H [facility] Rx#:[id number] Oral 90 300 237 Output: Urine 1300 1400 400 Other: Voiding Method Toilet Toilet # Voids 1 1 # Bowel Movements 0 - Exam vital signs are reviewed. First and second heart sounds are normal. Lungs are clinically clear to auscultation percussion Abdomen is soft there is a mild tenderness noted in mid and lower quadrant on the right side. - Labs CBC & Chem 7: 01/27/17 06:06 01/27/17 06:06 Labs: Abnormal Lab Results - Last 24 Hours (Table) 01/27/17 01/27/17 Range/Units 06:06 06:06 Hct 46.3 H (34.0-46.0) % Plt Count 148 L (150-450) k/uL Sodium 131 L (137-145) mmol/L Chloride 81 L (98-107) mmol/L Carbon Dioxide 35 H (22-30) mmol/L BUN 20 H (7-17) mg/dL Glucose 106 H (74-99) mg/dL Calcium 11.2 H (8.4-10.2) mg/dL Total Bilirubin 2.0 H (0.2-1.3) mg/dL AST 41 H (14-36) U/L Microbiology - Last 24 Hours (Table) 01/23/17 18:30 Stool Culture - Final Stool 01/21/17 19:10 Blood Culture - Preliminary Blood No Growth after 120 hours Assessment and Plan Plan: patient remains stable cardiac-wheat. Overt congestive heart failure at present continue the current medications. the current medications.
--- NOTE | 2017-01-27 13:56 | CT ---
EXAMINATION TYPE: CT abdomen pelvis wo con DATE OF EXAM: 01/27/2017 COMPARISON: 01/21/2017 INDICATION: Chronic right abdominal pain DLP: 932 mGycm, Automated exposure control for dose reduction was used. CONTRAST: 0 mL of Omnipaque 300. Study performed without Oral Contrast TECHNIQUE: Axial images were obtained from above the diaphragm to the pubic rami in the axial plane a t 5 mm thick sections. Reconstructed images are reviewed on the computer in the coronal plane. FINDINGS: Limited CT sections are obtained the lung bases. The lung bases are clear. Dense coronary artery ca lcification is present. CT ABDOMEN: Ascites has resolved Liver: Normal Spleen: Normal Pancreas: Normal Adrenal glands: The adrenal glands are normal. Gallbladder: Surgically absent. Surgical clip or calcification within the distal duct may be present. Kidneys: There is a cyst on the posterior left kidney measuring 1.8 cm. Mild right hydroureter is pre sent which terminates at the 6 pelvic inlet. No obstructing stone is identified.. No hydronephrosis i s present. Aorta: Vascular calcification is within the aorta. Inferior vena cava: Normal. CT PELVIS: Loops of bowel within the abdomen and pelvis are normal. Study is performed without oral contrast limiting the evaluation. Note is made of diverticulosis without acute diverticulitis within the redu ndant sigmoid colon. Appendix: What appears to be the appendix is normal. Urinary bladder: Normal. Genitourinary structures: Uterus and adnexal regions are clear. Osseous structures: No suspicious lytic or sclerotic lesions. Some facet changes are through the lumb ar spine. IMPRESSIONS: 1. Diverticulosis without acute diverticulitis. 2. Left renal cyst. 3. A duct stone may be present. This could also be related to surgical clip. No dilated duct is ident ified. This was present on the comparison of 01/21/2017.
--- NOTE | 2017-01-27 16:13 | P.PN ---
Subjective Date of service 01/27/2017. Progress note being dictated for Dr. Spencer Interval history: This is a 86-year-old female admitted with multiple medical issues including chest pain, abdominal discomfort, persistent nausea vomiting diarrhea in a patient with recent lap dayna, CHF and multiple other medical issues. Status post EGD reporting sliding hiatal hernia, LA grade B distal esophagitis, gastritis and duodenitis, multiple biopsies obtained, results pending. Persistent right upper and lower quadrant pain .Continues to diurese well on oral Lasix , with a negative 24-hour fluid balance. Anticoagulated on Coumadin with INR pending. 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 Currently denies chest pain, palpitations. Objective - Vital Signs Vital signs: Vital Signs Temp 97.6 F 01/27/17 08:00 Pulse 78 01/27/17 12:00 Resp 18 01/27/17 03:30 BP 97/63 01/27/17 12:00 Pulse Ox 99 01/27/17 12:00 Intake & Output 01/26/17 01/27/17 01/27/17 18:59 06:59 18:59 Intake Total 90 500 357 Output Total 1300 1400 400 Balance -1210 -900 -43 Weight 68.6 kg Intake: Intake, IV Titration 200 120 Amount Lactated Ringers 1,000 ml 20 @ 20 mls/hr IV .Q24H [facility] Rx#:[id number] Meropenem 2 gm In Sodium 200 100 Chloride 0.9% 100 ml @ 200 mls/hr IVPB Q12H [facility] Rx#:[id number] Oral 90 300 237 Output: Urine 1300 1400 400 Other: Voiding Method Toilet Toilet # Voids 1 1 # Bowel Movements 0 - Exam VITAL SIGNS: As above GENERAL: [Sitting up in bed,no distress] HEENT: [Pupils equal conjunctiva normal. Oral mucosa moist] NECK: [Supple, no JVD] RESPIRATORY EFFORT:[ Normal] LUNGS: [Essentially clear, Diminished bases, no wheezes rhonchi or crackles CARDIOVASCULAR[ irregular, positive systolic murmur, decreasing edema] GI: [Abdomen soft, distended, mild diffuse tenderness right lower quadrant, positive bowel sounds. No guarding, no rigidity] PSYCH: [Alert and oriented -3, mood and affect normal. No guarding, no rigidity] NEURO: [No focal deficits, moves all 4 extremities, strength and sensation grossly intact] Microbiology 01/23/17 18:30 Stool Stool Culture - Final 01/21/17 19:10 Blood Blood Culture - Preliminary No Growth after 120 hours 01/23/17 18:30 Stool Stool for WBCs - Final 01/21/17 17:23 Urine,Voided Urine Culture - Final - Labs CBC & Chem 7: 01/27/17 06:06 01/27/17 06:06 Labs: Abnormal Lab Results - Last 24 Hours (Table) 01/27/17 01/27/17 Range/Units 06:06 06:06 Hct 46.3 H (34.0-46.0) % Plt Count 148 L (150-450) k/uL Sodium 131 L (137-145) mmol/L Chloride 81 L (98-107) mmol/L Carbon Dioxide 35 H (22-30) mmol/L BUN 20 H (7-17) mg/dL Glucose 106 H (74-99) mg/dL Calcium 11.2 H (8.4-10.2) mg/dL Total Bilirubin 2.0 H (0.2-1.3) mg/dL AST 41 H (14-36) U/L Microbiology - Last 24 Hours (Table) 01/23/17 18:30 Stool Culture - Final Stool 01/21/17 19:10 Blood Culture - Preliminary Blood No Growth after 120 hours Assessment and Plan Plan: 1. [ Acute chest pain, elevated troponins, rule out acute coronary syndrome]. 2. Acute CHF exacerbation, diastolic dysfunction, 3. Persistent nausea, vomiting, diarrhea, in a patient with recent lap dayna]. Status post EGD reporting sliding hiatal hernia, LA grade B distal esophagitis , gastritis and duodenitis. 4. Hyponatremia, improving 5. Moderate abdominal ascites,mild anasarca in a patient with elevated T bili, AST,CK 3. [ CAD with history of multiple cardiac catheterizations, history of [place]]. 4. [ Nonischemic cardiomyopathy with AICD, EF 20-25%]. 5. [ Proximal atrial fibrillation]. 6. [ Coumadin monitoring]. 7. [ Hyperlipidemia]. 8. Hypertension 9. Small bilateral pleural effusions, pulmonary nodules 10. Atelectasis 11. Remote history of nicotine abuse Plan: Continue on current medication regime , Lasix,PPI monitoring and symptomatic treatment. Persistent GI complaints of nausea, abdominal pain as mentioned above. Sed rate, CRP, CT of abdomen and pelvis ordered. Further evaluation /recommendations pending from surgery/GI. Aggressive pulmonary toileting. INR level pending. Prognosis guarded given multiple complex medical issues. Further recommendations to follow. The impression and plan of care has been dictated as directed. : I performed a H&P examination of this patient and discussed the same with the dictator. I agree with the dictator's note. Any additional findings/opinions/ etc. will be noted.
[2017-01-27 16:16] LABS: INR 1.3 (<1.1); Prothrombin Time 13.1 sec (9.0-12.0)
[2017-01-27] MEDS: LACTATED RINGERS 1,000 ML IV SCH (16:24)
[2017-01-27] MEDS: WARFARIN 2 MG TAB PO SCH (17:04)
[2017-01-27] MEDS: HYOSCYAMINE SULFATE 0.125 MG TAB PO PRN (19:42)
[2017-01-27] MEDS: SIMETHICONE 80 MG CHEWABLE PO SCH ×3 (19:42→22:19)
[2017-01-27] MEDS: DICYCLOMINE 10 MG CAP PO PRN (19:43)
[2017-01-27] MEDS: PRAVASTATIN SODIUM 20 MG TAB PO SCH (19:44)
[2017-01-28 06:11] LABS: Basophils # (A) 0.1 k/uL (0-0.2); Basophils % (A) 1 %; CH 30.5; CHCM 34.4; Eosinophils # (A) 0.4 k/uL (0-0.7); Eosinophils % (A) 6 %; HCT 45.4 % (34.0-46.0); HDW 2.33; HGB 15.4 gm/dL (11.4-16.0); Luc # (Auto) 0.22; Luc % (Auto) 3; Lymphocytes # (A) 1.8 k/uL (1.0-4.8); Lymphocytes % (A) 24 %; MCH 30.2 pg (25.0-35.0); MCV 88.9 fL (80.0-100.0); Mean Platelet Volume 7.6; Monocytes # (A) 0.6 k/uL (0-1.0); Monocytes % (A) 8 %; Neutrophils # (A) 4.4 k/uL (1.3-7.7); Neutrophils % (A) 59 %; RBC 5.11 m/uL (3.80-5.40); RDW 14.8 % (11.5-15.5); WBC 7.6 k/uL (3.8-10.6); WBC (Perox) 7.13
[2017-01-28] MEDS: CARVEDILOL 6.25 MG TAB PO SCH ×2 (06:40→17:08)
[2017-01-28] MEDS: SUCRALFATE 1 GM TAB PO SCH ×3 (06:40→17:09)
[2017-01-28] MEDS: PANTOPRAZOLE 40 MG TABLET PO SCH (06:40)
[2017-01-28] MEDS: SIMETHICONE 80 MG CHEWABLE PO SCH ×4 (06:43→21:48)
[2017-01-28 06:51] LABS: INR 1.6 (<1.1); Prothrombin Time 15.4 sec (9.0-12.0)
[2017-01-28] MEDS: ALBUTEROL NEBULIZED 2.5 MG/3 ML INHALATION SCH ×4 (08:04→19:22)
--- NOTE | 2017-01-28 09:09 | P.PN ---
Subjective The patient is an 86-year-old female status post laparoscopic cholecystectomy for cholecystitis without stones. Past medical history nonischemic cardiomyopathy EF 20%, atrial fibrillation on coumadin, hypertension, hyperlipidemia, pacemaker AICD was admitted to the hospital with persistent nausea, vomiting, abdominal bloating, intermittent diarrhea and not feeling well. Had recent hospitalization for CHF. Patient has been experiencing increased nausea, minimal emesis and abdominal bloating since September. Symptoms seem to be exacerbated after meals. She thought her symptoms would improve after cholecystectomy but that was not the case. An upper endoscopy performed showed LA grade B distal esophagitis as well as gastritis and duodenitis. The patient continues to have post-prandial abdominal discomfort and feels bloated and pounding of her heart. She is staying up all night and the family and herself are frustrated and upset. Nausea does not seem to be an issue as much. Her labs continue to show normal liver enzymes. repeat CT of abdomen performed today no new significant findings. Objective - Vital Signs Vital signs: Vital Signs Temp 97.6 F 01/27/17 08:00 Pulse 83 01/27/17 16:00 Resp 18 01/27/17 03:30 BP 123/74 01/27/17 16:00 Pulse Ox 99 01/27/17 16:00 Intake & Output 01/26/17 01/27/17 01/27/17 18:59 06:59 18:59 Intake Total 90 500 357 Output Total 1300 1400 400 Balance -1210 -900 -43 Weight 68.6 kg Intake: Intake, IV Titration 200 120 Amount Lactated Ringers 1,000 ml 20 @ 20 mls/hr IV .Q24H [facility] Rx#:[id number] Meropenem 2 gm In Sodium 200 100 Chloride 0.9% 100 ml @ 200 mls/hr IVPB Q12H [facility] Rx#:[id number] Oral 90 300 237 Output: Urine 1300 1400 400 Other: Voiding Method Toilet Toilet # Voids 1 1 # Bowel Movements 0 - Exam On physical examination, patient appears comfortable in no apparent distress. Vital signs are stable. HEENT: Unremarkable. Conjunctivae pink. Sclerae anicteric. Oral cavity no lesions. NECK: No JVD or lymph node enlargement. CHEST: Clear to auscultation. HEART: Regular rate and rhythm. ABDOMEN: Soft. Bowel sounds are positive. No organomegaly. EXTREMITIES: No pedal edema. SKIN: No rashes. NEUROLOGIC: Alert and oriented x3. No focal deficits. - Labs CBC & Chem 7: 01/28/17 05:39 01/27/17 06:06 Labs: Abnormal Lab Results - Last 24 Hours (Table) 01/27/17 01/27/17 01/27/17 Range/Units 06:06 06:06 06:06 Hct 46.3 H (34.0-46.0) % Plt Count 148 L (150-450) k/uL PT 13.1 H (9.0-12.0) sec Sodium 131 L (137-145) mmol/L Chloride 81 L (98-107) mmol/L Carbon Dioxide 35 H (22-30) mmol/L BUN 20 H (7-17) mg/dL Glucose 106 H (74-99) mg/dL Calcium 11.2 H (8.4-10.2) mg/dL Total Bilirubin 2.0 H (0.2-1.3) mg/dL AST 41 H (14-36) U/L Microbiology - Last 24 Hours (Table) 01/23/17 18:30 Stool Culture - Final Stool 01/21/17 19:10 Blood Culture - Preliminary Blood No Growth after 120 hours Assessment and Plan Plan: Abdominal pains with no obvious etiology. The possibility of functional bowel disease to be considered. Will try symptomatic treatment with antispasmodics and simethicone and re-evaluate frequently and plan accordingly. I will discuss with you and continue to F/U with you with interest.
[2017-01-28] MEDS: MEROPENEM 2 GM in SODIUM CHLORIDE 0.9% 100 ML IVPB SCH ×2 (09:26→20:32)
[2017-01-28] MEDS: DICYCLOMINE 10 MG CAP PO PRN ×2 (09:26→23:39)
[2017-01-28] MEDS: SPIRONOLACTONE 25 MG TAB PO SCH (09:27)
[2017-01-28] MEDS: LOSARTAN 25 MG TAB PO SCH ×2 (09:27→21:48)
[2017-01-28] MEDS: ISOSORBIDE MONONITRATE ER 30 MG TAB.ER.24H PO SCH (09:27)
[2017-01-28] MEDS: FUROSEMIDE 40 MG TAB PO SCH ×2 (09:27→16:24)
[2017-01-28] MEDS: DOCUSATE 100 MG CAP PO SCH ×2 (09:27→21:48)
[2017-01-28] MEDS: ACETAMINOPHEN TAB 325 MG TAB PO PRN (11:44)
[2017-01-28] MEDS: HYOSCYAMINE SULFATE 0.125 MG TAB PO PRN (11:44)
[2017-01-28 12:27] LABS: Calcium 10.6 mg/dL (8.4-10.2); Potassium 3.9 mmol/L (3.5-5.1); Total Bilirubin 2.4 mg/dL (0.2-1.3); Total Protein 7.1 g/dL (6.3-8.2)
--- NOTE | 2017-01-28 14:04 | XR ---
EXAMINATION TYPE: XR chest 1V portable DATE OF EXAM: 01/28/2017 COMPARISON: 01/25/2017 HISTORY: Heart failure. Short of breath TECHNIQUE: Single frontal view of the chest is obtained. FINDINGS: Heart is enlarged. There is no gross heart failure. Lungs are clear of consolidation. Ther e is left axillary pacemaker with the lead tips in the right ventricle. There are chest leads. IMPRESSION: Cardiomegaly. There is slight improved inspiration compared to last exam. There is clear ing of mild pulmonary congestion compared to last exam.
[2017-01-28] MEDS: LACTATED RINGERS 1,000 ML IV SCH (16:25)
[2017-01-28] MEDS: SODIUM CHLORIDE 0.9% 1,000 ML IV SCH (16:26)
[2017-01-28] MEDS: WARFARIN 2 MG TAB PO SCH (17:08)
[2017-01-28] MEDS: PRAVASTATIN SODIUM 20 MG TAB PO SCH (21:48)
[2017-01-28] MEDS: guaiFENesin 600 MG TABLET.ER PO PRN (23:39)
[2017-01-29] MEDS: ACETAMINOPHEN TAB 325 MG TAB PO PRN (04:01)
[2017-01-29] MEDS: HYOSCYAMINE SULFATE 0.125 MG TAB PO PRN (04:01)
[2017-01-29 05:53] LABS: Basophils # (A) 0.1 k/uL (0-0.2); Basophils % (A) 1 %; CH 30.4; CHCM 33.9; Eosinophils # (A) 0.4 k/uL (0-0.7); Eosinophils % (A) 5 %; HCT 46.2 % (34.0-46.0); HDW 2.32; HGB 15.7 gm/dL (11.4-16.0); Luc # (Auto) 0.29; Luc % (Auto) 4; Lymphocytes # (A) 1.9 k/uL (1.0-4.8); Lymphocytes % (A) 24 %; MCH 30.6 pg (25.0-35.0); Mean Platelet Volume 7.2; Monocytes # (A) 0.6 k/uL (0-1.0); Monocytes % (A) 8 %; Neutrophils # (A) 4.5 k/uL (1.3-7.7); Neutrophils % (A) 59 %; RBC 5.14 m/uL (3.80-5.40); RDW 14.8 % (11.5-15.5); WBC 7.6 k/uL (3.8-10.6); WBC (Perox) 7.34
[2017-01-29 05:58] LABS: ALT 27 U/L (9-52); AST 45 U/L (14-36); Alkaline Phosphatase 77 U/L (38-126); Anion Gap 14 mmol/L; Blood Urea Nitrogen 23 mg/dL (7-17); Calcium 10.5 mg/dL (8.4-10.2); Carbon Dioxide 34 mmol/L (22-30); Glucose 106 mg/dL (74-99); Non-African American GFR(MDRD) 55 (>60 ml/min/1.73 sqM); Potassium 4.4 mmol/L (3.5-5.1); Sodium 126 mmol/L (137-145); Total Bilirubin 2.7 mg/dL (0.2-1.3); Total Protein 7.4 g/dL (6.3-8.2)
[2017-01-29 06:09] LABS: INR 1.9 (<1.1); Prothrombin Time 17.9 sec (9.0-12.0)
[2017-01-29 06:11] LABS: Chloride 78 mmol/L (98-107)
[2017-01-29] MEDS: NITROGLYCERIN SL TABS 0.4 MG TAB SUBLINGUAL PRN ×3 (06:35→06:47)
[2017-01-29] MEDS: PANTOPRAZOLE 40 MG TABLET PO SCH (08:02)
[2017-01-29] MEDS: SUCRALFATE 1 GM TAB PO SCH ×3 (08:02→17:00)
[2017-01-29] MEDS: CARVEDILOL 6.25 MG TAB PO SCH ×2 (08:02→17:00)
[2017-01-29] MEDS: ALBUTEROL NEBULIZED 2.5 MG/3 ML INHALATION SCH ×4 (09:09→19:43)
[2017-01-29] MEDS: MEROPENEM 2 GM in SODIUM CHLORIDE 0.9% 100 ML IVPB SCH ×2 (09:29→21:59)
[2017-01-29] MEDS: FUROSEMIDE 40 MG TAB PO SCH ×3 (09:30→17:02)
[2017-01-29] MEDS: ISOSORBIDE MONONITRATE ER 30 MG TAB.ER.24H PO SCH (09:30)
[2017-01-29] MEDS: LOSARTAN 25 MG TAB PO SCH ×2 (09:30→21:35)
[2017-01-29] MEDS: DOCUSATE 100 MG CAP PO SCH ×2 (09:30→21:21)
[2017-01-29] MEDS: SIMETHICONE 80 MG CHEWABLE PO SCH ×4 (09:30→21:36)
[2017-01-29] MEDS: SPIRONOLACTONE 25 MG TAB PO SCH (09:30)
--- NOTE | 2017-01-29 13:01 | P.PN ---
Subjective This patient continues to have pain in the right upper and mid quadrant with sometimes radiation to the chest pain chest family again were informed that chest pain is noncardiac in nature has a nonischemic cardiomyopathy and normal coronary arteries several months ago discussed with Dr. Becerra also and is going to discuss with the family members and currently is not in any respiratory distress since he remains euvolemic. Objective - Vital Signs Vital signs: Vital Signs Temp 96.7 F L 01/29/17 08:00 Pulse 85 01/29/17 08:00 Resp 18 01/29/17 08:00 BP 101/62 01/29/17 08:00 Pulse Ox 99 01/29/17 08:00 Intake & Output 01/28/17 01/29/17 01/29/17 18:59 06:59 18:59 Intake Total 340 Output Total 403 600 Balance -403 -260 Weight 67 kg 68.5 kg 68.5 kg Intake: Intake, IV Titration 340 Amount Meropenem 2 gm In Sodium 100 Chloride 0.9% 100 ml @ 200 mls/hr IVPB Q12H [facility] Rx#:[id number] Sodium Chloride 0.9% 1, 240 000 ml @ 30 mls/hr IV . Q24H [facility] Rx#:[id number] Output: Urine 400 600 Stool 3 Other: Voiding Method Toilet Toilet Toilet # Voids 1 2 # Bowel Movements 0 1 - Exam Vital signs are reviewed. Heart first and second heart sounds are normal Respirations are not labored. Mild mid and right lower quadrant tenderness persist. - Labs CBC & Chem 7: 01/29/17 05:29 01/29/17 05:29 Labs: Abnormal Lab Results - Last 24 Hours (Table) 01/29/17 01/29/17 01/29/17 Range/Units 05:29 05:29 05:29 Hct 46.2 H (34.0-46.0) % PT 17.9 H (9.0-12.0) sec Sodium 126 L (137-145) mmol/L Chloride 78 L* (98-107) mmol/L Carbon Dioxide 34 H (22-30) mmol/L BUN 23 H (7-17) mg/dL Glucose 106 H (74-99) mg/dL Calcium 10.5 H (8.4-10.2) mg/dL Total Bilirubin 2.7 H (0.2-1.3) mg/dL AST 45 H (14-36) U/L Microbiology - Last 24 Hours (Table) 01/23/17 18:30 Stool Culture - Final Stool Assessment and Plan Plan: Patient remains stable cardiac-wheat. Continue the current medications.
[2017-01-29 13:35] LABS: Bilirubin, Delta 0.7 mg/dL (0.0-0.2); Total Bilirubin 2.3 mg/dL (0.2-1.3)
--- NOTE | 2017-01-29 14:16 | P.PN ---
Subjective Principal diagnosis: Epigastric pain, nausea Patient still has complaints of epigastric pain and nausea. She's had the symptoms for over a month now. Objective - Vital Signs Vital signs: Vital Signs Temp 96.7 F L 01/29/17 08:00 Pulse 85 01/29/17 12:00 Resp 18 01/29/17 12:00 BP 90/62 01/29/17 12:00 Pulse Ox 98 01/29/17 12:00 Intake & Output 01/28/17 01/29/17 01/29/17 18:59 06:59 18:59 Intake Total 340 200 Output Total 403 600 1 Balance -403 -260 199 Weight 67 kg 68.5 kg 68.5 kg Intake: Intake, IV Titration 340 Amount Meropenem 2 gm In Sodium 100 Chloride 0.9% 100 ml @ 200 mls/hr IVPB Q12H [facility] Rx#:[id number] Sodium Chloride 0.9% 1, 240 000 ml @ 30 mls/hr IV . Q24H [facility] Rx#:[id number] Oral 200 Output: Urine 400 600 Stool 3 1 Other: Voiding Method Toilet Toilet Toilet # Voids 1 2 # Bowel Movements 0 1 - Constitutional General appearance: Present: cooperative - Gastrointestinal Gastrointestinal Comment(s): Abdomen soft. There is minimal epigastric pain. There is no rebound or guarding. There is well healed laparoscopic incisions. - Labs CBC & Chem 7: 01/29/17 05:29 01/29/17 05:29 Labs: Abnormal Lab Results - Last 24 Hours (Table) 01/29/17 01/29/17 01/29/17 Range/Units 05:29 05:29 05:29 Hct 46.2 H (34.0-46.0) % PT 17.9 H (9.0-12.0) sec Sodium 126 L (137-145) mmol/L Chloride 78 L* (98-107) mmol/L Carbon Dioxide 34 H (22-30) mmol/L BUN 23 H (7-17) mg/dL Glucose 106 H (74-99) mg/dL Calcium 10.5 H (8.4-10.2) mg/dL Total Bilirubin 2.7 H (0.2-1.3) mg/dL Unconjugated Bilirubin (0.0-1.1) mg/dL Delta Bilirubin (0.0-0.2) mg/dL AST 45 H (14-36) U/L 01/29/17 Range/Units 05:29 Hct (34.0-46.0) % PT (9.0-12.0) sec Sodium (137-145) mmol/L Chloride (98-107) mmol/L Carbon Dioxide (22-30) mmol/L BUN (7-17) mg/dL Glucose (74-99) mg/dL Calcium (8.4-10.2) mg/dL Total Bilirubin 2.3 H (0.2-1.3) mg/dL Unconjugated Bilirubin 1.6 H (0.0-1.1) mg/dL Delta Bilirubin 0.7 H (0.0-0.2) mg/dL AST (14-36) U/L Microbiology - Last 24 Hours (Table) 01/23/17 18:30 Stool Culture - Final Stool Assessment and Plan Plan: Patient's bilirubin is slightly elevated at 2. Her liver function tests are normal. She's had a postoperative HIDA scan which shows no evidence of leak or obstruction. Her recent CAT scan finding is most likely a cystic duct clipped which is visualized on CAT scan. Given the fact the patient's had long-term problems with chronic epigastric pain and nausea. I recommended transferred to a tertiary care center for further workup. No surgical intervention is planned. I discussed this with the patient's family.
[2017-01-29] MEDS: WARFARIN 2 MG TAB PO SCH (17:01)
[2017-01-29] MEDS: SODIUM CHLORIDE 0.9% 1,000 ML IV SCH (17:02)
[2017-01-29] MEDS: LACTATED RINGERS 1,000 ML IV SCH (17:02)
[2017-01-29] MEDS: guaiFENesin 600 MG TABLET.ER PO PRN (21:36)
[2017-01-29] MEDS: PRAVASTATIN SODIUM 20 MG TAB PO SCH (21:36)
[2017-01-30] MEDS: NITROGLYCERIN SL TABS 0.4 MG TAB SUBLINGUAL PRN ×2 (00:02→00:08)
[2017-01-30] MEDS: ACETAMINOPHEN TAB 325 MG TAB PO PRN ×3 (01:19→23:29)
[2017-01-30 06:09] LABS: Basophils # (A) 0.1 k/uL (0-0.2); Basophils % (A) 1 %; CH 30.5; CHCM 34.2; Eosinophils # (A) 0.4 k/uL (0-0.7); Eosinophils % (A) 7 %; HCT 39.7 % (34.0-46.0); HDW 2.29; HGB 13.7 gm/dL (11.4-16.0); Luc # (Auto) 0.24; Luc % (Auto) 4; Lymphocytes # (A) 1.6 k/uL (1.0-4.8); Lymphocytes % (A) 26 %; MCH 30.9 pg (25.0-35.0); MCHC 34.6 g/dL (31.0-37.0); MCV 89.5 fL (80.0-100.0); Mean Platelet Volume 8.2; Monocytes # (A) 0.5 k/uL (0-1.0); Monocytes % (A) 8 %; Neutrophils # (A) 3.4 k/uL (1.3-7.7); Neutrophils % (A) 55 %; RBC 4.43 m/uL (3.80-5.40); RDW 14.6 % (11.5-15.5); WBC 6.2 k/uL (3.8-10.6); WBC (Perox) 6.21
[2017-01-30 06:16] LABS: INR 1.7 (<1.1); Prothrombin Time 16.8 sec (9.0-12.0)
[2017-01-30 06:20] LABS: ALT 33 U/L (9-52); AST 40 U/L (14-36); Alkaline Phosphatase 69 U/L (38-126); Anion Gap 9 mmol/L; Blood Urea Nitrogen 20 mg/dL (7-17); Calcium 9.4 mg/dL (8.4-10.2); Carbon Dioxide 32 mmol/L (22-30); Chloride 81 mmol/L (98-107); Glucose 93 mg/dL (74-99); Non-African American GFR(MDRD) >60 (>60 ml/min/1.73 sqM); Sodium 122 mmol/L (137-145); Total Bilirubin 1.7 mg/dL (0.2-1.3)
[2017-01-30] MEDS: SUCRALFATE 1 GM TAB PO SCH ×3 (06:59→17:26)
[2017-01-30] MEDS: CARVEDILOL 6.25 MG TAB PO SCH ×2 (06:59→17:26)
[2017-01-30] MEDS: PANTOPRAZOLE 40 MG TABLET PO SCH (06:59)
[2017-01-30] MEDS: SIMETHICONE 80 MG CHEWABLE PO SCH ×4 (07:00→21:29)
[2017-01-30] MEDS: ALBUTEROL NEBULIZED 2.5 MG/3 ML INHALATION SCH ×4 (08:04→20:49)
[2017-01-30] MEDS: MEROPENEM 2 GM in SODIUM CHLORIDE 0.9% 100 ML IVPB SCH ×2 (08:29→20:14)
[2017-01-30] MEDS: DOCUSATE 100 MG CAP PO SCH ×2 (08:34→20:15)
[2017-01-30] MEDS: SPIRONOLACTONE 25 MG TAB PO SCH (08:34)
[2017-01-30] MEDS: ISOSORBIDE MONONITRATE ER 30 MG TAB.ER.24H PO SCH (08:35)
[2017-01-30] MEDS: FUROSEMIDE 40 MG TAB PO SCH ×2 (08:35→17:26)
[2017-01-30] MEDS: LOSARTAN 25 MG TAB PO SCH ×2 (08:35→20:15)
[2017-01-30] MEDS: ONDANSETRON 4 MG/2 ML VIAL IVP PRN (12:18)
[2017-01-30] MEDS: LACTATED RINGERS 1,000 ML IV SCH (17:23)
[2017-01-30] MEDS: WARFARIN 2 MG TAB PO SCH (17:26)
[2017-01-30] MEDS: SODIUM CHLORIDE 0.9% 1,000 ML IV SCH (17:26)
[2017-01-30] MEDS: PRAVASTATIN SODIUM 20 MG TAB PO SCH (20:15)
[2017-01-30] MEDS: DICYCLOMINE 10 MG CAP PO PRN (21:29)
[2017-01-30] MEDS: HYOSCYAMINE SULFATE 0.125 MG TAB PO PRN (21:29)
[2017-01-31] MEDS: SUCRALFATE 1 GM TAB PO SCH ×2 (06:31→12:14)
[2017-01-31] MEDS: PANTOPRAZOLE 40 MG TABLET PO SCH (06:31)
[2017-01-31] MEDS: CARVEDILOL 6.25 MG TAB PO SCH (06:31)
[2017-01-31] MEDS: SIMETHICONE 80 MG CHEWABLE PO SCH ×2 (06:39→12:14)
[2017-01-31 06:49] LABS: Basophils # (A) 0.1 k/uL (0-0.2); Basophils % (A) 1 %; CH 30.2; CHCM 33.2; Eosinophils # (A) 0.4 k/uL (0-0.7); Eosinophils % (A) 6 %; HCT 45.1 % (34.0-46.0); HDW 2.29; HGB 15.2 gm/dL (11.4-16.0); Luc # (Auto) 0.16; Luc % (Auto) 2; Lymphocytes # (A) 1.7 k/uL (1.0-4.8); Lymphocytes % (A) 25 %; MCH 30.7 pg (25.0-35.0); MCHC 33.7 g/dL (31.0-37.0); MCV 91.2 fL (80.0-100.0); Mean Platelet Volume 7.9; Monocytes # (A) 0.5 k/uL (0-1.0); Monocytes % (A) 7 %; Neutrophils # (A) 4.2 k/uL (1.3-7.7); Neutrophils % (A) 60 %; RBC 4.95 m/uL (3.80-5.40); RDW 14.8 % (11.5-15.5); WBC (Perox) 7.03
[2017-01-31 06:57] LABS: INR 1.6 (<1.1); Prothrombin Time 15.3 sec (9.0-12.0)
[2017-01-31 07:07] LABS: ALT 34 U/L (9-52); AST 53 U/L (14-36); Alkaline Phosphatase 80 U/L (38-126); Anion Gap 10 mmol/L; Blood Urea Nitrogen 18 mg/dL (7-17); Calcium 9.6 mg/dL (8.4-10.2); Carbon Dioxide 33 mmol/L (22-30); Chloride 84 mmol/L (98-107); Glucose 99 mg/dL (74-99); Non-African American GFR(MDRD) >60 (>60 ml/min/1.73 sqM); Potassium 3.9 mmol/L (3.5-5.1); Sodium 127 mmol/L (137-145); Total Bilirubin 1.9 mg/dL (0.2-1.3); Total Protein 7.4 g/dL (6.3-8.2)
[2017-01-31] MEDS: ALBUTEROL NEBULIZED 2.5 MG/3 ML INHALATION SCH ×2 (08:01→11:38)
[2017-01-31] MEDS: MEROPENEM 2 GM in SODIUM CHLORIDE 0.9% 100 ML IVPB SCH (08:46)
[2017-01-31] MEDS: DOCUSATE 100 MG CAP PO SCH (08:46)
[2017-01-31] MEDS: SPIRONOLACTONE 25 MG TAB PO SCH (08:47)
[2017-01-31] MEDS: ISOSORBIDE MONONITRATE ER 30 MG TAB.ER.24H PO SCH (08:47)
[2017-01-31] MEDS: LOSARTAN 25 MG TAB PO SCH (08:47)
[2017-01-31] MEDS: FUROSEMIDE 40 MG TAB PO SCH (08:47)
[2017-01-31 09:04] VITALS: RESP 18; TEMP 97
[2017-01-31 11:58] VITALS: BP 129/76; PULSE 74
[2017-01-31 13:23] VITALS: BMI 27.2
--- NOTE | 2017-01-31 15:22 | P.DS ---
Providers Date of admission: 01/21/17 12:34 Attending physician: Myron Shaw Consults: 01/21/17 12:30 Consult Physician Urgent Consulting Provider: Cesar Issa Consult Reason/Comments: Unstable angina, elevated troponin, CHF Do you want consulting provider notified?: Yes 01/21/17 16:09 Consult Physician Urgent Consulting Provider: Fabián Mars Consult Reason/Comments: recent cholecysectomy-abdominal nausea,bloating,pain Do you want consulting provider notified?: Yes 01/22/17 14:36 Consult Physician Routine Consulting Provider: Rosemarie Issa Consult Reason/Comments: N/V/D Do you want consulting provider notified?: Yes Primary care physician: [facility] Course: This 87-year-old woman who recently had a cholecystectomy was admitted with abdominal pain. The patient was monitored closely in the hospital abdominal pain was not getting better after 10 days. Patient is also seen by surgery and also by cardiology. Patient also had on and off chest pains also. A CAT scan of the abdomen showed some fluid in the abdomen. The patient was treated symptomatically. The CSF did improve but however the pain persisted. Ejection fraction was less than 20% which was thought to be due to a nonischemic cardiomyopathy according to the display and banner designer. Because of non improvement in the symptoms the patient was being transferred to [facility] for patient care and vascular sounds evaluation at this time. Currently the patient is stable but overall prognosis extremely guarded. Please refer to the previous dictations consultation for further details. final diagnosis 1. Diffuse abdominal pain of undetermined etiology with recent cholecystectomy 2. CHF exacerbation with acute on chronic systolic dysfunction ejection fraction less than 20%. 3. On and off chest pains. 4. History of paroxysmal atrial fibrillation. 5. Multiple complex medical issues. Patient Condition at Discharge: Stable Plan - Discharge Summary New Discharge Prescriptions: No Action Aspirin EC [Ecotrin Low Dose] 81 mg PO DAILY Warfarin [Coumadin] 4 mg PO DAILY Spironolactone 25 mg PO DAILY Pravastatin Sodium [Pravachol] 10 mg PO DAILY Losartan [Cozaar] 25 mg PO BID Atenolol 25 mg PO TID LORazepam [Ativan] 1 mg PO HS Omeprazole 20 mg PO DAILY Furosemide [Lasix] 40 mg PO DAILY #30 tab Discharge Medication List Aspirin EC [Ecotrin Low Dose] 81 mg PO DAILY 12/19/16 [History] Atenolol 25 mg PO TID 12/19/16 [History] LORazepam [Ativan] 1 mg PO HS 12/19/16 [History] Losartan [Cozaar] 25 mg PO BID 12/19/16 [History] Pravastatin Sodium [Pravachol] 10 mg PO DAILY 12/19/16 [History] Spironolactone 25 mg PO DAILY 12/19/16 [History] Warfarin [Coumadin] 4 mg PO DAILY 12/19/16 [History] Omeprazole 20 mg PO DAILY 01/13/17 [History] Furosemide [Lasix] 40 mg PO DAILY #30 tab 01/18/17 [Rx] Follow up Appointment(s)/Referral(s): César Reich DO [Primary Care Provider] - 1-2 days [facility] Visiting Nurse, [NON-STAFF] - Discharge Disposition: TRANSFER TO SNF/ECF
--- NOTE | 2017-02-02 09:33 | PN ---
DATE OF SERVICE: 01/28/2017 This 87 year old woman was admitted with CHF acute exacerbation, also complaining of abdominal pain. Conservative line of management is considered. The patient also no chest pain, no fever, no cough. On examination, the patient is alert and oriented times three. Pulse 81. Blood pressure 106/60. Respiratory rate 14, temperature 97.6, pulse ox 97% on 3 L. HEENT: Conjunctivae normal. NECK: No JVD. CARDIOVASCULAR: S1, S2 muffled. RESPIRATORY: Breath sounds diminished at the bases. ABDOMEN: Soft, mild diffuse discomfort. LEGS: No edema. No swelling. NERVOUS SYSTEM: No focal deficits. LABS: At this time: CBC within normal limits. Sodium 128. ASSESSMENT: 1. Chronic obstructive pulmonary disease acute exacerbation with acute on chronic systolic dysfunction. 2. Persistent abdominal pain. 3. History of recent cholecystectomy. 4. Increased bilirubin. RECOMMENDATIONS AND DISCUSSION: Recommend to continue current medications, continue symptomatic treatment. Otherwise, we will monitor the patient closely. Guarded prognosis. Monitor renal function closely. Further recommendations to follow. MTDD
--- NOTE | 2017-02-02 09:38 | PN ---
DATE OF SERVICE: 01/25/2017 This 87-year-old woman was admitted with abdominal pain. She also had multiple medical issues. The patient had CHF, acute exacerbation. She is being closely monitored. Cardiology and Pulmonology are following the patient along with Surgery. Past medical history reviewed. REVIEW OF SYSTEMS: CARDIOVASCULAR SYSTEM: No angina. RESPIRATORY SYSTEM: As mentioned earlier. GI: As mentioned earlier. : No dysuria, retention. NERVOUS SYSTEM: No numbness, weakness. Current medications are reviewed and include: 1. Tylenol. 2. Ventolin. 3. Bentyl. 4. Lasix. 5. Levsin. 6. Imdur. 7. Lactated Ringer. 8. Cozaar. 9. Meropenem. 10. Zofran. 11. Pravachol. PHYSICAL EXAM: The patient is alert and oriented x3. Pulse 90, blood pressure 141/87, respiration 18, temperature 97.7, pulse ox 99% on 3 L. HEENT: Conjunctive normal. Oral mucosa moist. NECK: No jugular venous distention. No carotid bruit. No lymph node enlargement. CARDIOVASCULAR: S1, S2 muffled. No S3. No S4. RESPIRATORY: Breath sounds diminished at the bases. Bilateral scattered rhonchi and crackles. ABDOMEN: Soft, obese, non-tender. LEGS: Bilateral leg edema. NERVOUS SYSTEM: Diffusely weak. LAB INVESTIGATIONS AT THIS TIME: INR is 1.4. Sodium 132. The bilirubin is elevated at 2.1. ASSESSMENT: 1. Congestive heart failure, acute exacerbation, with acute on chronic systolic dysfunction, ejection fraction 20%. 2. Persistent abdominal pain of undetermined etiology. 3. On and off chest pain. 4. Paroxysmal atrial fibrillation. 5. Recent cholecystectomy. 6. Multiple complex medical issues. RECOMMENDATIONS AND DISCUSSION: In this 87-year-old woman who presented with multiple complex medical issues, we will monitor the patient closely, continue the diuretics. Monitor fluid/electrolyte balance closely. Swelling is still improving; however, the patient is complaining of abdominal pain which is mostly situated in the right lower quadrant and sometimes upper quadrant. The patient also was having chest pain. Discussed with the patient at length. We will closely follow with Surgery as well as Cardiology. Further recommendations to follow. JOVANNID
--- NOTE | 2017-02-02 09:39 | PN ---
DATE OF SERVICE: 01/29/17 This 87 year old woman was admitted with abdominal pain, still has CHF acute exacerbation is being closely monitored. No chest pain, no palpitations. No fever. On exam, alert and oriented times three. Pulse 85. Blood pressure 101/62. Respiratory rate 18. Temperature 97.7. Pulse ox 98% on 3 L. HEENT: Conjunctivae normal. NECK: No JVD. CARDIOVASCULAR: S1, S2 muffled. RESPIRATORY: Breath sounds diminished at the bases. A few scattered rhonchi. Abdomen soft, nontender. No mass palpable. LEGS: Bilateral leg edema. NERVOUS SYSTEM: No focal deficits. LABS: CBC within normal limits. Otherwise, chloride is 78. Total bilirubin 2.3. ASSESSMENT: 1. Congestive heart failure with acute on chronic systolic dysfunction ejection fraction 20%. 2. Persistent abdominal pain. 3. History of recent cholecystectomy. 4. Increased bilirubin. 5. Hypochloremia. RECOMMENDATIONS AND DISCUSSION: Recommend to continue the current medications. Continue [id number] treatment. Continue to monitor. I recommend cautious IV fluids and continue to monitor. Guarded prognosis. Further recommendations to follow. MTDD
--- NOTE | 2017-02-02 09:47 | PN ---
DATE OF SERVICE: 01/26/2017 This 87-year-old woman was admitted with CHF acute exacerbation also had abdominal distention and pain also. The patient complaining of persistent right lower quadrant abdominal pain as well as some pain in the upper quadrant also. Multiple consultants are following the patient. The patient is on diuretics. The CHF part appears to be improving at this time. Surgery is following the patient along with Cardiology. PAST MEDICAL HISTORY: Reviewed. REVIEW OF SYSTEMS: CARDIOVASCULAR: As mentioned. RESPIRATORY: As mentioned. GI: No nausea. : No dysuria. NERVOUS SYSTEM: No numbness or weakness. Current medications are reviewed and include: Nitrostat, Zofran, Protonix, Pravachol, Aldactone, Carafate, Restoril. Medication doses reviewed. PHYSICAL EXAMINATION: The patient is alert and oriented x2. Pulse 79, blood pressure 105/63, respirations 16, temperature 97.8, pulse ox 97% on 3-L. HEENT: Conjunctivae normal. Oral mucosa moist. NECK: No jugular venous distention. No carotid bruits. No lymph node enlargement. CARDIOVASCULAR: S1, S2. Systolic ejection murmur RESPIRATORY: Breath sounds are diminished at the bases. A few scattered rhonchi. ABDOMEN: Soft, mild diffuse discomfort to palpation. No guarding, no rigidity. No mass palpable. LEGS: No edema, no swelling. NERVOUS SYSTEM: Higher function as mentioned, moves all four limbs. No focal motor deficits. LYMPHATICS: No lymphadenopathy. SKIN: No rash, ulcer, bleeding. Labs at this time are reviewed and include sodium 113, potassium 3.5, creatinine 1.10. ASSESSMENT: 1. Congestive heart failure acute exacerbation with acute on chronic systolic dysfunction with ejection fraction 20 to 25%. 2. Possibly nonischemic cardiomyopathy. 3. Abdominal pain of undetermined etiology. 4. Recent cholecystectomy. 5. Multiple medical issues. 6. Increased total bilirubin. RECOMMENDATIONS AND DISCUSSION: In this 87-year-old woman who presented with multiple complex medical issues, will monitor the patient closely. Continue the current medications, continue symptomatic treatment. Discussed with Cardiology and Surgery. Continue the conservative line of management. Prognosis guarded. Further recommendations to follow. See orders for details. Monitor fluid and electrolyte balance closely. Will monitor the creatinine also closely. [facility]
--- NOTE | 2017-02-02 09:53 | PN ---
DATE OF SERVICE: 01/31/2017 This 87-year-old woman was admitted with CHF, acute exacerbation. She was also complaining of abdominal pain and discomfort which is persistent. No chest pain. No palpitation. No fever. On exam, alert and oriented x3. Pulse 88, blood pressure 110/77, respiration 18 , temperature 97 degrees, pulse ox 99% on 3 L. HEENT: Conjunctivae normal. Oral mucosa moist. NECK: No jugular venous distention. No carotid bruit. No lymph node enlargement. CARDIOVASCULAR: S1, S2 muffled. RESPIRATORY: Breath sounds diminished at the bases. Bilateral scattered rhonchi and crackles. ABDOMEN: Soft. Mild diffuse discomfort. LEGS: Minimal edema. NERVOUS SYSTEM: No focal deficit. LABS: Bilirubin is 2. Sodium 131. CBC within normal limits. ASSESSMENT: 1. Congestive heart failure, acute exacerbation, with acute and chronic systolic dysfunction; ejection fraction 20%. 2. Diffuse abdominal pain, persistent. 3. History of recent cholecystectomy. 4. Increased bilirubin. RECOMMENDATIONS AND DISCUSSION: I recommend to continue current medications, continue symptomatic treatment. Will continue conservative line of treatment. Diuretics. Monitor fluid/electrolyte balance closely. Further recommendations to follow. MTDD
--- NOTE | 2017-02-02 09:58 | PN ---
DATE OF SERVICE: 01/30/2017 This 87-year-old woman was admitted with abdominal pain also CHF acute exacerbation. The patient is being closely monitored at this time. The patient also had chest pains also. The hypochloremia is improved now. No fever, no cough. On exam, alert and oriented x3. Pulse 82, blood pressure 114/73, respirations 18 , temperature 97.4, pulse ox 99% on 3-L. HEENT: Conjunctivae normal. NECK: No jugular venous distention. CARDIOVASCULAR: S1, S2. RESPIRATORY: Breath sounds are diminished at the bases. Bilateral scattered rhonchi and crackles. ABDOMEN: Soft, mild diffuse discomfort. LEGS: No edema. NERVOUS SYSTEM: No focal deficits. LABS: CBC within normal limits. Otherwise INR is 1.7, sodium is 122. ASSESSMENT: 1. Congestive heart failure acute exacerbation with acute on chronic systolic dysfunction. Ejection fraction less than 20% present on admission. 2. Diffuse abdominal pain of undetermined etiology with recent cholecystectomy history. 3. On and off chest pains, possible unstable angina. 4. History of paroxysmal atrial fibrillation. 5. Multiple complex medical issues. RECOMMENDATIONS AND DISCUSSION: I recommend to continue the current medications , continue monitoring and symptomatic treatment. Otherwise the family requested discussion with tertiary care center. Will do the same. Closely follow with Cardiology and Pulmonology. Prognosis guarded. Further recommendations to follow. MTDD
== END 2017-01-31 14:20 | disposition short-term general hospital (02) | DRG 292 ==
LOC: EC 10:39 → 6SEL 12:34
PROVIDERS: ADMIT Internal Medicine; ATTEND Internal Medicine
PROC: 0DB68ZX Excision of Stomach, Via Natural or Artificial Opening Endoscopic, Diagnostic (ICD-10-PCS; 2017-01-25)
PROC: 0DB58ZX Excision of Esophagus, Via Natural or Artificial Opening Endoscopic, Diagnostic (ICD-10-PCS; 2017-01-25)
PROC: 0DB98ZX Excision of Duodenum, Via Natural or Artificial Opening Endoscopic, Diagnostic (ICD-10-PCS; principal; 2017-01-25 08:00)
DX: I11.0 Hypertensive heart disease with heart failure (principal); E87.1 Hypo-osmolality and hyponatremia; R18.8 Other ascites; J96.11 Chronic respiratory failure with hypoxia; J44.1 Chronic obstructive pulmonary disease with (acute) exacerbation; E87.8 Other disorders of electrolyte and fluid balance, not elsewhere classified; I42.9 Cardiomyopathy, unspecified; J98.11 Atelectasis; I50.23 Acute on chronic systolic (congestive) heart failure; R10.84 Generalized abdominal pain; I48.0 Paroxysmal atrial fibrillation; K29.70 Gastritis, unspecified, without bleeding; K59.00 Constipation, unspecified; I49.3 Ventricular premature depolarization; F41.9 Anxiety disorder, unspecified; K57.90 Diverticulosis of intestine, part unspecified, without perforation or abscess without bleeding; I25.10 Atherosclerotic heart disease of native coronary artery without angina pectoris; K21.0 Gastro-esophageal reflux disease with esophagitis; K29.80 Duodenitis without bleeding; E78.5 Hyperlipidemia, unspecified; I25.2 Old myocardial infarction; M19.91 Primary osteoarthritis, unspecified site; M81.0 Age-related osteoporosis without current pathological fracture; K44.9 Diaphragmatic hernia without obstruction or gangrene; Z99.81 Dependence on supplemental oxygen; Z95.810 Presence of automatic (implantable) cardiac defibrillator; Z90.49 Acquired absence of other specified parts of digestive tract; Z87.11 Personal history of peptic ulcer disease; Z90.710 Acquired absence of both cervix and uterus; Z86.79 Personal history of other diseases of the circulatory system; Z87.01 Personal history of pneumonia (recurrent); Z87.891 Personal history of nicotine dependence; Z79.82 Long term (current) use of aspirin; Z79.01 Long term (current) use of anticoagulants; Z79.899 Other long term (current) drug therapy; Z88.1 Allergy status to other antibiotic agents; Z91.041 Radiographic dye allergy status; Z88.5 Allergy status to narcotic agent; Z88.0 Allergy status to penicillin; Z91.013 Allergy to seafood; Z88.8 Allergy status to other drugs, medicaments and biological substances; Z91.018 Allergy to other foods
CPT/HCPCS: 36415; 43239; 71010; 71020; 74176; 80053; 80061; 81003; 82150; 82248; 82272; 82550; 82553; 83690; 83735; 83880; 84484; 85025; 85379; 85610; 85652; 85730; 86140; 87040; 87045; 87046; 87086; 88305; 88312; 88342; 89055; 93005; 93308; 93970; 94640; 94760; 96361; 96365; 96375; 96376; 99291

== ENCOUNTER → 2017-03-19 | Outpatient (CLI) | payer MEDICARE ==
--- NOTE | 2017-03-19 12:34 | XR ---
EXAMINATION TYPE: XR abdomen 2V DATE OF EXAM: 03/19/2017 COMPARISON: NONE HISTORY: Abdominal plain and bleeding with recent cholecystectomy. TECHNIQUE: 2 views of the abdomen were obtained. FINDINGS: There is a nonobstructive bowel gas pattern with no evidence of bowel dilation. Cholecystec sin clip is seen within the right upper quadrant. Hypertrophic changes are seen of the thoracolumbar and lumbosacral spine. Bibasilar atelectasis is seen within the lung bases. Mild degenerative change s of the femoral acetabular joints are also seen. IMPRESSION: No acute intra-abdominal process.
== END | disposition home or self-care (01) ==
LOC: RADXRYALE 12:13
PROVIDERS: ATTEND Physician Assistant Medical
DX: R14.0 Abdominal distension (gaseous) (principal)
CPT/HCPCS: 74020

== ENCOUNTER 2017-04-12 10:37 | Inpatient (IN) | payer MEDICARE ==
[2017-04-12] MEDS ORDERED: IPRATROPIUM-ALBUTEROL 3 ML NEB INHALATION STA (11:12)
[2017-04-12] MEDS ORDERED: NITROGLYCERIN OINT 1 INCH/GM PACKET TOPICAL STA (11:12)
[2017-04-12] MEDS ORDERED: FUROSEMIDE 10 MG/ML 4 ML VIAL IV STA (11:13)
--- NOTE | 2017-04-12 11:21 | ED ---
SOB HPI - General Chief Complaint: Shortness of Breath Stated Complaint: chf - sent by dr Travis Seen by Provider: 04/12/17 11:00 Source: patient, family, RN notes reviewed Mode of arrival: wheelchair Limitations: no limitations - History of Present Illness Initial Comments: This is a 7-year-old female history of congestive heart failure who presents with complaints of several days of progressively worsening shortness of breath. She also has exertional dyspnea. She also states she has some peripheral edema but mostly bloating around the abdominal area where she normally retains fluid. She also states she's had a 7 pound weight loss over last several days. She has nonproductive cough she has some nausea. She denies any fevers chills sweats or chest pain. MD Complaint: shortness of breath, cough - Related Data Home Medications Medication Instructions Recorded Confirmed Aspirin EC [Ecotrin Low Dose] 81 mg PO DAILY 12/19/16 04/12/17 Atenolol 25 mg PO BID 12/19/16 04/12/17 LORazepam [Ativan] 1 mg PO HS PRN 12/19/16 04/12/17 Losartan [Cozaar] 25 mg PO BID 12/19/16 04/12/17 Pravastatin Sodium [Pravachol] 5 mg PO DAILY 12/19/16 04/12/17 Spironolactone 12.5 mg PO DAILY 12/19/16 04/12/17 Warfarin [Coumadin] 4 mg PO PC-SUPPER 12/19/16 04/12/17 Omeprazole 20 mg PO AC-BRKFST 01/13/17 04/12/17 Cholecalciferol [Vitamin D3] 1,000 unit PO DAILY 04/12/17 04/12/17 Digoxin [Lanoxin] 62.5 mcg PO DAILY 04/12/17 04/12/17 Furosemide [Lasix] 20 mg PO BID 04/12/17 04/12/17 Lactobacillus Acidophilus 1 tab PO BID 04/12/17 04/12/17 [Acidophilus] Melatonin 2 mg PO HS PRN 04/12/17 04/12/17 Miconazole Nitrate [Lotrimin AF 1 applic TOPICAL BID 04/12/17 04/12/17 Powder] Allergies Allergy/AdvReac Type Severity Reaction Status Date / Time cefaclor [From Ceclor] Allergy Unknown Verified 04/12/17 10:51 celecoxib [From Celebrex] Allergy Unknown Verified 04/12/17 10:51 cephalexin [From Keflex] Allergy Unknown Verified 04/12/17 10:51 clindamycin [From Cleocin] Allergy Unknown Verified 04/12/17 10:51 dolasetron [From Anzemet] Allergy Unknown Verified 04/12/17 10:51 enalaprilat [From Vasotec] Allergy Unknown Verified 04/12/17 10:51 hydromorphone [From Dilaudid] Allergy Unknown Verified 04/12/17 10:51 hydroxyzine [From Vistaril] Allergy Unknown Verified 04/12/17 10:51 ibuprofen [From Motrin] Allergy Unknown Verified 04/12/17 10:51 Iodinated Contrast- Oral and Allergy Unknown Verified 04/12/17 10:51 IV Dye [Iodinated Contrast Media - Oral and] levofloxacin [From Levaquin] Allergy Unknown Verified 04/12/17 10:51 morphine Allergy Unknown Verified 04/12/17 10:51 oxycodone Allergy Unknown Verified 04/12/17 10:51 Penicillins Allergy Swelling Verified 04/12/17 10:51 promethazine [From Phenergan] Allergy Unknown Verified 04/12/17 10:51 shellfish derived [Shellfish] Allergy Rash/Hives Verified 04/12/17 10:51 cortisone AdvReac anxiety Verified 04/12/17 10:51 attack diphenhydramine AdvReac Nausea & Verified 04/12/17 13:15 [From Benadryl] Vomiting & Diarrhea hydrocortisone [From Cortef] AdvReac anxiety Verified 04/12/17 13:15 attack methylprednisolone AdvReac anxiety Verified 04/12/17 10:51 [From Medrol] attack prednisone AdvReac anxiety Verified 04/12/17 13:15 attack sea salt Allergy Unknown Uncoded 04/12/17 10:51 STEROIDS AdvReac anxiety Uncoded 04/12/17 10:51 attack Review of Systems ROS Statement: Those systems with pertinent positive or pertinent negative responses have been documented in the HPI. ROS Other: All systems not noted in ROS Statement are negative. Past Medical History Past Medical History: Atrial Fibrillation, Coronary Artery Disease (CAD), Chest Pain / Angina, Heart Failure, GERD/Reflux, Hyperlipidemia, Hypertension, Myocardial Infarction (AL), Osteoarthritis (OA), Pneumonia Additional Past Medical History / Comment(s): Bloating with eating in R upper abdominal quadrant and has nausea, home o2 3 liters n/c, nonischemic cardiomyopathy with EF of 20%, mi x4, v-tach 2007, osteoporosis, diverticultiis, hiatal hernia, bone spurs lt shoulder,anemia, duodenal ulcer. Last Myocardial Infarction Date:: 2007 History of Any Multi-Drug Resistant Organisms: None Reported Past Surgical History: AICD, Cholecystectomy, Heart Catheterization, Hysterectomy, Joint Replacement, Orthopedic Surgery, Pacemaker Additional Past Surgical History / Comment(s): sx to repair fractured nose, d&c , ruben foot sx ruben bunionectomy, lt knee replacment, rt knee arthroscopy, pacemaker/defibrillator medtronic left chest serial #[id number], mult heart caths, colonoscopies/EGD. Past Anesthesia/Blood Transfusion Reactions: Motion Sickness, Postoperative Nausea & Vomiting (PONV) Additional Past Anesthesia/Blood Transfusion Reaction / Comment(s): no problems with prior blood transfusion Type of Cardiac Device: Permanent Pacemaker, AICD Device Placement Date:: Mar Past Psychological History: Anxiety Smoking Status: Former smoker - Past Family History Mother Family Medical History: Cancer, Diabetes Mellitus Additional Family Medical History / Comment(s): uterine cancer Daughter(s) Family Medical History: Cancer Additional Family Medical History / Comment(s): ovarian cancer Father Additional Family Medical History / Comment(s): cardiac problems General Exam - General Exam Comments Initial Comments: This is a well-developed well-nourished awake alert oriented 3 female Limitations: no limitations General appearance: alert, in no apparent distress Head exam: Present: atraumatic, normocephalic, normal inspection Eye exam: Present: normal appearance, PERRL, EOMI. Absent: scleral icterus, conjunctival injection, periorbital swelling ENT exam: Present: normal exam, mucous membranes moist Neck exam: Present: normal inspection. Absent: tenderness, meningismus, lymphadenopathy Respiratory exam: Present: rales, decreased breath sounds. Absent: respiratory distress, wheezes, rhonchi, stridor Cardiovascular Exam: Present: regular rate, normal rhythm, normal heart sounds. Absent: systolic murmur, diastolic murmur, rubs, gallop, clicks GI/Abdominal exam: Present: soft, normal bowel sounds. Absent: distended, tenderness, guarding, rebound, rigid Extremities exam: Present: full ROM, normal capillary refill, pedal edema. Absent: tenderness, joint swelling, calf tenderness Back exam: Present: normal inspection Neurological exam: Present: alert, oriented X3, CN II-XII intact Psychiatric exam: Present: normal affect, normal mood Skin exam: Present: warm, dry, intact, normal color. Absent: rash Course Vital Signs 04/12/17 04/12/17 04/12/17 10:48 12:03 12:13 Temperature 96.8 F L Pulse Rate 70 70 68 Respiratory 22 Rate Blood Pressure 115/67 O2 Sat by Pulse 97 Oximetry 04/12/17 04/12/17 12:44 14:11 Temperature 97.7 F 97.6 F Pulse Rate 75 69 Respiratory 18 18 Rate Blood Pressure 106/61 118/67 O2 Sat by Pulse 100 97 Oximetry - Reevaluation(s) Reevaluation #1: 04/12/17 14:18 Evaluation patient reveals no real changes in her status at this time. Medical Decision Making - Medical Decision Making I did discuss findings with the patient family members. Also with the hospitalist patient will be admitted for inpatient evaluation cardiology consultation. - Lab Data Result diagrams: 04/12/17 11:14 04/12/17 11:14 Lab Results 04/12/17 04/12/17 04/12/17 Range/Units 11:14 11:14 11:14 WBC 5.4 (3.8-10.6) k/uL RBC 4.62 (3.80-5.40) m/uL Hgb 13.7 (11.4-16.0) gm/dL Hct 41.9 (34.0-46.0) % MCV 90.6 (80.0-100.0) fL MCH 29.6 (25.0-35.0) pg MCHC 32.7 (31.0-37.0) g/dL RDW 15.4 (11.5-15.5) % Plt Count 180 (150-450) k/uL Neutrophils % 78 % Lymphocytes % 14 % Monocytes % 5 % Eosinophils % 1 % Basophils % 1 % Neutrophils # 4.2 (1.3-7.7) k/uL Lymphocytes # 0.8 L (1.0-4.8) k/uL Monocytes # 0.3 (0-1.0) k/uL Eosinophils # 0.0 (0-0.7) k/uL Basophils # 0.0 (0-0.2) k/uL Sodium 133 L (137-145) mmol/L Potassium 4.6 (3.5-5.1) mmol/L Chloride 95 L (98-107) mmol/L Carbon Dioxide 24 (22-30) mmol/L Anion Gap 14 mmol/L BUN 19 H (7-17) mg/dL Creatinine 1.14 H (0.52-1.04) mg/dL Est GFR (MDRD) Af Amer 55 (>60 ml/min/1.73 sqM) Est GFR (MDRD) Non-Af 45 (>60 ml/min/1.73 sqM) Glucose 177 H (74-99) mg/dL Calcium 9.3 (8.4-10.2) mg/dL Magnesium 1.4 L (1.6-2.3) mg/dL Total Bilirubin 1.5 H (0.2-1.3) mg/dL AST 33 (14-36) U/L ALT 20 (9-52) U/L Alkaline Phosphatase 56 (38-126) U/L Total Creatine Kinase 99 (30-135) U/L CK-MB (CK-2) 2.6 H* (0.0-2.4) ng/mL CK-MB (CK-2) Rel Index 2.6 Troponin I 0.067 H* (0.000-0.034) ng/mL NT-Pro-B Natriuret Pep pg/mL Total Protein 6.9 (6.3-8.2) g/dL Albumin 4.1 (3.5-5.0) g/dL 04/12/17 Range/Units 11:14 WBC (3.8-10.6) k/uL RBC (3.80-5.40) m/uL Hgb (11.4-16.0) gm/dL Hct (34.0-46.0) % MCV (80.0-100.0) fL MCH (25.0-35.0) pg MCHC (31.0-37.0) g/dL RDW (11.5-15.5) % Plt Count (150-450) k/uL Neutrophils % % Lymphocytes % % Monocytes % % Eosinophils % % Basophils % % Neutrophils # (1.3-7.7) k/uL Lymphocytes # (1.0-4.8) k/uL Monocytes # (0-1.0) k/uL Eosinophils # (0-0.7) k/uL Basophils # (0-0.2) k/uL Sodium (137-145) mmol/L Potassium (3.5-5.1) mmol/L Chloride (98-107) mmol/L Carbon Dioxide (22-30) mmol/L Anion Gap mmol/L BUN (7-17) mg/dL Creatinine (0.52-1.04) mg/dL Est GFR (MDRD) Af Amer (>60 ml/min/1.73 sqM) Est GFR (MDRD) Non-Af (>60 ml/min/1.73 sqM) Glucose (74-99) mg/dL Calcium (8.4-10.2) mg/dL Magnesium (1.6-2.3) mg/dL Total Bilirubin (0.2-1.3) mg/dL AST (14-36) U/L ALT (9-52) U/L Alkaline Phosphatase (38-126) U/L Total Creatine Kinase (30-135) U/L CK-MB (CK-2) (0.0-2.4) ng/mL CK-MB (CK-2) Rel Index Troponin I (0.000-0.034) ng/mL NT-Pro-B Natriuret Pep 4520 pg/mL Total Protein (6.3-8.2) g/dL Albumin (3.5-5.0) g/dL - EKG Data -: EKG Interpreted by Me (I think her rhythm rate was 71. Interval 120 QRS 106 QT since QTC of 394/4) - Radiology Data Radiology results: report reviewed (I did review the imaging there is evidence of basilar airspace disease primarily smaller pleural effusion), image reviewed Critical Care Time Critical Care Time: Yes Critical Care Time: 32 minutes of critical care time which includes initial presentation with history physical labs x-rays. Reevaluation the patient. Review of old charting. Discussed with patient and family members. Discussed with the admitting service. Admitting orders and documentation of the above. Disposition Clinical Impression: Congestive heart failure (CHF), Renal insufficiency syndrome, Elevated troponin Disposition: ADMITTED IP TO THIS HOSP Condition: Stable Referrals: César Reich DO [Primary Care Provider] - 1-2 days
[2017-04-12 11:33] LABS: Basophils % (A) 1 %; CHCM 34.4; Eosinophils % (A) 1 %; HCT 41.9 % (34.0-46.0); HDW 2.66; HGB 13.7 gm/dL (11.4-16.0); Luc # (Auto) 0.11; Luc % (Auto) 2; Lymphocytes # (A) 0.8 k/uL (1.0-4.8); Lymphocytes % (A) 14 %; MCH 29.6 pg (25.0-35.0); MCHC 32.7 g/dL (31.0-37.0); MCV 90.6 fL (80.0-100.0); Mean Platelet Volume 8.4; Monocytes # (A) 0.3 k/uL (0-1.0); Monocytes % (A) 5 %; Neutrophils # (A) 4.2 k/uL (1.3-7.7); Neutrophils % (A) 78 %; RBC 4.62 m/uL (3.80-5.40); RDW 15.4 % (11.5-15.5); WBC 5.4 k/uL (3.8-10.6)
[2017-04-12 11:45] LABS: Calcium 9.3 mg/dL (8.4-10.2); Total Bilirubin 1.5 mg/dL (0.2-1.3); Total Protein 6.9 g/dL (6.3-8.2)
[2017-04-12 11:47] LABS: Magnesium 1.4 mg/dL (1.6-2.3); Potassium 4.6 mmol/L (3.5-5.1)
--- NOTE | 2017-04-12 11:59 | XR ---
EXAMINATION TYPE: XR chest 2V DATE OF EXAM: 04/12/2017 HISTORY: difficulty breathing. REFERENCE: Previous study dated 01/28/2017. FINDINGS: There is a multilead pacing device on the left. The heart is enlarged. There is bibasilar atelectasis. There is a left-sided effusion. IMPRESSION: 1. CARDIOMEGALY. 2. BIBASILAR AIRSPACE DISEASE. 3. SMALL, LEFT EFFUSION.
[2017-04-12 12:07] LABS: Creatine Kinase MB 2.6 ng/mL (0.0-2.4); Troponin I 0.067 ng/mL (0.000-0.034)
[2017-04-12] MEDS: SODIUM CHLORIDE 0.9% 1,000 ML IV SCH (14:35)
[2017-04-12 15:21] LABS: INR 4.5 (<1.2); Partial Thromboplastin Time 32.9 sec (22.0-30.0); Prothrombin Time 44.2 sec (9.0-12.0)
[2017-04-12] MEDS: MAGNESIUM SULFATE-D5W PMX 1 GM in DEXTROSE/WATER 1 100ML.BAG IVPB SCH ×2 (17:20→19:47)
[2017-04-12] MEDS: LACTOBACILLUS ACIDOPH & BULGAR 1 EACH PACKET PO SCH (17:34)
[2017-04-12] MEDS: NITROGLYCERIN OINT 1 INCH/GM PACKET TOPICAL SCH ×2 (17:34→21:39)
[2017-04-12] MEDS: FUROSEMIDE 10 MG/ML 4 ML VIAL IV SCH (17:55)
[2017-04-12] MEDS ORDERED: WARFARIN 2 MG TAB PO SCH (18:30)
[2017-04-12] MEDS: NYSTATIN 100,000 UNIT/GM POWD 15 GM TOPICAL SCH (19:44)
[2017-04-12] MEDS ORDERED: LORazepam 1 MG TAB PO PRN (21:00)
[2017-04-12] MEDS ORDERED: FUROSEMIDE 20 MG TAB PO SCH (21:00)
--- NOTE | 2017-04-13 00:24 | P.HPIM ---
History of Present Illness H&P Date: 04/12/17 Chief Complaint: Shortness of breath Patient is a 87-year-old female with a known history of atrial fibrillation on anticoagulation with Coumadin, nonischemic cardiac myopathy his ejection fraction 20% status post AICD placement on follow-up with Dr. Thomas as an outpatient To the hospital with complaints of short of breath worsening for the past 2 days and exertional dyspnea. Patient states that she does have increased abdominal girth and weight gain about 7 pounds. Patient also had mild leg swelling as well. Patient does have a wet cough without sputum production. Patient felt congested. No fever no chills. No compressive chest pain. Patient called Dr. Thomas's office and was recommended to come to ER. Patient says that she does take Lasix 20 mg daily and did increase last couple of days to up to 40 mg without improvement in symptoms. Patient says that she did follow with [facility] recently and was started back on digoxin. No re ent travel or sick contacts at home. Chest x-ray showed cardiomegaly, bibasilar air space disease and small left pleural effusion EKG in sinus rhythm Troponin 0.067 and INR 4.5 BMP 4520 WBC 5.4, hemoglobin 13.7 BUN 14 creatinine 1.14 Review of Systems CONSTITUTIONAL: No fever, no malaise, no fatigue. HEENT: No recent visual problems or hearing problems. Denied any sore throat. CARDIOVASCULAR: No chest pain, positive orthopnea and PND, no palpitations, no syncope. PULMONARY: , Cough and congestion no sputum production no hemoptysis. GASTROINTESTINAL: No diarrhea, no nausea, no vomiting, no abdominal pain. Normoactive bowel sounds. Increased abdominal girth NEUROLOGICAL: No headaches, no weakness, no numbness. HEMATOLOGICAL: Denies any bleeding or petechiae. GENITOURINARY: Denies any burning micturition, frequency, or urgency. MUSCULOSKELETAL/RHEUMATOLOGICAL: Denies any joint pain, swelling, or any muscle pain. ENDOCRINE: Denies any polyuria or polydipsia. The rest of the 14-point review of systems is negative. Past Medical History Past Medical History: Atrial Fibrillation, Coronary Artery Disease (CAD), Chest Pain / Angina, Heart Failure, GERD/Reflux, Hyperlipidemia, Hypertension, Myocardial Infarction ([place]), Osteoarthritis (OA), Pneumonia Additional Past Medical History / Comment(s): Bloating with eating in R upper abdominal quadrant and has nausea, home o2 3 liters n/c, nonischemic cardiomyopathy with EF of 20%, mi x4, v-tach 2007, osteoporosis, diverticultiis, hiatal hernia, bone spurs lt shoulder,anemia, duodenal ulcer. Last Myocardial Infarction Date:: 2007 History of Any Multi-Drug Resistant Organisms: None Reported Past Surgical History: AICD, Cholecystectomy, Heart Catheterization, Hysterectomy, Joint Replacement, Orthopedic Surgery, Pacemaker Additional Past Surgical History / Comment(s): sx to repair fractured nose, d&c , ruben foot sx ruben bunionectomy, lt knee replacment, rt knee arthroscopy, pacemaker/defibrillator [employer] left chest serial #[id number], mult heart caths, colonoscopies/EGD. Past Anesthesia/Blood Transfusion Reactions: Motion Sickness, Postoperative Nausea & Vomiting (PONV) Additional Past Anesthesia/Blood Transfusion Reaction / Comment(s): no problems with prior blood transfusion Type of Cardiac Device: Permanent Pacemaker, AICD Device Placement Date:: Mar Past Psychological History: Anxiety Smoking Status: Former smoker - Past Family History Mother Family Medical History: Cancer, Diabetes Mellitus Additional Family Medical History / Comment(s): uterine cancer Daughter(s) Family Medical History: Cancer Additional Family Medical History / Comment(s): ovarian cancer Father Additional Family Medical History / Comment(s): cardiac problems Medications and Allergies Home Medications Medication Instructions Recorded Confirmed Type Aspirin EC [Ecotrin Low Dose] 81 mg PO DAILY 12/19/16 04/12/17 History Atenolol 25 mg PO BID 12/19/16 04/12/17 History LORazepam [Ativan] 1 mg PO HS PRN 12/19/16 04/12/17 History Losartan [Cozaar] 25 mg PO BID 12/19/16 04/12/17 History Pravastatin Sodium [Pravachol] 5 mg PO DAILY 12/19/16 04/12/17 History Spironolactone 12.5 mg PO DAILY 12/19/16 04/12/17 History Warfarin [Coumadin] 4 mg PO PC-SUPPER 12/19/16 04/12/17 History Omeprazole 20 mg PO AC-BRKFST 01/13/17 04/12/17 History Cholecalciferol [Vitamin D3] 1,000 unit PO DAILY 04/12/17 04/12/17 History Digoxin [Lanoxin] 62.5 mcg PO DAILY 04/12/17 04/12/17 History Furosemide [Lasix] 20 mg PO BID 04/12/17 04/12/17 History Lactobacillus Acidophilus 1 tab PO BID 04/12/17 04/12/17 History [Acidophilus] Melatonin 2 mg PO HS PRN 04/12/17 04/12/17 History Miconazole Nitrate [Lotrimin AF 1 applic TOPICAL BID 04/12/17 04/12/17 History Powder] Allergies Allergy/AdvReac Type Severity Reaction Status Date / Time cefaclor [From Ceclor] Allergy Unknown Verified 04/12/17 10:51 celecoxib [From Celebrex] Allergy Unknown Verified 04/12/17 10:51 cephalexin [From Keflex] Allergy Unknown Verified 04/12/17 10:51 clindamycin [From Cleocin] Allergy Unknown Verified 04/12/17 10:51 dolasetron [From Anzemet] Allergy Unknown Verified 04/12/17 10:51 enalaprilat [From Vasotec] Allergy Unknown Verified 04/12/17 10:51 hydromorphone [From Dilaudid] Allergy Unknown Verified 04/12/17 10:51 hydroxyzine [From Vistaril] Allergy Unknown Verified 04/12/17 10:51 ibuprofen [From Motrin] Allergy Unknown Verified 04/12/17 10:51 Iodinated Contrast- Oral and Allergy Unknown Verified 04/12/17 10:51 IV Dye [Iodinated Contrast Media - Oral and] levofloxacin [From Levaquin] Allergy Unknown Verified 04/12/17 10:51 morphine Allergy Unknown Verified 04/12/17 10:51 oxycodone Allergy Unknown Verified 04/12/17 10:51 Penicillins Allergy Swelling Verified 04/12/17 10:51 promethazine [From Phenergan] Allergy Unknown Verified 04/12/17 10:51 shellfish derived [Shellfish] Allergy Rash/Hives Verified 04/12/17 10:51 cortisone AdvReac anxiety Verified 04/12/17 10:51 attack diphenhydramine AdvReac Nausea & Verified 04/12/17 13:15 [From Benadryl] Vomiting & Diarrhea hydrocortisone [From Cortef] AdvReac anxiety Verified 04/12/17 13:15 attack methylprednisolone AdvReac anxiety Verified 04/12/17 10:51 [From Medrol] attack prednisone AdvReac anxiety Verified 04/12/17 13:15 attack sea salt Allergy Unknown Uncoded 04/12/17 10:51 STEROIDS AdvReac anxiety Uncoded 04/12/17 10:51 attack Physical Exam Vitals: Vital Signs Temp Pulse Resp BP Pulse Ox 04/12/17 14:11 97.6 F 69 18 118/67 97 04/12/17 12:44 97.7 F 75 18 106/61 100 04/12/17 12:13 68 04/12/17 12:03 70 04/12/17 10:48 96.8 F L 70 22 115/67 97 Intake and Output 04/12/17 04/12/17 04/12/17 06:59 14:59 22:59 Other: Weight 73.482 kg Patient Weight 04/13/17 06:59 Weight 73.482 kg PHYSICAL EXAMINATION: Patient is lying in the bed comfortably, no acute distress, awake alert and oriented.. HEENT: Normocephalic. Neck is supple. Pupils reactive. Nostrils clear. Oral cavity is moist. Ears reveal no drainage. Neck reveals no JVD, carotid bruits, or thyromegaly. CHEST EXAMINATION: Trachea is central. Symmetrical expansion. Right basilar crackles positive. Decreased breath sounds bilateral basilar. No wheezing CARDIAC: Normal S1, S2 with no gallops. No murmurs ABDOMEN: Soft. Increased abdominal girth. Bowel sounds normal. No organomegaly. No abdominal bruits. Extremities: 1+ edema. No clubbing or cyanosis Neurologically awake, alert, oriented x3 with well-coordinated movements. Skin: no rash or skin lesions Musculoskeletal: no joint swelling or deformity. Results CBC & Chem 7: 04/12/17 11:14 04/12/17 11:14 Labs: Abnormal Lab Results - Last 24 Hours (Table) 04/12/17 04/12/17 04/12/17 Range/Units 11:14 11:14 11:14 Lymphocytes # 0.8 L (1.0-4.8) k/uL PT (9.0-12.0) sec INR (<1.2) APTT (22.0-30.0) sec Sodium 133 L (137-145) mmol/L Chloride 95 L (98-107) mmol/L BUN 19 H (7-17) mg/dL Creatinine 1.14 H (0.52-1.04) mg/dL Glucose 177 H (74-99) mg/dL Magnesium 1.4 L (1.6-2.3) mg/dL Total Bilirubin 1.5 H (0.2-1.3) mg/dL CK-MB (CK-2) 2.6 H* (0.0-2.4) ng/mL Troponin I 0.067 H* (0.000-0.034) ng/mL 04/12/17 Range/Units 14:56 Lymphocytes # (1.0-4.8) k/uL PT 44.2 H (9.0-12.0) sec INR 4.5 H (<1.2) APTT 32.9 H (22.0-30.0) sec Sodium (137-145) mmol/L Chloride (98-107) mmol/L BUN (7-17) mg/dL Creatinine (0.52-1.04) mg/dL Glucose (74-99) mg/dL Magnesium (1.6-2.3) mg/dL Total Bilirubin (0.2-1.3) mg/dL CK-MB (CK-2) (0.0-2.4) ng/mL Troponin I (0.000-0.034) ng/mL Thrombosis Risk Factor Assmnt - DVT/VTE Prophylaxis DVT/VTE Prophylaxis: Pharmacologic Prophylaxis ordered Assessment and Plan Plan: #1 acute on chronic CHF with systolic dysfunction ejection fraction 20% #2 nonischemic cardiomyopathy status post ACD placement #3 paroxysmal atrial fibrillation on anticoagulation with Coumadin #4 coumadin coagulopathy with INR level 4.5 #5 elevated troponin level. Possible demand mismatch #6 GERD #7 mild hypervolemic hyponatremia Plan: Patient will be continued on Lasix 40 mg every 8 hourly. Continue with digoxin. Continue with atenolol and losartan with blood pressure parameters. Continue telemetry monitoring and follow closely. Cardiology has been consulted. I did discuss with her and son at bedside in detail. Further recommendations based on the clinical course.. Time with Patient: Greater than 30
[2017-04-13 06:36] LABS: Basophils % (A) 1 %; CH 30.1; CHCM 33.3; Eosinophils # (A) 0.1 k/uL (0-0.7); Eosinophils % (A) 2 %; HCT 41.5 % (34.0-46.0); HDW 2.67; HGB 14.1 gm/dL (11.4-16.0); Luc % (Auto) 2; Lymphocytes # (A) 1.2 k/uL (1.0-4.8); Lymphocytes % (A) 22 %; MCH 30.8 pg (25.0-35.0); MCHC 33.9 g/dL (31.0-37.0); MCV 90.9 fL (80.0-100.0); Mean Platelet Volume 7.5; Monocytes # (A) 0.4 k/uL (0-1.0); Monocytes % (A) 7 %; Neutrophils # (A) 3.6 k/uL (1.3-7.7); Neutrophils % (A) 68 %; RBC 4.57 m/uL (3.80-5.40); RDW 14.4 % (11.5-15.5); WBC 5.3 k/uL (3.8-10.6); WBC (Perox) 5.26
[2017-04-13 06:40] LABS: INR 3.6 (<1.2); Prothrombin Time 35.2 sec (9.0-12.0)
[2017-04-13] MEDS: PANTOPRAZOLE 40 MG TABLET PO SCH (06:40)
[2017-04-13] MEDS: FUROSEMIDE 10 MG/ML 4 ML VIAL IV SCH ×2 (06:40→18:16)
[2017-04-13] MEDS: LACTOBACILLUS ACIDOPH & BULGAR 1 EACH PACKET PO SCH ×2 (06:41→18:16)
[2017-04-13 07:10] LABS: Calcium 9.5 mg/dL (8.4-10.2); Magnesium 1.8 mg/dL (1.6-2.3); Potassium 4.3 mmol/L (3.5-5.1)
[2017-04-13] MEDS: ASPIRIN 81 MG PO SCH (08:44)
[2017-04-13] MEDS: LOSARTAN 25 MG TAB PO SCH ×2 (08:44→21:27)
[2017-04-13] MEDS: NYSTATIN 100,000 UNIT/GM POWD 15 GM TOPICAL SCH ×2 (08:44→21:29)
[2017-04-13] MEDS: ATENOLOL 25 MG TAB PO SCH ×2 (08:44→21:27)
[2017-04-13] MEDS: DIGOXIN 125 MCG TAB PO SCH (08:45)
[2017-04-13] MEDS: PRAVASTATIN SODIUM 20 MG TAB PO SCH (08:45)
[2017-04-13] MEDS: SPIRONOLACTONE 25 MG TAB PO SCH (08:46)
[2017-04-13] MEDS: NITROGLYCERIN OINT 1 INCH/GM PACKET TOPICAL SCH ×4 (10:59→21:27)
--- NOTE | 2017-04-13 11:07 | P.CRDCN ---
History of Present Illness Consult date: 04/13/17 Chief complaint: Progressive dyspnea History of present illness: This is a pleasant 87-year-old female patient with a past medical history significant for severe nonischemic cardiomyopathy and status post ICD, hypertension, dyslipidemia, and multiple comorbid conditions, presented to the hospital complaining of shortness of breath. The patient was experiencing progressive exertional dyspnea over the last several days. We tried to manage her as an outpatient by increasing the dose of Lasix by mouth and monitoring the kidney function but the patient did not respond as well. She continues to gain weight, and the shortness of breath was getting worse. She also developed mild bilateral lower extremities edema. Because of that I referred the patient to come to the emergency room. The EKG showed by AV pacing. The BNP came in to be elevated. The chest x-ray showed left pleural effusion. The patient was admitted to the hospital yesterday. She was started on Lasix IV. I'll follow-up with her today she is feeling better. The shortness of breath and bilateral lower extremities edema has improved. Past Medical History Past Medical History: Atrial Fibrillation, Coronary Artery Disease (CAD), Chest Pain / Angina, Heart Failure, GERD/Reflux, Hyperlipidemia, Hypertension, Myocardial Infarction ([place]), Osteoarthritis (OA), Pneumonia Additional Past Medical History / Comment(s): Bloating with eating in R upper abdominal quadrant and has nausea, home o2 3 liters n/c, nonischemic cardiomyopathy with EF of 20%, mi x4, v-tach 2007, osteoporosis, diverticultiis, hiatal hernia, bone spurs lt shoulder,anemia, duodenal ulcer. Last Myocardial Infarction Date:: 2007 History of Any Multi-Drug Resistant Organisms: None Reported Past Surgical History: AICD, Cholecystectomy, Heart Catheterization, Hysterectomy, Joint Replacement, Orthopedic Surgery, Pacemaker Additional Past Surgical History / Comment(s): sx to repair fractured nose, d&c , ruben foot sx ruben bunionectomy, lt knee replacment, rt knee arthroscopy, pacemaker/defibrillator [employer] left chest serial #[id number], mult heart caths, colonoscopies/EGD. Past Anesthesia/Blood Transfusion Reactions: Motion Sickness, Postoperative Nausea & Vomiting (PONV) Additional Past Anesthesia/Blood Transfusion Reaction / Comment(s): no problems with prior blood transfusion Type of Cardiac Device: Permanent Pacemaker, AICD Device Placement Date:: Mar Past Psychological History: Anxiety Smoking Status: Former smoker - Past Family History Mother Family Medical History: Cancer, Diabetes Mellitus Additional Family Medical History / Comment(s): uterine cancer Daughter(s) Family Medical History: Cancer Additional Family Medical History / Comment(s): ovarian cancer Father Additional Family Medical History / Comment(s): cardiac problems Medications and Allergies Home Medications Medication Instructions Recorded Confirmed Type Aspirin EC [Ecotrin Low Dose] 81 mg PO DAILY 12/19/16 04/12/17 History Atenolol 25 mg PO BID 12/19/16 04/12/17 History LORazepam [Ativan] 1 mg PO HS PRN 12/19/16 04/12/17 History Losartan [Cozaar] 25 mg PO BID 12/19/16 04/12/17 History Pravastatin Sodium [Pravachol] 5 mg PO DAILY 12/19/16 04/12/17 History Spironolactone 12.5 mg PO DAILY 12/19/16 04/12/17 History Warfarin [Coumadin] 4 mg PO PC-SUPPER 12/19/16 04/12/17 History Omeprazole 20 mg PO AC-BRKFST 01/13/17 04/12/17 History Cholecalciferol [Vitamin D3] 1,000 unit PO DAILY 04/12/17 04/12/17 History Digoxin [Lanoxin] 62.5 mcg PO DAILY 04/12/17 04/12/17 History Furosemide [Lasix] 20 mg PO BID 04/12/17 04/12/17 History Lactobacillus Acidophilus 1 tab PO BID 04/12/17 04/12/17 History [Acidophilus] Melatonin 2 mg PO HS PRN 04/12/17 04/12/17 History Miconazole Nitrate [Lotrimin AF 1 applic TOPICAL BID 04/12/17 04/12/17 History Powder] Allergies Allergy/AdvReac Type Severity Reaction Status Date / Time cefaclor [From Ceclor] Allergy Unknown Verified 04/12/17 10:51 celecoxib [From Celebrex] Allergy Unknown Verified 04/12/17 10:51 cephalexin [From Keflex] Allergy Unknown Verified 04/12/17 10:51 clindamycin [From Cleocin] Allergy Unknown Verified 04/12/17 10:51 dolasetron [From Anzemet] Allergy Unknown Verified 04/12/17 10:51 enalaprilat [From Vasotec] Allergy Unknown Verified 04/12/17 10:51 hydromorphone [From Dilaudid] Allergy Unknown Verified 04/12/17 10:51 hydroxyzine [From Vistaril] Allergy Unknown Verified 04/12/17 10:51 ibuprofen [From Motrin] Allergy Unknown Verified 04/12/17 10:51 Iodinated Contrast- Oral and Allergy Unknown Verified 04/12/17 10:51 IV Dye [Iodinated Contrast Media - Oral and] levofloxacin [From Levaquin] Allergy Unknown Verified 04/12/17 10:51 morphine Allergy Unknown Verified 04/12/17 10:51 oxycodone Allergy Unknown Verified 04/12/17 10:51 Penicillins Allergy Swelling Verified 04/12/17 10:51 promethazine [From Phenergan] Allergy Unknown Verified 04/12/17 10:51 shellfish derived [Shellfish] Allergy Rash/Hives Verified 04/12/17 10:51 cortisone AdvReac anxiety Verified 04/12/17 10:51 attack diphenhydramine AdvReac Nausea & Verified 04/12/17 13:15 [From Benadryl] Vomiting & Diarrhea hydrocortisone [From Cortef] AdvReac anxiety Verified 04/12/17 13:15 attack methylprednisolone AdvReac anxiety Verified 04/12/17 10:51 [From Medrol] attack prednisone AdvReac anxiety Verified 04/12/17 13:15 attack sea salt Allergy Unknown Uncoded 04/12/17 10:51 STEROIDS AdvReac anxiety Uncoded 04/12/17 10:51 attack Physical Exam Vitals: Vital Signs Temp Pulse Pulse Resp BP BP Pulse Ox 04/13/17 08:34 95 04/13/17 08:00 96.9 F L 85 16 119/68 100 04/13/17 03:44 71 16 109/68 95 04/13/17 00:00 77 18 129/72 98 04/12/17 20:00 96.9 F L 70 18 112/57 97 04/12/17 15:40 97.0 F L 75 16 127/85 99 04/12/17 14:11 97.6 F 69 18 118/67 97 04/12/17 12:44 97.7 F 75 18 106/61 100 04/12/17 12:13 68 04/12/17 12:03 70 Intake and Output 04/12/17 04/13/17 04/13/17 22:59 06:59 14:59 Intake Total 500 Balance 500 Intake: Intake, IV Titration 20 Amount Sodium Chloride 0.9% 1, 20 000 ml @ 20 mls/hr IV . Q24H [facility] Rx#:[id number] Oral 480 Other: Voiding Method Toilet Toilet Toilet # Voids 3 2 Weight 73.482 kg 73 kg - Constitutional General appearance: no acute distress - Respiratory Respiratory: bilateral: diminished - Cardiovascular Rhythm: regular Heart sounds: normal: S1, S2 Results 04/13/17 06:23 04/13/17 06:23 Cardiac Enzymes 04/12/17 04/12/17 04/12/17 Range/Units 11:14 11:14 19:29 AST 33 (14-36) U/L CK-MB (CK-2) 2.6 H* (0.0-2.4) ng/mL Troponin I 0.067 H* 0.053 H* (0.000-0.034) ng/mL 04/13/17 Range/Units 02:39 AST (14-36) U/L CK-MB (CK-2) (0.0-2.4) ng/mL Troponin I 0.061 H* (0.000-0.034) ng/mL Coagulation 04/12/17 04/13/17 Range/Units 14:56 06:23 PT 44.2 H 35.2 H (9.0-12.0) sec APTT 32.9 H (22.0-30.0) sec CBC 04/12/17 04/13/17 Range/Units 11:14 06:23 WBC 5.4 5.3 (3.8-10.6) k/uL RBC 4.62 4.57 (3.80-5.40) m/uL Hgb 13.7 14.1 (11.4-16.0) gm/dL Hct 41.9 41.5 (34.0-46.0) % Plt Count 180 158 (150-450) k/uL Comprehensive Metabolic Panel 04/12/17 04/13/17 Range/Units 11:14 06:23 Sodium 133 L 137 (137-145) mmol/L Potassium 4.6 4.3 (3.5-5.1) mmol/L Chloride 95 L 95 L (98-107) mmol/L Carbon Dioxide 24 32 H (22-30) mmol/L BUN 19 H 21 H (7-17) mg/dL Creatinine 1.14 H 1.24 H (0.52-1.04) mg/dL Glucose 177 H 84 (74-99) mg/dL Calcium 9.3 9.5 (8.4-10.2) mg/dL AST 33 (14-36) U/L ALT 20 (9-52) U/L Alkaline Phosphatase 56 (38-126) U/L Total Protein 6.9 (6.3-8.2) g/dL Albumin 4.1 (3.5-5.0) g/dL Current Medications Generic Name Dose Route Start Last Admin Trade Name Freq PRN Reason Stop Dose Admin Aspirin 81 mg 04/13/17 09:00 04/13/17 08:44 Aspirin PO 81 mg DAILY ENMANUEL Administration Atenolol 25 mg 04/12/17 21:00 04/13/17 08:44 Tenormin PO 25 mg BID ENMANUEL Administration Cholecalciferol 1,000 unit 04/13/17 12:00 Vitamin D3 PO 1200 ENMANUEL Digoxin 62.5 mcg 04/13/17 09:00 04/13/17 08:45 Lanoxin PO 62.5 mcg DAILY ENMANUEL Administration Furosemide 40 mg 04/12/17 18:00 04/13/17 06:40 Lasix IV 40 mg Q12H ENMANUEL Administration Sodium Chloride 1,000 mls @ 20 mls/hr 04/12/17 14:30 04/12/17 14:35 Saline 0.9% IV 20 mls/hr .Q24H ENMANUEL Administration Lactobacillus Acidoph/Bulgaricus 1 each 04/12/17 17:30 04/13/17 06:41 Lactinex PO 1 each BID-W/MEALS ENMANUEL Administration Lorazepam 1 mg 04/12/17 21:00 Ativan PO HS PRN Insomnia Losartan Potassium 25 mg 04/12/17 21:00 04/13/17 08:44 Cozaar PO 25 mg BID ENMANUEL Administration Melatonin 2 mg 04/12/17 14:22 Melatonin PO HS PRN Insomnia Nitroglycerin 0.5 inch 04/12/17 18:00 04/13/17 10:59 Nitro-Bid Oint TOPICAL Not Given QID ENMANUEL Nystatin 1 applic 04/12/17 21:00 04/13/17 08:44 Mycostatin Powder TOPICAL 1 applic BID ENMANUEL Administration Pantoprazole Sodium 40 mg 04/13/17 07:30 04/13/17 06:40 Protonix PO 40 mg AC-BRKFST ENMANUEL Administration Pravastatin Sodium 5 mg 04/13/17 09:00 04/13/17 08:45 Pravachol PO 5 mg DAILY ENMANUEL Administration Spironolactone 12.5 mg 04/13/17 09:00 04/13/17 08:46 Aldactone PO 12.5 mg DAILY ENMANUEL Administration Intake and Output 04/12/17 04/13/17 04/13/17 22:59 06:59 14:59 Intake Total 500 Balance 500 Intake: Intake, IV Titration 20 Amount Sodium Chloride 0.9% 1, 20 000 ml @ 20 mls/hr IV . Q24H [facility] Rx#:[id number] Oral 480 Other: Voiding Method Toilet Toilet Toilet # Voids 3 2 Weight 73.482 kg 73 kg 04/13/17 06:23 04/13/17 06:23 Assessment and Plan Plan: This is a pleasant 87-year-old female patient with severe nonischemic cardiomyopathy who presented to the hospital with progressive dyspnea. I will continue the current medical treatment with Lasix IV. Continue monitor the kidney function and electrolytes. Replace the potassium.
[2017-04-13] MEDS: CHOLECALCIFEROL 1,000 UNIT TAB PO SCH (15:58)
[2017-04-13] MEDS: SODIUM CHLORIDE 0.9% 1,000 ML IV SCH (15:58)
[2017-04-13] MEDS: DOCUSATE 100 MG CAP PO SCH (21:29)
[2017-04-14] MEDS: MELATONIN 1 MG TAB PO PRN ×2 (00:49→21:39)
[2017-04-14] MEDS: LACTOBACILLUS ACIDOPH & BULGAR 1 EACH PACKET PO SCH ×2 (06:47→17:20)
[2017-04-14] MEDS: FUROSEMIDE 10 MG/ML 4 ML VIAL IV SCH ×2 (06:47→19:19)
[2017-04-14] MEDS: PANTOPRAZOLE 40 MG TABLET PO SCH (06:47)
[2017-04-14] MEDS: ASPIRIN 81 MG PO SCH (07:59)
[2017-04-14] MEDS: DOCUSATE 100 MG CAP PO SCH ×2 (08:00→21:39)
[2017-04-14] MEDS: DIGOXIN 125 MCG TAB PO SCH (08:00)
[2017-04-14] MEDS: ATENOLOL 25 MG TAB PO SCH ×2 (08:00→21:39)
[2017-04-14] MEDS: LOSARTAN 25 MG TAB PO SCH ×2 (08:00→21:39)
[2017-04-14] MEDS: PRAVASTATIN SODIUM 20 MG TAB PO SCH (08:01)
[2017-04-14] MEDS: SPIRONOLACTONE 25 MG TAB PO SCH (08:01)
[2017-04-14] MEDS: NITROGLYCERIN OINT 1 INCH/GM PACKET TOPICAL SCH ×4 (08:01→23:37)
[2017-04-14] MEDS: CHOLECALCIFEROL 1,000 UNIT TAB PO SCH (08:02)
[2017-04-14] MEDS: NYSTATIN 100,000 UNIT/GM POWD 15 GM TOPICAL SCH ×2 (08:08→21:40)
[2017-04-14 09:55] VITALS: BMI 28.4
--- NOTE | 2017-04-14 11:29 | P.PN ---
Subjective Principal diagnosis: CHF This is an 86-year-old female who follows with Dr. Thomas in the office. She has a known history of paroxysmal atrial fibrillation, hyperlipidemia, prior myocardial infarction, prior AICD implant, nonischemic cardiomyopathy hypertension, who presented to the hospital with symptoms of progressively worsening shortness of breath. BNP came back to be elevated and chest x-ray revealed a left-sided pleural effusion. Patient was initiated on IV Lasix. Her weight is down 1 kg today, creatinine 1.2, INR 3.6. Patient states she still feels mildly short of breath, did not sleep well last night. Peripheral edema is improving. Objective - Vital Signs Vital signs: Vital Signs Temp 97.3 F L 04/14/17 07:50 Pulse 71 04/14/17 07:50 Resp 18 04/14/17 07:50 BP 138/77 04/14/17 07:50 Pulse Ox 97 04/14/17 07:50 Intake & Output 04/13/17 04/14/17 04/14/17 18:59 06:59 18:59 Intake Total 1098 160 180 Output Total 700 400 Balance 1098 -540 -220 Weight 72.8 kg 72.8 kg Intake: Intake, IV Titration 20 160 Amount Sodium Chloride 0.9% 1, 20 160 000 ml @ 20 mls/hr IV . Q24H [facility] Rx#:[id number] Oral 1078 180 Output: Urine 700 400 Other: Voiding Method Toilet Toilet Toilet # Voids 2 1 - Exam PHYSICAL EXAMINATION: HEENT: Head is atraumatic, normocephalic. Pupils equal, round. Neck is supple. There is no elevated jugular venous pressure. HEART EXAMINATION: Heart S1, S2 normal. No murmur or gallop heard. CHEST EXAMINATION: Lungs are clear to auscultation and precussion. No chest wall tenderness is noted on palpation or with deep breathing. ABDOMEN: Soft, nontender. Bowel sounds are heard. No organomegaly noted. EXTREMITIES: 2+ peripheral pulses with trace evidence of peripheral edema and no calf tenderness noted. NEUROLOGIC patient is awake, alert and oriented -3. . - Labs CBC & Chem 7: 04/13/17 06:23 04/13/17 06:23 Assessment and Plan (1) Systolic and diastolic CHF, acute on chronic Status: Acute (2) NICM (nonischemic cardiomyopathy) Status: Acute (3) AICD (automatic cardioverter/defibrillator) present Status: Acute (4) HTN (hypertension) Status: Acute (5) Hyperlipemia Status: Acute (6) GERD (gastroesophageal reflux disease) Status: Acute (7) Pleural effusion Status: Acute Plan: From cardiology's perspective, we will recommend to continue the patient on her current dose of IV Lasix. Check lytes BUN and creatinine daily weights. DNP note has been reviewed, I agree with a documented findings and plan of care. Patient was seen and examined.
[2017-04-14] MEDS: SODIUM CHLORIDE 0.9% 1,000 ML IV SCH (17:19)
--- NOTE | 2017-04-14 22:11 | P.PN ---
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 Thomas as an outpatient To the hospital with complaints of short of breath worsening for the past 2 days and exertional dyspnea. Patient states that she does have increased abdominal girth and weight gain about 7 pounds. Patient also had mild leg swelling as well. Patient does have a wet cough without sputum production. Patient felt congested. No fever no chills. No compressive chest pain. Patient called Dr. Thomas's office and was recommended to come to ER. Patient says that she does take Lasix 20 mg daily and did increase last couple of days to up to 40 mg without improvement in symptoms. Patient says that she did follow with [facility] recently and was started back on digoxin. No re ent travel or sick contacts at home. Chest x-ray showed cardiomegaly, bibasilar air space disease and small left pleural effusion EKG in sinus rhythm Troponin 0.067 and INR 4.5 BMP 4520 WBC 5.4, hemoglobin 13.7 BUN 14 creatinine 1.14 04/13/2017 Patient's breathing status slightly improved. Continues to be on IV diuresis. No complaints of chest pain. No leg swelling., No nausea vomiting or abdominal pain. No other acute overnight issues. Objective - Vital Signs Vital signs: Vital Signs Temp 96.1 F L 04/13/17 16:00 Pulse 85 04/13/17 16:00 Resp 18 04/13/17 16:00 BP 139/67 04/13/17 16:00 Pulse Ox 100 04/13/17 16:00 Intake & Output 04/13/17 04/13/17 04/14/17 06:59 18:59 06:59 Intake Total 1098 Output Total 300 Balance 1098 -300 Weight 73 kg Intake: Intake, IV Titration 20 Amount Sodium Chloride 0.9% 1, 20 000 ml @ 20 mls/hr IV . Q24H [facility] Rx#:[id number] Oral 1078 Output: Urine 300 Other: Voiding Method Toilet Toilet # Voids 3 2 1 - Exam Patient is lying in the bed comfortably, no acute distress, awake alert and oriented.. HEENT: Normocephalic. Neck is supple. Pupils reactive. Nostrils clear. Oral cavity is moist. Ears reveal no drainage. Neck reveals no JVD, carotid bruits, or thyromegaly. CHEST EXAMINATION: Trachea is central. Symmetrical expansion. Left basilar crackles positive. No wheezing CARDIAC: Normal S1, S2 with no gallops. No murmurs ABDOMEN: Soft. Increased abdominal girth. Bowel sounds normal. No organomegaly. No abdominal bruits. Extremities: 1+ edema. No clubbing or cyanosis Neurologically awake, alert, oriented x3 with well-coordinated movements. Skin: no rash or skin lesions Musculoskeletal: no joint swelling or deformity. - Labs CBC & Chem 7: 04/13/17 06:23 04/13/17 06:23 Labs: Abnormal Lab Results - Last 24 Hours (Table) 04/13/17 04/13/17 04/13/17 Range/Units 02:39 06:23 06:23 PT 35.2 H (9.0-12.0) sec INR 3.6 H (<1.2) Chloride 95 L (98-107) mmol/L Carbon Dioxide 32 H (22-30) mmol/L BUN 21 H (7-17) mg/dL Creatinine 1.24 H (0.52-1.04) mg/dL Troponin I 0.061 H* (0.000-0.034) ng/mL Assessment and Plan Plan: #1 acute on chronic CHF with systolic dysfunction ejection fraction 20% #2 nonischemic cardiomyopathy status post ACD placement #3 paroxysmal atrial fibrillation on anticoagulation with Coumadin #4 coumadin coagulopathy with INR level 4.5--3.6 #5 elevated troponin level. Possible demand mismatch #6 GERD #7 mild hypervolemic hyponatremia. Improved Plan: Patient will be continued on Lasix 40 mg every 12 hourly. Continue with digoxin. Continue with atenolol and losartan with blood pressure parameters. Continue telemetry monitoring and follow closely. Cardiology has been consulted. I did discuss with her at bedside in detail. Further recommendations based on the clinical course..
--- NOTE | 2017-04-14 22:15 | P.PN ---
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 Thomas as an outpatient To the hospital with complaints of short of breath worsening for the past 2 days and exertional dyspnea. Patient states that she does have increased abdominal girth and weight gain about 7 pounds. Patient also had mild leg swelling as well. Patient does have a wet cough without sputum production. Patient felt congested. No fever no chills. No compressive chest pain. Patient called Dr. Thomas's office and was recommended to come to ER. Patient says that she does take Lasix 20 mg daily and did increase last couple of days to up to 40 mg without improvement in symptoms. Patient says that she did follow with [facility] recently and was started back on digoxin. No re ent travel or sick contacts at home. Chest x-ray showed cardiomegaly, bibasilar air space disease and small left pleural effusion EKG in sinus rhythm Troponin 0.067 and INR 4.5 BMP 4520 WBC 5.4, hemoglobin 13.7 BUN 14 creatinine 1.14 04/13/2017 Patient's breathing status slightly improved. Continues to be on IV diuresis. No complaints of chest pain. No leg swelling., No nausea vomiting or abdominal pain. No other acute overnight issues. 04/14/2017 Patient's breathing status much improved today. No complaints of chest pain or worsening short of breath. No acute overnight issues. Objective - Vital Signs Vital signs: Vital Signs Temp 96.6 F L 04/14/17 19:48 Pulse 69 04/14/17 19:48 Resp 18 04/14/17 19:48 BP 121/66 04/14/17 19:48 Pulse Ox 97 04/14/17 19:48 Intake & Output 04/14/17 04/14/17 04/15/17 06:59 18:59 06:59 Intake Total 160 400 Output Total 700 800 Balance -540 -400 Weight 72.8 kg 72.8 kg Intake: Intake, IV Titration 160 Amount Sodium Chloride 0.9% 1, 160 000 ml @ 20 mls/hr IV . Q24H [facility] Rx#:[id number] Oral 400 Output: Urine 700 800 Other: Voiding Method Toilet Toilet Toilet # Voids 1 1 - Exam Patient is lying in the bed comfortably, no acute distress, awake alert and oriented.. HEENT: Normocephalic. Neck is supple. Pupils reactive. Nostrils clear. Oral cavity is moist. Ears reveal no drainage. Neck reveals no JVD, carotid bruits, or thyromegaly. CHEST EXAMINATION: Trachea is central. Symmetrical expansion. Minimal Left basilar crackles positive. No wheezing CARDIAC: Normal S1, S2 with no gallops. No murmurs ABDOMEN: Soft. Increased abdominal girth. Bowel sounds normal. No organomegaly. No abdominal bruits. Extremities: 1+ edema. No clubbing or cyanosis Neurologically awake, alert, oriented x3 with well-coordinated movements. Skin: no rash or skin lesions Musculoskeletal: no joint swelling or deformity. - Labs CBC & Chem 7: 04/13/17 06:23 04/13/17 06:23 Assessment and Plan Plan: #1 acute on chronic CHF with systolic dysfunction ejection fraction 20% #2 nonischemic cardiomyopathy status post ACD placement #3 paroxysmal atrial fibrillation on anticoagulation with Coumadin #4 coumadin coagulopathy with INR level 4.5--3.6 #5 elevated troponin level. Possible demand mismatch #6 GERD #7 mild hypervolemic hyponatremia. Improved Plan: Patient will be continued on Lasix 40 mg every 12 hourly. Continue with digoxin. Continue with atenolol and losartan with blood pressure parameters. Continue telemetry monitoring and follow closely. Cardiology has been consulted. I did discuss with her at bedside in detail. Further recommendations based on the clinical course..
[2017-04-14] MEDS: SENNOSIDES 8.6 MG TAB PO PRN (23:40)
[2017-04-15 06:10] LABS: Basophils % (A) 1 %; CH 29.6; CHCM 32.1; Eosinophils # (A) 0.1 k/uL (0-0.7); Eosinophils % (A) 1 %; HDW 2.65; HGB 14.4 gm/dL (11.4-16.0); Luc # (Auto) 0.13; Luc % (Auto) 2; Lymphocytes # (A) 1.3 k/uL (1.0-4.8); Lymphocytes % (A) 23 %; MCH 30.9 pg (25.0-35.0); MCHC 33.3 g/dL (31.0-37.0); MCV 92.6 fL (80.0-100.0); Mean Platelet Volume 7.7; Monocytes # (A) 0.4 k/uL (0-1.0); Monocytes % (A) 6 %; Neutrophils % (A) 67 %; RBC 4.65 m/uL (3.80-5.40); RDW 14.5 % (11.5-15.5); WBC 5.9 k/uL (3.8-10.6); WBC (Perox) 6.04
[2017-04-15 06:15] LABS: INR 2.4 (<1.2)
[2017-04-15 06:19] LABS: Calcium 9.8 mg/dL (8.4-10.2); Magnesium 1.6 mg/dL (1.6-2.3); Potassium 4.2 mmol/L (3.5-5.1)
[2017-04-15] MEDS: FUROSEMIDE 10 MG/ML 4 ML VIAL IV SCH (06:28)
[2017-04-15] MEDS: LACTOBACILLUS ACIDOPH & BULGAR 1 EACH PACKET PO SCH (06:29)
[2017-04-15] MEDS: PANTOPRAZOLE 40 MG TABLET PO SCH (06:29)
[2017-04-15 08:45] VITALS: RESP 16
[2017-04-15] MEDS: NITROGLYCERIN OINT 1 INCH/GM PACKET TOPICAL SCH ×2 (08:51→10:47)
[2017-04-15] MEDS: PRAVASTATIN SODIUM 20 MG TAB PO SCH (08:54)
[2017-04-15] MEDS: ATENOLOL 25 MG TAB PO SCH (08:54)
[2017-04-15] MEDS: DIGOXIN 125 MCG TAB PO SCH (08:54)
[2017-04-15] MEDS: LOSARTAN 25 MG TAB PO SCH (08:54)
[2017-04-15] MEDS: DOCUSATE 100 MG CAP PO SCH (08:54)
[2017-04-15] MEDS: ASPIRIN 81 MG PO SCH (08:54)
[2017-04-15] MEDS: SPIRONOLACTONE 25 MG TAB PO SCH (08:55)
[2017-04-15] MEDS: NYSTATIN 100,000 UNIT/GM POWD 15 GM TOPICAL SCH (08:55)
[2017-04-15] MEDS: SENNOSIDES 8.6 MG TAB PO PRN (09:59)
--- NOTE | 2017-04-15 10:15 | XR ---
EXAMINATION TYPE: XR chest 2V DATE OF EXAM: 04/15/2017 COMPARISON: 04/12/2017 HISTORY: Shortness of breath TECHNIQUE: Frontal and lateral views of the chest are obtained. FINDINGS: Scattered senescent parenchymal changes noted. Hyperinflation compatible with COPD. Chronic elevation right hemidiaphragm. No evidence for infiltrate. No evidence for atelectasis. Small left-sided pleural effusion. Heart size is stable. Mediastinal structures are stable and grossly unremarkable. No evidence for hilar prominence. Degenerative changes dorsal spine. IMPRESSION: 1. Small left-sided pleural effusion with cardiomegaly. No evidence for overt failure at this time.
--- NOTE | 2017-04-15 10:30 | P.PN ---
Subjective Principal diagnosis: CHF This is an 86-year-old female who follows with Dr. Thomas in the office. She has a known history of paroxysmal atrial fibrillation, hyperlipidemia, prior myocardial infarction, prior AICD implant, nonischemic cardiomyopathy hypertension, who presented to the hospital with symptoms of progressively worsening shortness of breath. BNP came back to be elevated and chest x-ray revealed a left-sided pleural effusion. Patient was initiated on IV Lasix. Her weight is down 1 kg today, creatinine 1.2, INR 3.6. Patient states she still feels mildly short of breath, did not sleep well last night. Peripheral edema is improving. 04/15/2017 Patient seen and examined this morning, complaining of feeling mildly constipated, states that her breathing is improving and edema is improving. INR today 2.4, BUN 21, creatinine 1.2, potassium 4.2, magnesium level I.6 today. Her weight is unchanged, although patient states that she's been putting out adequate amounts of urine. Objective - Vital Signs Vital signs: Vital Signs Temp 97.1 F L 04/15/17 08:00 Pulse 70 04/15/17 08:00 Resp 16 04/15/17 08:00 BP 119/71 04/15/17 08:00 Pulse Ox 97 04/15/17 08:00 Intake & Output 04/14/17 04/15/17 04/15/17 18:59 06:59 18:59 Intake Total 400 120 Output Total 800 950 400 Balance -400 -950 -280 Weight 72.8 kg 72.7 kg Intake: Oral 400 120 Output: Urine 800 950 400 Other: Voiding Method Toilet Toilet # Voids 1 1 - Exam PHYSICAL EXAMINATION: HEENT: Head is atraumatic, normocephalic. Pupils equal, round. Neck is supple. There is no elevated jugular venous pressure. HEART EXAMINATION: Heart S1, S2 normal. No murmur or gallop heard. CHEST EXAMINATION: Lungs are clear with fine crackles to the bases . No chest wall tenderness is noted on palpation or with deep breathing. ABDOMEN: Soft, nontender. Bowel sounds are heard. No organomegaly noted. EXTREMITIES: 2+ peripheral pulses with trace evidence of peripheral edema and no calf tenderness noted. NEUROLOGIC patient is awake, alert and oriented -3. . - Labs CBC & Chem 7: 04/15/17 05:40 04/15/17 05:40 Labs: Abnormal Lab Results - Last 24 Hours (Table) 04/15/17 04/15/17 Range/Units 05:40 05:40 PT 23.0 H (9.0-12.0) sec INR 2.4 H (<1.2) Sodium 134 L (137-145) mmol/L Chloride 94 L (98-107) mmol/L BUN 21 H (7-17) mg/dL Creatinine 1.20 H (0.52-1.04) mg/dL Glucose 117 H (74-99) mg/dL Assessment and Plan (1) Systolic and diastolic CHF, acute on chronic Status: Acute (2) NICM (nonischemic cardiomyopathy) Status: Acute (3) AICD (automatic cardioverter/defibrillator) present Status: Acute (4) HTN (hypertension) Status: Acute (5) Hyperlipemia Status: Acute (6) GERD (gastroesophageal reflux disease) Status: Acute (7) Pleural effusion Status: Acute Plan: From cardiology's perspective, we'll discontinue the patient's IV Lasix and start her on oral diuretics today. Repeat chest x-ray performed today does not reveal any evidence of failure, small left pleural effusion noted. She may be able to be discharged from cardiology's perspective, we will increase her home dose of Lasix to 40 mg twice a day and consider the addition of Zaroxolyn twice weekly at home. A follow-up appointment will be made in the office with Dr. Thomas post discharge. DNP note has been reviewed, I agree with a documented findings and plan of care. Patient was seen and examined.
[2017-04-15 11:12] VITALS: BP 123/78; PULSE 69; TEMP 97
[2017-04-15] MEDS: CHOLECALCIFEROL 1,000 UNIT TAB PO SCH (11:13)
[2017-04-15] MEDS ORDERED: FUROSEMIDE 40 MG TAB PO SCH (16:00)
--- NOTE | 2017-04-15 21:51 | P.DS ---
Providers Date of admission: 04/12/17 14:24 Expected date of discharge: 04/15/17 Attending physician: Myron Shaw Consults: 04/12/17 14:20 Consult Physician Routine Consulting Provider: Syd Isbell Consult Reason/Comments: CHF, elevated troponin Do you want consulting provider notified?: Yes Primary care physician: [place] [facility] Course: Discharge diagnosis: #1 acute on chronic CHF with systolic dysfunction ejection fraction 20% #2 nonischemic cardiomyopathy status post ACD placement #3 paroxysmal atrial fibrillation on anticoagulation with Coumadin #4 coumadin coagulopathy with INR level 4.5--3.6 #5 elevated troponin level. Possible demand mismatch #6 GERD #7 mild hypervolemic hyponatremia. 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 Thomas as an outpatient To the hospital with complaints of short of breath worsening for the past 2 days and exertional dyspnea. Patient states that she does have increased abdominal girth and weight gain about 7 pounds. Patient also had mild leg swelling as well. Patient does have a wet cough without sputum production. Patient felt congested. No fever no chills. No compressive chest pain. Patient called Dr. Thomas's office and was recommended to come to ER. Patient says that she does take Lasix 20 mg daily and did increase last couple of days to up to 40 mg without improvement in symptoms. Patient says that she did follow with [facility] recently and was started back on digoxin. No re ent travel or sick contacts at home. Chest x-ray showed cardiomegaly, bibasilar air space disease and small left pleural effusion EKG in sinus rhythm Troponin 0.067 and INR 4.5 BMP 4520 WBC 5.4, hemoglobin 13.7 BUN 14 creatinine 1.14 04/13/2017 Patient's breathing status slightly improved. Continues to be on IV diuresis. No complaints of chest pain. No leg swelling., No nausea vomiting or abdominal pain. No other acute overnight issues. 04/14/2017 Patient's breathing status much improved today. No complaints of chest pain or worsening short of breath. No acute overnight issues. 04/15/2017 Patient's breathing status much improved. Lasix has been changed to 40 mg twice a day, increased from 20 mg twice a day which she is taking at home. Zaroxolyn has been added. No fever no chills no chest pain. Patient is being discharged home today. Discussed with her at bedside in detail. Patient is lying in the bed comfortably, no acute distress, awake alert and oriented.. HEENT: Normocephalic. Neck is supple. Pupils reactive. Nostrils clear. Oral cavity is moist. Ears reveal no drainage. Neck reveals no JVD, carotid bruits, or thyromegaly. CHEST EXAMINATION: Trachea is central. Symmetrical expansion. Minimal Left basilar crackles positive. No wheezing CARDIAC: Normal S1, S2 with no gallops. No murmurs ABDOMEN: Soft. Increased abdominal girth. Bowel sounds normal. No organomegaly. No abdominal bruits. Extremities: 1+ edema. No clubbing or cyanosis Neurologically awake, alert, oriented x3 with well-coordinated movements. Skin: no rash or skin lesions Musculoskeletal: no joint swelling or deformity. Time taken greater than 35 minutes including 18 minutes for counseling and coordination of care Patient Condition at Discharge: Stable Plan - Discharge Summary New Discharge Prescriptions: New Metolazone [Zaroxolyn] 2.5 mg PO MOTH #60 tab Furosemide [Lasix] 40 mg PO BID@0900,1600 #60 tab Continue Aspirin EC [Ecotrin Low Dose] 81 mg PO DAILY Warfarin [Coumadin] 4 mg PO PC-SUPPER Spironolactone 12.5 mg PO DAILY Pravastatin Sodium [Pravachol] 5 mg PO DAILY Losartan [Cozaar] 25 mg PO BID Atenolol 25 mg PO BID LORazepam [Ativan] 1 mg PO HS PRN PRN Reason: Insomnia Omeprazole 20 mg PO AC-BRKFST Digoxin [Lanoxin] 62.5 mcg PO DAILY Miconazole Nitrate [Lotrimin AF Powder] 1 applic TOPICAL BID Cholecalciferol [Vitamin D3] 1,000 unit PO DAILY Lactobacillus Acidophilus [Acidophilus] 1 tab PO BID Melatonin 2 mg PO HS PRN PRN Reason: Insomnia Discontinued Furosemide [Lasix] 20 mg PO BID Discharge Medication List Aspirin EC [Ecotrin Low Dose] 81 mg PO DAILY 12/19/16 [History] Atenolol 25 mg PO BID 12/19/16 [History] LORazepam [Ativan] 1 mg PO HS PRN 12/19/16 [History] Losartan [Cozaar] 25 mg PO BID 12/19/16 [History] Pravastatin Sodium [Pravachol] 5 mg PO DAILY 12/19/16 [History] Spironolactone 12.5 mg PO DAILY 12/19/16 [History] Warfarin [Coumadin] 4 mg PO PC-SUPPER 12/19/16 [History] Omeprazole 20 mg PO AC-BRKFST 01/13/17 [History] Cholecalciferol [Vitamin D3] 1,000 unit PO DAILY 04/12/17 [History] Digoxin [Lanoxin] 62.5 mcg PO DAILY 04/12/17 [History] Lactobacillus Acidophilus [Acidophilus] 1 tab PO BID 04/12/17 [History] Melatonin 2 mg PO HS PRN 04/12/17 [History] Miconazole Nitrate [Lotrimin AF Powder] 1 applic TOPICAL BID 04/12/17 [History] Furosemide [Lasix] 40 mg PO BID@0900,1600 #60 tab 04/15/17 [Rx] Metolazone [Zaroxolyn] 2.5 mg PO MOTH #60 tab 04/15/17 [Rx] Follow up Appointment(s)/Referral(s): Syd Isbell MD [STAFF PHYSICIAN] - 04/25/17 4:15 pm (appointment was previously scheduled) César Reich DO [Primary Care Provider] - 1-2 days (PLEASE CALL TO MAKE APPOINTMENT. OFFICE IS CLOSED) [facility] Visiting Nurse, [NON-STAFF] - Patient Instructions/Handouts: Heart Failure (DC) Discharge Disposition: HOME WITH HOME HEALTH SERVICES
[2017-04-17] MEDS ORDERED: METOLAZONE 5 MG TAB PO SCH (09:00)
== END 2017-04-15 14:41 | disposition home health service (06) | DRG 292 ==
LOC: EC 10:37 → SUPCPDRO 10:37 → 6SEL 14:24
PROVIDERS: ADMIT Internal Medicine; ATTEND Internal Medicine
DX: I11.0 Hypertensive heart disease with heart failure (principal); E87.1 Hypo-osmolality and hyponatremia; I42.9 Cardiomyopathy, unspecified; I48.0 Paroxysmal atrial fibrillation; I50.23 Acute on chronic systolic (congestive) heart failure; M19.91 Primary osteoarthritis, unspecified site; K21.9 Gastro-esophageal reflux disease without esophagitis; R79.1 Abnormal coagulation profile; K59.00 Constipation, unspecified; K44.9 Diaphragmatic hernia without obstruction or gangrene; E78.5 Hyperlipidemia, unspecified; F41.9 Anxiety disorder, unspecified; I25.2 Old myocardial infarction; I25.10 Atherosclerotic heart disease of native coronary artery without angina pectoris; M81.0 Age-related osteoporosis without current pathological fracture; T45.515A Adverse effect of anticoagulants, initial encounter; Z79.899 Other long term (current) drug therapy; Z79.82 Long term (current) use of aspirin; Z79.01 Long term (current) use of anticoagulants; Z87.891 Personal history of nicotine dependence; Z90.49 Acquired absence of other specified parts of digestive tract; Z90.710 Acquired absence of both cervix and uterus; Z96.652 Presence of left artificial knee joint; Z87.11 Personal history of peptic ulcer disease; Z95.810 Presence of automatic (implantable) cardiac defibrillator; Z88.1 Allergy status to other antibiotic agents; Z91.041 Radiographic dye allergy status; Z88.5 Allergy status to narcotic agent; Z88.0 Allergy status to penicillin; Z91.013 Allergy to seafood; Z88.8 Allergy status to other drugs, medicaments and biological substances; Z91.018 Allergy to other foods
CPT/HCPCS: 36415; 71020; 80048; 80053; 82550; 82553; 83735; 83880; 84484; 85025; 85610; 85730; 93005; 94640; 94760; 96374; 99291